=== PATIENT | male | born 1950 | race Caucasian/White ===

== ENCOUNTER 2024-10-26 14:21 | Emergency (ER) | payer MEDICARE, MEDICAID, SELFPAY ==
[2024-10-26] VITALS (8 sets, daily range): BP systolic 104–178; BP diastolic 47–79; PULSE 73–79; RESP 12–20; TEMP 36.3–36.9; O2SAT 94–99; BMI 25.0
--- NOTE | 2024-10-26 14:48 | PD.EDRECHK ---
ED Recheck Abnl Lab Rx-RME/HPI General Chief Complaint: Recheck/Abnormal Lab/Rx Stated Complaint: HGB 6.6 Time Seen by Provider: 10/26/24 14:27 Arrival date/time: 10/26/24 14:21 RME / HPI RME / HPI narrative: 74-year-old male patient with significant history of hypertension end-stage renal disease, on hemodialysis MWF, was sent to us from hemodialysis today for hemoglobin of 6.6. Patient told me that he is needing blood transfusion. He had a blood transfusion in the past. Currently denying vomiting blood or blood in the stool or changes to color of the stool. Denies any complaints also patient is ambulatory. Related Data Home Medications ?Medication ?Instructions ?Recorded ?Confirmed HYDROCODONE BIT/ACETAMINOPHEN 1 tab PO Q6HR ##0 07/04/14 04/18/23 (HYDROCODON-ACETAMINOPH 2.5-325) Levothyroxine * (SYNTHROID *) 75 mcg PO QDAY #0 tabs 07/04/14 04/18/23 pantoprazole 40 mg tablet,delayed 40 mg PO QDAY ##0 07/04/14 04/18/23 release (Protonix) zolpidem 10 mg tablet (Ambien) 10 mg PO HS #0 tabs 07/04/14 04/18/23 duloxetine 60 mg capsule,delayed 80 mg PO QDAY #0 caps 03/22/15 04/18/23 release (Cymbalta) gabapentin 300 mg capsule 400 mg PO TID #0 caps 12/14/16 04/18/23 hydrocodone 5 mg-acetaminophen 325 1 tab PO Q6H PRN Pain 04/18/23 04/18/23 mg tablet sevelamer carbonate 800 mg tablet 800 mg PO TID 04/18/23 04/18/23 (Renvela) Allergies Allergy/AdvReac Type Severity Reaction Status Date / Time No Known Allergies Allergy Verified 04/18/23 11:50 Review of Systems Review of Systems Narrative Review of Systems: Review of system reviewed and within normal limits except mentioned in HPI ED Exam Narrative Physical exam: VITAL SIGNS: Reviewed. GENERAL APPEARANCE: Alert and interactive, follows commands, no acute distress, HEAD AND FACE: Non-traumatic. ENT: PERRL, pale conjunctiva, eyelid no trauma, Mucous membrane moist. NECK: Supple, nontender, no nuchal rigidity. CHEST: No tenderness, no crepitus, no paradoxical movement, no retractions. LUNGS: Clear, well ventilated, symmetric, no rales, no wheezing, no ronchi, no stridor, good breath sounds bilaterally. HEART: Regular rate, regular rhythm, no murmur, no gallops. ABDOMEN: Soft, positive bowel sounds, nondistended, no guarding, nontender, no rebound, no masses, RECTAL: Deferred. GENITAL: Deferred. NEUROLOGICAL: Gross motor function intact sensory function intact, Appropriate for age. MUSCULOSKELETAL: low back nontender, full range of motion. EXTREMITIES: Left forearm AV fistula with thrill, nontender, full range of motion. SKIN: Color pale, dry, no rash, no lacerations, no abrasions, no contusions. LYMPHATICS: Deferred. Course Quality Measures none Orders Category Date Time Status Transfuse,blood/blood products ONCE Care 10/26/24 14:47 Active CBC [CBC] Stat Lab 10/26/24 15:00 Completed CMP [Comprehensive Metabolic Panel] Stat Lab 10/26/24 15:00 Completed PTT [Partial Thromboplastin Time] Stat Lab 10/26/24 15:00 Completed Path Review Blood Smear Stat Lab 10/26/24 15:00 Completed Type and Screen Stat Lab 10/26/24 15:00 Completed prbc [Red Blood Cells] Stat Lab 10/26/24 15:00 Completed Vital Signs Vital signs: Vital Signs Temperature 98.0 F 10/26/24 14:40 Pulse Rate 76 10/26/24 14:40 Respiratory Rate 18 10/26/24 14:40 Blood Pressure 104/47 L 10/26/24 14:40 Pulse Oximetry (%) 95 10/26/24 14:40 Oxygen Delivery Method Room Air 10/26/24 14:40 Recheck / Abnormal Lab / Rx MDM Narrative MDM Narrative:: 74-year-old male patient with significant history of hypertension end-stage renal disease, on hemodialysis MWF, was sent to us from hemodialysis today for hemoglobin of 6.6. Patient told me that he is needing blood transfusion. He had a blood transfusion in the past. Currently denying vomiting blood or blood in the stool or changes to color of the stool. Denies any complaints also patient is ambulatory. Patient's hemoglobin today was noted to be 6.7, hematocrit of 21. Normal creatinine 2.9 potassium is normal Received 2 units of packed RBC in the emergency room. Patient tolerated the procedure well . Patient appears nontoxic and hemodynamically stable. Patient discharged home and instructed to follow-up with primary care provider in 24 to 48 hours. Instructed to return to the emergency department immediately if worsening of symptoms Patient data External records reviewed:: None Clinical information provided by:: patient Social determinants that could affect healthcare access:: none Patient has the following chronic illnesses:: ESRD How is presenting disease/condition affected by chronic disease/condition?: exacerbated by Evaluation data The following diagnostics were reviewed and interpreted by me:: lab results Lab and/or radiology exams considered but not ordered:: None Interpretation Summary: See results in MDM Medications / Prescriptions Medications or Prescriptions considered but not ordered:: None Medication administrations:: None Consultations Consultation(s) initiated? (list below): No Diagnosis Recheck Differential Diagnosis: other (Iron deficiency anemia, anemia of chronic disease, ESRD) Most likely diagnosis given after review of the tests above:: Anemia of chronic disease Admission Indicated Admission indicated?: not indicated Admission Request Was there a request for admission?: No Disposition Plan Disposition Plan: Discharge Discharge Attestation Discharge Attestation: The patient was given an opportunity to ask questions and understood the discharge instructions. Discharge instructions specifically effects, indications for sooner follow up or return to the emergency department, and the expected course of current diagnosis. Patient condition: Stable Discharge Plan Plan Patient Disposition: HOME (Self Care) Disposition Comment: Stable Prescriptions/Referrals Prescriptions/Med Rec: No Action pantoprazole [Protonix] 40 MG tablet,delayed release (DR/EC) 40 mg PO QDAY Qty: 0 Patient Comments: TO SUPPRESS GASTRIC SECRETIONS zolpidem [Ambien] 10 MG tablet 10 mg PO HS Qty: 0 HYDROCODONE BIT/ACETAMINOPHEN (HYDROCODON-ACETAMINOPH 2.5-325) 1 EACH tablet 1 tab PO Q6HR Qty: 0 Levothyroxine * (SYNTHROID *) 75 MCG tablet 75 mcg PO QDAY Qty: 0 duloxetine [Cymbalta] 60 MG capsule,delayed release(DR/EC) 80 mg PO QDAY Qty: 0 gabapentin 300 MG capsule 400 mg PO TID Qty: 0 hydrocodone-acetaminophen 5-325 mg Tablet 1 tab PO Q6H PRN (Reason: Pain) sevelamer carbonate [Renvela] 800 mg Tablet 800 mg PO TID Rx Instructions: must administer with a meal/food Referrals: Wendy Yin PA-C [Primary Care Provider] - In 1 week Problem List Clinical Impression: Anemia, ESRD on dialysis Patient/Caregiver Discharge Instructions Discharge Activity: activity as tolerated Education Materials: Anemia Additional Instructions: Thank you for the opportunity for serving you today. You are stable for discharged . You are advised to: Follow-up with your PCP in 1 to 2 days Return to ED for worsening of symptoms Print Language: Eritrean Stand Alone Forms: Dennise Award Info., Patient Portal Info Letter PA/TRANSCRIBING OPERATOR HEAD Supervising Physician PA/TRANSCRIBING OPERATOR HEAD Supervising Physician: MD Allen
[2024-10-26 15:09] LABS: Basophils % (Auto) 1 % (0-2.5); Eosinophils # (Auto) 0.2 Thou/mm3 (0.0-0.5); Eosinophils % (Auto) 7 % (0-10); Immature Granulocytes % (Auto) 0 % (0-0); Lymphocytes # (Auto) 0.7 Thou/mm3 (1.0-4.8); Lymphocytes % (Auto) 25 % (10-50); Mean Corpuscular HGB Conc 31.9 g/dl (31.0-37.0); Mean Corpuscular Volume 116 fL (80-100); Monocytes # (Auto) 0.4 Thou/mm3 (0.0-0.8); Monocytes % (Auto) 16 % (0-12); Neutrophils # (Auto) 1.4 Thou/mm3 (1.8-7.7); Neutrophils % (Auto) 52 % (37-80); Nucleated Red Blood Cell % 0 /100 WBC (0); Platelet Count 156 Thou/mm3 (140-440); RDW Standard Deviation 77.6 fL (35.1-43.9); Red Blood Count 1.81 Miln/mm3 (4.50-5.90)
[2024-10-26 15:14] LABS: Hemoglobin 6.7 g/dL (13.5-16.0); White Blood Count 2.7 Thou/mm3 (3.8-10.6)
[2024-10-26 15:20] LABS: Partial Thromboplastin Time 27.6 Seconds (22.0-36.0)
[2024-10-26 15:25] LABS: Alanine Aminotransferase 8 U/L (10-49); Albumin, Serum 4.2 gm/dL (3.4-4.8); Alkaline Phosphatase 104 U/L (46-116); Anion Gap 12 (7-16); Aspartate Amino Transferase 13 U/L (0-34); BUN/Creatinine Ratio 4 Ratio (12-20); Bilirubin,Total 0.4 mg/dL (0.3-1.2); Blood Urea Nitrogen 13 mg/dL (9-23); Calcium 8.8 mg/dL (8.3-10.6); Calcium (Corrected) 8.8 mg/dL (8.5-10.1); Carbon Dioxide 29.2 mMol/L (20.0-31.0); Chloride 95 mMol/L (98-107); Creatinine (Component) 2.9 mg/dL (0.6-1.3); Estimated Creatinine Clearance 24.2 mL/min (>60); Globulin 2.1 gm/dL (2.3-3.5); Glucose 149 mg/dL (74-106); Osmolality,Calculated 275 (275-295); Potassium 3.6 mMol/L (3.4-5.1); Sodium 136 mMol/L (136-145); Total Protein 6.3 gm/dL (5.7-8.2); eGFR 22 See Note
[2024-10-26 17:31] LABS: Path Review Blood Smear Sent to Pathologist
== END 2024-10-26 23:47 | disposition home or self-care (01) ==
PROVIDERS: Nurse Practitioner Family; Emergency Provider Emergency Medicine; PCP Physician Assistant
DX: I12.0 Hypertensive chronic kidney disease with stage 5 chronic kidney disease or end stage renal disease (principal); N18.6 End stage renal disease; Z99.2 Dependence on renal dialysis; D63.1 Anemia in chronic kidney disease
CPT/HCPCS: 36415; 36430; 80053; 85025; 85730; 86850; 86900; 86901; 86923; 99285; P9016

== ENCOUNTER → 2024-11-13 | Outpatient (CLI) | payer MEDICARE, MEDICAID, SELFPAY ==
[2024-11-13 16:50] LABS: OBS Card Expiration Date 2026-09; OBS Card Lot # 23001; OBS Performed By LAB; OBS QC OK? Yes
[2024-11-13 18:59] LABS: OBS Developer Lot # 2302; Occult Blood, Stool Negative (Negative); Occult Blood, Stool #2 Negative (Negative); Occult Blood, Stool #3 Negative (Negative)
== END | disposition home or self-care (01) ==
LOC: SLDO 16:25
PROVIDERS: PCP Physician Assistant; Referring Provider Physician Assistant; Visit Provider Physician Assistant
DX: D64.9 Anemia, unspecified (principal)
CPT/HCPCS: 82270

== ENCOUNTER 2024-11-20 14:50 | Inpatient (IN) | payer MEDICARE, MEDICAID, SELFPAY ==
[2024-11-20] VITALS (12 sets, daily range): BP systolic 113–178; BP diastolic 56–82; PULSE 74–87; RESP 18–21; TEMP 36.4–36.7; O2SAT 87–94; BMI 25.0; BMI 28.1
--- NOTE | 2024-11-20 15:06 | EKG_ITS ---
[facility] Test Date: 2024-11-20 Pat Name: JEROMY LYNCH Department: Room: - Gender: Male Vice President Pharmacy: : [id number] Requested By: Jeromy Escalante (AYESHA) Order Number: [id number] Reading MD: Jeromy Escalante (AYESHA) Measurements Intervals [place] Rate: 81 P: 38 ID: [id number] QRS: -3 QRSD: 101 T: 95 QT: 435 QTc: 506 Interpretive Statements SINUS RHYTHM LEFT VENTRICULAR HYPERTROPHY AND ST-T CHANGE [VOLTAGE CRITERIA PLUS ST/T ABNORMALITY] Compared to ECG 04/19/2023 09:15:46 ST (T wave) deviation now present Ventricular premature complex(es) no longer present Intraventricular conduction delay no longer present Prolonged QT interval no longer present /store/S0/[id number]/ecg/[id number].pdf
--- NOTE | 2024-11-20 15:06 | PD.EDRME ---
Rapid Medical Screening Exam RME Arrival date/time: 11/20/24 14:50 74-year-old male ESRD on dialysis presents to the emergency department today complaints of shortness of breath, chest pain and requesting blood transfusion Chief Complaint: Recheck/Abnormal Lab/Rx Time Seen by Provider: 11/20/24 15:00
--- NOTE | 2024-11-20 15:07 | XR_ITS ---
Exam: Chest PA, lateral 2 views Technique: Chest upright PA lateral 2 views Date and time of exam: 11/20/2024, 4:15 PM Indication: shortness of breath COMPARISON: 04/14/2023 Findings: Stable postoperative changes of median sternotomy. Chronic interstitial fibrotic changes. Heart size is normal. No focal mass or infiltrate. Atherosclerotic calcifications in the aorta. No acute bony abnormality. Impression: Chronic changes as above. No acute abnormality.
--- NOTE | 2024-11-20 15:35 | PD.EDADULT ---
ED General RME/HPI General Chief complaint: Recheck/Abnormal Lab/Rx Stated complaint: Referred by PC for Blood transfusion Hbg 6.5 Time Seen by Provider: 11/20/24 15:00 Arrival date/time: 11/20/24 14:50 CC: Anemia HPI patient was contacted by his dialysis center and stated that there his hemoglobin was 6.5. The patient states he has mild weakness but no other acute findings. Patient was curious as he was transfused for 2 units on October 26, approximately 1 month ago, for hemoglobin of the same amount. Patient denies any black tarry stools. Patient states he has been going to regular dialysis Tuesday and Tuesday Dr Little is his printed circuit board designer. Patient denies any chest pain shortness of breath fever chills nausea or vomiting. Patient notes that prior to last month he had not had a transfusion in 6 or 7 years . Patient has no other complaints RME / HPI RME / HPI narrative: 11/20/24 14:50 74-year-old male ESRD on dialysis presents to the emergency department today complaints of shortness of breath, chest pain and requesting blood transfusion Related Data Home Medications ?Medication ?Instructions ?Recorded ?Confirmed HYDROCODONE BIT/ACETAMINOPHEN 1 tab PO Q6HR ##0 07/04/14 04/18/23 (HYDROCODON-ACETAMINOPH 2.5-325) Levothyroxine * (SYNTHROID *) 75 mcg PO QDAY #0 tabs 07/04/14 04/18/23 pantoprazole 40 mg tablet,delayed 40 mg PO QDAY ##0 07/04/14 04/18/23 release (Protonix) zolpidem 10 mg tablet (Ambien) 10 mg PO HS #0 tabs 07/04/14 04/18/23 duloxetine 60 mg capsule,delayed 80 mg PO QDAY #0 caps 03/22/15 04/18/23 release (Cymbalta) gabapentin 300 mg capsule 400 mg PO TID #0 caps 12/14/16 04/18/23 hydrocodone 5 mg-acetaminophen 325 1 tab PO Q6H PRN Pain 04/18/23 04/18/23 mg tablet sevelamer carbonate 800 mg tablet 800 mg PO TID 04/18/23 04/18/23 (Renvela) Allergies Allergy/AdvReac Type Severity Reaction Status Date / Time No Known Allergies Allergy Verified 04/18/23 11:50 Review of Systems Review of Systems Narrative Review of Systems: GEN: No fever, no chills, no weight loss EYES: No discharge, no visual changes, no pain HEENT: No ear pain, no congestion, no sore throat PULM: No shortness of breath, no cough, no congestion CV: No chest pain, no dyspnea on exertion, no palpitations GI: No nausea, no vomiting, no diarrhea, no pain, no constipation : No frequency, no urgency, no dysuria MUSC/SKEL: No joint pain, no back pain SKIN: No rash PSYCH: No hallucinations, no depression HEME/LYMPH: No easy bleeding or bruising tendencies NEURO: +weakness, no headache Past Medical History Past Medical History NEUROLOGIC: Negative Neurological Disorders or Seizures CARDIAC: Positive Cardiac Disorders (CAD, HTN), Angina, Coronary Artery Disease, Hypercholesterolemia and Hypertension; Negative Congestive Heart Failure RESPIRATORY: Negative Chronic Obstructive Pulmonary Disease (COPD) or Asthma GASTROINTESTINAL: Positive Gastrointestinal Disorders and Gastroesophageal Reflux Disease GENITOURINARY: Positive Genitourinary Disorders, Renal Disease and Dialysis (tue, tue, tuesday) MUSCULOSKELETAL: Positive Musculoskeletal Disorders, Arthritis and Degenerative Disk Disease ENT: Positive Cataracts and Deafness; Negative Blind ENDOCRINE: Positive Hypothyroidism; Negative Endocrine Disorders, Diabetes Mellitus Type 1 or Diabetes Mellitus Type 2 HEMATOLOGIC: Positive Blood Disorders and Anemia; Negative Sickle Cell Disease OTHER HISTORY: Positive Blood Transfusions and Measles; Negative Autoimmune Disease or Anesthesia Reactions Family History FAMILY HISTORY: Negative Family Psychiatric Problems, Family Respiratory Disorders, Family Cardiac Disorders, Family Gastrointestinal Problems, Family Cancer, Family Surgery or Family Anesthesia Reaction Surgical History SURGICAL: Positive Cardiac Surgery, Open Heart Surgery, Coronary Artery Bypass Graft, Cardiac Catheterization and Angiogram Social History SMOKING STATUS: Never smoker ED Exam Narrative Physical exam: [General: Not in any acute distress Head normocephalic HEENT: Eyes: Pupils are PERRLA EOMs are intact conjunctiva is blanched. All other subsystems of HEENT are within acceptable limits Neck is supple nontender Chest equal chest rise nontender to palpation Respiratory: Clear to auscultation no wheezes crackles or rubs CV: Rate rhythm is regular no murmurs rubs or clicks Abdomen is soft nontender no masses positive bowel sounds all 4 quadrants Back: No CVA tenderness no spinous process tenderness from cervical spine thoracic and lumbar spine Skin: Intact no petechiae rash induration ulceration or crepitus Extremities: Dialysis fistula in the left arm. Moving all extremity against resistance cap refill less than 2 seconds neurosensory intact Neuro: Awake alert oriented x3 Glascow coma 15 no focal deficits] Course Quality Measures none Orders Category Date Time Status EKG (ED ONLY) *Do not use* NOW Care 11/20/24 15:06 Completed Insert IV NOW Care 11/20/24 15:01 Active Transfuse,blood/blood products NOW Care 11/20/24 16:[address] abdomen pelvis wo con Stat Exams 11/20/24 15:39 Completed EKG (ED Only) Stat Exams 11/20/24 15:06 Draft XR chest 2V Stat Exams 11/20/24 15:07 Completed CBC Stat Lab 11/20/24 15:25 Completed Comprehensive Metabolic Panel Stat Lab 11/20/24 15:25 Completed Partial Thromboplastin Time Stat Lab 11/20/24 15:25 Completed Prothrombin Time with INR Stat Lab 11/20/24 15:25 Completed Troponin I Stat Lab 11/20/24 15:25 Completed Type and Screen Stat Lab 11/20/24 15:25 Results prbc [Red Blood Cells] Stat Lab 11/20/24 15:25 Results Vital Signs Vital signs: Vital Signs Temperature 97.6 F 11/20/24 15:06 Pulse Rate 86 11/20/24 15:06 Respiratory Rate 18 11/20/24 15:06 Blood Pressure 113/56 L 11/20/24 15:06 Pulse Oximetry (%) 92 L 11/20/24 15:06 Oxygen Delivery Method Room Air 11/20/24 15:06 [facility] Patient data External records reviewed:: [facility] previous records Clinical information provided by:: patient Social determinants that could affect healthcare access:: none Patient has the following chronic illnesses:: ESRD dialysis hypothyroidism How is presenting disease/condition affected by chronic disease/condition?: uneffected by Evaluation data The following diagnostics were reviewed and interpreted by me:: lab results and radiology exam(s) Lab and/or radiology exams considered but not ordered:: EKG performed at 1545 shows a ventricular rate of 79 MI interval 196 QRS of 102 QTc of 485 sinus rhythm CBC shows leukopenia with anemia hemoglobin at 6.6 hematocrit of 20.6 platelets at 148 Coags within acceptable limits Sodium is 141 potassium of 4.4 chloride of 102 carbon oxide of 27.4 gap of 12 BUN of 30 creatinine 5.2 glucose of 111. No transaminitis or T. bili elevation. Troponin is negative CT shows a mildly thickened gallbladder wall, but no other acute finding requires emergent or immediate intervention. Interpretation Summary: Patient's case has raised him issues as he has had a second transfusion in 30 days secondary to dropping hemoglobin. Review of his medical records show that he had a colonoscopy performed in March 2023 that showed a necrotic mass in the rectum that insufficient sample and on the pathology report it was recommended for repeat biopsy this was never performed. Patient's case clinical presentation laboratory results and imaging discussed with Dr. Deluca who agrees to consult on this patient for admission for emergent colonoscopy secondary to the accelerated anemia. Patient is in agreement with this plan. Discussed the case with Dr. Little, the printed circuit board designer, who agrees to arrange in-house dialysis tomorrow. Medications Medications considered but not ordered:: None Medication administrations:: None Consultations Consultation(s) initiated? (list below): No Diagnosis Differential Diagnosis ED Complaint MDM: Upper GI bleed, lower GI bleed, idiopathic anemia Most likely diagnosis given after review of the tests above:: Anemia ESRD Admission Indicated Admission indicated?: indicated Explain why admission is indicated or not indicated:: Further medical management Admission Request Was there a request for admission?: No Disposition Plan Disposition Plan: Admit Medical Decision Making Differential Diagnosis Differential Diagnosis: Upper GI bleed, lower GI bleed, idiopathic anemia Lab Data 11/20/24 15:25 11/20/24 15:25 Labs: Lab Results 11/20/24 Range/Units 15:25 WBC 2.2 L (3.8-10.6) Thou/mm3 RBC 1.85 L* (4.50-5.90) Miln/mm3 Hgb 6.6 L* (13.5-16.0) g/dL Hct 20.6 L* (41.0-53.0) % MCV 111 H (80-100) fL MCH 35.7 H (25.0-35.0) pg MCHC 32.0 (31.0-37.0) g/dl RDW Std Deviation 90.9 H (35.1-43.9) fL Plt Count 148 (140-440) Thou/mm3 Neut % (Auto) 44 (37-80) % Lymph % (Auto) 30 (10-50) % Real % (Auto) 18 H (0-12) % Eos % (Auto) 8 (0-10) % Baso % (Auto) 1 (0-2.5) % Neut # (Auto) 1.0 L (1.8-7.7) Thou/mm3 Lymph # (Auto) 0.7 L (1.0-4.8) Thou/mm3 Real # (Auto) 0.4 (0.0-0.8) Thou/mm3 Eos # (Auto) 0.2 (0.0-0.5) Thou/mm3 Baso # (Auto) 0.0 (0.0-0.2) Thou/mm3 Immature Gran # (Auto) 0.00 (0.00-0.00) Thou/mm3 Absolute Nucleated RBC 0.00 (0.00-0.00) Thou/mm3 Immature Gran % 0 (0-0) % Nucleated RBC % 0 (0) /100 WBC PT 11.4 (9.0-12.2) Seconds INR 1.0 (0.9-1.3) APTT 27.6 (22.0-36.0) Seconds Sodium 141 (136-145) mMol/L Potassium 4.4 (3.4-5.1) mMol/L Chloride 102 (98-107) mMol/L Carbon Dioxide 27.4 (20.0-31.0) mMol/L Anion Gap 12 (7-16) BUN 30 H (9-23) mg/dL Creatinine 5.2 H* (0.6-1.3) mg/dL Estim Creat Clear Calc 11.9 L (>60) mL/min eGFR 11 L* (60 - ) See Note BUN/Creatinine Ratio 6 L (12-20) Ratio Glucose 111 H (74-106) mg/dL Calculated Osmolality 288 (275-295) Calcium 9.5 (8.3-10.6) mg/dL Corrected Calcium 9.6 (8.5-10.1) mg/dL Total Bilirubin 0.3 (0.3-1.2) mg/dL AST 12 (0-34) U/L ALT 8 L (10-49) U/L Alkaline Phosphatase 103 (46-116) U/L Troponin I < 0.020 (0.0-0.045) ng/mL Total Protein 6.0 (5.7-8.2) gm/dL Albumin 3.9 (3.4-4.8) gm/dL Globulin 2.1 L (2.3-3.5) gm/dL Albumin/Globulin Ratio 1.9 (1.2-2.2) Crossmatch See Detail Blood Bank Wristband ID Yes Discharge Plan Plan Patient Disposition: Other Care w/in Hosp ([facility]) Patient condition on transfer: Stable Prescriptions/Referrals Prescriptions/Med Rec: No Action pantoprazole [Protonix] 40 MG tablet,delayed release (DR/EC) 40 mg PO QDAY Qty: 0 Patient Comments: TO SUPPRESS GASTRIC SECRETIONS zolpidem [Ambien] 10 MG tablet 10 mg PO HS Qty: 0 HYDROCODONE BIT/ACETAMINOPHEN (HYDROCODON-ACETAMINOPH 2.5-325) 1 EACH tablet 1 tab PO Q6HR Qty: 0 Levothyroxine * (SYNTHROID *) 75 MCG tablet 75 mcg PO QDAY Qty: 0 duloxetine [Cymbalta] 60 MG capsule,delayed release(DR/EC) 80 mg PO QDAY Qty: 0 gabapentin 300 MG capsule 400 mg PO TID Qty: 0 hydrocodone-acetaminophen 5-325 mg Tablet 1 tab PO Q6H PRN (Reason: Pain) sevelamer carbonate [Renvela] 800 mg Tablet 800 mg PO TID Rx Instructions: must administer with a meal/food Problem List Clinical Impression: End-stage renal disease (ESRD), Anemia Patient/Caregiver Discharge Instructions Print Language: Slovenian Stand Alone Forms: Work/School Release, Dennise Award Info., Patient Portal Info Letter PA/TUCKER Supervising Physician GIGI/GLASS LAMINATING OPERATOR Supervising Physician: Wellington Reno ENP
--- NOTE | 2024-11-20 15:39 | XR_ITS ---
Examination: CT abdomen and pelvis without contrast. Coronal 3-D reconstructions. Sagittal 2-D reconstructions. Date and time of exam:11/20/2024, 4:00 PM INDICATION: Anemia CTDI: vol (mGy): 8.59 DLP: (mGycm): 537 Technique: Axial images of the abdomen have been obtained, 3 mm slice thickness Intravenous contrast material has not been administered. Low dose protocols were performed. One or more of the following dose reduction techniques were used; automated exposure control, adjustment of the mA and/or KV according to patient size, use of iterative reconstruction technique. Findings: Small left pleural effusion versus effusion with associated basilar atelectasis. Stable subcentimeter gallstone. No evidence of gallbladder wall thickening or pericholecystic fluid. Liver and spleen are unremarkable. Atrophy of the pancreas. Bilateral renal atrophy with stable subcentimeter benign renal cysts. Stable nonobstructing 5 mm right renal calculus. No evidence of free fluid or abdominal masses. Visualized GI tract is unremarkable. Diffuse irregular thickening of the bladder wall to 10 mm in thickness. Bilateral inguinal hernias. Diffuse atherosclerotic calcifications in the aorta. Degenerative changes in the spine. No acute bony abnormality. Enlarged prostate with calcifications Impression Thickening gallbladder wall to 10 mm. Differential diagnosis includes neoplasm versus infection. Direct visualization is recommended.
[2024-11-20 15:48] LABS: Basophils % (Auto) 1 % (0-2.5); Eosinophils # (Auto) 0.2 Thou/mm3 (0.0-0.5); Eosinophils % (Auto) 8 % (0-10); Hematocrit 20.6 % (41.0-53.0); Immature Granulocytes % (Auto) 0 % (0-0); Lymphocytes # (Auto) 0.7 Thou/mm3 (1.0-4.8); Lymphocytes % (Auto) 30 % (10-50); Mean Corpuscular Hemoglobin 35.7 pg (25.0-35.0); Mean Corpuscular Volume 111 fL (80-100); Monocytes # (Auto) 0.4 Thou/mm3 (0.0-0.8); Monocytes % (Auto) 18 % (0-12); Neutrophils % (Auto) 44 % (37-80); Nucleated Red Blood Cell % 0 /100 WBC (0); Platelet Count 148 Thou/mm3 (140-440); RDW Standard Deviation 90.9 fL (35.1-43.9); Red Blood Count 1.85 Miln/mm3 (4.50-5.90)
[2024-11-20 16:04] LABS: White Blood Count 2.2 Thou/mm3 (3.8-10.6)
[2024-11-20 16:06] LABS: Hemoglobin 6.6 g/dL (13.5-16.0)
[2024-11-20 16:09] LABS: Partial Thromboplastin Time 27.6 Seconds (22.0-36.0); Prothrombin Time 11.4 Seconds (9.0-12.2)
[2024-11-20 16:13] LABS: Alanine Aminotransferase 8 U/L (10-49); Albumin, Serum 3.9 gm/dL (3.4-4.8); Albumin/Globulin Ratio 1.9 (1.2-2.2); Alkaline Phosphatase 103 U/L (46-116); Anion Gap 12 (7-16); Aspartate Amino Transferase 12 U/L (0-34); BUN/Creatinine Ratio 6 Ratio (12-20); Bilirubin,Total 0.3 mg/dL (0.3-1.2); Blood Urea Nitrogen 30 mg/dL (9-23); Calcium 9.5 mg/dL (8.3-10.6); Calcium (Corrected) 9.6 mg/dL (8.5-10.1); Carbon Dioxide 27.4 mMol/L (20.0-31.0); Chloride 102 mMol/L (98-107); Creatinine (Component) 5.2 mg/dL (0.6-1.3); Estimated Creatinine Clearance 11.9 mL/min (>60); Globulin 2.1 gm/dL (2.3-3.5); Glucose 111 mg/dL (74-106); Osmolality,Calculated 288 (275-295); Potassium 4.4 mMol/L (3.4-5.1); Sodium 141 mMol/L (136-145); Troponin I < 0.020 ng/mL (0.0-0.045); eGFR 11 See Note
--- NOTE | 2024-11-20 18:00 | ESHP_ITS ---
<Statement entered by Kristen Simmons MD - 11/21/24 14:07> I discussed with and supervised my co-resident involved in the care of this patient. I agree with the assessment and plan as documented above. Patient is a 74 year old male with PMH of abnormal colonoscopy in 2022, HTN, CAD s/p CABg, ESRD on HD who presents to the ER for low hemoglobin from dialysis. Patient asymptomatic, Hb low at 6.6. He was seen earlier this month in the ER for similar problem and was transfused. He denies any olena hematochezia or melena. Colonoscopy in 2022 was done for a rectal mass with inconclusive results, but patient left and never followed up. On physical exam, patient has some bruising on RUE from working on his car. Rectal exam without any protrudting mass. Labs show pancytopenia. GI was called by the ER and recommended EGD/colonoscopy. Patient to be admitted for acute blood loss anemia in the setting of abnormal previous colonoscopy. Will follow up post H/H transfusion and follow up with GI for EGD/colonoscopy. Will also get peripheral blood smear and iron/hemoglobin studies prior to blood transfusion for pancytopenia workup. Kristen Simmons MD PGY-3 Documentation for date of: 11/20/24 HPI History of Present Illness Chief complaint: Fatigue and low hemoglobin History of present illness: 74-year-old male with past medical history of abnormal colonoscopy 2 years ago, CAD status post CABG, hypertension, ESRD HD on M/W/, TIA, GERD, and hypothyroidism was admitted to the hospital on 11/20/2024 after coming to the ED with chief complaints of low hemoglobin upon lab work at his hemodialysis center. Upon assessment patient stated that he was told that he had a low hemoglobin today by his hemodialysis center and he was recommended to come to the ED. Patient stated that he he has been having some low energy as of recently and most likely was due to a low hemoglobin. He was recently also seen in the hospital last month due to similar symptoms. He denies having any bleeding from the rectum, bloody stools, blood in the urine, or bloody emesis. Patient also denies having any abdominal pain and states that his only symptom was feeling a little bit low energy as of recently. Patient stated that he did have a colonoscopy around 2 years ago where he was found to have an abnormal colonoscopy in which they found a mass, but he never followed up on this. He mentioned that this year he had some stool studies done and that they were negative, upon chart review have not found these results. 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 He denies any family history of colon cancer. It was also noted that patient had low leukocyte count since last visit. ED course Initially came in mildly hypotensive and afebrile. Initial labs were relevant for leukopenia (2.2), anemia (Hgb 6.6), and azotemia (BUN 30 and creatinine 5.2). Initial imaging included chest x-ray which showed some chronic fibrotic changes and abdomen/pelvis CT which showed thickening of the gallbladder wall to 10 mm, but no signs of colitis or diverticulitis. PMH: As above Social Hx: Past smoker (1 pack a day for 12.5 years), denies any alcohol or illicit drugs Surgical Hx: CABG, AV fistula, peritoneal dialysis, appendectomy FMH: No history of cancer in the family Medications: Levothyroxine and pantoprazole, does not remember other medications. Review of Systems Review of Systems Narrative Review of Systems: Constitutional: Denies sweats, Denies weight loss/gain, Denies fever, Denies chills, Admits fatigue HEENT: Denies hearing loss, Denies ear pain, Denies postnasal drip, Denies double vision, Denies blurry vision. Respiratory: Denies shortness of breath, Denies cough, Denies wheezing. Cardiovascular: Denies chest pain, Denies palpitations, Denies sudden loss of consciousness. GI: Denies blood in stool, Denies constipation, Denies abdominal pain, Denies difficulty swallowing, Denies nausea or vomit. : Denies urinary incontinence, Denies pain while urinating, Denies increased urinary frequency. MSK: Denies joint pain, Denies joint swelling, Denies numbness. Skin: Denies rash, Denies itching, Denies easy bruising. Neuro: Denies headaches, Denies dizziness, Denies seizures. Past Medical History Past Medical History NEUROLOGIC: Negative Neurological Disorders or Seizures CARDIAC: Positive Cardiac Disorders (CAD, HTN), Angina, Coronary Artery Disease, Hypercholesterolemia and Hypertension; Negative Congestive Heart Failure RESPIRATORY: Negative Chronic Obstructive Pulmonary Disease (COPD) or Asthma GASTROINTESTINAL: Positive Gastrointestinal Disorders and Gastroesophageal Reflux Disease GENITOURINARY: Positive Genitourinary Disorders, Renal Disease and Dialysis (tue, tue, tuesday) MUSCULOSKELETAL: Positive Musculoskeletal Disorders, Arthritis and Degenerative Disk Disease ENT: Positive Cataracts and Deafness; Negative Blind ENDOCRINE: Positive Hypothyroidism; Negative Endocrine Disorders, Diabetes Mellitus Type 1 or Diabetes Mellitus Type 2 HEMATOLOGIC: Positive Blood Disorders and Anemia; Negative Sickle Cell Disease OTHER HISTORY: Positive Blood Transfusions and Measles; Negative Autoimmune Disease or Anesthesia Reactions Family History FAMILY HISTORY: Negative Family Psychiatric Problems, Family Respiratory Disorders, Family Cardiac Disorders, Family Gastrointestinal Problems, Family Cancer, Family Surgery or Family Anesthesia Reaction Surgical History SURGICAL: Positive Cardiac Surgery, Open Heart Surgery, Coronary Artery Bypass Graft, Cardiac Catheterization and Angiogram Social History SMOKING STATUS: Never smoker Exam Vital Signs Temp Pulse Resp BP Pulse Ox O2 Del Method 97.6 F 86 18 113/56 L 92 L Room Air 11/20/24 15:06 11/20/24 15:06 11/20/24 15:06 11/20/24 15:06 11/20/24 15:11/20/24 15:06 Narrative Exam General: A/O x3, no acute distress, well-nourished, well-developed Eyes: PERRL, EOMI. Anicteric, vision grossly intact, conjunctival pallor. Ears: No ear pain, no ear discharge, Hearing grossly intact. Nose: No nasal discharge. Mouth/Throat: Moist mucous membranes, no redness, no lesions. Neck: Neck supple, non-tender, no cervical lymphadenopathy. Lungs: Clear YARIEL to auscultation and percussion, No accessory muscle use. Cardio: Normal S1/S2, regular rhythm, systolic murmur, no JVD or carotid bruits. Abdomen: Soft, non-tender, no palpable masses, peristalsis present, no guarding or rebound. Extremities: Symmetrical, no significant deformities, no peripheral edema , non-tender, peripheral pulses presents. Skin: No rashes, no lesions, warm to touch. Rectal: no mass appreciated Neuro: No focal neurological deficits. Psych: Cooperative, appropriate mood and effect. Results: Labs 11/20/24 15:25 11/20/24 15:25 Labs: Short CBC 11/20/24 Range/Units 15: WBC 2.2 L (3.8-10.6) Thou/mm3 Hgb 6.6 L* (13.5-16.0) g/dL Hct 20.6 L* (41.0-53.0) % Plt Count 148 (140-440) Thou/mm3 BMP 11/20/24 15:25 Sodium 141 Potassium 4.4 Chloride 102 Carbon Dioxide 27.4 BUN 30 H Creatinine 5.2 H* Glucose 111 H Calcium 9.5 Cardiac Enzymes 11/20/24 Range/Units 15:25 Troponin I < 0.020 (0.0-0.045) ng/mL Liver Function 11/20/24 Range/Units 15:25 Total Bilirubin 0.3 (0.3-1.2) mg/dL AST 12 (0-34) U/L ALT 8 L (10-49) U/L Alkaline Phosphatase 103 (46-116) U/L Albumin 3.9 (3.4-4.8) gm/dL Quality Measures Quality Measures none Advance care planning discussed with:: patient Medications Home Medications and Allergies Home Medications ?Medication ?Instructions ?Recorded ?Confirmed ?Type HYDROCODONE BIT/ACETAMINOPHEN 1 tab PO Q6HR ##0 04/18/23 History (HYDROCODON-ACETAMINOPH 2.5-325) Levothyroxine * (SYNTHROID *) 75 mcg PO QDAY #0 tabs 1 04/18/23 History pantoprazole 40 mg tablet,delayed 40 mg PO QDAY ##0 04/18/23 History release (Protonix) zolpidem 10 mg tablet (Ambien) 10 mg PO HS #0 tabs 06/0904/18/23 History duloxetine 60 mg capsule,delayed 80 mg PO QDAY #0 caps 03/22/15 04/18/23 History release (Cymbalta) gabapentin 300 mg capsule 400 mg PO TID #0 caps 04/18/23 History hydrocodone 5 mg-acetaminophen 325 1 tab PO Q6H PRN Pa in 04/18/23 04/18/23 History mg tablet sevelamer carbonate 800 mg tablet 800 mg PO TID 04/18/23 History (Renvela) Allergies Allergy/AdvReac Type Severity Reaction Status Date / Time No Known Allergies Allergy Verified 04/18/23 11:50 Visit Medications Acetaminophen (Acetaminophen 325 Mg Tablet) 650 mg PO Q6H PRN PRN Reason: pain and Fever >100.4 Stop: 12/20/24 17:39 Hydrocodone Bitart/Acetaminophen (Hydrocodone/Apap 5/325 Tablet) 1 tab PO Q4HR PRN PRN Reason: PAIN SCALE 4-6 (Moderate Stop: 11/25/24 17:39 Levothyroxine Sodium (Levothyroxine Sodium 25 Mcg Tablet) 75 mcg PO ACBR RICH Stop: 12/21/24 05:59 Ondansetron HCl (Ondansetron Inj 2 Mg/Ml Inj 2 Ml) 4 mg IV Q6H PRN; Protocol PRN Reason: NAUSEA OR VOMITING Stop: 12/20/24 17:39 Pantoprazole Sodium (Pantoprazole Inj 40 Mg Vial) 40 mg IVP BID RICH Stop: 12/20/24 20:59 Discontinued Medications Polyethylene Glycol/Electrolytes ([place]/Nahco3/Mehdi/Peg (Golytely) 4,000 Ml Btl) 4,000 ml PO X1 ONE Stop: 11/20/24 17:45 Assessment & Plan Plan 74-year-old male with past medical history of abnormal colonoscopy 2 years ago, CAD status post CABG, hypertension, ESRD HD on //, TIA, GERD, and hypothyroidism was admitted to the hospital on 11/20/2024 for symptomatic anemia in the setting of possible GI bleeding given the history of abnormal colonoscopy in the past 2 years. #Symptomatic anemia #GI bleed in the setting of #Abnormal colonoscopy 2 years ago #Leukopenia #Fatigue ?Patient came in from his hemodialysis center after he was found to have low hemoglobin ? Patient has been feeling with low energy as of recently ?Patient had an abnormal colonoscopy 2 years ago but did not follow-up ? Patient came in with WBCs of 2.2 ? Probably patient leukocytes were within normal limits and most recent 1 was on 10/26/2024 which was also low at 2.7 ? DDx lower GI bleed in the setting of abnormal colonoscopy in the past 2 years which could indicate malignancy versus upper GI bleed versus myelodysplastic syndrome Plan: ?Will transfuse PRBC ? Ordered blood smear, reticulocyte count, iron panel, vitamin B-12 and folate ?repeat H&H after transfusion ?started GoLytely prep and clear liquid diet ?Protonix 40 mg twice daily ?GI specialist consulted, appreciate commendations ? Will continue to monitor #ESRD (HD on //) ? Patient is on hemodialysis Wednesdays and Fridays ? Past left AV fistula Plan: ? Avoid nephrotoxic agents ? Renally dose medications ? Nephrology consulted, appreciate commendations ? Will continue monitor #Systolic murmur #Hx of moderate aortic stenosis on echo on 2022 ? Patient on physical exam had a systolic ejection murmur ? DDx includes aortic stenosis which could also be contributing to patient's bleeding in which case would indicate patient could have Heyde syndrome Plan: ? Will order echo #Hypothyroidism ? Restarted patient's levothyroxine #CAD status post CABG ? Patient takes aspirin, will hold for now given possible bleed #Hypertension ? Patient's blood pressure is under control at this time, we will hold off on antihypertensive medication for now #GERD ? Continue Protonix Disposition: Patient admitted to [facility] for Symptomatic anemia, PRBC ordered pending colonoscopy. Diet: Clear liquid GI prophylaxis: protonix DVT prophylaxis: SCDs Code: Full code Case disclosed with Attending Dr. Cotton and My senior Dr. Simmons PGY3. Marcelino Potter PGY1
[2024-11-20 18:41] LABS: Path Review Blood Smear Sent to Pathologist
--- NOTE | 2024-11-20 19:49 | PC.NURSE ---
re med rec- Advised pt to have family bring med bottles from home in a.m.
--- NOTE | 2024-11-20 21:06 | PD.IMCONS ---
HPI Data of Consult Requesting Physician: Brayan Cotton MD Primary Care Provider: Wendy Yin PA-C Consult Narrative Reason for consult: Hemoglobin hematocrit 6.7 and 21.0 History of present illness: 74 years old male came to the emergency room at the request of the dialysis center for a low hemoglobin hematocrit And it was 6.7/21.0 Patient had a similar presentation in the last 30 days requiring blood transfusion He complains of having an abnormal colonoscopy 2 years ago but no report in the chart. He was subsequently admitted after having a discussion with the ER physician interior design assistant Patient denies any history of hematemesis melena or hematochezia Patient does have a history of end-stage renal disease on hemodialysis MWF Coronary artery bypass graft hypothyroidism cc:: cc: Brayan Cotton MD Review of Systems Review of Systems Systems Reviewed: All systems reviewed, normal except as documented Past Medical History Surgical History OTHER SURGICAL HX: As in history of present illness Meds Home Medications and Allergies Home Medications ?Medication ?Instructions ?Recorded ?Confirmed ?Type HYDROCODONE BIT/ACETAMINOPHEN 1 tab PO Q6HR ##0 07/04/14 04/18/23 History (HYDROCODON-ACETAMINOPH 2.5-325) Levothyroxine * (SYNTHROID *) 75 mcg PO QDAY #0 tabs 07/04/14 04/18/23 History pantoprazole 40 mg tablet,delayed 40 mg PO BID ##0 07/04/14 11/20/24 History release (Protonix) duloxetine 60 mg capsule,delayed 80 mg PO QDAY #0 caps 03/22/15 04/18/23 History release (Cymbalta) gabapentin 300 mg capsule 400 mg PO TID #0 caps 12/14/16 11/20/24 History hydrocodone 5 mg-acetaminophen 325 1 tab PO Q6H PRN Pain 04/18/23 04/18/23 History mg tablet sevelamer carbonate 800 mg tablet 800 mg PO TID 04/18/23 04/18/23 History (Renvela) amlodipine 10 mg tablet (Norvasc) 10 mg PO QDAY 11/20/24 11/20/24 History gabapentin 400 mg capsule 400 mg PO TID 11/20/24 11/20/24 History lidocaine 4 % topical cream 1 applic topical BID 11/20/24 11/20/24 History (Anecream) Allergies Allergy/AdvReac Type Severity Reaction Status Date / Time No Known Allergies Allergy Verified 11/20/24 19:40 Exam Vital Signs Temp Pulse Resp BP Pulse Ox O2 Del Method O2 Flow Rate 97.8 F 74 20 162/67 H 92 L Room Air 0 11/20/24 20:45 11/20/24 20:45 11/20/24 20:45 11/20/24 20:45 11/20/24 20:45 11/20/24 20:13 11/20/24 20:45 Constitutional Comments: Chronically ill-appearing Routine Respiratory Exam Comments: Normal to auscultation Routine Abdominal Exam Comments: Soft nontender Results Labs 11/20/24 15:25 11/20/24 15:25 Labs: Short CBC 11/20/24 Range/Units 15:25 WBC 2.2 L (3.8-10.6) Thou/mm3 Hgb 6.6 L* (13.5-16.0) g/dL Hct 20.6 L* (41.0-53.0) % Plt Count 148 (140-440) Thou/mm3 BMP 11/20/24 15:25 Sodium 141 Potassium 4.4 Chloride 102 Carbon Dioxide 27.4 BUN 30 H Creatinine 5.2 H* Glucose 111 H Calcium 9.5 Cardiac Enzymes 11/20/24 Range/Units 15:25 Troponin I < 0.020 (0.0-0.045) ng/mL Liver Function 11/20/24 Range/Units 15:25 Total Bilirubin 0.3 (0.3-1.2) mg/dL AST 12 (0-34) U/L ALT 8 L (10-49) U/L Alkaline Phosphatase 103 (46-116) U/L Albumin 3.9 (3.4-4.8) gm/dL Assessment and Plan Additional Assessment & Plan Additional Plan: # Anemia multifactorial requiring multiple blood transfusions regular basis GI causes of blood loss needs to be ruled out Schedule colonoscopy as well as upper endoscopy GoLytely prep in progress Informed consent obtained Agree with the blood transfusion Other medical problems include # End-stage renal disease on hemodialysis # Coronary artery disease status post CABG # Hypothyroidism Thank you very much for the opportunity to participate in the care of this patient
[2024-11-20] MEDS: NA SU/NAHCO3/KC/PEG (Golytely) 4,000 ML BTL 4000 ML PO (21:08)
[2024-11-20] MEDS: PANTOPRAZOLE INJ 40 MG VIAL IVP (21:08)
--- NOTE | 2024-11-20 21:59 | PC.NURSE ---
88% O2 sat on room air- Applied O2 inh on at 2L/min/nc.
--- NOTE | 2024-11-20 22:13 | PC.NURSE ---
seen and examined by Dr. Deluca with orders made and carried out.
--- NOTE | 2024-11-20 22:22 | PC.NURSE ---
91% O2 sat on 2L/min/nc- Increased to 3L/min.
[2024-11-21] VITALS (34 sets, daily range): BP systolic 96–199; BP diastolic 63–101; PULSE 52–93; RESP 12–21; TEMP 36.3–37.2; O2SAT 92–99
[2024-11-21 04:13] LABS: Basophils % (Auto) 1 % (0-2.5); Eosinophils # (Auto) 0.3 Thou/mm3 (0.0-0.5); Eosinophils % (Auto) 10 % (0-10); Hematocrit 26.2 % (41.0-53.0); Immature Granulocytes % (Auto) 0 % (0-0); Immature Granulocytes Auto 0.01 Thou/mm3 (0.00-0.00); Immature Reticulocyte Fraction 18.3 % (2.3-13.4); Lymphocytes % (Auto) 38 % (10-50); Mean Corpuscular HGB Conc 33.6 g/dl (31.0-37.0); Mean Corpuscular Hemoglobin 35.2 pg (25.0-35.0); Mean Corpuscular Volume 105 fL (80-100); Monocytes # (Auto) 0.4 Thou/mm3 (0.0-0.8); Monocytes % (Auto) 16 % (0-12); Neutrophils # (Auto) 0.9 Thou/mm3 (1.8-7.7); Neutrophils % (Auto) 34 % (37-80); Nucleated Red Blood Cell % 0 /100 WBC (0); Platelet Count 128 Thou/mm3 (140-440); RDW Standard Deviation 87.8 fL (35.1-43.9); Reticulocyte % (Auto) 2.1 % (0.5-1.5); Reticulocyte Absolute Auto 51.5 Biln/L (25.0-75.0); Reticulocyte Hgb Content 35.9 pg (28.0-35.0)
[2024-11-21 04:17] LABS: Hemoglobin 8.8 g/dL (13.5-16.0); White Blood Count 2.6 Thou/mm3 (3.8-10.6)
[2024-11-21 04:29] LABS: Iron 73 mcg/dL (65-175)
[2024-11-21 04:33] LABS: Alanine Aminotransferase 8 U/L (10-49); Albumin, Serum 4.2 gm/dL (3.4-4.8); Albumin/Globulin Ratio 1.9 (1.2-2.2); Alkaline Phosphatase 104 U/L (46-116); Anion Gap 11 (7-16); Aspartate Amino Transferase 14 U/L (0-34); BUN/Creatinine Ratio 6 Ratio (12-20); Bilirubin,Total 0.3 mg/dL (0.3-1.2); Blood Urea Nitrogen 35 mg/dL (9-23); Calcium 9.5 mg/dL (8.3-10.6); Calcium (Corrected) 9.5 mg/dL (8.5-10.1); Carbon Dioxide 28.7 mMol/L (20.0-31.0); Chloride 100 mMol/L (98-107); Creatinine (Component) 5.4 mg/dL (0.6-1.3); Estimated Creatinine Clearance 12.5 mL/min (>60); Globulin 2.2 gm/dL (2.3-3.5); Glucose 94 mg/dL (74-106); Magnesium 2.4 mg/dL (1.6-2.6); Osmolality,Calculated 287 (275-295); Potassium 4.7 mMol/L (3.4-5.1); Sodium 140 mMol/L (136-145); Thyroid Stimulating Hormone 4.12 uIU/mL (0.55-4.78); Total Protein 6.4 gm/dL (5.7-8.2); eGFR 10 See Note
[2024-11-21 04:38] LABS: Folate 5.46 ng/mL (>5.38); Vitamin B12 > 2000 pg/mL (211-911)
[2024-11-21 04:45] LABS: Ferritin 1044 ng/mL (10.5-307.3); Percent Iron Saturation 54 % (20-55); Total Iron Binding Capacity 135 mcg/dL (250-425); Unsaturated Iron Binding 62 (225-295)
[2024-11-21] MEDS: LEVOTHYROXINE SODIUM 25 MCG TABLET 75 MCG PO (05:24)
--- NOTE | 2024-11-21 09:14 | PC.NURSE ---
pt was taken to dialysis
--- NOTE | 2024-11-21 11:28 | ESPR_ITS ---
<Statement entered by Kristen Simmons MD - 11/21/24 14:01> I discussed with and supervised my co-resident involved in the care of this patient. I agree with the assessment and plan as documented above. Patient seen at bedside after dialysis in the dialysis room. No acute complaints. Hb stable after transfusion yesterday. Remains pancytopenic; reticulocyte count elevated making bone marrow suppression less likely. Will follow up peripheral smear. EGD and colonoscopy pending. Patient has history of rectal mass that was biopsied in 2022 on previous admission with inconclusive results. Kristen Simmons MD PGY-3 Documentation for date of: 11/21/24 Subjective Subjective Interval history: Patient was seen at bedside this morning during dialysis. Patient was doing okay and had no new complaints today. Patient's hemoglobin this morning was 8.8 after 2 units of PRBC were transfused. Patient's iron panel came back with ferritin elevated at iron saturation and iron within normal limits. Patient also had a B12 above 2000 and elevated reticulocyte count. Patient was seen by GI specialist who stated that he would do EGD and colonoscopy. Patient had another GoLytely given that he was still not clear for colonoscopy. Will follow-up on EGD and colonoscopy results. Exam Vital Signs Temp Pulse Resp BP Pulse Ox O2 Del Method O2 Flow Rate 97.8 F 76 17 157/87 H 93 L Nasal Cannula 2 11/21/24 07:58 11/21/24 11:20 11/21/24 10:50 11/21/24 11:20 11/21/24 07:58 11/21/24 07:43 11/21/24 10:50 Narrative Exam General: A/O x3, no acute distress, well-nourished, well-developed Eyes: PERRL, EOMI. Anicteric, vision grossly intact. Ears: No ear pain, no ear discharge, Hearing grossly intact. Nose: No nasal discharge. Mouth/Throat: Moist mucous membranes, no redness, no lesions. Neck: Neck supple, non-tender, no cervical lymphadenopathy. Lungs: Clear YARIEL to auscultation and percussion, No accessory muscle use. Cardio: Normal S1/S2, regular rhythm, systolic murmur, no JVD or carotid bruits. Abdomen: Soft, non-tender, no palpable masses, peristalsis present, no guarding or rebound. Extremities: Symmetrical, no significant deformities, no peripheral edema , non-tender, peripheral pulses presents. Skin: No rashes, no lesions, warm to touch. Rectal: no mass appreciated Neuro: No focal neurological deficits. Psych: Cooperative, appropriate mood and effect. Objective Labs 11/21/24 03:28 11/21/24 03:28 Labs: Laboratory Results - last 24 hr 11/20/24 11/21/24 15:25 03:28 WBC 2.2 L 2.6 L RBC 1.85 L* 2.50 L Hgb 6.6 L* 8.8 L D Hct 20.6 L* 26.2 L MCV 111 H 105 H MCH 35.7 H 35.2 H MCHC 32.0 33.6 RDW Std Deviation 90.9 H 87.8 H Plt Count 148 128 L Neut % (Auto) 44 34 L Lymph % (Auto) 30 38 [place] % (Auto) 18 H 16 H Eos % (Auto) 8 10 Baso % (Auto) 1 1 Neut # (Auto) 1.0 L 0.9 L Lymph # (Auto) 0.7 L 1.0 [place] # (Auto) 0.4 0.4 Eos # (Auto) 0.2 0.3 Baso # (Auto) 0.0 0.0 Immature Gran # (Auto) 0.00 0.01 H Absolute Nucleated RBC 0.00 0.00 Immature Gran % 0 0 Nucleated RBC % 0 0 Smear Path Review Sent to Pathologist Retic Count (auto) 2.1 H Absolute Retic 51.5 Immature Retic Fraction 18.3 H Retic Hgb Content CHr 35.9 H PT 11.4 INR 1.0 APTT 27.6 Sodium 141 140 Potassium 4.4 4.7 Chloride 102 100 Carbon Dioxide 27.4 28.7 Anion Gap 12 11 BUN 30 H 35 H Creatinine 5.2 H* 5.4 H* Estim Creat Clear Calc 11.9 L 12.5 L eGFR 11 L* 10 L* BUN/Creatinine Ratio 6 L 6 L Glucose 111 H 94 Calculated Osmolality 288 287 Calcium 9.5 9.5 Corrected Calcium 9.6 9.5 Magnesium 2.4 Iron 73 TIBC 135 L Iron Saturation 54 Unsat Iron Binding 62 L Ferritin 1044 H Total Bilirubin 0.3 0.3 AST 12 14 ALT 8 L 8 L Alkaline Phosphatase 103 104 Troponin I < 0.020 Total Protein 6.0 6.4 Albumin 3.9 4.2 Globulin 2.1 L 2.2 L Albumin/Globulin Ratio 1.9 1.9 Vitamin B12 > 2000 H Folate 5.46 TSH 4.12 Blood Type O Positive Antibody Screen NEGATIVE Crossmatch See Detail Blood Bank Wristband ID Yes Quality Measures Quality Measures none Advance care planning discussed with:: patient Assessment & Plan Assessment Current Active Medications: Generic Name Dose Route Start Last Admin Trade Name Freq PRN Reason Stop Dose Admin Acetaminophen 650 mg 11/20/24 17:40 Acetaminophen 325 Mg Tablet PO 12/20/24 17:39 Q6H PRN pain and Fever >100.4 Protocol Hydrocodone Bitart/Acetaminophen 1 tab 11/20/24 17:40 Hydrocodone/Apap 5/325 Tablet PO 11/25/24 17:39 Q4HR PRN PAIN SCALE 4-6 (Moderate Levothyroxine Sodium 75 mcg 11/21/24 06:00 11/21/24 05:24 Levothyroxine Sodium 25 Mcg Tablet PO 12/21/24 05:59 75 mcg ACBR RICH Administration Menthol/Methyl Salicylate 1 appl 11/20/24 20:25 Methyl Salic/Menthol Oint 28 Gm Tube TOP 12/20/24 20:59 BID PRN ARTHRITIS Ondansetron HCl 4 mg 11/20/24 17:40 Ondansetron Inj 2 Mg/Ml Inj 2 Ml IV 12/20/24 17:39 Q6H PRN NAUSEA OR VOMITING Protocol Pantoprazole Sodium 40 mg 11/20/24 21:00 11/21/24 10:28 Pantoprazole Inj 40 Mg Vial IVP 12/20/24 20:59 Not Given BID RICH Plan 74-year-old male with past medical history of abnormal colonoscopy 2 years ago, CAD status post CABG, hypertension, ESRD HD on /W/, TIA, GERD, and hypothyroidism was admitted to the hospital on 11/20/2024 for symptomatic anemia in the setting of possible GI bleeding given the history of abnormal colonoscopy in the past 2 years. #Symptomatic anemia #GI bleed in the setting of #Abnormal colonoscopy 2 years ago #Leukopenia #Fatigue ?Patient came in from his hemodialysis center after he was found to have low hemoglobin ? Patient has been feeling with low energy as of recently ?Patient had an abnormal colonoscopy 2 years ago but did not follow-up ? Patient came in with WBCs of 2.2 ? Probably patient leukocytes were within normal limits and most recent 1 was on 10/26/2024 which was also low at 2.7 ? DDx lower GI bleed in the setting of abnormal colonoscopy in the past 2 years which could indicate malignancy versus upper GI bleed versus myelodysplastic syndrome - 2 PRBC transfused - Hemoglobin 8.8 today Plan: ?Pending EGD and colonoscopy ?Additional GoLytely ?Continue Protonix 40 mg twice daily ?GI specialist consulted, appreciate commendations ? Will continue to monitor #ESRD (HD on //) ? Patient is on hemodialysis Wednesdays and Fridays ? Past left AV fistula Plan: -Continue HD as scheduled ? Avoid nephrotoxic agents ? Renally dose medications ? Nephrology consulted, appreciate commendations ? Will continue monitor #Systolic murmur #Hx of moderate aortic stenosis on echo on 2022 ? Patient on physical exam had a systolic ejection murmur ? DDx includes aortic stenosis which could also be contributing to patient's bleeding in which case would indicate patient could have Heyde syndrome Plan: ? Pending echo #Hypothyroidism ? Continue patient's levothyroxine #CAD status post CABG ? Patient takes aspirin, will hold for now given possible bleed #Hypertension ? Patient's blood pressure is under control at this time, we will hold off on antihypertensive medication for now #GERD ? Continue Protonix Disposition: Pending EGD and colonoscopy Diet: Clear liquid GI prophylaxis: protonix DVT prophylaxis: SCDs Code: Full code Case disclosed with Attending Dr. Cotton and My senior Dr. Simmons PGY3. Marcelino Potter PGY1
--- NOTE | 2024-11-21 11:42 | PC.NURSE ---
Dialysis completed for 3 hrs, tolerated well.? Pt awake, A/O x4, no complaint of pain.? Respiration even and unlabored? O2 sat 95% on O2 at 2L/min via nc.? Able to removed 3000 ml of fluid net.? Post tx BP 152/69, HR 78, Temp 97.5.?? Pt back in his rm.? Call light within reached. Pressure dressing on left forearm AV fistula clean/dry/intact. No bleeding.? Pressure dressing to be remove around 1400.? Report given to Estelita CLINTON
[2024-11-21] MEDS: NA SU/NAHCO3/KC/PEG (Golytely) 4,000 ML BTL 4000 ML PO (12:15)
--- NOTE | 2024-11-21 13:07 | PC.SS ---
Initial assessment: this is 74 year old male here from home. Patient confirmed demographic information. Patient reports living with his , Amy. Patient reports being independent with ADL's. Patient denies DME use at home. Patient's PCP is Dr. Wendy Yin. Patient follows with Dr. Little for Dialysis on schedule //. Patient's would like to return home upon discharge. Patient reports family able to transport the patient home. D/c plan: Home Next of kin: Amy
--- NOTE | 2024-11-21 14:13 | PC.SS ---
Rounding note: pending colonoscopy and EGD.
--- NOTE | 2024-11-21 17:58 | ECHO_ITS ---
Transthoracic Echo Report Ht (in): 68 Wt (lb): 185 Exam Location: Echo Lab Status: Inpatient Revival Clerk: TERRA Fatima^^^^ Indications: Procedure Performed: BP: 148 / 78 HR: 65 Technical Quality: Fair MEASUREMENTS (Male / Female) Normal Values 2D ECHO LV Diastolic Diameter PLAX 5.0 cm 4.2 - 5.9 / 3.9 - 5.3 cm LV Systolic Diameter PLAX 3.4 cm IVS Diastolic Thickness 1.4 cm 0.6 - 1.0 / 0.6 - 0.9 cm LVPW Diastolic Thickness 1.2 cm 0.6 - 1.0 / 0.6 - 0.9 cm LVOT Diameter 1.7 cm Aortic Root Diameter 3.8 cm LA Systolic Diameter LX 4.3 cm 3.0 - 4.0 / 2.7 - 3.8 cm LV Ejection Fraction MOD 4C 60.1 % LV Ejection Fraction MOD 2C 56.9 % Ascending Aorta Diameter 3.4 cm DOPPLER AV Peak Velocity 319.3 cm/s AV Peak Gradient 41.0 mmHg AV Mean Gradient 24.0 mmHg AV Velocity Time Integral 72.2 cm AI Peak Velocity 345.5 cm/s AI Peak Gradient 48.0 mmHg AI Pressure Half Time 464.5 ms LVOT Peak Velocity 120.0 cm/s LVOT Peak Gradient 6.0 mmHg LVOT Velocity Time Integral 37.1 cm AV Area Cont Eq vti 1.2 cm? AV Area Cont Eq pk 0.8 cm? MV Area PHT 4.8 cm? MR Peak Velocity 546.6 cm/s MR Peak Gradient 120.0 mmHg Mitral E Point Velocity 94.8 cm/s Mitral A Point Velocity 53.4 cm/s Mitral E to A Ratio 1.8 LV E' Lateral Velocity 10.8 cm/s Mitral E to LV E' Lateral Ratio 8.8 LV E' Septal Velocity 6.0 cm/s Mitral E to LV E' Septal Ratio 15.7 TR Peak Velocity 310.8 cm/s TR Peak Gradient 39.0 mmHg PV Peak Velocity 92.5 cm/s PV Peak Gradient 3.0 mmHg RVOT Peak Velocity 59.9 cm/s FINDINGS Left Ventricle The left ventricular ejection fraction is normal, estimated at 55-60%. There is grade II diastolic dysfunction of the left ventricle (pseudonormal filling pattern). Right Ventricle The right ventricle is normal in size and systolic function. Estimated right ventricular systolic pressure is moderately elevated, 63 mmHg. Left Atrium Mildly increased left atrial volume 48.8 mL/m?. Right Atrium The right atrial cavity size is mildly increased. Atrial Septum The interatrial septum appears normal with no evidence of a shunt. Aorta The aorta is normal by two-dimensional, color flow and Doppler interrogation. Mitral Valve [id number]-yx-rzyotn mitral regurgitation. Moderate mitral annular calcification. Mild thickening of the mitral valve leaflets. Aortic Valve Moderate aortic valve stenosis. Aortic valve mean gradient is 24 mmHg. Mild aortic valve regurgitation. Diffuse calcification of the aortic valve. Tricuspid Valve There is moderate to severe tricuspid valve regurgitation. Pulmonic Valve Mild pulmonic valve regurgitation. Vessels The pulmonary artery appears normal. The inferior vena cava pulmonary and hepatic veins appear normal. Pericardium The pericardium is normal by two-dimensional imaging. There is no significant pericardial effusion. CONCLUSIONS Indication: Systolic murmur Normal LV size and function. LVEF is 55 to 60%. Diastolic dysfunction stage II. Normal RV size and function. RVSP moderately elevated at 63 mmHg. Moderate to severe Aortic Stenosis with vmax of 3.5 m/s with a max gradient of 48 mmHg and mean gradient of 28 mmHg. Aortic valve area is 0.9 cm? and 1.1 cm? by V-max and VTI.. Moderately thickened in the severely calcified aortic valve. Trace to mild AI Mild MAC with mild to moderate MR. Moderate TR. Mild biatrial dilatation. Freedom Mcadams (Electronically Signed) Final Date: 22 November 2024 14:45
--- NOTE | 2024-11-21 19:35 | SUR.PHASEI ---
pt received to [facility]. awake and alert. asking questions. denies pain and nausea. vss. breathing even and unlabored. report from nurse bland.
--- NOTE | 2024-11-21 20:00 | SUR.PHASEI ---
report called to [facility] on ms. pt transported vis [facility]. alert and oriented. denies pain and nausea. vss. breathing even and unlabored.
[2024-11-21] MEDS: PANTOPRAZOLE INJ 40 MG VIAL IVP (20:39)
[2024-11-22] VITALS (7 sets, daily range): BP systolic 157–175; BP diastolic 68–81; PULSE 78–104; RESP 18; TEMP 36.2–36.8; O2SAT 93–96
[2024-11-22] MEDS: LEVOTHYROXINE SODIUM 25 MCG TABLET 75 MCG PO (05:42)
[2024-11-22 05:54] LABS: Basophils % (Auto) 1 % (0-2.5); Eosinophils # (Auto) 0.2 Thou/mm3 (0.0-0.5); Eosinophils % (Auto) 6 % (0-10); Hematocrit 26.5 % (41.0-53.0); Hemoglobin 8.9 g/dL (13.5-16.0); Immature Granulocytes % (Auto) 0 % (0-0); Lymphocytes # (Auto) 0.6 Thou/mm3 (1.0-4.8); Lymphocytes % (Auto) 20 % (10-50); Mean Corpuscular HGB Conc 33.6 g/dl (31.0-37.0); Mean Corpuscular Volume 104 fL (80-100); Monocytes # (Auto) 0.5 Thou/mm3 (0.0-0.8); Monocytes % (Auto) 17 % (0-12); Neutrophils # (Auto) 1.7 Thou/mm3 (1.8-7.7); Neutrophils % (Auto) 56 % (37-80); Nucleated Red Blood Cell % 0 /100 WBC (0); Platelet Count 136 Thou/mm3 (140-440); RDW Standard Deviation 84.7 fL (35.1-43.9); Red Blood Count 2.54 Miln/mm3 (4.50-5.90); White Blood Count 3.1 Thou/mm3 (3.8-10.6)
[2024-11-22 06:49] LABS: Alanine Aminotransferase 7 U/L (10-49); Albumin, Serum 3.8 gm/dL (3.4-4.8); Albumin/Globulin Ratio 1.9 (1.2-2.2); Alkaline Phosphatase 102 U/L (46-116); Anion Gap 13 (7-16); Aspartate Amino Transferase 10 U/L (0-34); BUN/Creatinine Ratio 6 Ratio (12-20); Bilirubin,Total 0.4 mg/dL (0.3-1.2); Blood Urea Nitrogen 24 mg/dL (9-23); Calcium 9.3 mg/dL (8.3-10.6); Calcium (Corrected) 9.5 mg/dL (8.5-10.1); Carbon Dioxide 27.8 mMol/L (20.0-31.0); Chloride 98 mMol/L (98-107); Creatinine (Component) 4.3 mg/dL (0.6-1.3); Estimated Creatinine Clearance 14.4 mL/min (>60); Glucose 83 mg/dL (74-106); Magnesium 2.1 mg/dL (1.6-2.6); Osmolality,Calculated 280 (275-295); Potassium 4.3 mMol/L (3.4-5.1); Sodium 139 mMol/L (136-145); Total Protein 5.8 gm/dL (5.7-8.2); eGFR 14 See Note
--- NOTE | 2024-11-22 09:07 | PC.SS ---
SS update: blood pressure out of control, possible d/c tomorrow.
[2024-11-22] MEDS: amLODIPine BESYLATE 5 MG TABLET 10 MG PO (09:18)
[2024-11-22] MEDS: PANTOPRAZOLE INJ 40 MG VIAL IVP (09:18)
--- NOTE | 2024-11-22 11:37 | PD.RESDS ---
Planned Discharge Date 11/22/24 DS: Providers Provider Date of admission: 11/20/24 17:40 Primary care physician: Wendy Yin PA-C Admitting Provider: Brayan Cotton MD Attending Provider on Admission: Brayan Cotton MD Consults: 11/20/24 16:54 Consult to Gastroenterology Stat Comment: Consulting Provider: Sarah Deluca Consult to Nephrology Stat Comment: Consulting Provider: Rayne Little 11/20/24 20:10 Referral Infection Control Routine Comment: Reason for Infection Control Referral: Current Dialysis Patient Attending Provider on DC: Brayan Cotton MD Discharging Provider: Brayan Cotton MD DS: Diagnosis Problem List Completed Was Problem List Reviewed/Reconciled?: Yes Hospital Course Hospital Course Hospital course: 74-year-old male with past medical history of abnormal colonoscopy 2 years ago, CAD status post CABG, hypertension, ESRD HD on M/W/F, TIA, GERD, and hypothyroidism was admitted to the hospital on 11/20/2024 for symptomatic anemia in the setting of possible GI bleeding given the history of abnormal colonoscopy in the past 2 years. Came in to the ED with chief complaints of low hemoglobin upon lab work at his hemodialysis center. In the hospital patient had 2 PRBCs transfused and his hemoglobin increased to 8.8. He was placed on Protonix and he was started on GoLytely prep as he would most likely undergo a colonoscopy and EGD. During hospital stay patient got his course of scheduled hemodialysis. Exhaust Equipment Operator was consulted and performed EGD which only showed gastritis and he also performed a colonoscopy which showed hemorrhoids and diverticulosis, but no signs of active bleeding. Given the patient was found to be anemic and leukopenic this could have been due to he is ESRD, but will recommend patient to follow-up outpatient with his primary care physician to be referred to a supervisor heat treating. Exhaust Equipment Operator also stated that patient will need to follow-up outpatient for further GI workup. At the time of discharge patient was stable enough to be discharged home. Discharge plan: Please follow-up with primary care physician within 1 week after discharge Please follow-up with your fibre technologist within 1 to 2 weeks after discharge Please follow-up with GI specialist within 1 to 2 weeks after discharge for possible further GI workup Recommend having a primary care physician refer you to a supervisor heat treating for further workup for leukopenia and anemia. Continue taking all home medications as prescribed Please come back to the ER symptoms persist or worsen Follow list: #Symptomatic anemia #GI bleed, ruled out #Abnormal colonoscopy 2 years ago #Leukopenia #Fatigue #Gastritis #Hemorrhoids #Diverticulosis #ESRD (HD on //) #Systolic murmur #Hx of moderate aortic stenosis on echo on 2022 #Hypothyroidism #CAD status post CABG #Hypertension #GERD Case disclosed with Attending Dr. Cotton and My senior Dr. Simmons PGY3. Marcelino Potter PGY1 Status at Discharge Overall status at discharge: patient is progressing back to baseline Time Spent with Patient Time attestation: Total time spent providing and/or coordinating discharge services:>35 min Exam Vital Signs Temp Pulse Resp BP Pulse Ox O2 Del Method O2 Flow Rate 97.3 F 92 18 164/78 H 93 L Room Air 2 11/22/24 11:20 11/22/24 11:20 11/22/24 11:20 11/22/24 11:20 11/22/24 11:20 11/22/24 11:20 11/22/24 00:00 Narrative Exam General: A/O x3, no acute distress, well-nourished, well-developed Eyes: PERRL, EOMI. Anicteric, vision grossly intact. Ears: No ear pain, no ear discharge, Hearing grossly intact. Nose: No nasal discharge. Mouth/Throat: Moist mucous membranes, no redness, no lesions. Neck: Neck supple, non-tender, no cervical lymphadenopathy. Lungs: Clear YARIEL to auscultation and percussion, No accessory muscle use. Cardio: Normal S1/S2, regular rhythm, systolic murmur, no JVD or carotid bruits. Abdomen: Soft, non-tender, no palpable masses, peristalsis present, no guarding or rebound. Extremities: Symmetrical, no significant deformities, no peripheral edema , non-tender, peripheral pulses presents. Skin: No rashes, no lesions, warm to touch. Rectal: no mass appreciated Neuro: No focal neurological deficits. Psych: Cooperative, appropriate mood and effect. Discharge Plan Plan Patient Disposition: HOME (Self Care) Patient condition on transfer: Stable Care Plan Goals: Please follow-up with primary care physician within 1 week after discharge Please follow-up with your fibre technologist within 1 to 2 weeks after discharge Please follow-up with GI specialist within 1 to 2 weeks after discharge for possible further GI workup Recommend having a primary care physician refer you to a supervisor heat treating for further workup for leukopenia and anemia. Continue taking all home medications as prescribed Please come back to the ER symptoms persist or worsen Prescriptions/Referrals Prescriptions/Med Rec: Continued pantoprazole [Protonix] 40 MG tablet,delayed release (DR/EC) 40 mg PO BID Qty: 0 Patient Comments: TO SUPPRESS GASTRIC SECRETIONS HYDROCODONE BIT/ACETAMINOPHEN (HYDROCODON-ACETAMINOPH 2.5-325) 1 EACH tablet 1 tab PO Q6HR Qty: 0 Levothyroxine * (SYNTHROID *) 75 MCG tablet 75 mcg PO QDAY Qty: 0 duloxetine [Cymbalta] 60 MG capsule,delayed release(DR/EC) 80 mg PO QDAY Qty: 0 sevelamer carbonate [Renvela] 800 mg Tablet 800 mg PO TID Rx Instructions: must administer with a meal/food gabapentin 400 mg capsule 400 mg PO TID Patient Comments: TAKE ONE CAPSULE BY MOUTH THREE TIMES DAILY FOR NERVE PAIN amlodipine [Norvasc] 10 mg tablet 10 mg PO QDAY Discontinued gabapentin 300 MG capsule 400 mg PO TID Qty: 0 hydrocodone-acetaminophen 5-325 mg Tablet 1 tab PO Q6H PRN (Reason: Pain) No Action lidocaine [Anecream] 4 % cream 1 applic topical BID Rx Instructions: to right 2nd toe arthritis pain. (Over the counter med) Referrals: Sarah Deluca MD [Physician] - Wendy Yin PA-C [Primary Care Provider] - Patient/Caregiver Discharge Instructions Other Discharge Activity Instructions:: Please follow-up with primary care physician within 1 week after discharge Please follow-up with your fibre technologist within 1 to 2 weeks after discharge Please follow-up with GI specialist within 1 to 2 weeks after discharge for possible further GI workup Recommend having a primary care physician refer you to a supervisor heat treating for further workup for leukopenia and anemia. Continue taking all home medications as prescribed Please come back to the ER symptoms persist or worsen Education Materials: Bleeding Gastrointestinal, Anemia and Kidney Disease Print Language: Bulgarian Stand Alone Forms: Dennise Award Info., Patient Portal Info Letter Discharge Order Discharge Orders: Discharge (Routine); Ordered 11/22/24 Ordered By: Marcelino Potter Quality Discharge Quality Measures VTE prophylaxis
--- NOTE | 2024-11-22 16:17 | ESCONSULT_ITS ---
RE: JUAN RAMON LYNCH : 1950 DATE OF CONSULTATION: 11/21/2024 REFERRING PHYSICIAN: Dr. Cotton. HISTORY OF PRESENT ILLNESS: Briefly this is a 74-year-old gentleman with past medical history significant for CAD status post CABG, obstructive uropathy, ESRD on hemodialysis since 2017 dialyzing every Tuesday, Tuesday, and Tuesday, who presented to emergency room on 11/20/2024 with chest pain and severe anemia. The patient was found to have a hemoglobin of 6.8. The patient was also admitted to the hospital way back in 2022 with similar presentation. During that time, he was found with a rectal mass, which was negative for malignancy for biopsy. The patient is currently on dialysis and had received 2 units of packed RBC while in emergency room. He was admitted for GI workup. He was already seen by Dr. Deluca earlier and there was a plan to do an EGD and a colonoscopy as well. The patient is doing quite well and tolerating dialysis very well as well. PAST MEDICAL HISTORY: CAD status post CABG, ESRD, obstructive uropathy, bilateral lower PE in 2022, urological procedures. PAST SURGICAL HISTORY: CABG, left a fistula placement. ALLERGIES: NO KNOWN DRUG ALLERGIES. CURRENT MEDICATIONS: 1. Hydrocodone acetaminophen 1 tablet p.o. q.6. 2. Pantoprazole 40 mg daily. 3. Levothyroxine 75 mcg p.o. daily. 4. Zolpidem 10 mg p.o. at bedtime. 5. Duloxetine 60 mg daily. 6. Gabapentin 300 mg t.i.d. 7. Sevelamer 800 mg 3 tabs p.o. t.i.d. with meals. PHYSICAL EXAMINATION: Vital Signs: Blood pressure of 157/87, heart rate of 76, respiratory rate of 17, temperature 97.8. HEENT: Anicteric sclerae. Normocephalic. Neck: Supple. No JVD. Chest and Lungs: Symmetrical expansion. Clear breath sounds. Cardiac: Without murmur. Abdomen: Soft, nontender. Extremities: No edema. LABORATORY DATA: Hemoglobin 8.9 post blood transfusion, WBC 3100, platelet count 136. Sodium 139, potassium 4.2, chloride 98, CO2 27.8, BUN 24, creatinine 4.3, glucose 83, calcium 9.3, magnesium 2.1. ASSESSMENT: 1. End-stage renal disease. 2. Anemia, possibly GI bleeding versus myelodysplasia. 3. Hypertension. 4. Coronary artery disease status post ABG. 5. History of bilateral pulmonary embolism. 6. Past history of GI bleeding with rectal mass negative for malignancy. PLAN: The patient will undergo colonoscopy and endoscopy sometime today. The patient is currently on dialysis and tolerating it well. Next dialysis will be on Tuesday. The patient was also referred to marketing program coordinator for further evaluation of his anemia. DT: 15:06:51 TT: 16:15:00 Ref: [id number] - TID: [id number]
--- NOTE | 2024-11-22 23:15 | ESPR_ITS ---
Documentation for date of: 11/22/24 Subjective Subjective Interval history: Late entry for the note Case discussed with the internal medicine team for discharge planning Patient be seen by me on outpatient basis for a capsule endoscopy as a source of bleeding at best remains obscure Upper endoscopy shows nonerosive gastritis Colonoscopy showed internal hemorrhoids and no other lesions along with mild diverticulosis Exam Vital Signs Temp Pulse Resp BP Pulse Ox O2 Del Method O2 Flow Rate 97.3 F 92 18 164/78 H 93 L Room Air 2 11/22/24 11:20 11/22/24 11:20 11/22/24 11:20 11/22/24 11:20 11/22/24 11:20 11/22/24 11:20 11/22/24 00:00 Objective Labs 11/22/24 04:36 11/22/24 04:36 Labs: Laboratory Results - last 24 hr 11/22/24 04:36 WBC 3.1 L RBC 2.54 L Hgb 8.9 L Hct 26.5 L MCV 104 H MCH 35.0 MCHC 33.6 RDW Std Deviation 84.7 H Plt Count 136 L Neut % (Auto) 56 Lymph % (Auto) 20 Willacy % (Auto) 17 H Eos % (Auto) 6 Baso % (Auto) 1 Neut # (Auto) 1.7 L Lymph # (Auto) 0.6 L Willacy # (Auto) 0.5 Eos # (Auto) 0.2 Baso # (Auto) 0.0 Immature Gran # (Auto) 0.00 Absolute Nucleated RBC 0.00 Immature Gran % 0 Nucleated RBC % 0 Sodium 139 Potassium 4.3 Chloride 98 Carbon Dioxide 27.8 Anion Gap 13 BUN 24 H Creatinine 4.3 H* D Estim Creat Clear Calc 14.4 L eGFR 14 L* BUN/Creatinine Ratio 6 L Glucose 83 Calculated Osmolality 280 Calcium 9.3 Corrected Calcium 9.5 Magnesium 2.1 Total Bilirubin 0.4 AST 10 ALT 7 L Alkaline Phosphatase 102 Total Protein 5.8 Albumin 3.8 Globulin 2.0 L Albumin/Globulin Ratio 1.9 Impressions Impression: Occult GI bleeding Outpatient capsule endoscopy Okay to discharge patient home for outpatient follow-up Assessment & Plan A&P Narrative # Anemia multifactorial requiring multiple blood transfusions regular basis GI causes of blood loss needs to be ruled out Schedule colonoscopy as well as upper endoscopy GoLytely prep in progress Informed consent obtained Agree with the blood transfusion Other medical problems include # End-stage renal disease on hemodialysis # Coronary artery disease status post CABG # Hypothyroidism Thank you very much for the opportunity to participate in the care of this patient Time Spent With Patient Time: Total time spent is greater than 50% in coordination of care (as documented) at patient's floor/unit and/or counseling patient:
== END 2024-11-22 11:23 | disposition home or self-care (01) | DRG 682 ==
LOC: SERX 16:56 → S3SX 11-21 06:02 → SERHOLD 11-21 06:02
PROVIDERS: Nurse Practitioner Primary Care; Specialist; Admitting Provider Internal Medicine; Emergency Provider Emergency Medicine; PCP Physician Assistant; Visit Provider Internal Medicine
PROC: 0DJD8ZZ Inspection of Lower Intestinal Tract, Via Natural or Artificial Opening Endoscopic (ICD-10-PCS; CPT 43239; principal; 2024-11-21 20:30)
PROC: 0DJD8ZZ Inspection of Lower Intestinal Tract, Via Natural or Artificial Opening Endoscopic (ICD-10-PCS; CPT 45378; 2024-11-21 20:30)
DX: I12.0 Hypertensive chronic kidney disease with stage 5 chronic kidney disease or end stage renal disease (principal); N18.6 End stage renal disease; D61.818 Other pancytopenia; I25.10 Atherosclerotic heart disease of native coronary artery without angina pectoris; D63.1 Anemia in chronic kidney disease; K21.9 Gastro-esophageal reflux disease without esophagitis; E03.9 Hypothyroidism, unspecified; K64.8 Other hemorrhoids; I95.9 Hypotension, unspecified; R79.89 Other specified abnormal findings of blood chemistry; I35.0 Nonrheumatic aortic (valve) stenosis; D72.819 Decreased white blood cell count, unspecified; Z99.2 Dependence on renal dialysis; Z87.891 Personal history of nicotine dependence; Z79.899 Other long term (current) drug therapy; Z95.1 Presence of aortocoronary bypass graft; Z86.73 Personal history of transient ischemic attack (TIA), and cerebral infarction without residual deficits; Z79.82 Long term (current) use of aspirin; Z86.711 Personal history of pulmonary embolism; K57.30 Diverticulosis of large intestine without perforation or abscess without bleeding; K29.70 Gastritis, unspecified, without bleeding
CPT/HCPCS: 36415; 71046; 74176; 80053; 82607; 82728; 82746; 83540; 83550; 83735; 84443; 84484; 85014; 85018; 85025; 85046; 85610; 85730; 86850; 86900; 86901; 86923; 87081; 93225; 93306; J1200; J2250; J2470; J3010; P9016; A9270

== ENCOUNTER → 2024-12-11 | Outpatient (CLI) | payer MEDICARE, MEDICAID, SELFPAY ==
[2024-12-11 12:24] LABS: Basophils % (Auto) 0 % (0-2.5); Eosinophils # (Auto) 0.4 Thou/mm3 (0.0-0.5); Eosinophils % (Auto) 9 % (0-10); Hematocrit 26.9 % (41.0-53.0); Immature Granulocytes % (Auto) 1 % (0-0); Immature Granulocytes Auto 0.03 Thou/mm3 (0.00-0.00); Lymphocytes # (Auto) 0.7 Thou/mm3 (1.0-4.8); Lymphocytes % (Auto) 15 % (10-50); Mean Corpuscular HGB Conc 31.2 g/dl (31.0-37.0); Mean Corpuscular Hemoglobin 33.9 pg (25.0-35.0); Mean Corpuscular Volume 109 fL (80-100); Monocytes # (Auto) 0.4 Thou/mm3 (0.0-0.8); Monocytes % (Auto) 8 % (0-12); Neutrophils # (Auto) 3.4 Thou/mm3 (1.8-7.7); Neutrophils % (Auto) 68 % (37-80); Nucleated Red Blood Cell % 0 /100 WBC (0); Platelet Count 205 Thou/mm3 (140-440); RDW Standard Deviation 82.6 fL (35.1-43.9); Red Blood Count 2.48 Miln/mm3 (4.50-5.90)
[2024-12-11 12:29] LABS: Partial Thromboplastin Time 27.8 Seconds (22.0-36.0); Prothrombin Time 11.3 Seconds (9.0-12.2)
[2024-12-11 12:33] LABS: Hemoglobin 8.4 g/dL (13.5-16.0)
[2024-12-11 12:52] LABS: Anion Gap 8 (7-16); BUN/Creatinine Ratio 6 Ratio (12-20); Blood Urea Nitrogen 26 mg/dL (9-23); Calcium 9.2 mg/dL (8.3-10.6); Carbon Dioxide 31.5 mMol/L (20.0-31.0); Chloride 101 mMol/L (98-107); Creatinine (Component) 4.5 mg/dL (0.6-1.3); Glucose 99 mg/dL (74-106); Osmolality,Calculated 284 (275-295); Sodium 140 mMol/L (136-145); eGFR 13 See Note
== END | disposition home or self-care (01) ==
PROVIDERS: PCP Physician Assistant; Referring Provider Internal Medicine; Visit Provider Internal Medicine
DX: I25.10 Atherosclerotic heart disease of native coronary artery without angina pectoris (principal); I48.91 Unspecified atrial fibrillation
CPT/HCPCS: 36415; 80048; 85025; 85610; 85730

== ENCOUNTER 2024-12-18 10:30 | Outpatient (AMB) | payer MEDICARE, MEDICAID, SELFPAY ==
[2024-12-18 10:50] VITALS: BP 144/62; PULSE 79; RESP 19; TEMP 36.7; O2SAT 98; BMI 24.2
--- NOTE | 2024-12-18 10:50 | PD.ORTHCLVIS ---
Vital signs 12/18/24 10:50 Height 1.83 m Height Method Stated Weight 80.966 kg Weight Measurement Method Standing Scale BMI 24.2 BP 144/62 H Blood Pressure Source Automatic Cuff Blood Pressure Location Right Upper Arm Position Sitting Respiration 19 Pulse 79 Pulse Source Monitor Temp 98.0 F Temp Source Oral Pulse Oximetry (%) 98 Oxygen Delivery Method Room Air Med/Allergies Allergies & Medications Allergies No Known Allergies Allergy (Verified 12/18/24 10:52) Medication Reconciliation HYDROCODONE BIT/ACETAMINOPHEN (HYDROCODON-ACETAMINOPH 2.5-325) 1 tab PO Q6HR ##0 07/04/14 [History Confirmed 12/18/24] Levothyroxine * (SYNTHROID *) 75 mcg PO QDAY #0 tabs 07/04/14 [History Confirmed 12/18/24] pantoprazole 40 mg tablet,delayed release (Protonix) 40 mg PO BID ##0 07/04/14 [History Confirmed 12/18/24] duloxetine 60 mg capsule,delayed release (Cymbalta) 80 mg PO QDAY #0 caps 03/22/15 [History Confirmed 12/18/24] sevelamer carbonate 800 mg tablet (Renvela) 800 mg PO TID 04/18/23 [History Confirmed 12/18/24] amlodipine 10 mg tablet (Norvasc) 10 mg PO QDAY 11/20/24 [History Confirmed 12/18/24] gabapentin 400 mg capsule 400 mg PO TID 11/20/24 [History Confirmed 12/18/24] lidocaine 4 % topical cream (Anecream) 1 applic topical BID 11/20/24 [History Confirmed 12/18/24] Exam Exam Breathing is nonlabored. Patient has a normal mood and affect. Bilateral extremities were evaluated and demonstrates sensation intact to light touch. Palpable pedal pulses are present. No significant edema is present. Bilateral hips were examined. The patient has no pain with log roll of the hips. Internal rotation to 30 degrees and external rotation to 30 degrees is painless. Negative FADIR. Left knee was examined today. The left knee is in reasonable alignment. Range of motion from 0-120 degrees. Knee is stable to varus and valgus as well as AP translation with <5mm. Patient has a negative McMurrays. There is no pain with patellofemoral compression and no crepitus noted. The knee is nontender to palpation. The right knee was also examined. The right knee is in varus alignment. Range of motion from 0-115 degrees. Knee is stable to varus and valgus as well as AP translation with <5mm. Patient has a negative McMurrays. There is no pain with patellofemoral compression and no crepitus noted. The knee is tender to palpation medially. Assessment and Plan Problem List (1) Arthritis of knee: Status: Acute Plan: Patient is a 74-year-old male with right knee arthritis and right knee pain. We discussed nonoperative and operative options. He would like a cortisone injection today and would like to try nonoperative treatment. He does have significant medical comorbidities Recommend knee cortisone injection as patient would like to proceed with conservative treatment at this time. The risks and benefits of the procedure were reviewed with the patient and patient gave verbal consent to continue with the procedure. Procedure: performed by Dr. Wynn Using sterile technique the Right knee was thoroughly prepped with alcohol, and approximately 1 cc of Kenalog 40 mg/mL and 4 cc of 1% lidocaine was injected without resistance into the medial tibial femoral joint space. The patient tolerated the procedure. Advanced Care Planning Discussion Advance care planning discussed with:: patient Office Procedures GNS Level of Care Nursing/Assessment Patient Status: Initial/New Patient Nursing Assessment/Reassesment: Medication Reconciliation, Update PMH in EMR and Vital Signs Coordination of Care: Complex Care/Chronic Disease 5 or more, Education Complex Pt/Fam, Consent,records obtained, informed consent, Results/Orders obtained and Staff clarify orders New Patient Charge New Patient Point Assignment: 1104 New Patient Point Charge: GROUP DIRECTOR Level 3 ([id number]) Surgical Proc/IM SQ injection Major Surgical Procedure: Yes (knee injection) Medication Given Medication Given Medication Given: Yes Documented Dose Given: 4 Route: Infiitration Medication Given Medication Given Medication Given: Yes Documented Dose Given: 1 Route: Infiitration Office Meds Xylocaine 10 mg/mL (1 %) injection solution Performing Provider: Fernando Wynn MD Performing Location: [facility] Administered by: Fernando Wynn MD on 12/18/24 12:56 Dose Route Admin Location Dispensed Lot Number Expiration Date [facility] First Assist 20 mL Infiltration 20 mL [id number] 01/24/28 28973-072-12 [facility] triamcinolone acetonide 40 mg/mL suspension for injection Performing Provider: Fernando Wynn MD Performing Location: [facility] Administered by: Fernando Wynn MD on 12/18/24 12:56 Dose Route Admin Location Dispensed Lot Number Expiration Date [facility] First Assist 40 mg intra-articular KNEE 1 mL [id number] 07/25/26 8690-9512-71 [facility] [place] Intake Visit Data Collection New Patient or Established: Established Patient (seen at [facility] within 3 years) Reason for Visit:: RIGHT KNEE OSTEOARTHRITIS Do You Feel Safe at Home: Yes Questionairres Past Medical History Past Medical History Have you ever been diagnosed with any of the following: Neurological Problems Seizures: No Cardiology Problems Angina: Yes Coronary Artery Disease: Yes Hypercholesterolemia: Yes Congestive Heart Failure: No Hypertension: Yes Respiratory Problems Chronic Obstructive Pulmonary Disease (COPD): No Asthma: No Smoking: No Smoking Exposure: No Stomache/Intestinal Problems Gastroesophageal Reflux Disease: Yes Genital/Urinary Problems Renal Disease: Yes (ESRD) Dialysis: Yes (2004 or 2005 HD; PD; 6 yrs ago HD- MWF) Benign Prostatic Hyperplasia: Yes (self cath 2x/day- for a few yrs.) Musculoskeletal Problems Arthritis: Yes (OA generalized) Degenerative Disk Disease: Yes Carpal Tunnel Syndrome: Yes Head,Eye,Nose,Throat Problems Cataracts: Yes (bilateral and lens inplant) Blind: No Deafness: No Endocrine Problems Diabetes Mellitus Type 1: No Diabetes Mellitus Type 2: No Hypothyroidism: Yes Blood Problems Anemia: Yes Sickle Cell Disease: No Other Problems Falls: No Blood Transfusions: Yes Blood Transfusion Reaction: No Anesthesia Reactions: No Measles: No Surgical History Appendectomy: Yes Coronary Artery Bypass Graft: Yes (doule bypass about 15 yrs ago) Subjective Visit Visit for: new patient and knee Immunization / Flu Flu Vaccine in the Last 12 Months: Yes Flu Vaccine Exclusion Criteria: Already Received History of Present Illness Chief complaint: RIGHT KNEE PAIN Isaiah is a pleasant 74-year-old maleWith right knee pain and right knee arthritis. This is been ongoing for 5 months. He is still functioning well. He has a nonweightbearing x-ray at [facility] which demonstrates mild arthritis Personal History Red flag PMH: none BMI Counceling provided: Yes Pain Pain level (0-10): 0 Pain duration: CONSTANT WHEN HE DOES HAVE PAIN Pain location: outside (lateral) Pain quality: dull and aching Pain timing: increases with activity and stairs Associated signs & symptoms: none Ambulatory data Ambulatory device: none Treatments Improvement with previous injections: No Improvement with PT: No Improvement with NSAIDS: yes Review of Systems Review of Systems: All systems negative unless otherwise noted in HPI.
--- NOTE | 2024-12-18 11:16 | XR_ITS ---
Examination: Right knee 4 views TECHNIQUE: Standing AP oblique lateral axial right knee 4 views Exam date and time: December 18, 2024 1133 hours INDICATIONS: Right knee diagnosis primary osteoarthritis knee pain years FINDINGS: Moderate osteopenia Mild narrowing medial joint space Minimal spur formation posterior surface patella. Small knee effusion Soft tissue surgical clips medial to the distal femoral shaft IMPRESSION: Mild osteoarthritis
== END 2024-12-18 11:25 | disposition home or self-care (01) ==
PROVIDERS: PCP Physician Assistant; Referring Provider Physician Assistant; Supervising Provider Orthopaedic Surgery Adult Reconstructive Orthopaedic Surgery; Visit Provider Orthopaedic Surgery Adult Reconstructive Orthopaedic Surgery
DX: M17.11 Unilateral primary osteoarthritis, right knee (principal); M25.561 Pain in right knee; I10 Essential (primary) hypertension; E78.00 Pure hypercholesterolemia, unspecified; I25.10 Atherosclerotic heart disease of native coronary artery without angina pectoris; K21.9 Gastro-esophageal reflux disease without esophagitis; E03.9 Hypothyroidism, unspecified; Z95.1 Presence of aortocoronary bypass graft
CPT/HCPCS: 20610; 73564; 99203; J3301; J3490; G0463

== ENCOUNTER 2024-12-31 17:07 | Inpatient (IN) | payer MEDICARE, MEDICAID, SELFPAY ==
[2024-12-31 17:08] VITALS: BMI 24.4
[2024-12-31 17:45] VITALS: BP 161/64; PULSE 78; RESP 18; TEMP 36.9; O2SAT 95
--- NOTE | 2024-12-31 17:52 | PD.EDRME ---
Rapid Medical Screening Exam E Arrival date/time: 12/31/24 17:07 74-year-old male with a history of hypertension, hypothyroidism, end-stage renal disease, atrial fibrillation presents to the emergency room with a chief complaint of a low hemoglobin level. Patient states his hemoglobin was 6.2 during his doctor's visit and was told to come to the emergency room for a blood transfusion. Patient also states he is having black tarry stools. I have greeted and performed a focused initial assessment of this patient. A comprehensive ED assessment and evaluation of the patient, analysis of all test results, and completion of the medical decision making process will be conducted by additional ED providers. Chief Complaint: GI Bleed Vital signs: Vital Signs Temperature 98.5 F 12/31/24 17:45 Pulse Rate 78 12/31/24 17:45 Respiratory Rate 18 12/31/24 17:45 Blood Pressure 161/64 H 12/31/24 17:45 Pulse Oximetry (%) 95 12/31/24 17:45 Oxygen Delivery Method Room Air 12/31/24 17:45 Vital signs reviewed by provider: Yes
[2024-12-31 18:39] LABS: Basophils % (Auto) 1 % (0-2.5); Eosinophils # (Auto) 0.3 Thou/mm3 (0.0-0.5); Eosinophils % (Auto) 12 % (0-10); Hematocrit 20.9 % (41.0-53.0); Immature Granulocytes % (Auto) 0 % (0-0); Immature Granulocytes Auto 0.01 Thou/mm3 (0.00-0.00); Lymphocytes # (Auto) 0.7 Thou/mm3 (1.0-4.8); Lymphocytes % (Auto) 28 % (10-50); Mean Corpuscular HGB Conc 32.1 g/dl (31.0-37.0); Mean Corpuscular Hemoglobin 33.5 pg (25.0-35.0); Mean Corpuscular Volume 105 fL (80-100); Monocytes # (Auto) 0.4 Thou/mm3 (0.0-0.8); Monocytes % (Auto) 17 % (0-12); Neutrophils # (Auto) 1.1 Thou/mm3 (1.8-7.7); Neutrophils % (Auto) 42 % (37-80); Nucleated Red Blood Cell % 0 /100 WBC (0); Platelet Count 125 Thou/mm3 (140-440); RDW Standard Deviation 70.6 fL (35.1-43.9)
[2024-12-31 18:55] LABS: Partial Thromboplastin Time 27.8 Seconds (22.0-36.0)
[2024-12-31 18:56] LABS: Alanine Aminotransferase 9 U/L (10-49); Albumin, Serum 3.9 gm/dL (3.4-4.8); Albumin/Globulin Ratio 1.9 (1.2-2.2); Alkaline Phosphatase 115 U/L (46-116); Anion Gap 9 (7-16); Aspartate Amino Transferase 13 U/L (0-34); BUN/Creatinine Ratio 7 Ratio (12-20); Bilirubin,Total 0.2 mg/dL (0.3-1.2); Blood Urea Nitrogen 26 mg/dL (9-23); Calcium 9.1 mg/dL (8.3-10.6); Calcium (Corrected) 9.2 mg/dL (8.5-10.1); Carbon Dioxide 31.3 mMol/L (20.0-31.0); Chloride 99 mMol/L (98-107); Creatinine (Component) 3.6 mg/dL (0.6-1.3); Estimated Creatinine Clearance 19.5 mL/min (>60); Globulin 2.1 gm/dL (2.3-3.5); Glucose 88 mg/dL (74-106); Osmolality,Calculated 281 (275-295); Potassium 4.3 mMol/L (3.4-5.1); Sodium 139 mMol/L (136-145); eGFR 17 See Note
[2024-12-31 19:10] LABS: Hemoglobin 6.7 g/dL (13.5-16.0); White Blood Count 2.6 Thou/mm3 (3.8-10.6)
[2024-12-31 20:21] VITALS: BP 149/64; PULSE 80; RESP 15; TEMP 36.9; O2SAT 96
--- NOTE | 2024-12-31 20:36 | PD.EDADULT ---
ED General RME/HPI General Chief complaint: GI Bleed Stated complaint: SENT BY PC ANNIE [facility]AUR, HGB 6.2 Time Seen by Provider: 12/31/24 18:27 Arrival date/time: 12/31/24 17:07 CC: The black tarry stools for 4 days. Now generalized weakness HPI onset 4 days ago. Patient is well-known to us he is a dialysis patient of Dr. Little, has had similar episodes, in October and September. He has been scoped by Dr. Deluca in October. Transfused as well. Patient states this is all painless. Dialysis Tuesday and Tuesday. RME / HPI RME / HPI narrative: 12/31/24 17:07 74-year-old male with a history of hypertension, hypothyroidism, end-stage renal disease, atrial fibrillation presents to the emergency room with a chief complaint of a low hemoglobin level. Patient states his hemoglobin was 6.2 during his doctor's visit and was told to come to the emergency room for a blood transfusion. Patient also states he is having black tarry stools. I have greeted and performed a focused initial assessment of this patient. A comprehensive ED assessment and evaluation of the patient, analysis of all test results, and completion of the medical decision making process will be conducted by additional ED providers. Related Data Home Medications ?Medication ?Instructions ?Recorded ?Confirmed HYDROCODONE BIT/ACETAMINOPHEN 1 tab PO Q6HR ##0 07/04/14 12/18/24 (HYDROCODON-ACETAMINOPH 2.5-325) Levothyroxine * (SYNTHROID *) 75 mcg PO QDAY #0 tabs 07/04/14 12/18/24 pantoprazole 40 mg tablet,delayed 40 mg PO BID ##0 07/04/14 12/18/24 release (Protonix) duloxetine 60 mg capsule,delayed 80 mg PO QDAY #0 caps 03/22/15 12/18/24 release (Cymbalta) sevelamer carbonate 800 mg tablet 800 mg PO TID 04/18/23 12/18/24 (Renvela) amlodipine 10 mg tablet (Norvasc) 10 mg PO QDAY 11/20/24 12/18/24 gabapentin 400 mg capsule 400 mg PO TID 11/20/24 12/18/24 lidocaine 4 % topical cream 1 applic topical BID 11/20/24 12/18/24 (Anecream) Allergies Allergy/AdvReac Type Severity Reaction Status Date / Time No Known Allergies Allergy Verified 12/31/24 17:08 Review of Systems Review of Systems Narrative Review of Systems: GEN: No fever, no chills, no weight loss EYES: No discharge, no visual changes, no pain HEENT: No ear pain, no congestion, no sore throat PULM: No shortness of breath, no cough, no congestion CV: No chest pain, no dyspnea on exertion, no palpitations GI: No nausea, no vomiting, no diarrhea, no pain, no constipation : No frequency, no urgency, no dysuria MUSC/SKEL: No joint pain, no back pain SKIN: No rash PSYCH: No hallucinations, no depression HEME/LYMPH: No easy bleeding or bruising tendencies NEURO: +weakness, no headache ED Exam Narrative Physical exam: [General: Pale, not in any acute distress Head normocephalic HEENT: Within acceptable limits Neck is supple nontender Chest equal chest rise nontender to palpation Respiratory: Clear to auscultation no wheezes crackles or rubs CV: Rate rhythm is regular no murmurs rubs or clicks Abdomen is distended secondary to body habitus soft nontender no masses positive bowel sounds all 4 quadrants Back: No CVA tenderness no spinous process tenderness from cervical spine thoracic and lumbar spine Skin: Pale, large dialysis fistula in the left forearm with good thrill good pulses. Otherwise skin is intact no petechiae rash induration ulceration or crepitus Extremities: Moving all extremity against resistance cap refill less than 2 seconds neurosensory intact Neuro: Awake alert oriented x3 Glascow coma 15 no focal deficits] Course Course Course Narrative: Patient's case clinical presentation laboratory results and diagnosis discussed with Dr. Austin for Dr. Moore agrees to accept the patient for admission. Patient be admitted for anemia and GI bleed Quality Measures VTE prophylaxis Orders Category Date Time Status Occult Blood,Stool (Nursing) ONCE Care 12/31/24 17:52 Active Transfuse,blood/blood products NOW Care 12/31/24 20:29 Active Consult to Gastroenterology Stat Cons 12/31/24 20:40 Ordered CBC Stat Lab 12/31/24 18:19 Completed CMP [Comprehensive Metabolic Panel] Stat Lab 12/31/24 18:19 Completed PT [Prothrombin Time with INR] Stat Lab 12/31/24 18:19 Completed PTT [Partial Thromboplastin Time] Stat Lab 12/31/24 18:19 Completed Type and Screen Stat Lab 12/31/24 18:19 Results prbc [Red Blood Cells] Stat Lab 12/31/24 18:19 Results Pantoprazole Inj [Protonix Inj] Med 12/31/24 20:46 Discontinued 40 mg IVP X1 ONE Pantoprazole/Ns 80Mg IV Premix [Protonix/NS 80mg IV Med 12/31/24 20:46 Active Premix] 80 mg in 100 ml IV Q10H Vital Signs Vital signs: Vital Signs Temperature 98.5 F 12/31/24 17:45 Pulse Rate 78 12/31/24 17:45 Respiratory Rate 18 12/31/24 17:45 Blood Pressure 161/64 H 12/31/24 17:45 Pulse Oximetry (%) 95 12/31/24 17:45 Oxygen Delivery Method Room Air 12/31/24 17:45 [facility] Patient data External records reviewed:: [facility] previous records Clinical information provided by:: patient Social determinants that could affect healthcare access:: none Patient has the following chronic illnesses:: ESRD dialysis recurrent GI bleed How is presenting disease/condition affected by chronic disease/condition?: no chronic disease Evaluation data The following diagnostics were reviewed and interpreted by me:: lab results and radiology exam(s) Lab and/or radiology exams considered but not ordered:: CBC shows leukopenia 2.6 H&H of 6.7 and a crit of 20.9. Platelets at 125 Coags within acceptable limits CMP shows a BUN of 26 creatinine of 3.6 carbon dioxide of 31.3. No other significant electrolyte imbalances T. bili no transaminitis Blood type O+. Interpretation Summary: After lengthy discussion and review of the charts with Dr. Deluca it appears the patient is having a recurrent high up upper GI bleed he wants the patient admitted, he will scope the patient again to see higher up to determine if there is a recurrent bleed. Medications Medications considered but not ordered:: None Medication administrations:: Medication Administration History Acetaminophen (Acetaminophen 325 Mg Tablet) 650 mg PO Q6H PRN PRN Reason: PAIN SCALE 1-3 (mild Stop: 01/30/25 21:17 Atorvastatin Calcium (Atorvastatin Calcium 20 Mg Tablet) 40 mg PO HS RICH Stop: 01/30/25 22:09 Duloxetine HCl (Duloxetine Hcl 30 Mg Capsule) 60 mg PO QDAY RICH Stop: 01/31/25 08:59 Gabapentin (Gabapentin 100 Mg Capsule) 200 mg PO TID RICH Stop: 01/30/25 21:59 Pantoprazole Sodium (Protonix/Ns 80mg Iv Premix) 80 mg in 100 mls @ 10 mls/hr IV Q10H RICH Stop: 01/03/25 18:45 Last Admin: 12/31/24 21:04 Dose: 10 mls/hr Documented By: SORAYA Levothyroxine Sodium (Levothyroxine Sodium 25 Mcg Tablet) 75 mcg PO ACBR RICH Stop: 01/31/25 05:59 Discontinued Medications Pantoprazole Sodium (Protonix/Ns 80mg Iv Premix) 80 mg in 100 mls @ 10 mls/hr IV Q10H RICH Stop: 01/03/25 19:25 Pantoprazole Sodium (Pantoprazole Inj 40 Mg Vial) 40 mg IVP X1 ONE Stop: 12/31/24 20:47 Last Admin: 12/31/24 21:04 Dose: 40 mg Documented By: SORAYA None Consultations Consultation(s) initiated? (list below): No Diagnosis Differential Diagnosis ED Complaint MDM: Upper GI bleed lower GI bleed hemorrhoids Most likely diagnosis given after review of the tests above:: Upper GI bleed Admission Indicated Admission indicated?: indicated Explain why admission is indicated or not indicated:: Requires further medical management Admission Request Was there a request for admission?: No Disposition Plan Disposition Plan: Admit Medical Decision Making Differential Diagnosis Differential Diagnosis: Upper GI bleed lower GI bleed hemorrhoids Lab Data 12/31/24 18:19 12/31/24 18:19 Labs: Lab Results 12/31/24 Range/Units 18:19 WBC 2.6 L (3.8-10.6) Thou/mm3 RBC 2.00 L (4.50-5.90) Miln/mm3 Hgb 6.7 L* (13.5-16.0) g/dL Hct 20.9 L* (41.0-53.0) % MCV 105 H (80-100) fL MCH 33.5 (25.0-35.0) pg MCHC 32.1 (31.0-37.0) g/dl RDW Std Deviation 70.6 H (35.1-43.9) fL Plt Count 125 L D (140-440) Thou/mm3 Neut % (Auto) 42 (37-80) % Lymph % (Auto) 28 (10-50) % Ross % (Auto) 17 H (0-12) % Eos % (Auto) 12 H (0-10) % Baso % (Auto) 1 (0-2.5) % Neut # (Auto) 1.1 L (1.8-7.7) Thou/mm3 Lymph # (Auto) 0.7 L (1.0-4.8) Thou/mm3 Ross # (Auto) 0.4 (0.0-0.8) Thou/mm3 Eos # (Auto) 0.3 (0.0-0.5) Thou/mm3 Baso # (Auto) 0.0 (0.0-0.2) Thou/mm3 Immature Gran # (Auto) 0.01 H (0.00-0.00) Thou/mm3 Absolute Nucleated RBC 0.00 (0.00-0.00) Thou/mm3 Immature Gran % 0 (0-0) % Neutrophils % (Manual) Cancelled Monocytes % (Manual) Cancelled Eosinophils % (Manual) Cancelled Basophils % (Manual) Cancelled Metamyelocytes % Cancelled Myelocytes % Cancelled Promyelocytes % Cancelled Nucleated RBC % 0 (0) /100 WBC Band Neutrophils Cancelled Lymphocytes (Manual) Cancelled Differential Comment Cancelled Hypersegmented Polys Cancelled Atypical Lymphocytes Cancelled Blast Cells Cancelled Plasma Cells Cancelled Smudge Cells Cancelled Other Cell Type Cancelled Toxic Granulation Cancelled Toxic Vacuolation Cancelled Dohle Bodies Cancelled Emy Rods Cancelled Giant Platelets Cancelled Polychromasia Cancelled Hypochromasia Cancelled Poikilocytosis Cancelled Basophilic Stippling Cancelled Anisocytosis Cancelled Microcytosis Cancelled Macrocytosis Cancelled Spherocytes Cancelled Sickle Cells Cancelled Target Cells Cancelled Tear Drop Cells Cancelled Ovalocytes Cancelled Stomatocytes Cancelled Helmet Cells Cancelled [place] Bodies Cancelled [place] Cells Cancelled Crenated Cell Cancelled Acanthocytes (Spur) Cancelled Rouleaux Cancelled Schistocytes Cancelled Morphology Comment Cancelled PT 11.0 (9.0-12.2) Seconds INR 1.0 (0.9-1.3) APTT 27.8 (22.0-36.0) Seconds Sodium 139 (136-145) mMol/L Potassium 4.3 (3.4-5.1) mMol/L Chloride 99 (98-107) mMol/L Carbon Dioxide 31.3 H (20.0-31.0) mMol/L Anion Gap 9 (7-16) BUN 26 H (9-23) mg/dL Creatinine 3.6 H (0.6-1.3) mg/dL Estim Creat Clear Calc 19.5 L (>60) mL/min eGFR 17 L (60 - ) See Note BUN/Creatinine Ratio 7 L (12-20) Ratio Glucose 88 (74-106) mg/dL Calculated Osmolality 281 (275-295) Calcium 9.1 (8.3-10.6) mg/dL Corrected Calcium 9.2 (8.5-10.1) mg/dL Total Bilirubin 0.2 L (0.3-1.2) mg/dL AST 13 (0-34) U/L ALT 9 L (10-49) U/L Alkaline Phosphatase 115 (46-116) U/L Total Protein 6.0 (5.7-8.2) gm/dL Albumin 3.9 (3.4-4.8) gm/dL Globulin 2.1 L (2.3-3.5) gm/dL Albumin/Globulin Ratio 1.9 (1.2-2.2) Blood Type O Positive Antibody Screen NEGATIVE Crossmatch See Detail Blood Bank Wristband ID Yes Discharge Plan Plan Patient Disposition: Other Care w/in Hosp ([facility]) Patient condition on transfer: Stable Problem List Clinical Impression: GI bleed, Anemia, ESRD on dialysis PA/AGRONOMY TEACHER Supervising Physician PA/AGRONOMY TEACHER Supervising Physician: Wellington Reno ENP
--- NOTE | 2024-12-31 20:40 | PC.NURSE ---
Pt placed in gown and monitors. Pt states 3 weeks ago was here for similar events and had a colonoscopy done by MD Deluca. pt noticed Black tarry stools and was sent in today by PCP for low Hgb and black tarry stools
[2024-12-31] MEDS: PANTOPRAZOLE INJ 40 MG VIAL IVP (21:04)
[2024-12-31] MEDS: PANTOPRAZOLE/NS 80MG IV PREMIX 80 MG/100 ML BAG 10 MG IV (21:04)
--- NOTE | 2024-12-31 21:29 | PD.RESHP ---
Documentation for date of: 12/31/24 HPI History of Present Illness History of present illness: The patient is a 74-year-old male with significant past medical history of CAD s/p CABG, hypertension, ESRD on HD MWF, TIA, GERD, hypothyroidism, recent history of GI bleed on 11/20/2024 was sent to ED by her PCP for chief complaint of melena for past 4 days. The patient reported that he has 1 bowel movement every day in the morning, and has been associated with melena for the past 4 days. He visited PCP, and fingerstick hemoglobin and was 6.3, and was sent to ED. The patient's last EGD and colonoscopy was done on 11/21/2024, with hemorrhoids on colonoscopy but no obvious finding for GI bleed. He was discharged to be followed up with Dr. Deluca for possible capsule endoscopy. He reported mild lightheadedness, but denied any headache, nausea or vomiting, sore throat, chest pain, SOB, abdominal pain, any changes in urinary habit, or leg swelling. He also denied any fever or chills. In the ED his vitals were significant for blood pressure 161/64, saturating 95% on room air. Labs were significant for hemoglobin 6.7, WBC 2.6, MCV 105, platelet 125, coag panel WNL, bicarb 31.3, BUN 26, creatinine 3.6, GFR 17. GI Dr. Deluca was consulted, who recommended admitting the patient for EGD and further GI workup. PMH: As mentioned above SHX: CABG, AV fistula, peritoneal dialysis, appendectomy Social history: Positive smoker 1 pack a day for 12.5 years, denies any alcohol or illicit drug use Family history: Unremarkable Medications: Levothyroxine 75 mcg daily, pantoprazole 40 Mg twice daily, duloxetine 60 Mg daily, gabapentin 400 mg 3 times daily, atorvastatin 10 Mg daily. Allergies: No known allergies Patient received pantoprazole 40 Mg IV x 1, and was started on pantoprazole drip. 2 units of PRBC was ordered, and was admitted to telemetry unit for further management of acute GI bleed. Review of Systems Review of Systems Systems Reviewed: All systems reviewed, normal except as documented Exam Vital Signs Temp Pulse Resp BP Pulse Ox O2 Del Method 98.4 F 80 15 149/64 H 96 Room Air 12/31/24 20:21 12/31/24 20:21 12/31/24 20:21 12/31/24 20:21 12/31/24 20:21 12/31/24 20:21 Narrative Exam General: No acute distress, Alert and Oriented x 3 HEENT: Moist mucous membranes, oropharynx clear Neck: Supple, No masses, No JVD CVS: S1S2 Regular rate and rhythm, No murmurs, rubs or gallops Lungs: Clear to auscultation with no accessory use, no wheeze no rhonchi Abd: Soft, NT/ND, +BS, no organomegaly, rectal exam not done Ext: No edema, warm and well perfused, left forearm with AV fistula Skin: No rash Psych: Appropriate mood and affect Results: Labs 12/31/24 18:19 12/31/24 18:19 Labs: Short CBC 12/31/24 Range/Units 18:19 WBC 2.6 L (3.8-10.6) Thou/mm3 Hgb 6.7 L* (13.5-16.0) g/dL Hct 20.9 L* (41.0-53.0) % Plt Count 125 L D (140-440) Thou/mm3 BMP 12/31/24 18:19 Sodium 139 Potassium 4.3 Chloride 99 Carbon Dioxide 31.3 H BUN 26 H Creatinine 3.6 H Glucose 88 Calcium 9.1 Liver Function 12/31/24 Range/Units 18:19 Total Bilirubin 0.2 L (0.3-1.2) mg/dL AST 13 (0-34) U/L ALT 9 L (10-49) U/L Alkaline Phosphatase 115 (46-116) U/L Albumin 3.9 (3.4-4.8) gm/dL Quality Measures Quality Measures VTE prophylaxis Advance care planning discussed with:: patient Medications Home Medications and Allergies Home Medications ?Medication ?Instructions ?Recorded ?Confirmed ?Type HYDROCODONE BIT/ACETAMINOPHEN 1 tab PO Q6HR ##0 07/04/14 12/18/24 History (HYDROCODON-ACETAMINOPH 2.5-325) Levothyroxine * (SYNTHROID *) 75 mcg PO QDAY #0 tabs 07/04/14 01/01/25 History pantoprazole 40 mg tablet,delayed 40 mg PO BID ##0 07/04/14 01/01/25 History release (Protonix) duloxetine 60 mg capsule,delayed 80 mg PO QDAY #0 caps 03/22/15 01/01/25 History release (Cymbalta) sevelamer carbonate 800 mg tablet 800 mg PO TID 04/18/23 12/18/24 History (Renvela) amlodipine 10 mg tablet (Norvasc) 10 mg PO QDAY 11/20/24 01/01/25 History gabapentin 400 mg capsule 400 mg PO TID 11/20/24 01/01/25 History lidocaine 4 % topical cream 1 applic topical BID 11/20/24 12/18/24 History (Anecream) pravastatin 10 mg tablet 10 mg PO DAILY 01/01/25 01/01/25 History Allergies Allergy/AdvReac Type Severity Reaction Status Date / Time No Known Allergies Allergy Verified 12/31/24 17:08 Visit Medications Acetaminophen (Acetaminophen 325 Mg Tablet) 650 mg PO Q6H PRN PRN Reason: PAIN SCALE 1-3 (mild Stop: 01/30/25 21:17 Duloxetine HCl (Duloxetine Hcl 30 Mg Capsule) 60 mg PO QDAY RICH Stop: 01/31/25 08:59 Gabapentin (Gabapentin 100 Mg Capsule) 200 mg PO TID RICH Stop: 01/30/25 21:59 Pantoprazole Sodium (Protonix/Ns 80mg Iv Premix) 80 mg in 100 mls @ 10 mls/hr IV Q10H RICH Stop: 01/03/25 18:45 Last Admin: 12/31/24 21:04 Dose: 10 mls/hr Levothyroxine Sodium (Levothyroxine Sodium 88 Mcg Tablet) 75 mcg PO ACBR RICH Stop: 01/31/25 05:59 Discontinued Medications Pantoprazole Sodium (Protonix/Ns 80mg Iv Premix) 80 mg in 100 mls @ 10 mls/hr IV Q10H RICH Stop: 01/03/25 19:25 Pantoprazole Sodium (Pantoprazole Inj 40 Mg Vial) 40 mg IVP X1 ONE Stop: 12/31/24 20:47 Last Admin: 12/31/24 21:04 Dose: 40 mg Assessment & Plan Plan The patient is a 74-year-old male with significant past medical history of CAD s/p CABG, hypertension, ESRD on HD MWF, TIA, GERD, hypothyroidism, recent history of GI bleed on 11/20/2024 was sent to ED by her PCP for chief complaint of melena for past 4 days and was admitted to telemetry unit for further management of acute GI bleed. #Acute symptomatic blood loss anemia 10/28 #Acute GI bleed DDx: UTI versus LGI bleed, endoscopy and colonoscopy done on 11/21/2024 was unremarkable for any GI bleed Possible small intestinal bleed Patient presented with mild lightheadedness, has been having melena for past 4 days, and hemoglobin in the ED was 6.7, MCV 105, and RDW was 70 Percent received pantoprazole 40 Mg IV x 1, and was started on pantoprazole drip -Continue on pantoprazole drip -2 units PRBC ordered -Post transfusion H&H to coincide with a.m. CBC -N.p.o. for now, okay for p.o. medicines with sips of water -Monitor H&H and transfuse if hemoglobin less than 8, in the setting of CAD -GI Dr. Deluca consulted, appreciate recommendations, likely to proceed with EGD tomorrow morning -Daily a.m. labs for CBC, CMP and electrolytes #CAD s/p CABG #Hypertension Patient is on atorvastatin 10 Mg daily -Started on atorvastatin 40 Mg daily at night -May resume home amlodipine 10 Mg daily #Hypothyroidism -Started on home dose of levothyroxine 75 mcg's CBR #ESRD on HD MWF Patient follows Dr Little for hemodialysis -Dr Little consulted #Neuropathic pain -Resumed duloxetine 60 Mg daily -Started on gabapentin 200 Mg 3 times daily, he is on home medication 400 mg 3 times daily Health maintenance: Dispo: Patient admitted to telemetry unit for further management of acute symptomatic blood loss anemia secondary to GI bleed DVT prophylaxis: SCDs Diet: N.p.o. for now, okay for meds with sips of water CODE STATUS: Full code The patient's management plan was discussed with my attending physician MD Josse Leyva MD, PGY2 Attending Provider Attestation/Addendum 74-year-old male patient with coronary artery disease status post CABG, end-stage renal disease on hemodialysis was admitted for black tarry stools. The patient will be evaluated by GI tomorrow morning. Patient takes aspirin at home. He is not on any anticoagulant.
[2024-12-31 22:39] VITALS: BP 147/57; PULSE 73; RESP 19; TEMP 36.7; O2SAT 94
[2024-12-31 22:58] VITALS: BP 143/72; PULSE 74; RESP 20; TEMP 36.8; O2SAT 94
[2024-12-31 23:13] VITALS: BP 145/63; PULSE 74; RESP 18; TEMP 36.6; O2SAT 93
--- NOTE | 2024-12-31 23:49 | PD.IMCONS ---
HPI Data of Consult Requesting Physician: Elia Moore MD Primary Care Provider: Wendy Yin PA-C Consult Narrative Reason for consult: Melena hemoglobin 6.2 g History of present illness: 74 years male presented to the hospital with 4-day history of melena and the presenting hemoglobin 6.2 g He has history of end-stage renal disease on hemodialysis MWF hypertension hypothyroidism and atrial fibrillation currently not on any anticoagulation I did see him in the month of October where he underwent upper endoscopy which showed gastritis and colonoscopy showed 2+ internal hemorrhoids and moderate diverticulosis of the sigmoid and the descending colon cc:: cc: Elia Moore MD Review of Systems Review of Systems Systems Reviewed: All systems reviewed, normal except as documented Past Medical History Surgical History OTHER SURGICAL HX: As under history of present illness Meds Home Medications and Allergies Home Medications ?Medication ?Instructions ?Recorded ?Confirmed ?Type HYDROCODONE BIT/ACETAMINOPHEN 1 tab PO Q6HR ##0 07/04/14 01/01/25 History (HYDROCODON-ACETAMINOPH 2.5-325) Levothyroxine * (SYNTHROID *) 75 mcg PO QDAY #0 tabs 07/04/14 01/01/25 History pantoprazole 40 mg tablet,delayed 40 mg PO BID ##0 07/04/14 01/01/25 History release (Protonix) duloxetine 60 mg capsule,delayed 60 mg PO QDAY #0 caps 03/22/15 01/01/25 History release (Cymbalta) sevelamer carbonate 800 mg tablet 800 mg PO TID 04/18/23 01/01/25 History (Renvela) amlodipine 10 mg tablet (Norvasc) 10 mg PO QDAY 11/20/24 01/01/25 History gabapentin 400 mg capsule 400 mg PO TID 11/20/24 01/01/25 History lidocaine 4 % topical cream 1 applic topical BID 11/20/24 01/01/25 History (Anecream) pravastatin 10 mg tablet 10 mg PO DAILY 01/01/25 01/01/25 History Allergies Allergy/AdvReac Type Severity Reaction Status Date / Time No Known Allergies Allergy Verified 12/31/24 17:08 Exam Vital Signs Temp Pulse Resp BP Pulse Ox O2 Del Method 97.9 F 74 18 145/63 H 93 L Room Air 12/31/24 23:13 12/31/24 23:13 12/31/24 23:13 12/31/24 23:13 12/31/24 23:13 12/31/24 20:21 Constitutional Comments: Alert oriented Routine Respiratory Exam Comments: Normal to auscultation Routine Abdominal Exam Comments: Soft nontender Results Labs 01/01/25 04:54 01/01/25 04:54 Labs: Short CBC 12/31/24 Range/Units 18:19 WBC 2.6 L (3.8-10.6) Thou/mm3 Hgb 6.7 L* (13.5-16.0) g/dL Hct 20.9 L* (41.0-53.0) % Plt Count 125 L D (140-440) Thou/mm3 BMP 12/31/24 18:19 Sodium 139 Potassium 4.3 Chloride 99 Carbon Dioxide 31.3 H BUN 26 H Creatinine 3.6 H Glucose 88 Calcium 9.1 Liver Function 12/31/24 Range/Units 18:19 Total Bilirubin 0.2 L (0.3-1.2) mg/dL AST 13 (0-34) U/L ALT 9 L (10-49) U/L Alkaline Phosphatase 115 (46-116) U/L Albumin 3.9 (3.4-4.8) gm/dL Assessment and Plan Additional Assessment & Plan Additional Plan: Melena Acute posthemorrhagic anemia requiring transfusion Plan Fiberoptic esophagogastroduodenoscopy with possible therapeutic intervention I will use the pediatric colonoscope to go deeper into the small intestine for further evaluation Consent obtained Will proceed with the procedure Other medical problems include End-stage renal disease on hemodialysis MWF Essential hypertension Hypothyroidism
[2025-01-01] VITALS (20 sets, daily range): BP systolic 131–167; BP diastolic 53–75; PULSE 69–85; RESP 14–24; TEMP 36.1–37.1; O2SAT 90–97; BMI 24.4
--- NOTE | 2025-01-01 00:23 | PC.NURSE ---
okay to give ice chips x1 per Dr. Austin.
[2025-01-01] MEDS: amLODIPine BESYLATE 5 MG TABLET PO (01:03)
[2025-01-01 04:14] LABS: Path Review Blood Smear Sent to Pathologist
[2025-01-01] MEDS: GABAPENTIN 100 MG CAPSULE 200 MG PO (05:44)
[2025-01-01] MEDS: LEVOTHYROXINE SODIUM 25 MCG TABLET 75 MCG PO (05:44)
[2025-01-01] MEDS: PANTOPRAZOLE/NS 80MG IV PREMIX 80 MG/100 ML BAG 10 MG IV ×2 (05:45→16:42)
[2025-01-01 05:47] LABS: Basophils % (Auto) 1 % (0-2.5); Eosinophils # (Auto) 0.4 Thou/mm3 (0.0-0.5); Eosinophils % (Auto) 11 % (0-10); Immature Granulocytes % (Auto) 0 % (0-0); Immature Granulocytes Auto 0.01 Thou/mm3 (0.00-0.00); Lymphocytes # (Auto) 0.8 Thou/mm3 (1.0-4.8); Lymphocytes % (Auto) 24 % (10-50); Mean Corpuscular HGB Conc 32.3 g/dl (31.0-37.0); Mean Corpuscular Hemoglobin 32.8 pg (25.0-35.0); Mean Corpuscular Volume 102 fL (80-100); Monocytes # (Auto) 0.5 Thou/mm3 (0.0-0.8); Monocytes % (Auto) 13 % (0-12); Neutrophils # (Auto) 1.8 Thou/mm3 (1.8-7.7); Neutrophils % (Auto) 51 % (37-80); Nucleated Red Blood Cell % 0 /100 WBC (0); Platelet Count 94 Thou/mm3 (140-440); RDW Standard Deviation 72.4 fL (35.1-43.9); Red Blood Count 2.56 Miln/mm3 (4.50-5.90); White Blood Count 3.5 Thou/mm3 (3.8-10.6)
[2025-01-01 06:01] LABS: Hemoglobin 8.4 g/dL (13.5-16.0)
[2025-01-01 06:20] LABS: Alanine Aminotransferase 8 U/L (10-49); Albumin, Serum 3.8 gm/dL (3.4-4.8); Albumin/Globulin Ratio 2.1 (1.2-2.2); Alkaline Phosphatase 111 U/L (46-116); Anion Gap 11 (7-16); Aspartate Amino Transferase 13 U/L (0-34); BUN/Creatinine Ratio 7 Ratio (12-20); Bilirubin,Total 0.2 mg/dL (0.3-1.2); Blood Urea Nitrogen 30 mg/dL (9-23); Calcium 8.5 mg/dL (8.3-10.6); Calcium (Corrected) 8.7 mg/dL (8.5-10.1); Carbon Dioxide 29.2 mMol/L (20.0-31.0); Cardiac Risk Estimate 2.2 RATIO (4.0-6.7); Chloride 98 mMol/L (98-107); Cholesterol 109 mg/dL (132-200); Creatinine (Component) 4.1 mg/dL (0.6-1.3); Estimated Creatinine Clearance 17.1 mL/min (>60); Globulin 1.8 gm/dL (2.3-3.5); Glucose 92 mg/dL (74-106); HDL Cholesterol 50 mg/dL (40-60); LDL Cholesterol,Calculated 45 mg/dL (0-130); Magnesium 2.1 mg/dL (1.6-2.6); Osmolality,Calculated 281 (275-295); Phosphorous 3.8 mg/dL (2.4-5.1); Sodium 138 mMol/L (136-145); Thyroid Stimulating Hormone 9.43 uIU/mL (0.55-4.78); Total Protein 5.6 gm/dL (5.7-8.2); Triglycerides 70 mg/dL (30-150); eGFR 14 See Note
[2025-01-01] MEDS: DULoxetine HCL 30 MG CAPSULE 60 MG PO (08:26)
[2025-01-01 09:00] LABS: Free T4 (Free Thyroxine) 1.01 ng/dL (0.89-1.76)
[2025-01-01] MEDS: amLODIPine BESYLATE 5 MG TABLET 10 MG PO (10:28)
[2025-01-01] MEDS: GABAPENTIN 100 MG CAPSULE 400 MG PO ×2 (14:42→21:28)
--- NOTE | 2025-01-01 16:38 | PC.SS ---
SS met with patient at bedside to complete initial assessment. Patient confirmed demographic information and stated he lives in a home with his spouse. Patient stated his primary medical surrogate decisionmaker is his spouse Amy Espitia [phone]. Patient stated he is independent with ADL completion but sometimes uses the safety bars he installed in his home for ambulation support. Patient has HD sessions Mondays, Wednesdays, and Fridays at 0815. He is transported to his sessions via [facility]. Patient is followed by Dr. Little, Dr. [facility], and Dr. Byrnes-[facility]. PCP: Wendy Yin. Pharmacy: [facility]. Discharge plan: Home, spouse to provide transportation. Next of kin: Spouse Amy Espitia [phone].
--- NOTE | 2025-01-01 16:46 | PD.RESPRO ---
Documentation for date of: 01/01/25 Subjective Subjective Interval history: Patient is seen and examined at bedside Denies any other complaints Patient is currently on n.p.o. Scheduled for upper GI endoscopy by Dr. Donovan Last dialysis session was on, pending HD tomorrow Labs showed hemoglobin of 8.4, WBC 3.5, platelets 94 Iron profile, B12 and folic acid done in october is within normal limits Exam Vital Signs Temp Pulse Resp BP Pulse Ox O2 Del Method O2 Flow Rate 98.3 F 79 24 H 159/67 H 94 L Nasal Cannula 1 01/01/25 16:00 01/01/25 16:00 01/01/25 16:00 01/01/25 16:00 01/01/25 16:00 01/01/25 16:01/01/25 16:00 Narrative Exam General: Awake. HEENT: Normocephalic, atraumatic, mucous membranes moist. Heart: Regular rate and rhythm, systolic murmur in all areas. CABG scar Lungs: Clear to auscultation with no wheezing or crackles. Abdomen: Soft, nondistended, nontender, positive bowel sounds. ?No guarding or rebound tenderness. Neurologic: Alert and oriented x3, no gross neurological deficit, and patient able to move all 4 extremities. Extremities: fistula in the left arm Skin: No rash or ecchymoses. Objective Labs 01/02/25 04:57 01/02/25 04:57 Labs: Laboratory Results - last 24 hr 12/31/24 01/01/25 18:19 04:54 WBC 2.6 L 3.5 L RBC 2.00 L 2.56 L Hgb 6.7 L* 8.4 L D Hct 20.9 L* 26.0 L MCV 105 H 102 H MCH 33.5 32.8 MCHC 32.1 32.3 RDW Std Deviation 70.6 H 72.4 H Plt Count 125 L D 94 L D Neut % (Auto) 42 51 Lymph % (Auto) 28 24 [place] % (Auto) 17 H 13 H Eos % (Auto) 12 H 11 H Baso % (Auto) 1 1 Neut # (Auto) 1.1 L 1.8 Lymph # (Auto) 0.7 L 0.8 L [place] # (Auto) 0.4 0.5 Eos # (Auto) 0.3 0.4 Baso # (Auto) 0.0 0.0 Immature Gran # (Auto) 0.01 H 0.01 H Absolute Nucleated RBC 0.00 0.00 Immature Gran % 0 0 Neutrophils % (Manual) Cancelled Monocytes % (Manual) Cancelled Eosinophils % (Manual) Cancelled Basophils % (Manual) Cancelled Metamyelocytes % Cancelled Myelocytes % Cancelled Promyelocytes % Cancelled Nucleated RBC % 0 0 Band Neutrophils Cancelled Lymphocytes (Manual) Cancelled Differential Comment Cancelled Hypersegmented Polys Cancelled Atypical Lymphocytes Cancelled Blast Cells Cancelled Plasma Cells Cancelled Smudge Cells Cancelled Other Cell Type Cancelled Toxic Granulation Cancelled Toxic Vacuolation Cancelled Dohle Bodies Cancelled Emy Rods Cancelled Giant Platelets Cancelled Polychromasia Cancelled Hypochromasia Cancelled Poikilocytosis Cancelled Basophilic Stippling Cancelled Anisocytosis Cancelled Microcytosis Cancelled Macrocytosis Cancelled Spherocytes Cancelled Sickle Cells Cancelled Target Cells Cancelled Tear Drop Cells Cancelled Ovalocytes Cancelled Stomatocytes Cancelled Helmet Cells Cancelled Barnett-Rives Bodies Cancelled Skye Cells Cancelled Crenated Cell Cancelled Acanthocytes (Spur) Cancelled Rouleaux Cancelled Schistocytes Cancelled Morphology Comment Cancelled Smear Path Review Sent to Pathologist PT 11.0 INR 1.0 APTT 27.8 Sodium 139 138 Potassium 4.3 4.0 Chloride 99 98 Carbon Dioxide 31.3 H 29.2 Anion Gap 9 11 BUN 26 H 30 H Creatinine 3.6 H 4.1 H* D Estim Creat Clear Calc 19.5 L 17.1 L eGFR 17 L 14 L* BUN/Creatinine Ratio 7 L 7 L Glucose 88 92 Calculated Osmolality 281 281 Calcium 9.1 8.5 Corrected Calcium 9.2 8.7 Phosphorus 3.8 Magnesium 2.1 Total Bilirubin 0.2 L 0.2 L AST 13 13 ALT 9 L 8 L Alkaline Phosphatase 115 111 Total Protein 6.0 5.6 L Albumin 3.9 3.8 Globulin 2.1 L 1.8 L Albumin/Globulin Ratio 1.9 2.1 Triglycerides 70 Cholesterol 109 L LDL Cholesterol, Calc 45 HDL Cholesterol 50 Cholesterol/HDL Ratio 2.2 L TSH 9.43 H D Free T4 1.01 Blood Type O Positive Antibody Screen NEGATIVE Crossmatch See Detail Blood Bank Wristband ID Yes Quality Measures Quality Measures VTE prophylaxis Advance care planning discussed with:: patient Assessment & Plan Assessment Current Active Medications: Generic Name Dose Route Start Last Admin Trade Name Freq PRN Reason Stop Dose Admin Acetaminophen 650 mg 12/31/24 21:18 Acetaminophen 325 Mg Tablet PO 01/30/25 21:17 Q6H PRN PAIN SCALE 1-3 (mild Amlodipine Besylate 10 mg 01/01/25 09:00 01/01/25 10:28 Amlodipine Besylate 5 Mg Tablet PO 01/31/25 08:59 10 mg QDAY RICH Administration Duloxetine HCl 60 mg 01/01/25 09:00 01/01/25 09:05 Duloxetine Hcl 30 Mg Capsule PO 01/31/25 08:59 Not Given QDAY RICH Gabapentin 400 mg 01/01/25 14:00 01/01/25 14:42 Gabapentin 100 Mg Capsule PO 01/31/25 13:59 400 mg TID RICH Administration Pantoprazole Sodium 80 mg in 100 mls @ 10 mls/hr 12/31/24 20:46 01/01/25 16:42 Protonix/Ns 80mg Iv Premix IV 01/03/25 18:45 10 mls/hr Q10H RICH Administration Levothyroxine Sodium 75 mcg 01/01/25 06:00 01/01/25 05:44 Levothyroxine Sodium 25 Mcg Tablet PO 01/31/25 05:59 75 mcg ACBR RICH Administration Pravastatin Sodium 10 mg 01/01/25 09:01 Pravastatin Sodium 10 Mg Tablet PO 01/31/25 08:59 DAILY RICH Sevelamer Carbonate 800 mg 01/01/25 14:00 01/01/25 14:38 Sevelamer Carbonate 800 Mg Tablet PO 01/31/25 13:59 Not Given TID RICH Plan The patient is a 74-year-old male with significant past medical history of CAD s/p CABG, hypertension, ESRD on HD MWF, TIA, GERD, hypothyroidism, recent history of GI bleed on 11/20/2024 was sent to ED by her PCP for chief complaint of melena for past 4 days and was admitted to telemetry unit for further management of acute GI bleed. #Acute blood loss anemia 10/28 #Acute GI bleed -Hemoglobin in November 2024 is 8.4, at the time of admission hemoglobin is 6.7 -Patient reported that he had history of dark stools 5 days ago, which resolved later -Patient saw his PCP on the day before admission and found to have low hemoglobin for which patient was referred to the ED -Patient denies lightheadedness, palpitations, syncopal episodes, chest pain -Patient was given a dose of pantoprazole in the ED and started on drip -Patient was admitted in October for similar complaints and underwent EGD, colonoscopy which did not show any significant pathology, patient is recommended to undergo capsule endoscopy on outpatient basis but patient could not get appointment in Dr. Donovan's office Plan -Continue on pantoprazole drip -2 units PRBC transfusion done -Dr. donovan is consulted and Kept on NPO for now in view of anticipated UGI endoscopy -will monitor CBC #CAD s/p CABG #Hypertension -Patient is using pravastatin 10 Mg p.o. at night -Resumed his home medication #Hypothyroidism -TSH at the time of admission is mildly elevated 9.43, but free T4 is within normal limits -Resumed his home levothyroxine -As patient is asymptomatic for now, will not increase the dose of levothyroxine and recommended to follow-up in outpatient basis #ESRD on HD MWF Patient follows Dr Little for hemodialysis -Last hemodialysis session is on -Dr Little consulted -Will continue hemodialysis according to his routine schedule #Neuropathic pain -Resumed duloxetine 60 Mg daily -Resume his gabapentin Health maintenance: Dispo: Telemetry DVT prophylaxis: SCDs Diet: N.p.o. CODE STATUS: Full code Patient plan of care was discussed with the attending physician, Dr. Korey Chiu, PGY1 Attending Provider Attestation/Addendum I attest that I was physically present for the evaluation, physical examination, lab and imaging review of the patient with the residents. I discussed the case with the residents and agree with the findings and plans of care as documented above. Patient is a 74 years old male with past medical history of CAD status post CABG, hypertension, ESRD on hemodialysis, TIA, GERD, hypothyroidism, history of GI bleed who presented to the ED with complaint of melena. Patient was admitted overnight for management of acute GI bleeding. GI has been following and patient is planned for EGD today. Currently on IV Protonix. His hemoglobin on presentation was 6.7, received 2 units of PRBC, hemoglobin today is 8.4. Patient received hemodialysis Tuesday, nephrology on board. His home medications for CAD, hypertension, hypothyroidism, neuropathic pain has been continued. Leela Nair MD
[2025-01-01] MEDS: SEVELAMER CARBONATE 800 MG TABLET PO (21:28)
[2025-01-01] MEDS: EPOETIN ALFA INJ 1,000 UNIT/0.05 ML UNIT 10000 UNIT SC (21:29)
[2025-01-02] VITALS (22 sets, daily range): BP systolic 138–171; BP diastolic 57–89; PULSE 50–89; RESP 15–95; TEMP 36.2–37.1; O2SAT 91–93
[2025-01-02] MEDS: LEVOTHYROXINE SODIUM 25 MCG TABLET 75 MCG PO (05:13)
[2025-01-02] MEDS: SEVELAMER CARBONATE 800 MG TABLET PO ×2 (05:13→14:32)
[2025-01-02] MEDS: GABAPENTIN 100 MG CAPSULE 400 MG PO ×2 (05:13→14:33)
[2025-01-02 05:14] LABS: Basophils % (Auto) 1 % (0-2.5); Eosinophils # (Auto) 0.4 Thou/mm3 (0.0-0.5); Eosinophils % (Auto) 12 % (0-10); Hematocrit 25.7 % (41.0-53.0); Immature Granulocytes % (Auto) 0 % (0-0); Lymphocytes # (Auto) 0.7 Thou/mm3 (1.0-4.8); Lymphocytes % (Auto) 23 % (10-50); Mean Corpuscular HGB Conc 32.3 g/dl (31.0-37.0); Mean Corpuscular Volume 99 fL (80-100); Monocytes # (Auto) 0.5 Thou/mm3 (0.0-0.8); Monocytes % (Auto) 16 % (0-12); Neutrophils # (Auto) 1.5 Thou/mm3 (1.8-7.7); Neutrophils % (Auto) 49 % (37-80); Nucleated Red Blood Cell % 0 /100 WBC (0); Platelet Count 108 Thou/mm3 (140-440); RDW Standard Deviation 69.4 fL (35.1-43.9); Red Blood Count 2.59 Miln/mm3 (4.50-5.90); White Blood Count 3.1 Thou/mm3 (3.8-10.6)
[2025-01-02] MEDS: PANTOPRAZOLE/NS 80MG IV PREMIX 80 MG/100 ML BAG 10 MG IV (05:15)
[2025-01-02 05:49] LABS: Alanine Aminotransferase 8 U/L (10-49); Albumin, Serum 3.8 gm/dL (3.4-4.8); Alkaline Phosphatase 108 U/L (46-116); Anion Gap 10 (7-16); Aspartate Amino Transferase 18 U/L (0-34); BUN/Creatinine Ratio 7 Ratio (12-20); Bilirubin,Total 0.3 mg/dL (0.3-1.2); Blood Urea Nitrogen 37 mg/dL (9-23); Calcium 8.8 mg/dL (8.3-10.6); Carbon Dioxide 26.7 mMol/L (20.0-31.0); Chloride 100 mMol/L (98-107); Creatinine (Component) 5.4 mg/dL (0.6-1.3); Globulin 1.9 gm/dL (2.3-3.5); Glucose 95 mg/dL (74-106); Magnesium 2.2 mg/dL (1.6-2.6); Osmolality,Calculated 282 (275-295); Phosphorous 4.1 mg/dL (2.4-5.1); Potassium 4.4 mMol/L (3.4-5.1); Sodium 137 mMol/L (136-145); Total Protein 5.7 gm/dL (5.7-8.2); eGFR 10 See Note
[2025-01-02 08:09] LABS: Hemoglobin 8.3 g/dL (13.5-16.0)
--- NOTE | 2025-01-02 10:00 | EKG_ITS ---
[facility] Test Date: 2025-01-02 Pat Name: JUAN RAMON LYNCH Department: Room: S278A Gender: Male Roll Weigher: TANG : 1950 Requested By: Huber Chiu Order Number: [id number] Reading MD: Huber Chiu Measurements Intervals [place] Rate: 78 P: 54 AR: 191 QRS: -13 QRSD: 110 T: 93 QT: 424 QTc: 484 Interpretive Statements SINUS RHYTHM WITH OCCASIONAL VENTRICULAR PREMATURE COMPLEXES WITH OCCASIONAL SUPRAVENTRICULAR PREMATURE COMPLEXES LEFT VENTRICULAR HYPERTROPHY AND ST-T CHANGE Compared to ECG 11/20/2024 17:13:57 Ventricular premature complex(es) now present ST (T wave) deviation still present /store/S0/[id number]/[id number].pdf
--- NOTE | 2025-01-02 10:29 | PC.NURSE ---
Pt at dialysis, MT called 8 runs of PVC, Dr. Chiu notified
[2025-01-02] MEDS: PRAVASTATIN SODIUM 10 MG TABLET PO (11:14)
[2025-01-02] MEDS: amLODIPine BESYLATE 5 MG TABLET 10 MG PO (11:14)
[2025-01-02] MEDS: DULoxetine HCL 30 MG CAPSULE 60 MG PO (11:16)
--- NOTE | 2025-01-02 12:03 | ESCONSULT_ITS ---
RE: JUAN RAMON LYNCH : 1950 DATE OF CONSULTATION: 01/02/2025 REASON FOR REFERRAL: ESRD management. REFERRING PHYSICIAN: Dr. Austin HISTORY OF PRESENT ILLNESS: This patient is a 74-year-old gentleman with past medical history significant for CAD status post CABG, obstructive uropathy, hypertension, ESRD on hemodialysis since 2017 dialyzing every Tuesday, Tuesday, and Tuesday, who was sent by primary care physician to the emergency room on 12/31/2024 after his dialysis treatment when he was found to have a hemoglobin of only 6.3. He ended up in the emergency room and got 2 units of packed RBCs while in the emergency room. The patient also had similar incident last 11/20/2024. During that time, he had an EGD done, which did not reveal any bleeding internally aside from hemorrhoids, which were not bleeding at that time. Yesterday, Dr. 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 It was cauterized successfully. The patient also was found with additional small bowel angiodysplasia. He is being scheduled for a capsule endoscopy at a tertiary center. He is currently on dialysis and currently tolerating dialysis treatment. His current hemoglobin is now 8.3 and yesterday it was 8.4. PAST MEDICAL HISTORY: As previously mentioned, CAD status post CABG, obstructive uropathy, bilateral lower PE in 2022, urological procedures, left AV fistula placement. ALLERGIES: NO KNOWN DRUG ALLERGIES. CURRENT MEDICATIONS: 1. Acetaminophen 2. Amlodipine 10 mg daily. 3. Cymbalta 60 mg daily 4. Gabapentin 400 mg p.o. daily. 5. Pantoprazole drip at 40 mg per hour. 6. Pravastatin 10 mg daily. 7. Renvela 800 mg p.o. t.i.d. with meals. PHYSICAL EXAMINATION: General: He is awake, alert, and oriented. Vital Signs: Blood pressure of 148/71, heart rate of 57. HEENT: Anicteric sclerae. Normocephalic. Neck: Supple. No JVD. Chest and Lungs: Symmetrical expansion. Clear breath sounds. Heart: Without murmur. Abdomen: Soft and nontender. Extremities: No edema. LABORATORY DATA: Hemoglobin 8.2, WBC 6100, platelet count 108,000. Sodium 137, potassium 4.4, chloride 100, CO2 of 26.7, BUN 37, creatinine 5.4, glucose 95, calcium 8.8, albumin 3.8. ASSESSMENT: 1. End-stage renal disease. 2. Anemia secondary to gastrointestinal bleeding. 3. 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 4. Hypertension. 5. History of coronary artery disease status post coronary artery bypass graft. 6. Anemia of chronic kidney disease and gastrointestinal bleed. PLAN: The patient will continue on his dialysis treatments on his scheduled days i.e. Tuesday, Tuesday, and Tuesday. The plan is to refer him to a tertiary care center for capsule endoscopy. We will continue his Protonix drip and continue to monitor his H andH with blood transfusion as needed. DT: 10:23:06 TT: 11:30:00 Ref: [id number] - TID: [id number] MTDD
--- NOTE | 2025-01-02 13:02 | PD.IMPROG ---
Documentation for date of: 01/02/25 Exam Vital Signs Temp Pulse Resp BP Pulse Ox O2 Del Method O2 Flow Rate 98.6 F 84 18 165/77 H 93 L Nasal Cannula 2 01/02/25 10:37 01/02/25 11:14 01/02/25 10:37 01/02/25 11:14 01/02/25 10:37 01/02/25 00:00 01/02/25 10:37 Objective Labs 01/02/25 04:57 01/02/25 04:57 Labs: Laboratory Results - last 24 hr 01/02/25 04:57 WBC 3.1 L RBC 2.59 L Hgb 8.3 L Hct 25.7 L MCV 99 MCH 32.0 MCHC 32.3 RDW Std Deviation 69.4 H Plt Count 108 L Neut % (Auto) 49 Lymph % (Auto) 23 [place] % (Auto) 16 H Eos % (Auto) 12 H Baso % (Auto) 1 Neut # (Auto) 1.5 L Lymph # (Auto) 0.7 L [place] # (Auto) 0.5 Eos # (Auto) 0.4 Baso # (Auto) 0.0 Immature Gran # (Auto) 0.00 Absolute Nucleated RBC 0.00 Immature Gran % 0 Nucleated RBC % 0 Sodium 137 Potassium 4.4 Chloride 100 Carbon Dioxide 26.7 Anion Gap 10 BUN 37 H Creatinine 5.4 H* D Estim Creat Clear Calc 13.0 L eGFR 10 L* BUN/Creatinine Ratio 7 L Glucose 95 Calculated Osmolality 282 Calcium 8.8 Corrected Calcium 9.0 Phosphorus 4.1 Magnesium 2.2 Total Bilirubin 0.3 AST 18 ALT 8 L Alkaline Phosphatase 108 Total Protein 5.7 Albumin 3.8 Globulin 1.9 L Albumin/Globulin Ratio 2.0 Assessment & Plan A&P Narrative Melena Acute posthemorrhagic anemia requiring transfusion Plan Fiberoptic esophagogastroduodenoscopy with possible therapeutic intervention I will use the pediatric colonoscope to go deeper into the small intestine for further evaluation Consent obtained Will proceed with the procedure Other medical problems include End-stage renal disease on hemodialysis MWF Essential hypertension Hypothyroidism Time Spent With Patient Time: Total time spent is greater than 50% in coordination of care (as documented) at patient's floor/unit and/or counseling patient:
--- NOTE | 2025-01-02 14:45 | ESDS_ITS ---
Planned Discharge Date 01/02/25 DS: Providers Provider Date of admission: 12/31/24 21:13 Primary care physician: Wendy Yin PA-C Admitting Provider: Elia Moore MD Attending Provider on Admission: Leela Nair MD Consults: 12/31/24 20:40 Consult to Gastroenterology Stat Comment: Consulting Provider: Sarah Deluca 12/31/24 22:12 Consult to Nephrology Routine Comment: HD MWF Consulting Provider: Rayne Little Attending Provider on DC: Huber Chiu MD Discharging Provider: Huber Chiu MD DS: Diagnosis Problem List Completed Was Problem List Reviewed/Reconciled?: Yes Hospital Course Hospital Course Hospital course: A 74-year-old old male with significant past medical history of CAD s/p CABG, hypertension, ESRD on HD [M/W/F] following Dr. Little, TIA, GERD, hypothyroidism, recent admission in [facility] for GI bleed on 10/2024 again presented to the hospital with complaints of melena and acute blood loss anemia. Labs at the time of admission is significant for Hb 6.7, WBC 2.6, MCV 105, platelets 125. Patient received 2 units of PRBC transfusion. Dr. Deluca was consulted and recommended EGD. EGD done on 01/01/2025 showed normal esophagus, erythematous mucosa in the antrum. Patient has more additional small bowel angiodysplasias. , Recommended to see the patient as an outpatient to schedule capsule endoscopy at a tertiary center. 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 If you do not have appointment, please follow-up with the [facility] with Dr. Chiu. Call [phone] to make an appointment. -Follow up with DR. Deluca within 1 week of discharge to schedule capsule endoscopy -Continue following with Dr. Little and continue Hemodialysis as per routine schedule -Follow-up with manager room on outpatient basis for pancytopenia -Continue your home medications. -Return to ED if symptoms persist or return #Acute blood loss anemia 2/2 #Acute GI bleed #CAD s/p CABG #Hypertension #Hypothyroidism #ESRD on HD MWF #Neuropathic pain #leukopenia, thrombocytopenia # History of aortic stenosis Patient plan of care was discussed with the attending physician, Dr. Nair and senior resident Dr. Candido Chiu, PGY1 Time Spent with Patient Time attestation: Total time spent providing and/or coordinating discharge services: Time spent: Less than 30 minutes Exam Vital Signs Temp Pulse Resp BP Pulse Ox O2 Del Method O2 Flow Rate 98.6 F 84 18 165/77 H 93 L Nasal Cannula 2 01/02/25 10:37 01/02/25 11:14 01/02/25 10:37 01/02/25 11:14 01/02/25 10:37 01/02/25 00:00 01/02/25 10:37 Narrative Exam General: Awake. HEENT: Normocephalic, atraumatic, mucous membranes moist. Heart: Regular rate and rhythm, systolic murmur in all areas. CABG scar Lungs: Clear to auscultation with no wheezing or crackles. Abdomen: Soft, nondistended, nontender, positive bowel sounds. ?No guarding or rebound tenderness. Neurologic: Alert and oriented x3, no gross neurological deficit, and patient able to move all 4 extremities. Extremities: fistula in the left arm Skin: No rash or ecchymoses. Discharge Plan Plan Patient Disposition: HOME (Self Care) Patient condition on transfer: Stable Care Plan Goals: -Follow-up with PCP within 1 week of discharge. If you do not have appointment, please follow-up with the [facility] with Dr. Chiu. Call [phone] to make an appointment. -Follow up with DR. Deluca within 1 week of discharge to schedule capsule endoscopy -Continue following with Dr. Little and continue Hemodialysis as per routine schedule -Continue your home medications. -Return to ED if symptoms persist or return Prescriptions/Referrals Prescriptions/Med Rec: Continued pantoprazole [Protonix] 40 MG tablet,delayed release (DR/EC) 40 mg PO BID Qty: 0 Patient Comments: TO SUPPRESS [employer] HYDROCODONE BIT/ACETAMINOPHEN (HYDROCODON-ACETAMINOPH 2.5-325) 1 EACH tablet 1 tab PO Q6HR Qty: 0 Levothyroxine * (SYNTHROID *) 75 MCG tablet 75 mcg PO QDAY Qty: 0 duloxetine [Cymbalta] 60 MG capsule,delayed release(DR/EC) 60 mg PO QDAY Qty: 0 sevelamer carbonate [Renvela] 800 mg Tablet 800 mg PO TID Rx Instructions: must administer with a meal/food gabapentin 400 mg capsule 400 mg PO TID Patient Comments: TAKE ONE CAPSULE BY MOUTH THREE TIMES DAILY FOR NERVE PAIN amlodipine [Norvasc] 10 mg tablet 10 mg PO QDAY lidocaine [Anecream] 4 % cream 1 applic topical BID Rx Instructions: to right 2nd toe arthritis pain. (Over the counter med) pravastatin 10 mg tablet 10 mg PO DAILY Referrals: Wendy Yin PA-C [Primary Care Provider] - Patient/Caregiver Discharge Instructions Education Materials: Anemia, Hemodialysis Print Language: Thai Stand Alone Forms: Dennise Award Info., Patient Portal Info Letter Discharge Order Discharge Orders: Discharge (Routine); Ordered 01/02/25 Ordered By: Huber Chiu Quality Discharge Quality Measures VTE prophylaxis Attestestation Attestation I attest that I was physically present for the evaluation, physical examination, lab and imaging review of the patient with the residents. I discussed the case with the residents and agree with the findings and plans of care as documented above. Leela Nair MD
--- NOTE | 2025-01-02 15:22 | PC.SS ---
Rounding note: patient to d/c home after dialysis.
--- NOTE | 2025-01-02 15:49 | PC.NURSE ---
Dr. Little notified of discharge, ok to discharge and follow at dialysis. Dr. Deluca notified of discharge, will follow up in 1 week for capsule endoscopy. Pt verbalized understanding of follow up appts. Education provided for pt about fistula not to take bp on fistula side. Pt verbalized feels ready and safe to go home.
== END 2025-01-02 14:44 | disposition home or self-care (01) | DRG 377 ==
LOC: SERX 20:46 → SERHOLD 21:31 → S2NX 01-01 01:15
PROVIDERS: Nurse Practitioner Family; Specialist; Student in an Organized Health Care Education/Training Program; Admitting Provider Internal Medicine; Emergency Provider Emergency Medicine; PCP Physician Assistant; Visit Provider Student in an Organized Health Care Education/Training Program
PROC: 0DJ08ZZ Inspection of Upper Intestinal Tract, Via Natural or Artificial Opening Endoscopic (ICD-10-PCS; CPT 43239; principal; 2025-01-01 19:30)
DX: K55.21 Angiodysplasia of colon with hemorrhage (principal); N18.6 End stage renal disease; I12.0 Hypertensive chronic kidney disease with stage 5 chronic kidney disease or end stage renal disease; D62 Acute posthemorrhagic anemia; E03.9 Hypothyroidism, unspecified; D63.1 Anemia in chronic kidney disease; I48.91 Unspecified atrial fibrillation; I25.10 Atherosclerotic heart disease of native coronary artery without angina pectoris; F17.210 Nicotine dependence, cigarettes, uncomplicated; K21.9 Gastro-esophageal reflux disease without esophagitis; D69.6 Thrombocytopenia, unspecified; I35.0 Nonrheumatic aortic (valve) stenosis; Z79.890 Hormone replacement therapy; Z99.2 Dependence on renal dialysis; Z95.1 Presence of aortocoronary bypass graft; Z79.82 Long term (current) use of aspirin; Z86.73 Personal history of transient ischemic attack (TIA), and cerebral infarction without residual deficits; Z79.899 Other long term (current) drug therapy
CPT/HCPCS: 36415; 36430; 80053; 80061; 83735; 84100; 84439; 84443; 85014; 85018; 85025; 85610; 85730; 86850; 86900; 86901; 86923; 87081; 87811; 93005; 96374; 99285; J2250; J2470; J3010; J3490; P9016; Q4081; A9270

== ENCOUNTER 2025-01-17 07:49 | Outpatient (AMB) | payer MEDICARE, MEDICAID, SELFPAY ==
[2025-01-17 08:10] VITALS: BP 129/62; PULSE 76; RESP 18; TEMP 36.1; O2SAT 92; BMI 24.5
--- NOTE | 2025-01-17 08:10 | ORTHONT_ITS ---
Vital signs 01/17/25 08:10 Height 1.83 m Height Method Stated Weight 82.185 kg Weight Measurement Method Standing Scale BMI 24.5 BP 129/62 Blood Pressure Source Automatic Cuff Blood Pressure Location Right Upper Arm Position Sitting Respiration 18 Pulse 76 Pulse Source Monitor Temp 96.9 F Temp Source Temporal Artery Scan Pulse Oximetry (%) 92 L Oxygen Delivery Method Room Air Med/Allergies Allergies & Medications Allergies No Known Allergies Allergy (Verified 01/17/25 08:11) Medication Reconciliation HYDROCODONE BIT/ACETAMINOPHEN (HYDROCODON-ACETAMINOPH 2.5-325) 1 tab PO Q6HR ##0 07/04/14 [History Confirmed 01/17/25] Levothyroxine * (SYNTHROID *) 75 mcg PO QDAY #0 tabs 07/04/14 [History Confirmed 01/17/25] pantoprazole 40 mg tablet,delayed release (Protonix) 40 mg PO BID ##0 07/04/14 [History Confirmed 01/17/25] duloxetine 60 mg capsule,delayed release (Cymbalta) 60 mg PO QDAY #0 caps 03/22/15 [History Confirmed 01/17/25] sevelamer carbonate 800 mg tablet (Renvela) 800 mg PO TID 04/18/23 [History Confirmed 01/17/25] amlodipine 10 mg tablet (Norvasc) 10 mg PO QDAY 11/20/24 [History Confirmed 01/17/25] gabapentin 400 mg capsule 400 mg PO TID 11/20/24 [History Confirmed 01/17/25] lidocaine 4 % topical cream (Anecream) 1 applic topical BID 11/20/24 [History Confirmed 01/17/25] pravastatin 10 mg tablet 10 mg PO DAILY 01/01/25 [History Confirmed 01/17/25] Exam Exam Breathing is nonlabored. Patient has a normal mood and affect. Bilateral extremities were evaluated and demonstrates sensation intact to light touch. Palpable pedal pulses are present. No significant edema is present. Bilateral hips were examined. The patient has no pain with log roll of the hips. Internal rotation to 30 degrees and external rotation to 30 degrees is painless. Negative FADIR. Left knee was examined today. The left knee is in reasonable alignment. Range of motion from 0-120 degrees. Knee is stable to varus and valgus as well as AP translation with <5mm. Patient has a negative McMurrays. There is no pain with patellofemoral compression and no crepitus noted. The knee is nontender to palpation. The right knee was also examined. The right knee is in varus alignment. Range of motion from 0-115 degrees. Knee is stable to varus and valgus as well as AP translation with <5mm. Patient has a negative McMurrays. There is no pain with patellofemoral compression and no crepitus noted. The knee is tender to palpation medially. X-rays demonstrate minimal arthritis of the right knee Assessment and Plan Problem List (1) Arthritis of knee: Status: Acute Plan: Patient is a 74-year-old male with right knee arthritis and right knee pain. We discussed nonoperative and operative options. He did well with the last cortisone injection and has minimal pain at this time. We will continue with conservative management. Advanced Care Planning Discussion Advance care planning discussed with:: patient Office Procedures GNS Level of Care Nursing/Assessment Patient Status: Established Patient Nursing Assessment/Reassesment: Medication Reconciliation, Update PMH in EMR and Vital Signs Coordination of Care: Complex Care and Chronic Disease 1-5, Education Complex Pt/Fam, Consent,records obtained, informed consent, Results/Orders obtained and Staff clarify orders Established Patient Charge Established Patient Point Assignment: 95 Established Patient Point Charge: EP Level 3 (80-115) MA Intake Visit Data Collection New Patient or Established: Established Patient (seen at [facility] within 3 years) Reason for Visit:: F/U XRAY Seen by Clinical Staff ONLY (RN/MA): No Verbal consent obtained for Telemed visit?: No Weather Clerk Required: No PCP or OBGYN visit in last 3 months: Yes Hx Now: No Do You Feel Safe at Home: Yes Authorities Contacted: N/A Questionairres Past Medical History Past Medical History Have you ever been diagnosed with any of the following: Neurological Problems Seizures: No Cardiology Problems Angina: Yes Coronary Artery Disease: Yes Hypercholesterolemia: Yes Congestive Heart Failure: No Hypertension: Yes Respiratory Problems Chronic Obstructive Pulmonary Disease (COPD): No Asthma: No Smoking: No Smoking Exposure: No Stomache/Intestinal Problems Gastroesophageal Reflux Disease: Yes Genital/Urinary Problems Renal Disease: Yes (ESRD) Dialysis: Yes (2004 or 2005 HD; PD; 6 yrs ago HD- MWF) Benign Prostatic Hyperplasia: Yes (self cath 2x/day- for a few yrs.) Musculoskeletal Problems Arthritis: Yes (OA generalized) Degenerative Disk Disease: Yes Carpal Tunnel Syndrome: Yes Head,Eye,Nose,Throat Problems Cataracts: Yes (bilateral and lens inplant) Blind: No Deafness: No Endocrine Problems Diabetes Mellitus Type 1: No Diabetes Mellitus Type 2: No Hypothyroidism: Yes Blood Problems Anemia: Yes Sickle Cell Disease: No Other Problems Falls: No Blood Transfusions: Yes Blood Transfusion Reaction: No Anesthesia Reactions: No Measles: No Surgical History Appendectomy: Yes Coronary Artery Bypass Graft: Yes (double bypass about 15 yrs ago) Subjective Visit Visit for: follow up visit, knee and x-rays Immunization / Flu Flu Vaccine in the Last 12 Months: No Flu Vaccine Exclusion Criteria: No Exclusion Criteria History of Present Illness Chief complaint: F/U XRAYS Isaiah is a pleasant 74-year-old maleWith right knee pain and right knee arthritis. He is here for x-ray results. We also gave him a cortisone injection at the last visit and he reports dramatic relief and that it is doing very well Personal History Occupation: RETIRED Red flag PMH: BMI BMI Counceling provided: Yes Pain Pain level (0-10): 0 Pain duration: CONSTANT WHEN HE DOES HAVE PAIN Pain location: outside (lateral) Pain quality: dull and aching Pain timing: increases with activity and stairs Associated signs & symptoms: none Ambulatory data Ambulatory device: none Treatments Improvement with previous injections: No Improvement with PT: No Improvement with NSAIDS: no Review of Systems Review of Systems: All systems negative unless otherwise noted in HPI.
== END 2025-01-17 08:23 | disposition home or self-care (01) ==
LOC: HODSRG 07:49
PROVIDERS: PCP Physician Assistant; Referring Provider Physician Assistant; Supervising Provider Orthopaedic Surgery Adult Reconstructive Orthopaedic Surgery; Visit Provider Orthopaedic Surgery Adult Reconstructive Orthopaedic Surgery
DX: M17.11 Unilateral primary osteoarthritis, right knee (principal); M25.561 Pain in right knee; I10 Essential (primary) hypertension; E78.00 Pure hypercholesterolemia, unspecified; I25.10 Atherosclerotic heart disease of native coronary artery without angina pectoris; K21.9 Gastro-esophageal reflux disease without esophagitis; E03.9 Hypothyroidism, unspecified; Z95.1 Presence of aortocoronary bypass graft
CPT/HCPCS: 99213; G0463

== ENCOUNTER 2025-02-12 18:41 | Emergency (ER) | payer MEDICARE, MEDICAID, SELFPAY | END 2025-02-12 21:00 | disposition left against medical advice (07) | PROVIDERS: Emergency Provider Emergency Medicine | DX: Z53.21 Procedure and treatment not carried out due to patient leaving prior to being seen by health care provider (principal) ==

== ENCOUNTER 2025-03-08 08:22 | Emergency (ER) | payer MEDICARE, MEDICAID, SELFPAY ==
[2025-03-08] VITALS (9 sets, daily range): BP systolic 149–182; BP diastolic 62–83; PULSE 67–76; RESP 15–21; TEMP 36.3–36.6; O2SAT 93–98; BMI 22.2
--- NOTE | 2025-03-08 08:40 | PD.EDADULT ---
ED General RME/HPI General Chief complaint: Recheck/Abnormal Lab/Rx Stated complaint: Hemoglobin 6.7 sent by dialysis Time Seen by Provider: 03/08/25 08:27 Arrival date/time: 03/08/25 08:22 Limitations: no limitations RME / HPI RME / HPI narrative: DR. PARMAR MAIN ED EVALUATION: 75 year old male with past medical history significant for anemia with previous blood transfusions in the past presents to the Emergency Department after his hemoglobin was too low for dialysis, 6.7. He was sent from the dialysis center. Patient is asymptomatic. Related Data Home Medications ?Medication ?Instructions ?Recorded ?Confirmed HYDROCODONE BIT/ACETAMINOPHEN 1 tab PO Q6HR ##0 07/04/14 01/17/25 (HYDROCODON-ACETAMINOPH 2.5-325) Levothyroxine * (SYNTHROID *) 75 mcg PO QDAY #0 tabs 07/04/14 01/17/25 pantoprazole 40 mg tablet,delayed 40 mg PO BID ##0 07/04/14 01/17/25 release (Protonix) duloxetine 60 mg capsule,delayed 60 mg PO QDAY #0 caps 03/22/15 01/17/25 release (Cymbalta) sevelamer carbonate 800 mg tablet 800 mg PO TID 04/18/23 01/17/25 (Renvela) amlodipine 10 mg tablet (Norvasc) 10 mg PO QDAY 11/20/24 01/17/25 gabapentin 400 mg capsule 400 mg PO TID 11/20/24 01/17/25 lidocaine 4 % topical cream 1 applic topical BID 11/20/24 01/17/25 (Anecream) pravastatin 10 mg tablet 10 mg PO DAILY 01/01/25 01/17/25 Allergies Allergy/AdvReac Type Severity Reaction Status Date / Time No Known Allergies Allergy Verified 03/08/25 08:26 Review of Systems Review of Systems Systems Reviewed: All systems reviewed, normal except as documented Past Medical History Past Medical History CARDIAC: Positive Cardiac Disorders, Angina, Coronary Artery Disease, Hypercholesterolemia and Hypertension GASTROINTESTINAL: Positive Gastrointestinal Disorders and Gastroesophageal Reflux Disease GENITOURINARY: Positive Genitourinary Disorders (Dr. Little), Renal Disease (ESRD), Dialysis (2004 or 2005 HD; PD; 6 yrs ago HD- MWF) and Benign Prostatic Hyperplasia (self cath 2x/day- for a few yrs.) MUSCULOSKELETAL: Positive Musculoskeletal Disorders (right knee started to hurt,xray arthritis- has Dr. Wynn appointment), Arthritis (OA generalized), Degenerative Disk Disease and Carpal Tunnel Syndrome ENT: Positive Cataracts (bilateral and lens inplant) ENDOCRINE: Positive Hypothyroidism HEMATOLOGIC: Positive Blood Disorders and Anemia OTHER HISTORY: Positive Blood Transfusions Surgical History SURGICAL: Positive Cardiac Surgery, Open Heart Surgery, Coronary Artery Bypass Graft (double bypass about 15 yrs ago), Cardiac Catheterization and Angiogram Social History SMOKING STATUS: Former smoker SECOND HAND EXPOSURE: No SUBSTANCE USE: does not use ALCOHOL: Never ED Exam General Limitations: Present no limitations General appearance: Present alert and in no apparent distress Head Head exam: Present atraumatic, normocephalic and normal inspection Eye Eye exam: Present normal appearance, PERRL and EOMI ENT ENT exam: Present normal exam, normal oropharynx and mucous membranes moist Neck Neck exam: Present normal inspection, full ROM and trachea midline Chest Chest inspection: Present normal inspection and symmetric chest wall rise Respiratory Respiratory exam: Present normal lung sounds bilaterally Cardiovascular Cardiovascular exam: Present regular rate, normal rhythm, normal heart sounds and systolic murmur (4/6 ejection systolic murmur) Abdominal Exam Abdominal exam: Present soft and normal bowel sounds Extremities Exam Extremities exam: Present normal inspection and full ROM Back Exam Back exam: Present normal inspection and full ROM Neurological Exam Neurological exam: Present alert, oriented X3 and CN II-XII intact Psychiatric Psychiatric exam: Present normal affect and normal mood Skin Skin exam: Present warm, dry, intact and normal color Course Quality Measures none Orders Category Date Time Status Transfuse,blood/blood products ONCE Care 03/08/25 08:35 Active CBC Auto Diff Post-Transfusion Stat Lab 03/08/25 14:59 Completed CBC Stat Lab 03/08/25 09:35 Completed CMP [Comprehensive Metabolic Panel] Stat Lab 03/08/25 09:35 Completed INR [Prothrombin Time with INR] Stat Lab 03/08/25 09:35 Completed Path Review Blood Smear Stat Lab 03/08/25 09:35 Completed Red Blood Cells Stat Lab 03/08/25 09:35 Completed Type and Screen Stat Lab 03/08/25 09:35 Completed Acetaminophen Tab [Tylenol Tab] Med 03/08/25 08:35 Discontinued 650 mg PO X1 ONE DiphenhydrAMINE [Benadryl] Med 03/08/25 08:35 Discontinued 25 mg PO X1 ONE Vital Signs Vital signs: Vital Signs Temperature 97.8 F 03/08/25 08:31 Pulse Rate 75 03/08/25 08:31 Respiratory Rate 20 03/08/25 08:31 Blood Pressure 153/66 H 03/08/25 08:31 Pulse Oximetry (%) 93 L 03/08/25 08:31 Oxygen Delivery Method Room Air 03/08/25 08:31 Discharge Plan Plan Patient Disposition: HOME (Self Care) Prescriptions/Referrals Prescriptions/Med Rec: No Action pantoprazole [Protonix] 40 MG tablet,delayed release (DR/EC) 40 mg PO BID Qty: 0 Patient Comments: TO SUPPRESS GASTRIC SECRETIONS HYDROCODONE BIT/ACETAMINOPHEN (HYDROCODON-ACETAMINOPH 2.5-325) 1 EACH tablet 1 tab PO Q6HR Qty: 0 Levothyroxine * (SYNTHROID *) 75 MCG tablet 75 mcg PO QDAY Qty: 0 duloxetine [Cymbalta] 60 MG capsule,delayed release(DR/EC) 60 mg PO QDAY Qty: 0 sevelamer carbonate [Renvela] 800 mg Tablet 800 mg PO TID Rx Instructions: must administer with a meal/food gabapentin 400 mg capsule 400 mg PO TID Patient Comments: TAKE ONE CAPSULE BY MOUTH THREE TIMES DAILY FOR NERVE PAIN amlodipine [Norvasc] 10 mg tablet 10 mg PO QDAY lidocaine [Anecream] 4 % cream 1 applic topical BID Rx Instructions: to right 2nd toe arthritis pain. (Over the counter med) pravastatin 10 mg tablet 10 mg PO DAILY Referrals: No Primary/Family,Physician [Primary Care Provider] - In 1 week Problem List Clinical Impression: Anemia Patient/Caregiver Discharge Instructions Discharge Activity: activity as tolerated Education Materials: Anemia and Kidney Disease Print Language: Moldovan Stand Alone Forms: Dennise Award Info., Patient Portal Info Letter MDM Clinical Information Provided by patient Medical Records Reviewed [facility] Meds/Rx Considered, not Ordered None Labs/Rad/Tests considered, not Ordered None Chronic Illness/Social Conditions Add or document further as needed: Anemia with previous blood transfusions in the past. Medication Administration(s) Medication Administration History Discontinued Medications Acetaminophen (Acetaminophen 325 Mg Tablet) 650 mg PO X1 ONE Stop: 03/08/25 08:36 Last Admin: 03/08/25 09:04 Dose: 650 mg Documented By: STACY Diphenhydramine HCl (Diphenhydramine 25 Mg Capsule) 25 mg PO X1 ONE Stop: 03/08/25 08:36 Last Admin: 03/08/25 09:05 Dose: 25 mg Documented By: STACY Diagnosis Differential diagnosis: Iron deficiency anemia, chronic anemia, anemia, dehydration Most likely dx, and/or detailed dx discussion: Anemia Dispositon Disposition: Discharge Home
[2025-03-08] MEDS: ACETAMINOPHEN 325 MG TABLET 650 MG PO (09:04)
[2025-03-08] MEDS: DiphenhydrAMINE 25 MG CAPSULE PO (09:05)
[2025-03-08 09:58] LABS: Basophils % (Auto) 1 % (0-2.5); Eosinophils # (Auto) 0.4 Thou/mm3 (0.0-0.5); Eosinophils % (Auto) 11 % (0-10); Immature Granulocytes % (Auto) 0 % (0-0); Immature Granulocytes Auto 0.01 Thou/mm3 (0.00-0.00); Lymphocytes # (Auto) 1.2 Thou/mm3 (1.0-4.8); Lymphocytes % (Auto) 36 % (10-50); Mean Corpuscular HGB Conc 32.3 g/dl (31.0-37.0); Mean Corpuscular Hemoglobin 34.2 pg (25.0-35.0); Mean Corpuscular Volume 106 fL (80-100); Monocytes # (Auto) 0.5 Thou/mm3 (0.0-0.8); Monocytes % (Auto) 15 % (0-12); Neutrophils # (Auto) 1.3 Thou/mm3 (1.8-7.7); Neutrophils % (Auto) 38 % (37-80); Nucleated Red Blood Cell % 0 /100 WBC (0); Platelet Count 146 Thou/mm3 (140-440); RDW Standard Deviation 85.7 fL (35.1-43.9); Red Blood Count 1.84 Miln/mm3 (4.50-5.90); White Blood Count 3.4 Thou/mm3 (3.8-10.6)
[2025-03-08 10:03] LABS: Hematocrit 19.5 % (41.0-53.0); Hemoglobin 6.3 g/dL (13.5-16.0)
[2025-03-08 10:28] LABS: Alanine Aminotransferase < 7 U/L (10-49); Alkaline Phosphatase 118 U/L (46-116); Anion Gap 16 (7-16); Aspartate Amino Transferase < 10 U/L (0-34); BUN/Creatinine Ratio 7 Ratio (12-20); Bilirubin,Total < 0.2 mg/dL (0.3-1.2); Blood Urea Nitrogen 42 mg/dL (9-23); Calcium 8.8 mg/dL (8.3-10.6); Calcium (Corrected) 8.8 mg/dL (8.5-10.1); Carbon Dioxide 26.8 mMol/L (20.0-31.0); Chloride 94 mMol/L (98-107); Creatinine (Component) 6.1 mg/dL (0.6-1.3); Estimated Creatinine Clearance 11.1 mL/min (>60); Glucose 100 mg/dL (74-106); Osmolality,Calculated 284 (275-295); Potassium 4.9 mMol/L (3.4-5.1); Sodium 137 mMol/L (136-145); eGFR 9 See Note
[2025-03-08 13:20] LABS: Path Review Blood Smear Sent to Pathologist
[2025-03-08 15:23] LABS: Basophils % (Auto) 1 % (0-2.5); Eosinophils # (Auto) 0.3 Thou/mm3 (0.0-0.5); Eosinophils % (Auto) 11 % (0-10); Hematocrit 22.3 % (41.0-53.0); Immature Granulocytes % (Auto) 0 % (0-0); Immature Granulocytes Auto 0.01 Thou/mm3 (0.00-0.00); Lymphocytes # (Auto) 1.2 Thou/mm3 (1.0-4.8); Lymphocytes % (Auto) 40 % (10-50); Mean Corpuscular HGB Conc 33.6 g/dl (31.0-37.0); Mean Corpuscular Hemoglobin 33.5 pg (25.0-35.0); Mean Corpuscular Volume 100 fL (80-100); Monocytes # (Auto) 0.4 Thou/mm3 (0.0-0.8); Monocytes % (Auto) 14 % (0-12); Neutrophils % (Auto) 34 % (37-80); Nucleated Red Blood Cell % 0 /100 WBC (0); Platelet Count 137 Thou/mm3 (140-440); RDW Standard Deviation 76.7 fL (35.1-43.9); Red Blood Count 2.24 Miln/mm3 (4.50-5.90)
[2025-03-08 15:27] LABS: Hemoglobin 7.5 g/dL (13.5-16.0); White Blood Count 2.9 Thou/mm3 (3.8-10.6)
== END 2025-03-08 17:00 | disposition home or self-care (01) ==
PROVIDERS: Emergency Provider Emergency Medicine
DX: I12.0 Hypertensive chronic kidney disease with stage 5 chronic kidney disease or end stage renal disease (principal); N18.6 End stage renal disease; D63.1 Anemia in chronic kidney disease; Z99.2 Dependence on renal dialysis; Z87.891 Personal history of nicotine dependence
CPT/HCPCS: 36415; 36430; 80053; 85025; 85610; 86850; 86900; 86901; 86923; 99285; P9016; A9270

== ENCOUNTER 2025-03-22 13:58 | Emergency (ER) | payer MEDICARE, MEDICAID, SELFPAY ==
[2025-03-22] VITALS (30 sets, daily range): BP systolic 105–163; BP diastolic 43–93; PULSE 65–91; RESP 11–23; TEMP 36.2–37; O2SAT 90–98; BMI 24.4
--- NOTE | 2025-03-22 14:20 | PD.EDRME ---
Rapid Medical Screening Exam E Arrival date/time: 03/22/25 13:58 75-year-old male with a history of hypertension, hypothyroidism, hyperlipidemia, end-stage renal disease on dialysis, atrial fibrillation, presents to the emergency room with a chief complaint of weakness and fatigue. Patient states he was sent to the emergency room by his primary care provider for a hemoglobin level of 6.5. I have greeted and performed a focused initial assessment of this patient. A comprehensive ED assessment and evaluation of the patient, analysis of all test results, and completion of the medical decision making process will be conducted by additional ED providers. Chief Complaint: Recheck/Abnormal Lab/Rx Vital signs: Vital Signs Temperature 98.0 F 03/22/25 14:09 Pulse Rate 91 03/22/25 14:09 Respiratory Rate 18 03/22/25 14:09 Blood Pressure 105/65 03/22/25 14:09 Pulse Oximetry (%) 95 03/22/25 14:09 Oxygen Delivery Method Room Air 03/22/25 14:09 Vital signs reviewed by provider: Yes
[2025-03-22 14:34] LABS: Basophils % (Auto) 1 % (0-2.5); Eosinophils # (Auto) 0.3 Thou/mm3 (0.0-0.5); Eosinophils % (Auto) 12 % (0-10); Hematocrit 21.4 % (41.0-53.0); Immature Granulocytes % (Auto) 0 % (0-0); Lymphocytes # (Auto) 0.8 Thou/mm3 (1.0-4.8); Lymphocytes % (Auto) 30 % (10-50); Mean Corpuscular HGB Conc 32.2 g/dl (31.0-37.0); Mean Corpuscular Hemoglobin 33.8 pg (25.0-35.0); Mean Corpuscular Volume 105 fL (80-100); Monocytes # (Auto) 0.4 Thou/mm3 (0.0-0.8); Monocytes % (Auto) 17 % (0-12); Neutrophils # (Auto) 1.1 Thou/mm3 (1.8-7.7); Neutrophils % (Auto) 41 % (37-80); Nucleated Red Blood Cell % 0 /100 WBC (0); Platelet Count 134 Thou/mm3 (140-440); RDW Standard Deviation 80.8 fL (35.1-43.9); Red Blood Count 2.04 Miln/mm3 (4.50-5.90)
[2025-03-22 14:51] LABS: Prothrombin Time 11.4 Seconds (9.0-12.2)
[2025-03-22 14:53] LABS: White Blood Count 2.6 Thou/mm3 (3.8-10.6)
[2025-03-22 14:54] LABS: Hemoglobin 6.9 g/dL (13.5-16.0)
[2025-03-22 15:04] LABS: Alanine Aminotransferase < 7 U/L (10-49); Albumin, Serum 4.2 gm/dL (3.4-4.8); Albumin/Globulin Ratio 1.8 (1.2-2.2); Alkaline Phosphatase 107 U/L (46-116); Anion Gap 13 (7-16); Aspartate Amino Transferase 12 U/L (0-34); BUN/Creatinine Ratio 4 Ratio (12-20); Bilirubin,Total 0.3 mg/dL (0.3-1.2); Blood Urea Nitrogen 11 mg/dL (9-23); Calcium 8.9 mg/dL (8.3-10.6); Calcium (Corrected) 8.9 mg/dL (8.5-10.1); Carbon Dioxide 31.4 mMol/L (20.0-31.0); Chloride 96 mMol/L (98-107); Creatinine (Component) 2.7 mg/dL (0.6-1.3); Estimated Creatinine Clearance 25.5 mL/min (>60); Globulin 2.3 gm/dL (2.3-3.5); Glucose 123 mg/dL (74-106); Osmolality,Calculated 279 (275-295); Potassium 3.8 mMol/L (3.4-5.1); Sodium 140 mMol/L (136-145); Total Protein 6.5 gm/dL (5.7-8.2); eGFR 24 See Note
--- NOTE | 2025-03-22 16:37 | EDNOTE_ITS ---
<Statement entered by Lenora Jewell MD - 03/22/25 23:27> As co-signing physician, I was present and available for consult prn. I concur with the plan and care as documented by the midlevel provider. ED Recheck Abnl Lab Rx-RME/HPI General Chief Complaint: Recheck/Abnormal Lab/Rx Stated Complaint: needs transfusion, Hemoglobin 6.5 Time Seen by Provider: 03/22/25 15:17 Arrival date/time: 03/22/25 13:58 RME / HPI RME / HPI narrative: 75-year-old male with a history of hypertension, hypothyroidism, hyperlipidemia, end-stage renal disease on dialysis, atrial fibrillation, presents to the emergency room with a chief complaint of weakness and fatigue. Patient states he was sent to the emergency room by his relief operator, Dr Little for a hemoglobin level of 6.5. Patient had hemodialysis today. Patient's been having anemia probably for 6 months now, was sent to [facility] pending further workup. Patient denies any vomiting blood or blood in his stool. Related Data Home Medications ?Medication ?Instructions ?Recorded ?Confirmed HYDROCODONE BIT/ACETAMINOPHEN 1 tab PO Q6HR ##0 01/17/25 (HYDROCODON-ACETAMINOPH 2.5-325) Levothyroxine * (SYNTHROID *) 75 mcg PO QDAY #0 tabs 1 01/17/25 pantoprazole 40 mg tablet,delayed 40 mg PO BID ##0 06/0901/17/25 release (Protonix) duloxetine 60 mg capsule,delayed 60 mg PO QDAY #0 caps 03/22/15 01/17/25 release (Cymbalta) sevelamer carbonate 800 mg tablet 800 mg PO TID 01/17/25 (Renvela) amlodipine 10 mg tablet (Norvasc) 10 mg PO QDAY 01/17/25 gabapentin 400 mg capsule 400 mg PO TID 11/20/2401/17 lidocaine 4 % topical cream 1 applic topical BID 11/2001/17/25 (Anecream) pravastatin 10 mg tablet 10 mg PO DAILY 01/01/2512/26 Allergies Allergy/AdvReac Type Severity Reaction Status Date / Time No Known Allergies Allergy Verified 03/22/25 14:02 Review of Systems Review of Systems Narrative Review of Systems: Review of system reviewed and within normal limits except mentioned in HPI ED Exam Narrative Physical exam: VITAL SIGNS: Reviewed. GENERAL APPEARANCE: Alert and interactive, follows commands, no acute distress, HEAD AND FACE: Non-traumatic. ENT: PERRL, pale conjunctiva eyelid no trauma, Mucous membrane moist. NECK: Supple, nontender, no nuchal rigidity. CHEST: No tenderness, no crepitus, no paradoxical movement, no retractions. LUNGS: Clear, well ventilated, symmetric, no rales, no wheezing, no ronchi, no stridor, good breath sounds bilaterally. HEART: Regular rate, regular rhythm, no murmur, no gallops. ABDOMEN: Soft, positive bowel sounds, nondistended, no guarding, nontender, no rebound, no masses, RECTAL: Deferred. GENITAL: Deferred. NEUROLOGICAL: Gross motor function intact sensory function intact, Appropriate for age. MUSCULOSKELETAL: low back nontender, full range of motion. EXTREMITIES: Left AV fistula, with thrill, nontender, full range of motion. SKIN: Color pale, dry, no rash, no lacerations, no abrasions, no contusions. LYMPHATICS: Deferred. Course Quality Measures none Orders Category Date Time Status IV [Insert IV] NOW Care 03/22/25 17:15 Active Transfuse,blood/blood products ONCE Care 03/22/25 15:18 Active CBC Stat Lab 03/22/25 14:25 Completed CMP [Comprehensive Metabolic Panel] Stat Lab 03/22/25 14:25 Completed PT [Prothrombin Time with INR] Stat Lab 03/22/25 14:25 Completed PTT [Partial Thromboplastin Time] Stat Lab 03/22/25 14:25 Completed Type and Screen Stat Lab 03/22/25 14:25 Completed prbc [Red Blood Cells] Stat Lab 03/22/25 14:25 Completed Vital Signs Vital signs: Vital Signs Temperature 98.0 F 03/22/25 14:09 Pulse Rate 91 03/22/25 14:09 Respiratory Rate 18 03/22/25 14:09 Blood Pressure 105/65 03/22/25 14:09 Pulse Oximetry (%) 95 03/22/25 14:09 Oxygen Delivery Method Room Air 03/22/25 14:09 Recheck / Abnormal Lab / Rx MDM Narrative MDM Narrative:: 75-year-old male with a history of hypertension, hypothyroidism, hyperlipidemia, end-stage renal disease on dialysis, atrial fibrillation, presents to the emergency room with a chief complaint of weakness and fatigue. Patient states he was sent to the emergency room by his relief operator, Dr Little for a hemoglobin level of 6.5. Patient had hemodialysis today. Patient's been having anemia probably for 6 months now, was sent to [facility] pending further workup. Patient denies any vomiting blood or blood in his stool. Patient's hemoglobin today was noted to be 6.9. Hematocrit of 21.4. Patient received 2 units of packed RBC with no complication noted. Patient data External records reviewed:: None Clinical information provided by:: patient Social determinants that could affect healthcare access:: none Patient has the following chronic illnesses:: Chronic anemia, ESRD How is presenting disease/condition affected by chronic disease/condition?: exacerbated by Evaluation data The following diagnostics were reviewed and interpreted by me:: lab results Lab and/or radiology exams considered but not ordered:: None Interpretation Summary: See results in MDM Medications / Prescriptions Medications or Prescriptions considered but not ordered:: None Medication administrations:: 2 units packed RBC Consultations Consultation(s) initiated? (list below): No Diagnosis Recheck Differential Diagnosis: other (Anemia, ESRD) Most likely diagnosis given after review of the tests above:: Anemia, ESRD Admission Indicated Admission indicated?: not indicated Admission Request Was there a request for admission?: No Disposition Plan Disposition Plan: Discharge Discharge Attestation Discharge Attestation: The patient was given an opportunity to ask questions and understood the discharge instructions. Discharge instructions specifically effects, indications for sooner follow up or return to the emergency department, and the expected course of current diagnosis. Patient condition: Stable Discharge Plan Plan Patient Disposition: HOME (Self Care) Discharge Disposition comment: stable Prescriptions/Referrals Prescriptions/Med Rec: No Action pantoprazole [Protonix] 40 MG tablet,delayed release (DR/EC) 40 mg PO BID Qty: 0 Patient Comments: TO SUPPRESS GASTRIC SECRETIONS HYDROCODONE BIT/ACETAMINOPHEN (HYDROCODON-ACETAMINOPH 2.5-325) 1 EACH tablet 1 tab PO Q6HR Qty: 0 Levothyroxine * (SYNTHROID *) 75 MCG tablet 75 mcg PO QDAY Qty: 0 duloxetine [Cymbalta] 60 MG capsule,delayed release(DR/EC) 60 mg PO QDAY Qty: 0 sevelamer carbonate [Renvela] 800 mg Tablet 800 mg PO TID Rx Instructions: must administer with a meal/food gabapentin 400 mg capsule 400 mg PO TID Patient Comments: TAKE ONE CAPSULE BY MOUTH THREE TIMES DAILY FOR NERVE PAIN amlodipine [Norvasc] 10 mg tablet 10 mg PO QDAY lidocaine [Anecream] 4 % cream 1 applic topical BID Rx Instructions: to right 2nd toe arthritis pain. (Over the counter med) pravastatin 10 mg tablet 10 mg PO DAILY Referrals: Wendy Yin PA-C [Primary Care Provider] - In 1 week Problem List Clinical Impression: Anemia Patient/Caregiver Discharge Instructions Discharge Activity: activity as tolerated Education Materials: Anemia Additional Instructions: Thank you for the opportunity for serving you today. You are stable for discharged . You are advised to: Follow-up with your PCP in 1 to 2 days Return to ED for worsening of symptoms Print Language: Indonesian Stand Alone Forms: Dennise Award Info., Patient Portal Info Letter GIGI/TUCKER Supervising Physician RONEY Supervising Physician: MD Fanta
== END 2025-03-22 22:30 | disposition home or self-care (01) ==
PROVIDERS: Nurse Practitioner Family; Emergency Provider Emergency Medicine; PCP Physician Assistant
DX: I12.0 Hypertensive chronic kidney disease with stage 5 chronic kidney disease or end stage renal disease (principal); N18.6 End stage renal disease; D63.1 Anemia in chronic kidney disease; Z99.2 Dependence on renal dialysis
CPT/HCPCS: 36415; 36430; 80053; 85025; 85610; 85730; 86850; 86900; 86901; 86923; 99285; P9016

== ENCOUNTER → 2025-04-01 | Outpatient (CLI) | payer MEDICARE, MEDICAID, SELFPAY ==
--- NOTE | 2025-04-01 15:54 | XR_ITS ---
Examination: Duplex scan of the lower extremity, unilateral right Date and time of exam: April 01, 2025 1403 hours INDICATIONS: Right lower leg swelling and pain beginning 3 weeks ago Technique: Duplex scan of the extremity veins using B-mode/grayscale imaging and Doppler spectral analysis and color flow Attention is directed to internal echogenicity, compression and augmentation involving these veins, color flow assessment, spectral analysis Findings: Major deep venous structures in the extremity demonstrate normal course and caliber. There is no evidence of deep vein thrombosis. Normal color flow and spectral analysis Impression: Negative for DVT..
== END | disposition home or self-care (01) ==
LOC: SDIM 15:02
PROVIDERS: PCP Physician Assistant; Referring Provider Internal Medicine Nephrology; Visit Provider Internal Medicine Nephrology
DX: M79.89 Other specified soft tissue disorders (principal); M79.661 Pain in right lower leg
CPT/HCPCS: 93971

== ENCOUNTER 2025-04-12 14:50 | Emergency (ER) | payer MEDICARE, MEDICAID, SELFPAY ==
[2025-04-12] VITALS (10 sets, daily range): BP systolic 136–165; BP diastolic 60–72; PULSE 64–73; RESP 14–21; TEMP 36.4–37; O2SAT 94–99; BMI 23.6
--- NOTE | 2025-04-12 15:12 | PD.EDRME ---
Rapid Medical Screening Exam RME Arrival date/time: 04/12/25 14:50 75-year-old male with a history of hyperlipidemia hypertension end-stage renal disease on dialysis every Tuesday, atrial fibrillation presents to the emergency room with a chief complaint of a low hemoglobin level. I have greeted and performed a focused initial assessment of this patient. A comprehensive ED assessment and evaluation of the patient, analysis of all test results, and completion of the medical decision making process will be conducted by additional ED providers. Chief Complaint: Recheck/Abnormal Lab/Rx Time Seen by Provider: 04/12/25 15:03 Vital signs reviewed by provider: Yes
--- NOTE | 2025-04-12 15:19 | PD.EDRECHK ---
ED Recheck Abnl Lab Rx-RME/HPI General Chief Complaint: Recheck/Abnormal Lab/Rx Stated Complaint: Hemoglobin 6.8 Time Seen by Provider: 04/12/25 15:03 Arrival date/time: 04/12/25 14:50 RME / HPI RME / HPI narrative: 75-year-old male with a history of hyperlipidemia hypertension end-stage renal disease on dialysis every Tuesday, atrial fibrillation presents to the emergency room with a chief complaint of a low hemoglobin level. Patient was seen here few weeks ago for blood transfusion. Patient was extensively worked up in [facility] regarding chronic anemia, including capsule endoscopy. According to him they cannot find a source. Had a dialysis today and was noted to have a hemoglobin of 6.8 denies any vomiting denies any blood in the stool. Related Data Home Medications ?Medication ?Instructions ?Recorded ?Confirmed HYDROCODONE BIT/ACETAMINOPHEN 1 tab PO Q6HR ##0 07/04/14 01/17/25 (HYDROCODON-ACETAMINOPH 2.5-325) Levothyroxine * (SYNTHROID *) 75 mcg PO QDAY #0 tabs 07/04/14 01/17/25 pantoprazole 40 mg tablet,delayed 40 mg PO BID ##0 07/04/14 01/17/25 release (Protonix) duloxetine 60 mg capsule,delayed 60 mg PO QDAY #0 caps 03/22/15 01/17/25 release (Cymbalta) sevelamer carbonate 800 mg tablet 800 mg PO TID 04/18/23 01/17/25 (Renvela) amlodipine 10 mg tablet (Norvasc) 10 mg PO QDAY 11/20/24 01/17/25 gabapentin 400 mg capsule 400 mg PO TID 11/20/24 01/17/25 lidocaine 4 % topical cream 1 applic topical BID 11/20/24 01/17/25 (Anecream) pravastatin 10 mg tablet 10 mg PO DAILY 01/01/25 01/17/25 Allergies Allergy/AdvReac Type Severity Reaction Status Date / Time No Known Allergies Allergy Verified 04/12/25 14:53 Review of Systems Review of Systems Narrative Review of Systems: Review of system reviewed and within normal limits except mentioned in HPI ED Exam Narrative Physical exam: VITAL SIGNS: Reviewed. GENERAL APPEARANCE: Alert and interactive, follows commands, no acute distress, HEAD AND FACE: Non-traumatic. ENT: PERRL, pale conjunctiva, eyelid no trauma, Mucous membrane moist. NECK: Supple, nontender, no nuchal rigidity. CHEST: No tenderness, no crepitus, no paradoxical movement, no retractions. LUNGS: Clear, well ventilated, symmetric, no rales, no wheezing, no ronchi, no stridor, good breath sounds bilaterally. HEART: Regular rate, regular rhythm, no murmur, no gallops. ABDOMEN: Soft, positive bowel sounds, nondistended, no guarding, nontender, no rebound, no masses, RECTAL: Deferred. GENITAL: Deferred. NEUROLOGICAL: Gross motor function intact sensory function intact, Appropriate for age. MUSCULOSKELETAL: low back nontender, full range of motion. EXTREMITIES: Nontender, full range of motion. SKIN: Color pale, dry, no rash, no lacerations, no abrasions, no contusions. LYMPHATICS: Deferred. Course Quality Measures none Orders Category Date Time Status Transfuse,blood/blood products ONCE Care 04/12/25 15:21 Active CBC Stat Lab 04/12/25 15:17 Completed CMP [Comprehensive Metabolic Panel] Stat Lab 04/12/25 15:17 Completed PT [Prothrombin Time with INR] Stat Lab 04/12/25 15:17 Completed PTT [Partial Thromboplastin Time] Stat Lab 04/12/25 15:17 Completed Type and Screen Stat Lab 04/12/25 15:17 Results prbc [Red Blood Cells] Stat Lab 04/12/25 15:17 Results Vital Signs Vital signs: Vital Signs Temperature 97.7 F 04/12/25 15:14 Pulse Rate 73 04/12/25 15:14 Respiratory Rate 18 04/12/25 15:14 Blood Pressure 136/60 H 04/12/25 15:14 Pulse Oximetry (%) 94 L 04/12/25 15:14 Oxygen Delivery Method Room Air 04/12/25 15:14 Recheck / Abnormal Lab / Rx MDM Narrative MDM Narrative:: 75-year-old male with a history of hyperlipidemia hypertension end-stage renal disease on dialysis every Tuesday, atrial fibrillation presents to the emergency room with a chief complaint of a low hemoglobin level. Patient was seen here few weeks ago for blood transfusion. Patient was extensively worked up in [facility] regarding chronic anemia, including capsule endoscopy. According to him they cannot find a source. Had a dialysis today and was noted to have a hemoglobin of 6.8 denies any vomiting denies any blood in the stool. Patient's hemoglobin was noted to be 7.8. Hematocrit of 23.5. Plan of care discussed with the patient, including no need for blood transfusion since the hemoglobin was noted to be 7.8 however patient told me that he has been waiting for more than 5 hours, might as well give the blood 2 units. Patient received 2 units of packed RBC with no complication noted. Stable for discharge home Patient data External records reviewed:: None Clinical information provided by:: patient Social determinants that could affect healthcare access:: none Patient has the following chronic illnesses:: ESRD history of anemia chronic disease on hemodialysis How is presenting disease/condition affected by chronic disease/condition?: exacerbated by Evaluation data The following diagnostics were reviewed and interpreted by me:: lab results and radiology exam(s) Lab and/or radiology exams considered but not ordered:: None Interpretation Summary: See results MDM Medications / Prescriptions Medications or Prescriptions considered but not ordered:: None Medication administrations:: None Consultations Consultation(s) initiated? (list below): No Diagnosis Recheck Differential Diagnosis: other (Anemia of chronic disease, ESRD iron deficiency anemia) Most likely diagnosis given after review of the tests above:: Anemia chronic disease Admission Indicated Admission indicated?: not indicated Admission Request Was there a request for admission?: No Disposition Plan Disposition Plan: Discharge Discharge Attestation Discharge Attestation: The patient was given an opportunity to ask questions and understood the discharge instructions. Discharge instructions specifically effects, indications for sooner follow up or return to the emergency department, and the expected course of current diagnosis. Patient condition: Stable Discharge Plan Plan Patient Disposition: HOME (Self Care) Discharge Disposition comment: Stable Prescriptions/Referrals Prescriptions/Med Rec: No Action pantoprazole [Protonix] 40 MG tablet,delayed release (DR/EC) 40 mg PO BID Qty: 0 Patient Comments: TO SUPPRESS [employer] SECRETIONS HYDROCODONE BIT/ACETAMINOPHEN (HYDROCODON-ACETAMINOPH 2.5-325) 1 EACH tablet 1 tab PO Q6HR Qty: 0 Levothyroxine * (SYNTHROID *) 75 MCG tablet 75 mcg PO QDAY Qty: 0 duloxetine [Cymbalta] 60 MG capsule,delayed release(DR/EC) 60 mg PO QDAY Qty: 0 sevelamer carbonate [Renvela] 800 mg Tablet 800 mg PO TID Rx Instructions: must administer with a meal/food gabapentin 400 mg capsule 400 mg PO TID Patient Comments: TAKE ONE CAPSULE BY MOUTH THREE TIMES DAILY FOR NERVE PAIN amlodipine [Norvasc] 10 mg tablet 10 mg PO QDAY lidocaine [Anecream] 4 % cream 1 applic topical BID Rx Instructions: to right 2nd toe arthritis pain. (Over the counter med) pravastatin 10 mg tablet 10 mg PO DAILY Referrals: Wendy Yin PA-C [Primary Care Provider] - In 1 week Problem List Clinical Impression: Anemia due to chronic kidney disease, End-stage renal disease (ESRD) Patient/Caregiver Discharge Instructions Discharge Activity: activity as tolerated Education Materials: Anemia and Kidney Disease Additional Instructions: Thank you for the opportunity for serving you today. You are stable for discharged . You are advised to: Follow-up with your PCP in 1 to 2 days Return to ED for worsening of symptoms Print Language: Urdu Stand Alone Forms: Dennise Award Info., Patient Portal Info Letter GIGI/TUCKER Supervising Physician RONEY Supervising Physician: MD Alicia
[2025-04-12 15:23] LABS: Basophils # (Auto) 0.0 Thou/mm3 (0.0-0.2); Basophils % (Auto) 1 % (0-2.5); Eosinophils # (Auto) 0.2 Thou/mm3 (0.0-0.5); Eosinophils % (Auto) 8 % (0-10); Hematocrit 23.5 % (41.0-53.0); Immature Granulocytes Auto 0.01 Thou/mm3 (0.00-0.00); Lymphocytes # (Auto) 0.9 Thou/mm3 (1.0-4.8); Lymphocytes % (Auto) 41 % (10-50); Mean Corpuscular HGB Conc 33.2 g/dl (31.0-37.0); Mean Corpuscular Hemoglobin 33.8 pg (25.0-35.0); Mean Corpuscular Volume 102 fL (80-100); Monocytes # (Auto) 0.4 Thou/mm3 (0.0-0.8); Monocytes % (Auto) 17 % (0-12); Neutrophils # (Auto) 0.8 Thou/mm3 (1.8-7.7); Neutrophils % (Auto) 34 % (37-80); Nucleated Red Blood Cell # 0.00 Thou/mm3 (0.00-0.00); Nucleated Red Blood Cell % 0 /100 WBC (0); Platelet Count 136 Thou/mm3 (140-440); RDW Standard Deviation 81.0 fL (35.1-43.9); Red Blood Count 2.31 Miln/mm3 (4.50-5.90)
[2025-04-12 15:38] LABS: INR 1.0 (0.9-1.3); Partial Thromboplastin Time 26.3 Seconds (22.0-36.0); Prothrombin Time 11.0 Seconds (9.0-12.2)
[2025-04-12 15:47] LABS: Hemoglobin 7.8 g/dL (13.5-16.0); White Blood Count 2.3 Thou/mm3 (3.8-10.6)
[2025-04-12 15:52] LABS: Alanine Aminotransferase < 7 U/L (10-49); Albumin, Serum 4.1 gm/dL (3.4-4.8); Albumin/Globulin Ratio 1.7 (1.2-2.2); Alkaline Phosphatase 133 U/L (46-116); Anion Gap 12 (7-16); Aspartate Amino Transferase 13 U/L (0-34); BUN/Creatinine Ratio 4 Ratio (12-20); Bilirubin,Total 0.2 mg/dL (0.3-1.2); Blood Urea Nitrogen 11 mg/dL (9-23); Calcium 9.2 mg/dL (8.3-10.6); Calcium (Corrected) 9.2 mg/dL (8.5-10.1); Carbon Dioxide 30.1 mMol/L (20.0-31.0); Chloride 100 mMol/L (98-107); Creatinine (Component) 2.9 mg/dL (0.6-1.3); Globulin 2.4 gm/dL (2.3-3.5); Glucose 106 mg/dL (74-106); Osmolality,Calculated 282 (275-295); Potassium 3.9 mMol/L (3.4-5.1); Sodium 142 mMol/L (136-145); Total Protein 6.5 gm/dL (5.7-8.2); eGFR 22 See Note
[2025-04-13 00:49] VITALS: BP 160/77; PULSE 75; RESP 16; TEMP 36.9; O2SAT 98
[2025-04-13 00:50] VITALS: BP 160/77; PULSE 75; RESP 16; TEMP 36.9; O2SAT 98
== END 2025-04-13 00:59 | disposition home or self-care (01) ==
PROVIDERS: Nurse Practitioner Family; Emergency Provider Family Medicine; PCP Physician Assistant
DX: I12.0 Hypertensive chronic kidney disease with stage 5 chronic kidney disease or end stage renal disease (principal); N18.6 End stage renal disease; Z99.2 Dependence on renal dialysis; D63.1 Anemia in chronic kidney disease
CPT/HCPCS: 36415; 36430; 80053; 85025; 85610; 85730; 86850; 86900; 86901; 86923; 99284; P9016

== ENCOUNTER → 2025-05-02 | Outpatient (CLI) | payer MEDICARE, MEDICAID, SELFPAY ==
[2025-05-02 16:06] LABS: Basophils # (Auto) 0.0 Thou/mm3 (0.0-0.2); Basophils % (Auto) 1 % (0-2.5); Eosinophils # (Auto) 0.4 Thou/mm3 (0.0-0.5); Eosinophils % (Auto) 10 % (0-10); Hematocrit 29.6 % (41.0-53.0); Hemoglobin 9.5 g/dL (13.5-16.0); Immature Granulocytes Auto 0.01 Thou/mm3 (0.00-0.00); Immature Reticulocyte Fraction 21.4 % (2.3-13.4); Lymphocytes # (Auto) 0.9 Thou/mm3 (1.0-4.8); Lymphocytes % (Auto) 24 % (10-50); Mean Corpuscular HGB Conc 32.1 g/dl (31.0-37.0); Mean Corpuscular Hemoglobin 34.1 pg (25.0-35.0); Mean Corpuscular Volume 106 fL (80-100); Monocytes # (Auto) 0.4 Thou/mm3 (0.0-0.8); Monocytes % (Auto) 11 % (0-12); Neutrophils # (Auto) 2.0 Thou/mm3 (1.8-7.7); Neutrophils % (Auto) 54 % (37-80); Nucleated Red Blood Cell # 0.00 Thou/mm3 (0.00-0.00); Nucleated Red Blood Cell % 0 /100 WBC (0); Platelet Count 147 Thou/mm3 (140-440); RDW Standard Deviation 75.9 fL (35.1-43.9); Red Blood Count 2.79 Miln/mm3 (4.50-5.90); Reticulocyte % (Auto) 1.8 % (0.5-1.5); Reticulocyte Absolute Auto 49.9 Biln/L (25.0-75.0); Reticulocyte Hgb Content 35.4 pg (28.0-35.0); White Blood Count 3.6 Thou/mm3 (3.8-10.6)
[2025-05-02 16:15] LABS: INR 1.0 (0.9-1.3); Prothrombin Time 11.1 Seconds (9.0-12.2)
[2025-05-02 16:22] LABS: Ferritin 1575 ng/mL (10.5-307.3); Iron 55 mcg/dL (65-175); Percent Iron Saturation 41 % (20-55); Total Iron Binding Capacity 132 mcg/dL (250-425); Unsaturated Iron Binding 77 (225-295)
[2025-05-02 16:28] LABS: Alanine Aminotransferase 7 U/L (10-49); Albumin, Serum 4.2 gm/dL (3.4-4.8); Albumin/Globulin Ratio 2.0 (1.2-2.2); Alkaline Phosphatase 120 U/L (46-116); Anion Gap 10 (7-16); Aspartate Amino Transferase 14 U/L (0-34); BUN/Creatinine Ratio 5 Ratio (12-20); Bilirubin,Direct 0.2 mg/dL (0.0-0.3); Bilirubin,Total 0.5 mg/dL (0.3-1.2); Blood Urea Nitrogen 25 mg/dL (9-23); Calcium 9.2 mg/dL (8.3-10.6); Calcium (Corrected) 9.2 mg/dL (8.5-10.1); Carbon Dioxide 31.3 mMol/L (20.0-31.0); Chloride 98 mMol/L (98-107); Creatinine (Component) 4.6 mg/dL (0.6-1.3); Globulin 2.1 gm/dL (2.3-3.5); Glucose 102 mg/dL (74-106); LDH (Lactate Dehydrogenase) 143 U/L (120-246); Osmolality,Calculated 281 (275-295); Potassium 5.0 mMol/L (3.4-5.1); Sodium 139 mMol/L (136-145); Total Protein 6.3 gm/dL (5.7-8.2); eGFR 12 See Note
[2025-05-02 16:56] LABS: Hepatitis A Antibody IgM Non Reactive (Non React); Hepatitis B Core Antibody IgM Non Reactive (Non React); Hepatitis B Surface Antigen Non Reactive (Non React); Hepatitis C Antibody Non Reactive (Non React); Vitamin B12 930 pg/mL (211-911)
[2025-05-02 17:00] LABS: Urea Breath Test Negative (Negative)
[2025-05-06 14:44] LABS: HIV Ag/Ab, 4th Gen NON-REACTIVE
== END | disposition home or self-care (01) ==
LOC: COPL 14:30
PROVIDERS: PCP Physician Assistant; Referring Provider Internal Medicine Gastroenterology; Visit Provider Specialist
DX: D50.0 Iron deficiency anemia secondary to blood loss (chronic) (principal); B96.81 Helicobacter pylori [H. pylori] as the cause of diseases classified elsewhere
CPT/HCPCS: 36415; 80053; 80074; 82248; 82607; 82728; 83013; 83014; 83540; 83550; 83615; 85025; 85046; 85610; 87389

== ENCOUNTER 2025-06-27 14:52 | Outpatient (AMB) | payer MEDICARE, MEDICAID, SELFPAY ==
--- NOTE | 2025-06-27 15:06 | PD.ORTHCLVIS ---
Vital signs 06/27/25 15:14 Height 1.78 m Height Method Stated Weight 75.041 kg Weight Measurement Method Standing Scale BMI 23.6 BP 115/60 Blood Pressure Source Automatic Cuff Blood Pressure Location Left Upper Arm Position Sitting Respiration 18 Pulse 77 Pulse Source Monitor Temp 97.7 F Temp Source Temporal Artery Scan Pulse Oximetry (%) 94 L Oxygen Delivery Method Room Air Med/Allergies Allergies & Medications Allergies No Known Allergies Allergy (Verified 06/27/25 15:14) Medication Reconciliation HYDROCODONE BIT/ACETAMINOPHEN (HYDROCODON-ACETAMINOPH 2.5-325) 1 tab PO Q6HR ##0 07/04/14 [History Confirmed 06/27/25] Levothyroxine * (SYNTHROID *) 75 mcg PO QDAY #0 tabs 07/04/14 [History Confirmed 06/27/25] pantoprazole 40 mg tablet,delayed release (Protonix) 40 mg PO BID ##0 07/04/14 [History Confirmed 06/27/25] duloxetine 60 mg capsule,delayed release (Cymbalta) 60 mg PO QDAY #0 caps 03/22/15 [History Confirmed 06/27/25] sevelamer carbonate 800 mg tablet (Renvela) 800 mg PO TID 04/18/23 [History Confirmed 06/27/25] amlodipine 10 mg tablet (Norvasc) 10 mg PO QDAY 11/20/24 [History Confirmed 06/27/25] gabapentin 400 mg capsule 400 mg PO TID 11/20/24 [History Confirmed 06/27/25] lidocaine 4 % topical cream (Anecream) 1 applic topical BID 11/20/24 [History Confirmed 06/27/25] pravastatin 10 mg tablet 10 mg PO DAILY 01/01/25 [History Confirmed 06/27/25] Exam Exam Breathing is nonlabored. Patient has a normal mood and affect. Bilateral extremities were evaluated and demonstrates sensation intact to light touch. Palpable pedal pulses are present. No significant edema is present. Bilateral hips were examined. The patient has no pain with log roll of the hips. Internal rotation to 30 degrees and external rotation to 30 degrees is painless. Negative FADIR. Left knee was examined today. The left knee is in reasonable alignment. Range of motion from 0-120 degrees. Knee is stable to varus and valgus as well as AP translation with <5mm. Patient has a negative McMurrays. There is no pain with patellofemoral compression and no crepitus noted. The knee is nontender to palpation. The right knee was also examined. The right knee is in varus alignment. Range of motion from 0-115 degrees. Knee is stable to varus and valgus as well as AP translation with <5mm. Patient has a negative McMurrays. There is no pain with patellofemoral compression and no crepitus noted. The knee is tender to palpation medially. X-rays demonstrate minimal arthritis of the right knee Assessment and Plan Problem List (1) Arthritis of knee: Status: Acute Plan: Patient is a 74-year-old male with right knee arthritis and right knee pain. We discussed nonoperative and operative options. He did well with the last cortisone injection and has minimal pain at this time. Plan The patient has minimal pain and we will see him on an as needed basis Advanced Care Planning Discussion Advance care planning discussed with:: patient Office Procedures GNS Level of Care Nursing/Assessment Patient Status: Established Patient Nursing Assessment/Reassesment: Medication Reconciliation, Update PMH in EMR and Vital Signs Coordination of Care: Complex Care and Chronic Disease 1-5, Education Complex Pt/Fam, Consent,records obtained, informed consent, Results/Orders obtained and Staff clarify orders Established Patient Charge Established Patient Point Assignment: 95 Established Patient Point Charge: EP Level 3 (80-115) MA Intake Visit Data Collection New Patient or Established: Established Patient (seen at [facility] within 3 years) Reason for Visit:: F/U KNEE PAIN Seen by Clinical Staff ONLY (RN/MA): No Verbal consent obtained for Telemed visit?: No Project Analyst Required: No PCP or OBGYN visit in last 3 months: Yes Hx Now: No Do You Feel Safe at Home: Yes Authorities Contacted: N/A Questionairres Past Medical History Past Medical History Have you ever been diagnosed with any of the following: Neurological Problems Seizures: No Cardiology Problems Angina: Yes Coronary Artery Disease: Yes Hypercholesterolemia: Yes Congestive Heart Failure: No Hypertension: Yes Respiratory Problems Chronic Obstructive Pulmonary Disease (COPD): No Asthma: No Smoking: No Smoking Exposure: No Stomache/Intestinal Problems Gastroesophageal Reflux Disease: Yes Genital/Urinary Problems Renal Disease: Yes Dialysis: Yes Benign Prostatic Hyperplasia: Yes Musculoskeletal Problems Arthritis: Yes Degenerative Disk Disease: Yes Carpal Tunnel Syndrome: Yes Head,Eye,Nose,Throat Problems Cataracts: Yes Blind: No Deafness: No Endocrine Problems Diabetes Mellitus Type 1: No Diabetes Mellitus Type 2: No Hypothyroidism: Yes Blood Problems Anemia: Yes Sickle Cell Disease: No Other Problems Falls: No Blood Transfusions: Yes Blood Transfusion Reaction: No Anesthesia Reactions: No Measles: No Surgical History Appendectomy: Yes Coronary Artery Bypass Graft: Yes (X2) Subjective Visit Visit for: follow up visit, knee and x-rays Immunization / Flu Flu Vaccine in the Last 12 Months: No Flu Vaccine Exclusion Criteria: No Exclusion Criteria History of Present Illness Chief complaint: F/U XRAYS Isaiah is a pleasant 74-year-old maleWith right knee pain and right knee arthritis. We also gave him a cortisone injection at the last visit and he reports dramatic relief and that it is doing very well. He reports he has minimal pain Personal History Occupation: RETIRED Red flag PMH: BMI BMI Counceling provided: Yes Pain Pain level (0-10): 0 Pain duration: CONSTANT WHEN HE DOES HAVE PAIN Pain location: outside (lateral) Pain quality: dull and aching Pain timing: increases with activity and stairs Associated signs & symptoms: none Ambulatory data Ambulatory device: none Treatments Improvement with previous injections: No Improvement with PT: No Improvement with NSAIDS: no Review of Systems Review of Systems: All systems negative unless otherwise noted in HPI.
[2025-06-27 15:14] VITALS: BP 115/60; PULSE 77; RESP 18; TEMP 36.5; O2SAT 94; BMI 23.6
== END 2025-06-27 15:17 | disposition home or self-care (01) ==
LOC: HODSRG 14:52
PROVIDERS: PCP Physician Assistant; Referring Provider Physician Assistant; Supervising Provider Orthopaedic Surgery Adult Reconstructive Orthopaedic Surgery; Visit Provider Orthopaedic Surgery Adult Reconstructive Orthopaedic Surgery
DX: M25.561 Pain in right knee (principal); M17.11 Unilateral primary osteoarthritis, right knee; I10 Essential (primary) hypertension
CPT/HCPCS: 99213; G0463

== ENCOUNTER 2025-07-06 18:37 | Inpatient (IN) | payer MEDICARE, MEDICAID, SELFPAY ==
[2025-07-06 18:52] VITALS: BP 220/96; PULSE 79; RESP 20; TEMP 36.9; O2SAT 98
--- NOTE | 2025-07-06 19:05 | XR_ITS ---
Examination: CT abdomen and pelvis without contrast. Coronal 3-D reconstructions. Sagittal 2-D reconstructions. Date and time of exam: July 06, 2025, 2041 hours INDICATIONS: Onset abdominal pain today, history hernia defect COMPARISON: November 20, 2024 CTDI: vol (mGy): 6.75 DLP: (mGycm): 418 Technique: Axial images of the abdomen have been obtained, 3 mm slice thickness Intravenous contrast material has not been administered. Low dose protocols were performed. One or more of the following dose reduction techniques were used; automated exposure control, adjustment of the mA and/or KV according to patient size, use of iterative reconstruction technique. Findings: No visualized liver or splenic lesion Cholelithiasis No pancreatic mass Atrophic kidneys with severe scarring, 5 mm right renal calculus, no hydronephrosis or ureteral calculi No bowel obstruction Large amount of stool in the rectosigmoid Thickened urinary bladder wall Large left inguinal hernia containing small bowel which appears to be mildly incarcerated, small bowel loops proximal mildly distended Prominent osteopenia with moderate disc narrowing L5-S1 IMPRESSION: Cholelithiasis, negative for cholecystitis Atrophic kidneys, severe scarring, 5 mm right renal calculus Large left inguinal hernia containing small bowel which appears to be mildly incarcerated, mildly dilated small bowel loops more proximally, clinical correlation advised
--- NOTE | 2025-07-06 19:06 | PD.EDRME ---
Rapid Medical Screening Exam RME Arrival date/time: 07/06/25 18:37 This is a case of 75-year-old male who came into the emergency room due to pain mild swelling on the left inguinal area with abdominal pain worsening of the symptoms this patient decided to sought consult here in the emergency room Chief Complaint: Urogenital-Male Time Seen by Provider: 07/06/25 18:43 Vital signs: Vital Signs Temperature 98.4 F 07/06/25 18:52 Pulse Rate 79 07/06/25 18:52 Respiratory Rate 20 07/06/25 18:52 Blood Pressure 220/96 H 07/06/25 18:52 Pulse Oximetry (%) 98 07/06/25 18:52 Oxygen Delivery Method Room Air 07/06/25 18:52
[2025-07-06 19:35] VITALS: BP 227/110; PULSE 104; RESP 19; TEMP 36.4; O2SAT 100
[2025-07-06 19:50] LABS: Collection Type, Urine Clean Catch
[2025-07-06 20:01] LABS: Bilirubin,Urine Negative (Negative); Blood,Urine 2+ (Negative); Clarity,Urine Clear (Clear/Hazy); Color,Urine Lt-Yellow (Lt Yel-Yel); Glucose, Urine 1+ (Negative); Hyaline Casts,Urine < 1 /hpf (0-1); Ketones,Urine Negative (Negative); Leukocyte Esterase,Urine Positive (Negative); Nitrite,Urine Negative (Negative); PH,Urine 8.5 (5.0-7.0); Protein,Urine 3+ (Neg - Trace); RBC,Urine 45 /hpf (0-3); Specific Gravity,Urine 1.012 (1.001-1.035); Squamous Epithelial Cell,Urine 2 /hpf (0-5); Urobilinogen,Urine Negative mg/dL (0.0-1.0); WBC,Urine 67 /hpf (0-5)
[2025-07-06] MEDS: MIDAZOLAM INJ 1 MG/ML VIAL 2 ML IVP (20:02)
[2025-07-06] MEDS: MORPHINE SULF INJ 4 MG/ML VIAL 2 MG IV (20:04)
[2025-07-06 20:20] VITALS: BMI 22.4
[2025-07-06 20:28] LABS: Basophils # (Auto) 0.0 Thou/mm3 (0.0-0.2); Basophils % (Auto) 1 % (0-2.5); Eosinophils # (Auto) 0.1 Thou/mm3 (0.0-0.5); Eosinophils % (Auto) 1 % (0-10); Hematocrit 39.4 % (41.0-53.0); Hemoglobin 12.6 g/dL (13.5-16.0); Immature Granulocytes Auto 0.05 Thou/mm3 (0.00-0.00); Lymphocytes # (Auto) 1.2 Thou/mm3 (1.0-4.8); Lymphocytes % (Auto) 15 % (10-50); Mean Corpuscular HGB Conc 32.0 g/dl (31.0-37.0); Mean Corpuscular Hemoglobin 31.3 pg (25.0-35.0); Mean Corpuscular Volume 98 fL (80-100); Monocytes # (Auto) 0.6 Thou/mm3 (0.0-0.8); Monocytes % (Auto) 8 % (0-12); Neutrophils # (Auto) 6.3 Thou/mm3 (1.8-7.7); Neutrophils % (Auto) 75 % (37-80); Nucleated Red Blood Cell # 0.03 Thou/mm3 (0.00-0.00); Nucleated Red Blood Cell % 0 /100 WBC (0); Platelet Count 227 Thou/mm3 (140-440); RDW Standard Deviation 54.8 fL (35.1-43.9); Red Blood Count 4.02 Miln/mm3 (4.50-5.90); White Blood Count 8.3 Thou/mm3 (3.8-10.6)
--- NOTE | 2025-07-06 20:35 | PC.NURSE ---
attempts to polace a baker cath not succesfull . was able to use I&O cath size 9 to drain bladder 300 cc out. sample sent to lab.pt was in severe pain. pain meds given and pt feels better. pt taken to CT now.
[2025-07-06 20:48] LABS: Alanine Aminotransferase 11 U/L (10-49); Albumin, Serum 4.8 gm/dL (3.4-4.8); Albumin/Globulin Ratio 2.1 (1.2-2.2); Alkaline Phosphatase 166 U/L (46-116); Anion Gap 19 (7-16); Aspartate Amino Transferase 17 U/L (0-34); BUN/Creatinine Ratio 5 Ratio (12-20); Bilirubin,Total 0.4 mg/dL (0.3-1.2); Blood Urea Nitrogen 25 mg/dL (9-23); Calcium 10.1 mg/dL (8.3-10.6); Calcium (Corrected) 10.1 mg/dL (8.5-10.1); Carbon Dioxide 24.1 mMol/L (20.0-31.0); Chloride 96 mMol/L (98-107); Creatinine (Component) 5.1 mg/dL (0.6-1.3); Estimated Creatinine Clearance 13.0 mL/min (>60); Globulin 2.3 gm/dL (2.3-3.5); Glucose 110 mg/dL (74-106); Lipase 26 U/L (12-53); Osmolality,Calculated 282 (275-295); Potassium 4.4 mMol/L (3.4-5.1); Sodium 139 mMol/L (136-145); Total Protein 7.1 gm/dL (5.7-8.2); eGFR 11 See Note
--- NOTE | 2025-07-06 21:13 | PD.EDMALE ---
ED Male Genitalurinary RME/HPI General Chief complaint: Urogenital-Male Stated complaint: retaining urine X 1 hour since cath Time Seen by Provider: 07/06/25 18:43 Arrival date/time: 07/06/25 18:37 RME / HPI RME / HPI Narrative: 07/06/25 18:37 This is a case of 75-year-old male who came into the emergency room due to pain mild swelling on the left inguinal area with abdominal pain worsening of the symptoms this patient decided to sought consult here in the emergency room DR. LAU MAIN ED EVALUATION: 75 y/o male presents with sudden onset of left groin pain with prominence/bulge which has been become intensely painful with onset of 2 PM. Reported nausea and vomiting upon arrival to ED. Denies dysuria and notes straight cathing throughout the day. No fever or chills. PMH: CAD, HTN, Hypercholesterolemia PSH: CABG and Appendectomy Allergies: None Social: Negative Related Data Home Medications ?Medication ?Instructions ?Recorded ?Confirmed HYDROCODONE BIT/ACETAMINOPHEN 1 tab PO Q6HR ##0 07/04/14 06/27/25 (HYDROCODON-ACETAMINOPH 2.5-325) Levothyroxine * (SYNTHROID *) 75 mcg PO QDAY #0 tabs 07/04/14 06/27/25 pantoprazole 40 mg tablet,delayed 40 mg PO BID ##0 07/04/14 06/27/25 release (Protonix) duloxetine 60 mg capsule,delayed 60 mg PO QDAY #0 caps 03/22/15 06/27/25 release (Cymbalta) sevelamer carbonate 800 mg tablet 800 mg PO TID 04/18/23 06/27/25 (Renvela) amlodipine 10 mg tablet (Norvasc) 10 mg PO QDAY 11/20/24 06/27/25 gabapentin 400 mg capsule 400 mg PO TID 11/20/24 06/27/25 lidocaine 4 % topical cream 1 applic topical BID 11/20/24 06/27/25 (Anecream) pravastatin 10 mg tablet 10 mg PO DAILY 01/01/25 06/27/25 Allergies Allergy/AdvReac Type Severity Reaction Status Date / Time No Known Allergies Allergy Verified 07/06/25 18:42 Review of Systems Review of Systems Systems Reviewed: All systems reviewed, normal except as documented Past Medical History Past Medical History CARDIAC: Positive Cardiac Disorders, Angina, Coronary Artery Disease, Hypercholesterolemia and Hypertension GASTROINTESTINAL: Positive Gastroesophageal Reflux Disease GENITOURINARY: Positive Renal Disease, Dialysis and Benign Prostatic Hyperplasia MUSCULOSKELETAL: Positive Arthritis and Degenerative Disk Disease ENT: Positive Cataracts ENDOCRINE: Positive Hypothyroidism HEMATOLOGIC: Positive Blood Disorders and Anemia OTHER HISTORY: Positive Blood Transfusions Surgical History SURGICAL: Positive Cardiac Surgery, Open Heart Surgery, Coronary Artery Bypass Graft (X2), Cardiac Catheterization and Angiogram ED Exam Narrative Physical exam: GEN. APPEARANCE: The patient is alert awake oriented X-3 in moderate distress c/o left groin pain, lying down comfortably, does not look ill/toxic. Patient has good eye contact. Patient is cooperative. VITALS: All vitals were reviewed and the pulse ox is 98% on 2L/min via NC which is normal according to my interpretation. HEENT: Normocephalic, atraumatic. Pupils are equal and reactive. Oral mucosa is moist. Patent Nares NECK: Supple, nontender, no thyromegaly, no meningismus, no JVD, no step offs CHEST: Symmetrical, atraumatic, and with equal expansion , Nontender on palpation no deformity and no crepitus. CARDIOVASCULAR: Heart regular rhythm no murmur or gallop rub or extra beats. LUNGS: Clear to auscultation bilaterally with symmetrical chest rise. No laboring tachypnea or wheezing. No intercostal subcostal retraction. No rales and no rhonchi. ABDOMEN: Soft, flat, large left inguinal protuberance which appears to be direct inguinal hernia, markedly tender without overlying skin changes, no guarding or rebound tenderness. There are no abnormal masses palpated. Active and normal bowel sounds. EXTREMITIES: Nontender. No edema. No cyanosis. Patient is able to move all 4 extremities well, with full ROM and good CSM. SKIN: Warm and dry, no jaundice or rashes noted. MUSCULOSKELETAL: No lubar or midline bony tenderness. There is no CVA tenderness. No paraspinal muscle spasm or tenderness. NEURO: Patient is FRENCH x 4, Cranial nerves II through XII grossly intact. There is no focal neurologic deficits noted. GCS is 15, PNS and BAND TEACHER appear grossly intact. PSYCHIATRIC: Patient is in normal mood and affect, cooperative, no SI or HI or hallucinations. Course Quality Measures none Orders Category Date Time Status Admit to Inpatient Status Routine Admission 07/07/25 01:24 Active Patient Condition Routine Admission 07/07/25 01:24 Ordered Conscious Sedation [RT Stand By for Procedure] NOW Care 07/06/25 22:28 Active EKG (ED ONLY) *Do not use* NOW Care 07/07/25 01:31 Active Flu & Pneumonia Vaccine Screen ONCE Care 07/07/25 01:29 Active [place] to [place] Routine Care 07/06/25 22:28 Ordered NPO NOW Care 07/07/25 01:26 Active Notify provider NEEDED Care 07/07/25 01:24 Active Procedural Sedation NOW Care 07/06/25 22:28 Active SCD [Sequential Compression Device] QSHIFT Care 07/07/25 01:34 Active Consult to Cardiology Stat Cons 07/07/25 01:32 Ordered Consult to General Surgery Stat Cons 07/07/25 01:15 Ordered Diet NPO (NOW) Diet 07/07/25 01:26 Active CA echo doppler complete Stat Exams 07/07/25 01:[address] abdomen pelvis wo con Stat Exams 07/06/25 19:05 Completed EKG (ED Only) Stat Exams 07/07/25 01:29 Ordered CBC AM DRAW Lab 07/07/25 05:00 Ordered CBC AM DRAW Lab 07/08/25 05:00 Ordered CBC AM DRAW Lab 07/09/25 05:00 Ordered CBC Stat Lab 07/06/25 20:17 Completed Comprehensive Metabolic Panel AM DRAW Lab 07/07/25 05:00 Ordered Comprehensive Metabolic Panel AM DRAW Lab 07/08/25 05:00 Ordered Comprehensive Metabolic Panel AM DRAW Lab 07/09/25 05:00 Ordered Comprehensive Metabolic Panel Stat Lab 07/06/25 20:17 Completed Lipase Stat Lab 07/06/25 20:17 Completed Lipid Panel Routine Lab 07/07/25 02:09 Received Magnesium AM DRAW Lab 07/07/25 05:00 Ordered Magnesium AM DRAW Lab 07/08/25 05:00 Ordered Magnesium AM DRAW Lab 07/09/25 05:00 Ordered PT [Prothrombin Time with INR] Routine Lab 07/07/25 05:00 Ordered Phosphorous AM DRAW Lab 07/08/25 05:00 Ordered Phosphorous AM DRAW Lab 07/09/25 05:00 Ordered Phosphorous AM DRAW Lab 07/10/25 05:00 Ordered Thyroid Stimulating Hormone AM DRAW Lab 07/07/25 05:00 Ordered Urinalysis Stat Lab 07/06/25 19:45 Completed Acetaminophen Tab [Tylenol Tab] Med 07/07/25 01:24 Active 650 mg PO Q6H PRN Etomidate Inj [Amidate Inj] Med 07/06/25 22:28 Discontinued 10 mg IVP X1 ONE HYDROmorphone INJ [Dilaudid Inj] Med 07/07/25 01:24 Active 1 mg IVP Q6H PRN Labetalol IV [Trandate IV] Med 07/06/25 21:03 Discontinued 10 mg IVP X1 ONE Labetalol IV [Trandate IV] Med 07/06/25 23:13 Discontinued 10 mg IVP X1 ONE Midazolam Inj [Versed Inj] Med 07/06/25 19:41 Discontinued 1 mg IVP X1 ONE Midazolam Inj [Versed Inj] Med 07/07/25 00:27 Discontinued 5 mg IVP X1 ONE Morphine* Inj Med 07/06/25 19:41 Discontinued 2 mg IV X1 ONE Ondansetron Inj [Zofran Inj] Med 07/07/25 01:24 Active 4 mg IVP Q6H PRN Ondansetron Inj [Zofran Inj] Med 07/06/25 23:24 Discontinued 4 mg IVP X1 ONE fentaNYL INJ [Sublimaze Inj] Med 07/06/25 22:28 Discontinued 50 mcg IVP X1 ONE fentaNYL INJ [Sublimaze Inj] Med 07/07/25 00:37 Discontinued 50 mcg IVP X1 ONE Code Status Routine Oth 07/07/25 01:24 Ordered Vital Signs Vital signs: Vital Signs Temperature 98.4 F 07/06/25 18:52 Pulse Rate 79 07/06/25 18:52 Respiratory Rate 20 07/06/25 18:52 Blood Pressure 220/96 H 07/06/25 18:52 Pulse Oximetry (%) 98 07/06/25 18:52 Oxygen Delivery Method Room Air 07/06/25 18:52 PROCEDURES: Procedure Comment Left incarcerated inguinal reduction: Administered incremental doses of Etomidate, Fentanyl, and Versed, placed in trendelenburg position, and with direct pressure reduced left inguinal hernia. Reduction successful. Urogenital - Male MDM Narrative MDM Narrative:: Scribe Attestation: I, Dena Brown, am scribing for and in the presence of Dr. Lau. Provider Notation: Although this document has been carefully reviewed, there may still be some phonetic and other typographical errors. These errors are purely grammatical due to imperfections in the software program and should not be construed in any way to compromise the substance of the patient's medical care during this visit. 75 y/o male presents with sudden onset of left groin pain with prominence/bulge which has been become intensely painful with onset of 2 PM. Reported nausea and vomiting upon arrival to ED. Please see PE findings. Laboratory markers including CBC and serum chemistries demonstrate normal WBC of 8.3, hemoglobin of 12.6. No thrombocytopenia, no left shift, or bandemia. Serum chemistries demonstrate elevated creatinine of 5.1 (baseline). UA demonstrates glucoseria and hematuria without infection. Patient placed on monitor, notably severely hypertensive. Incremental doses of anti-hypertensive medication with marginal improvement. CT scan demonstrates large left inguinal hernia containing small bowel which appears incarcerated. Patient underwent conscious sedation with successful reduction of hernia. Hospitalist consulted and will asses for admission with consultation of general surgery in the morning. Final diagnosis includes direct left inguinal hernia s/p reduction. Patient data External records reviewed:: [facility] previous records (Reviewed prior ED records from 04/12/25. Patient was seen for Anemia due to chronic kidney disease.) Clinical information provided by:: patient Social determinants that could affect healthcare access:: none Patient has the following chronic illnesses:: Angina, Coronary Artery Disease, Hypercholesterolemia, Hypertension, Gastroesophageal Reflux Disease, Renal Disease, Dialysis, Benign Prostatic Hyperplasia, Arthritis and Degenerative Disk Disease, Cataracts, Hypothyroidism, Anemia How is presenting disease/condition affected by chronic disease/condition?: exacerbated by Evaluation data The following diagnostics were reviewed and interpreted by me:: lab results and radiology exam(s) Lab and/or radiology exams considered but not ordered:: None Interpretation Summary: RADIOLOGY Abdomen/Pelvis CT: Findings: No visualized liver or splenic lesion Cholelithiasis No pancreatic mass Atrophic kidneys with severe scarring, 5 mm right renal calculus, no hydronephrosis or ureteral calculi No bowel obstruction Large amount of stool in the rectosigmoid Thickened urinary bladder wall Large left inguinal hernia containing small bowel which appears to be mildly incarcerated, small bowel loops proximal mildly distended Prominent osteopenia with moderate disc narrowing L5-S1 IMPRESSION: Cholelithiasis, negative for cholecystitis Atrophic kidneys, severe scarring, 5 mm right renal calculus Large left inguinal hernia containing small bowel which appears to be mildly incarcerated, mildly dilated small bowel loops more proximally, clinical correlation advised Medications / Prescriptions Medications or Prescriptions considered but not ordered:: None Medication administrations:: Medication Administration History Acetaminophen (Acetaminophen 325 Mg Tablet) 650 mg PO Q6H PRN PRN Reason: Fever >100.4 Stop: 08/06/25 01:23 Acetaminophen (Acetaminophen 325 Mg Tablet) 650 mg PO Q6HR PRN PRN Reason: PAIN SCALE 1-3 (mild Stop: 08/06/25 01:59 Amlodipine Besylate (Amlodipine Besylate 5 Mg Tablet) 10 mg PO QDAY [facility] Stop: 08/06/25 08:59 Duloxetine HCl (Duloxetine Hcl 30 Mg Capsule) 60 mg PO QDAY [facility] Stop: 08/06/25 08:59 Hydromorphone HCl (Hydromorphone Inj 2 Mg/Ml Vial) 1 mg IVP Q6H PRN PRN Reason: PAIN SCALE 4-10(Mod-Sev Stop: 07/12/25 01:23 Levothyroxine Sodium (Levothyroxine Sodium 25 Mcg Tablet) 75 mcg PO ACBR [facility] Stop: 08/06/25 05:59 Ondansetron HCl (Ondansetron Inj 2 Mg/Ml Inj 2 Ml) 4 mg IVP Q6H PRN; Protocol PRN Reason: NAUSEA OR VOMITING Stop: 08/06/25 01:23 Pantoprazole Sodium (Pantoprazole 40 Mg Tablet) 40 mg PO QDAY [facility] Stop: 08/06/25 08:59 Discontinued Medications Etomidate (Etomidate Inj 2 Mg/Ml Vial 10 Ml) 10 mg IVP X1 ONE Stop: 07/06/25 22:29 Last Admin: 07/07/25 00:25 Dose: 10 mg Documented By: MARIAM Fentanyl Citrate (Fentanyl Cit Inj 50 Mcg/Ml Amp 2ml) 50 mcg IVP X1 ONE Stop: 07/06/25 22:29 Last Admin: 07/07/25 00:25 Dose: 50 mcg Documented By: MARIAM Fentanyl Citrate (Fentanyl Cit Inj 50 Mcg/Ml Amp 2ml) 50 mcg IVP X1 ONE Stop: 07/07/25 00:38 Last Admin: 07/07/25 00:27 Dose: 50 mcg Documented By: MARIAM Labetalol HCl (Labetalol Inj 5 Mg/Ml Vial 20 Ml) 10 mg IVP X1 ONE Stop: 07/06/25 21:04 Last Admin: 07/06/25 21:16 Dose: 10 mg Documented By: MARIAM Labetalol HCl (Labetalol Inj 5 Mg/Ml Vial 20 Ml) 10 mg IVP X1 ONE Stop: 07/06/25 23:14 Last Admin: 07/06/25 23:15 Dose: 10 mg Documented By: MARIAM Midazolam HCl (Midazolam Inj 1 Mg/Ml Vial 2 Ml) 1 mg IVP X1 ONE Stop: 07/06/25 19:42 Last Admin: 07/06/25 20:02 Dose: 1 mg Documented By: Midazolam HCl (Midazolam Inj 1 Mg/Ml Vial 2 Ml) 5 mg IVP X1 ONE Stop: 07/07/25 00:28 Last Admin: 07/07/25 00:46 Dose: 5 mg Documented By: Morphine Sulfate (Morphine Sulf Inj 4 Mg/Ml Vial) 2 mg IV X1 ONE Stop: 07/06/25 19:42 Last Admin: 07/06/25 20:04 Dose: 2 mg Documented By: Ondansetron HCl (Ondansetron Inj 2 Mg/Ml Inj 2 Ml) 4 mg IVP X1 ONE; Protocol Stop: 07/06/25 23:25 Last Admin: 07/06/25 23:43 Dose: 4 mg Documented By: MARIAM See above if any Consultations Consultation(s) initiated? (list below): Yes Consultation #1 (Physician, Specialty, Details): Discussed with Dr. Cervantes for admission. Reviewed the patient?s HPI, PMHx, lab and/or radiology results. Discussed treatment plan. Will consult an admission to the hospitalist. Time: 00:49 Diagnosis Urogenital Male Differential Diagnosis: urinary tract infection, urethritis, epididymitis and inguinal hernia Most likely diagnosis given after review of the tests above:: Incarcerated left inguinal hernia Admission Indicated Admission indicated?: indicated Explain why admission is indicated or not indicated:: Incarcerated left inguinal hernia Admission Request Was there a request for admission?: Yes Admission Attestation Admission request attestation: Discussed case with [] from Hospitalist service regarding admission. Discussed patients ED course, exam findings, labs, and radiology results. The Hospitalist [agrees,declines] to accept the patient for admission. Disposition Plan Disposition Plan: Admit Critical Care Time Critical Care Time Critical Care Time: Yes Total Critical Care Time (min.): 35 Attestation: The high probability of sudden, clinically significant deterioration in the patient?s condition required the highest level of my preparedness to intervene urgently. The services I provided to this patient were to treat and/or prevent clinically significant deterioration. Services included the following: chart data review, reviewing nursing notes and/or old charts, documentation time, neuropsychology medical consultant collaboration regarding findings and treatment options, medication orders and management, direct patient care, vital sign assessments and ordering, interpreting and reviewing diagnostic studies and lab tests. Aggregate critical care time includes only time during which I was engaged in work directly related to the patient?s care, as described above, whether at bedside or elsewhere in the Emergency Department. It did not include time spent performing other reported procedures or the services of residents, students, nurses or physician assistants. Discharge Plan Plan Patient Disposition: Admit Acute Care w/in Hospital Problem List Clinical Impression: Incarcerated left inguinal hernia
[2025-07-06 21:16] VITALS: BP 123/105; PULSE 94
[2025-07-06] MEDS: LABETALOL INJ 5 MG/ML VIAL 20 ML 10 MG IVP ×2 (21:16→23:15)
[2025-07-06 21:42] VITALS: BP 184/84; PULSE 82; RESP 18; TEMP 36.8; O2SAT 96
[2025-07-06 23:15] VITALS: BP 222/122; PULSE 90
[2025-07-06] MEDS: ONDANSETRON INJ 2 MG/ML INJ 2 ML 4 MG IVP (23:43)
--- NOTE | 2025-07-06 23:45 | PC.NURSE ---
pt preped for procedural sedation. ot nauseated and vomited x1. md aware adn meds given.
[2025-07-07] VITALS (38 sets, daily range): BP systolic 118–212; BP diastolic 54–125; PULSE 64–662; RESP 16–94; TEMP 36.4–37.1; O2SAT 85–100; BMI 22.2
[2025-07-07] MEDS: ETOMIDATE INJ 2 MG/ML VIAL 10 ML 10 MG IVP (00:25)
[2025-07-07] MEDS: fentaNYL CIT INJ 50 mCg/ML AMP 2ML IVP ×2 (00:25→00:27)
[2025-07-07] MEDS: MIDAZOLAM INJ 1 MG/ML VIAL 2 ML 5 MG IVP (00:46)
--- NOTE | 2025-07-07 01:29 | ECHO_ITS ---
Transthoracic Echo Report Ht (in): 72 Wt (lb): 165 Exam Location: Echo Lab Status: Inpatient Dietary Tech: Saadia Davenport Indications: Procedure Performed: BP: 162 / 87 HR: 78 Technical Quality: Technically difficult study MEASUREMENTS (Male / Female) Normal Values 2D ECHO LVOT Diameter 2.1 cm LV Ejection Fraction MOD 4C 61.0 % LV Cardiac Index MOD 4C 4912.8 cm?/min?m? LV Ejection Fraction 4C AL 63.0 % LV Cardiac Index 4C AL 5426.1 cm?/min?m? LV Ejection Fraction MOD 2C 51.0 % LV Cardiac Index MOD 2C 2102.0 cm?/min?m? LV Ejection Fraction 2C AL 52.8 % LV Cardiac Index 2C AL 2197.2 cm?/min?m? LA Volume Index 42.4 cm?/m? 16 - 28 cm?/m? DOPPLER AV Peak Velocity 297.0 cm/s AV Peak Gradient 35.3 mmHg AV Mean Gradient 18.7 mmHg AV Velocity Time Integral 67.6 cm LVOT Peak Velocity 107.0 cm/s LVOT Peak Gradient 4.6 mmHg LVOT Velocity Time Integral 28.6 cm LVOT Cardiac Index 3966.2 cm?/min?m? AV Area Cont Eq vti 1.5 cm? AV Area Cont Eq pk 1.2 cm? MV Area PHT 3.9 cm? MR Peak Velocity 328.5 cm/s MR Peak Gradient 43.2 mmHg Mitral E Point Velocity 77.6 cm/s Mitral A Point Velocity 73.7 cm/s Mitral E to A Ratio 1.1 LV E' Lateral Velocity 9.7 cm/s Mitral E to LV E' Lateral Ratio 8.0 LV E' Septal Velocity 6.2 cm/s Mitral E to LV E' Septal Ratio 12.5 TR Peak Velocity 335.0 cm/s TR Peak Gradient 44.9 mmHg PV Peak Velocity 175.0 cm/s PV Peak Gradient 12.3 mmHg FINDINGS Left Ventricle Normal left ventricular size, wall thickness, systolic function with no obvious regional wall motion abnormalities. Normal left ventricular diastolic filling pattern for age. The ejection fraction is visually estimated at 55-60 %. Right Ventricle The right ventiricle is normal in size with mildly decreased. systolic function. Left Atrium The left atrium is normal by two-dimensional, color flow and Doppler imaging with no structural abnormalities, no thrombus formation present. Right Atrium The right atrium is normal by two-dimensional imaging, color flow and Doppler imaging with no structural abnormalities, no thrombus formation present. Atrial Septum The interatrial septum appears normal with no evidence of a shunt. Aorta The aorta is normal by two-dimensional, color flow and Doppler interrogation. Mitral Valve Trace mitral regurgitation. Mild thickening of the mitral valve leaflets. Aortic Valve Moderate aortic valve stenosis. Tricuspid Valve The tricuspid valve is normal by two-dimensional, color flow and Doppler interrogation. There is moderate tricuspid regurgitation. Pulmonic Valve The pulmonic valve is not well visualized. There is no significant pulmonic valve regurgitation. Vessels Inferior vena cava not well visualized. Pericardium The pericardium is normal by two-dimensional imaging. There is no significant pericardial effusion. CONCLUSIONS Indication: Cardiac Clearance Normal LV size and wall thickness. Normal left ventricular diastolic filling pattern for age. Estimated EF at 55-60 %. The RV is normal in size with mildly decreased systolic function. Trace MR. Mild thickening of the MV. Moderate . Moderate TR. Kirk Forte (Electronically Signed) Final Date: 08 July 2025 07:35
--- NOTE | 2025-07-07 01:37 | PD.RESHP ---
Documentation for date of: 07/07/25 HPI History of Present Illness Chief complaint: groin pain and inguinal swelling History of present illness: This is a 74-year-old old male with significant past medical history of CAD s/p CABG, hypertension, ESRD on HD [M/W/F] following Dr. Little, TIA, GERD, arthritis, hypothyroidism,Blood transfusions on 04/12 presented to the ED with complaints of increasing groin pain and swelling in the inguinal area.I cannot obtain the history form the patient as he was sedatedwhen I visited him. As per the chart he has been experiencing increasing left groin pain associated with increasing bulge since 07/06 2 PM. He endorses nausea and vomiting. He denies any urinary frequency urgency. Today's ED visit BP 220/110, [place] 97, respiratory 20 saturating 97% on room atmosphere. Pertinent labs are hemoglobin 12.6, hematocrit 39.4, BUN 25, creatinine 5.1, estimated creatinine clearance 13, eGFR 11, ALP 166 urine protein 3+, urine blood 2+ Imaging?CT abdomen shows Large left inguinal hernia containing small bowel which appears to be mildly incarcerated, mildly dilated small bowel loops more proximally Medications given in ED labetalol 20 mg, morphine 2 mg, midazolam 6mg, fentanyl 100 mcg, etomidate 10 mg, ondansetron 4 mg. Past medical history: History of CAD status post CABG, hypertension, ESRD on hemodialysis 3 times a week, TIA, GERD, hypothyroidism, multiple prior blood transfusions. Past surgical history: CABG, dialysis, AV fistula appendectomy Social history: Smoking 1 pack/day for 12.5 years Family history: Non contributory Allergy history: No known allergies Review of Systems Review of Systems Systems Reviewed: All systems reviewed, normal except as documented Exam Vital Signs Temp Pulse Resp BP Pulse Ox O2 Del Method O2 Flow Rate 98.3 F 98 28 H 205/104 H 96 Room Air 7 07/07/25 00:13 07/07/25 01:02 07/07/25 01:02 07/07/25 00:13 07/07/25 01:02 07/07/25 00:13 07/07/25 01:02 Narrative Exam GENERAL: NAD, AAOx3 HEENT: Moist mucosa. Eyes open, symmetrical, & clear CARDIO: Rapid regular rhythm Noted. Harsh Systolic Murmur noted over pulmonary,aortic area. PULM: No noted coughing/dyspnea CTA B/L, no R/W/R GI: Abdomen soft, nondistended.Left Inguinal swelling is present. SKIN/MSK/EXT: No wounds/rashes/amputations, no pain on palpation. Pedal pulses present B/L NEURO: AAOx3, no focal neuro deficits, able to move all 4 extremities Results: Labs 07/06/25 20:17 07/06/25 20:17 Labs: Short CBC 07/06/25 Range/Units 20:17 WBC 8.3 (3.8-10.6) Thou/mm3 Hgb 12.6 L (13.5-16.0) g/dL Hct 39.4 L (41.0-53.0) % Plt Count 227 (140-440) Thou/mm3 BMP 07/06/25 20:17 Sodium 139 Potassium 4.4 Chloride 96 L Carbon Dioxide 24.1 BUN 25 H Creatinine 5.1 H* Glucose 110 H Calcium 10.1 Liver Function 07/06/25 Range/Units 20:17 Total Bilirubin 0.4 (0.3-1.2) mg/dL AST 17 (0-34) U/L ALT 11 (10-49) U/L Alkaline Phosphatase 166 H (46-116) U/L Albumin 4.8 (3.4-4.8) gm/dL Urine 07/06/25 Range/Units 19:45 Urine Color Lt-Yellow (Lt Yel-Yel) Urine Clarity Clear (Clear/Hazy) Urine pH 8.5 H (5.0-7.0) Ur Specific [place] 1.012 (1.001-1.035) Urine Protein 3+ A (Neg - Trace) Urine Glucose (UA) 1+ A (Negative) Quality Measures Quality Measures none Advance care planning discussed with:: significant other Medications Home Medications and Allergies Home Medications ?Medication ?Instructions ?Recorded ?Confirmed ?Type HYDROCODONE BIT/ACETAMINOPHEN 1 tab PO Q6HR ##0 07/04/14 06/27/25 History (HYDROCODON-ACETAMINOPH 2.5-325) Levothyroxine * (SYNTHROID *) 75 mcg PO QDAY #0 tabs 07/04/14 06/27/25 History pantoprazole 40 mg tablet,delayed 40 mg PO BID ##0 07/04/14 06/27/25 History release (Protonix) duloxetine 60 mg capsule,delayed 60 mg PO QDAY #0 caps 03/22/15 06/27/25 History release (Cymbalta) sevelamer carbonate 800 mg tablet 800 mg PO TID 04/18/23 06/27/25 History (Renvela) amlodipine 10 mg tablet (Norvasc) 10 mg PO QDAY 11/20/24 06/27/25 History gabapentin 400 mg capsule 400 mg PO TID 11/20/24 06/27/25 History lidocaine 4 % topical cream 1 applic topical BID 11/20/24 06/27/25 History (Anecream) pravastatin 10 mg tablet 10 mg PO DAILY 01/01/25 06/27/25 History Allergies Allergy/AdvReac Type Severity Reaction Status Date / Time No Known Allergies Allergy Verified 07/06/25 18:42 Visit Medications Acetaminophen (Acetaminophen 325 Mg Tablet) 650 mg PO Q6H PRN PRN Reason: Fever >100.4 Stop: 08/06/25 01:23 Hydromorphone HCl (Hydromorphone Inj 2 Mg/Ml Vial) 1 mg IVP Q6H PRN PRN Reason: PAIN SCALE 4-10(Mod-Sev Stop: 07/12/25 01:23 Ondansetron HCl (Ondansetron Inj 2 Mg/Ml Inj 2 Ml) 4 mg IVP Q6H PRN; Protocol PRN Reason: NAUSEA OR VOMITING Stop: 08/06/25 01:23 Discontinued Medications Etomidate (Etomidate Inj 2 Mg/Ml Vial 10 Ml) 10 mg IVP X1 ONE Stop: 07/06/25 22:29 Last Admin: 07/07/25 00:25 Dose: 10 mg Fentanyl Citrate (Fentanyl Cit Inj 50 Mcg/Ml Amp 2ml) 50 mcg IVP X1 ONE Stop: 07/06/25 22:29 Last Admin: 07/07/25 00:25 Dose: 50 mcg Fentanyl Citrate (Fentanyl Cit Inj 50 Mcg/Ml Amp 2ml) 50 mcg IVP X1 ONE Stop: 07/07/25 00:38 Last Admin: 07/07/25 00:27 Dose: 50 mcg Labetalol HCl (Labetalol Inj 5 Mg/Ml Vial 20 Ml) 10 mg IVP X1 ONE Stop: 07/06/25 21:04 Last Admin: 07/06/25 21:16 Dose: 10 mg Labetalol HCl (Labetalol Inj 5 Mg/Ml Vial 20 Ml) 10 mg IVP X1 ONE Stop: 07/06/25 23:14 Last Admin: 07/06/25 23:15 Dose: 10 mg Midazolam HCl (Midazolam Inj 1 Mg/Ml Vial 2 Ml) 1 mg IVP X1 ONE Stop: 07/06/25 19:42 Last Admin: 07/06/25 20:02 Dose: 1 mg Midazolam HCl (Midazolam Inj 1 Mg/Ml Vial 2 Ml) 5 mg IVP X1 ONE Stop: 07/07/25 00:28 Last Admin: 07/07/25 00:46 Dose: 5 mg Morphine Sulfate (Morphine Sulf Inj 4 Mg/Ml Vial) 2 mg IV X1 ONE Stop: 07/06/25 19:42 Last Admin: 07/06/25 20:04 Dose: 2 mg Ondansetron HCl (Ondansetron Inj 2 Mg/Ml Inj 2 Ml) 4 mg IVP X1 ONE; Protocol Stop: 07/06/25 23:25 Last Admin: 07/06/25 23:43 Dose: 4 mg Assessment & Plan Plan This is a 74-year-old old male with significant past medical history of CAD s/p CABG, hypertension, ESRD on HD [M/W/F] following Dr. Little, TIA, GERD, arthritis, hypothyroidism,Blood transfusions on 04/12 presented to the ED with complaints of increasing groin pain and swelling in the inguinal area. He was admitted for Incarcerated Inguinal hernia. # Incarcerated inguinal hernia. Increased inguinal pain, inguinal swelling, vomiting CT abdomen showing small bowel loops in the hernia appears to be incarcerated and proximally dilated Sedated with etomidate fentanyl and midazolam to decrease the pain and the abdominal tension ?General Surgery consulted ? Starting n.p.o. now. # Hypertension # Aortic stenosis #CAD s/p CABG Blood pressure in the range of 220/100 Stenotic murmur heard over aortic pulmonary mitral and tricuspid area ?Cardiology was consulted in view of cardiac clearance for possible hernia surgery. ?EKG and echo are ordered. ?Amlodipine home medication resumed. # ESRD. Creatinine 4.5 History of hemodialysis 3 times a week ?Consulted Dr Little manager care management. # Chronic Anemia. Hemoglobin 12.6 History of multiple blood transfusions Patient have been going on extensive workup at [facility] for chronic anemia. 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 # GERD Pantoprazole 40 mg Home medication resumed # Degenerative disc disease, arthritis Home medication duloxetine resumed. Code status: Full DVT prophylaxis:SCD Diet: NPO Aguilar:Yes Lines: PIV Supplemental O2: none Disposition: Med- Tele I discussed this case my senior Dr. Cervantes and my attending Dr. Lerma. Melba Garcia MD PGY1 Attending Provider Attestation/Addendum I, Deanne Lerma DO, attest that I was physically present for the tillman portions of the service and evaluated the patient with the resident and I reviewed and discussed the case with the resident and agree with the resident's findings and plans of care as documented above 75-year-old male with past medical history of CAD status post CABG, A-fib, end-stage renal disease on hemodialysis Tuesday, hypertension, hyperlipidemia, aortic stenosis, chronic anemia who was brought in from home due to pain and swelling in the left inguinal region associated with abdominal pain. Per chart review, patient had a prominence and intense pain that began around 2 PM with associated nausea and vomiting. CT abdomen and pelvis was done in the ED showing evidence of large hernia containing small bowel that appeared to be mildly incarcerated with mildly dilated small loops of bowel. Per bedside nurse, patient had a baseball sized prominence in his inguinal region. ED physician was able to manually reduce the hernia. Patient for this reason is heavily sedated and history obtained through chart review. Patient will need further surgical evaluation. Will admit patient to med/telemetry for further workup and medical management of the left inguinal hernia. Patient does have an extensive cardiac history. Will consult cardiology for further cardiac clearance in the event that surgery is planned. Surgery is consulted and will follow-up with recommendations. Nephrology also consulted to continue with outpatient dialysis schedule. Patient has a very loud holosystolic murmur noted in the left lower sternal border. AV fistula noted in his left forearm. Left inguinal region with sandbag over top and mildly erythematous due to reduction, but region is soft without any prominence.
[2025-07-07 02:35] LABS: Cardiac Risk Estimate 2.3 RATIO (4.0-6.7); Cholesterol 118 mg/dL (132-200); HDL Cholesterol 51 mg/dL (40-60); LDL Cholesterol,Calculated 48 mg/dL (0-130); Triglycerides 94 mg/dL (30-150)
--- NOTE | 2025-07-07 03:20 | PC.NURSE ---
pt tolerated procedure well. pt awake but slightly confused. sand bag placed on L inguinal area.
[2025-07-07 05:54] LABS: Basophils # (Auto) 0.0 Thou/mm3 (0.0-0.2); Basophils % (Auto) 0 % (0-2.5); Eosinophils # (Auto) 0.0 Thou/mm3 (0.0-0.5); Eosinophils % (Auto) 0 % (0-10); Hematocrit 37.6 % (41.0-53.0); Hemoglobin 11.9 g/dL (13.5-16.0); Immature Granulocytes Auto 0.04 Thou/mm3 (0.00-0.00); Lymphocytes # (Auto) 1.4 Thou/mm3 (1.0-4.8); Lymphocytes % (Auto) 13 % (10-50); Mean Corpuscular HGB Conc 31.6 g/dl (31.0-37.0); Mean Corpuscular Hemoglobin 31.4 pg (25.0-35.0); Mean Corpuscular Volume 99 fL (80-100); Monocytes # (Auto) 1.1 Thou/mm3 (0.0-0.8); Monocytes % (Auto) 10 % (0-12); Neutrophils # (Auto) 8.2 Thou/mm3 (1.8-7.7); Neutrophils % (Auto) 76 % (37-80); Nucleated Red Blood Cell # 0.00 Thou/mm3 (0.00-0.00); Nucleated Red Blood Cell % 0 /100 WBC (0); Platelet Count 198 Thou/mm3 (140-440); RDW Standard Deviation 56.6 fL (35.1-43.9); Red Blood Count 3.79 Miln/mm3 (4.50-5.90); White Blood Count 10.7 Thou/mm3 (3.8-10.6)
[2025-07-07 06:05] LABS: INR 1.0 (0.9-1.3); Prothrombin Time 10.9 Seconds (9.0-12.2)
--- NOTE | 2025-07-07 06:39 | PC.NURSE ---
called Dr. Mcfarland to clarify patient's order of EKG, shows ED only, but no EKG was done, per doctor will let day team know to fix order, no new order received.
[2025-07-07 06:48] LABS: Alanine Aminotransferase 8 U/L (10-49); Albumin, Serum 4.2 gm/dL (3.4-4.8); Albumin/Globulin Ratio 2.0 (1.2-2.2); Alkaline Phosphatase 143 U/L (46-116); Anion Gap 12 (7-16); Aspartate Amino Transferase 16 U/L (0-34); BUN/Creatinine Ratio 6 Ratio (12-20); Bilirubin,Total 0.4 mg/dL (0.3-1.2); Blood Urea Nitrogen 32 mg/dL (9-23); Calcium 9.1 mg/dL (8.3-10.6); Calcium (Corrected) 9.1 mg/dL (8.5-10.1); Carbon Dioxide 29.2 mMol/L (20.0-31.0); Chloride 98 mMol/L (98-107); Creatinine (Component) 5.5 mg/dL (0.6-1.3); Estimated Creatinine Clearance 12.0 mL/min (>60); Globulin 2.1 gm/dL (2.3-3.5); Glucose 113 mg/dL (74-106); Magnesium 2.2 mg/dL (1.6-2.6); Osmolality,Calculated 285 (275-295); Potassium 5.6 mMol/L (3.4-5.1); Sodium 139 mMol/L (136-145); Thyroid Stimulating Hormone 3.78 uIU/mL (0.55-4.78); Total Protein 6.3 gm/dL (5.7-8.2); eGFR 10 See Note
--- NOTE | 2025-07-07 10:49 | PC.SS ---
Addendum entered by Rosita Tuttle 07/07/25 14:42: Rounding note: BM needed before patient can discharge home today. Original Note: 75YO White Male, Reason for visit: LEFT INGUINAL SWELLING AND ABDOMINAL PAIN SS met patient at bedside to complete initial assessment. Role and purpose of today?s contact was explained to patient. Patient confirmed his demographic information. He identified his spouse Amy Espitia [phone] as his primary medical surrogate decisionmaker. Patient explained he is independent with ADL completion and independent with ambulation as well. Patient receives HD Sessions Mondays, Wednesdays, and Fridays 0800. Transportation to/from [facility] provided by [employer]. PHARMACY: [facility]- [address]. PCP: Wendy Yin, last appt. was 07/01/25. LEARNING ADMINISTRATOR: Dr. Little, MECHANICS SUPERVISOR: Dr. Forte. Patient requested to return home when medically clear. NEXT OF KIN: Spouse Shannan Espitia [phone]\ DISCHARGE PLAN: Home, spouse to provide transportation.
--- NOTE | 2025-07-07 11:55 | PD.SURCONS ---
HPI Consult details History of present illness: 75M with ESRD on HD MWF, CAD, TIA, hypothyroidism, anemia who presented 07/06 with left groin pain and swelling. Pt states yesterday was the first time he became aware of having an inguinal hernia and he had nausea at the time, but it was reduced in ER and he states his symptoms have resolved. At baseline he makes minimal urine, he self-catheterizes and his last BM was yesterday. PMH: HTN, CAD, ESRD, TIA, hypothyroidism, anemia requiring blood transfusion PSHx: CABG, AV fistula, appendectomy Meds: No antiplt or anticoagulation Allergies: NKDA Social hx: cigarette smoking Review of Systems Review of Systems ROS Unobtainable: All systems reviewed & no additional complaints except as documented Meds Home Medications and Allergies Home Medications ?Medication ?Instructions ?Recorded ?Confirmed ?Type HYDROCODONE BIT/ACETAMINOPHEN 1 tab PO Q6HR ##0 07/04/14 06/27/25 History (HYDROCODON-ACETAMINOPH 2.5-325) Levothyroxine * (SYNTHROID *) 75 mcg PO QDAY #0 tabs 07/04/14 06/27/25 History pantoprazole 40 mg tablet,delayed 40 mg PO BID ##0 07/04/14 06/27/25 History release (Protonix) duloxetine 60 mg capsule,delayed 60 mg PO QDAY #0 caps 03/22/15 06/27/25 History release (Cymbalta) sevelamer carbonate 800 mg tablet 800 mg PO TID 04/18/23 06/27/25 History (Renvela) amlodipine 10 mg tablet (Norvasc) 10 mg PO QDAY 11/20/24 06/27/25 History gabapentin 400 mg capsule 400 mg PO TID 11/20/24 06/27/25 History lidocaine 4 % topical cream 1 applic topical BID 11/20/24 06/27/25 History (Anecream) pravastatin 10 mg tablet 10 mg PO DAILY 01/01/25 06/27/25 History Allergies Allergy/AdvReac Type Severity Reaction Status Date / Time No Known Allergies Allergy Verified 07/06/25 18:42 Exam Vital Signs Temp Pulse Resp BP Pulse Ox O2 Del Method O2 Flow Rate 98.5 F 76 16 158/70 H 98 Nasal Cannula 1 07/07/25 08:00 07/07/25 09:24 07/07/25 08:00 07/07/25 09:24 07/07/25 08:00 07/07/25 08:00 07/07/25 08:00 Constitutional Constitutional: no acute distress Routine Respiratory Exam Respiratory: Present no resp distress Routine Exam Comments: left inguinal hernia soft, no overlying skin changes, no sign of right inguinal hernia Results Results: Laboratory Laboratory results: results reviewed Results: Imaging CT scan - abdomen: report reviewed and image reviewed Assessment & Plan Plan 75M with ESRD on HD MWF, CAD, TIA, hypothyroidism, anemia who presented 07/06 with left groin pain and swelling, findings of left inguinal hernia which was reduced in ER. Pt has no signs or symptoms of ongoing incarceration and given his comorbid conditions would benefit from medical and cardiology evaluation before surgery Reg diet OK for dc from my standpoint when tolerating
[2025-07-07] MEDS: SENNA/DOCUSATE SOD 1 TAB TABLET 2 TAB PO (12:16)
--- NOTE | 2025-07-07 15:33 | PD.RESDS ---
Planned Discharge Date 07/07/25 DS: Providers Provider Date of admission: 07/07/25 01:51 Primary care physician: Physician No Primary/Family Admitting Provider: Deanne Lerma DO Attending Provider on Admission: Deanne Lerma DO Consults: 07/07/25 01:15 Consult to General Surgery Stat Comment: Consulting Provider: Delaney Blue 07/07/25 01:32 Consult to Cardiology Stat Comment: CARDIAC CLEARANCE Consulting Provider: Octavia Forte 07/07/25 01:52 Consult to Nephrology Stat Comment: Consulting Provider: Rayne Little 07/07/25 03:26 Referral Physical Therapy Routine Comment: Physician Instructions: Attending Provider on DC: Dave Almanza MD Discharging Provider: Dave Almanza MD Hospital Course Hospital Course Hospital course: This is a 74-year-old old male with significant past medical history of CAD s/p CABG, hypertension, ESRD on HD [M/W/F] following Dr. Little, TIA, GERD, arthritis, hypothyroidism,Blood transfusions on 04/12 presented to the ED with complaints of increasing groin pain and swelling in the inguinal area.I cannot obtain the history form the patient as he was sedatedwhen I visited him. As per the chart he has been experiencing increasing left groin pain associated with increasing bulge since 07/06 2 PM. He endorses nausea and vomiting. He denies any urinary frequency urgency. Today's ED visit BP 220/110, [place] 97, respiratory 20 saturating 97% on room atmosphere. Pertinent labs are hemoglobin 12.6, hematocrit 39.4, BUN 25, creatinine 5.1, estimated creatinine clearance 13, eGFR 11, ALP 166 urine protein 3+, urine blood 2+ Imaging?CT abdomen shows Large left inguinal hernia containing small bowel which appears to be mildly incarcerated, mildly dilated small bowel loops more proximally Medications given in ED labetalol 20 mg, morphine 2 mg, midazolam 6mg, fentanyl 100 mcg, etomidate 10 mg, ondansetron 4 mg. Past medical history: History of CAD status post CABG, hypertension, ESRD on hemodialysis 3 times a week, TIA, GERD, hypothyroidism, multiple prior blood transfusions. Past surgical history: CABG, dialysis, AV fistula appendectomy Social history: Smoking 1 pack/day for 12.5 years Family history: Non contributory Allergy history: No known allergies Time Spent with Patient Time attestation: Total time spent providing and/or coordinating discharge services: Exam Vital Signs Temp Pulse Resp BP Pulse Ox O2 Del Method O2 Flow Rate 98.7 F 79 17 167/77 H 93 L Nasal Cannula 1 07/07/25 14:46 07/07/25 15:30 07/07/25 14:46 07/07/25 15:30 07/07/25 14:46 07/07/25 12:00 07/07/25 12:00 Discharge Plan Prescriptions/Referrals Prescriptions/Med Rec: No Action pantoprazole [Protonix] 40 MG tablet,delayed release (DR/EC) 40 mg PO BID Qty: 0 Patient Comments: TO SUPPRESS [employer]IONS HYDROCODONE BIT/ACETAMINOPHEN (HYDROCODON-ACETAMINOPH 2.5-325) 1 EACH tablet 1 tab PO Q6HR Qty: 0 Levothyroxine * (SYNTHROID *) 75 MCG tablet 75 mcg PO QDAY Qty: 0 duloxetine [Cymbalta] 60 MG capsule,delayed release(DR/EC) 60 mg PO QDAY Qty: 0 sevelamer carbonate [Renvela] 800 mg Tablet 800 mg PO TID Rx Instructions: must administer with a meal/food gabapentin 400 mg capsule 400 mg PO TID Patient Comments: TAKE ONE CAPSULE BY MOUTH THREE TIMES DAILY FOR NERVE PAIN amlodipine [Norvasc] 10 mg tablet 10 mg PO QDAY lidocaine [Anecream] 4 % cream 1 applic topical BID Rx Instructions: to right 2nd toe arthritis pain. (Over the counter med) pravastatin 10 mg tablet 10 mg PO DAILY Referrals: No Primary/Family,Physician [Primary Care Provider] Patient/Caregiver Discharge Instructions Print Language: Luxembourgish
--- NOTE | 2025-07-07 15:35 | ESPR_ITS ---
Documentation for date of: 07/07/25 Subjective Subjective Interval history: Patient is evaluated bedside, overnight events and labs reviewed, patient had manual reduction of inguinal hernia done, general surgeon Dr. Blue saw the patient, unimpressed by physical exam findings, less likely incarceration, patient was started on clear liquid diet, he had a bowel movement later during the day. Quick Mixer Operator Dr Little was consulted, who placed hemodialysis orders, patient is getting hemodialysis tolerating HD well. Plan to monitor overnight and discharge tomorrow a.m. Exam Vital Signs Temp Pulse Resp BP Pulse Ox O2 Del Method O2 Flow Rate 98.7 F 79 17 167/77 H 93 L Nasal Cannula 1 07/07/25 14:46 07/07/25 15:30 07/07/25 14:46 07/07/25 15:30 07/07/25 14:46 07/07/25 12:00 07/07/25 12:00 Narrative Exam GENERAL: NAD, AAOx3, seen during hemodialysis, tolerating procedure well. HEENT: Moist mucosa. Eyes open, symmetrical, & clear CARDIO: Rapid regular rhythm Noted. Harsh Systolic Murmur noted over pulmonary,aortic area. PULM: No noted coughing/dyspnea CTA B/L, no R/W/R GI: Abdomen soft, nondistended.Left Inguinal swelling is present. Slight tenderness left inguinal region. SKIN/MSK/EXT: No wounds/rashes/amputations, no pain on palpation. Pedal pulses present B/L NEURO: AAOx3, no focal neuro deficits, able to move all 4 extremities Objective Labs 07/07/25 05:28 07/07/25 05:28 Labs: Laboratory Results - last 24 hr 07/06/25 07/06/25 07/07/25 19:45 20:17 02:09 WBC 8.3 RBC 4.02 L Hgb 12.6 L Hct 39.4 L MCV 98 MCH 31.3 MCHC 32.0 RDW Std Deviation 54.8 H Plt Count 227 Neut % (Auto) 75 Lymph % (Auto) 15 [place] % (Auto) 8 Eos % (Auto) 1 Baso % (Auto) 1 Neut # (Auto) 6.3 Lymph # (Auto) 1.2 [place] # (Auto) 0.6 Eos # (Auto) 0.1 Baso # (Auto) 0.0 Immature Gran # (Auto) 0.05 H Absolute Nucleated RBC 0.03 H Immature Gran % 1 H Nucleated RBC % 0 PT INR Sodium 139 Potassium 4.4 Chloride 96 L Carbon Dioxide 24.1 Anion Gap 19 H BUN 25 H Creatinine 5.1 H* Estim Creat Clear Calc 13.0 L eGFR 11 L* BUN/Creatinine Ratio 5 L Glucose 110 H Calculated Osmolality 282 Calcium 10.1 Corrected Calcium 10.1 Magnesium Total Bilirubin 0.4 AST 17 ALT 11 Alkaline Phosphatase 166 H Total Protein 7.1 Albumin 4.8 Globulin 2.3 Albumin/Globulin Ratio 2.1 Triglycerides 94 Cholesterol 118 L LDL Cholesterol, Calc 48 HDL Cholesterol 51 Cholesterol/HDL Ratio 2.3 L Lipase 26 TSH Ur Collection Type Clean Catch Urine Color Lt-Yellow Urine Clarity Clear Urine pH 8.5 H Ur Specific [place] 1.012 Urine Protein 3+ A Urine Glucose (UA) 1+ A Urine Ketones Negative Urine Blood 2+ A Urine Nitrite Negative Urine Bilirubin Negative Urine Urobilinogen (Auto) Negative Ur Leukocyte Esterase Positive Urine RBC 45 H Urine WBC 67 H Ur Squamous Epith Cells 2 Urine Bacteria None Hyaline Casts < 1 07/07/25 05:28 WBC 10.7 H RBC 3.79 L Hgb 11.9 L Hct 37.6 L MCV 99 MCH 31.4 MCHC 31.6 RDW Std Deviation 56.6 H Plt Count 198 Neut % (Auto) 76 Lymph % (Auto) 13 [place] % (Auto) 10 Eos % (Auto) 0 Baso % (Auto) 0 Neut # (Auto) 8.2 H Lymph # (Auto) 1.4 [place] # (Auto) 1.1 H Eos # (Auto) 0.0 Baso # (Auto) 0.0 Immature Gran # (Auto) 0.04 H Absolute Nucleated RBC 0.00 Immature Gran % 0 Nucleated RBC % 0 PT 10.9 INR 1.0 Sodium 139 Potassium 5.6 H D Chloride 98 Carbon Dioxide 29.2 Anion Gap 12 BUN 32 H Creatinine 5.5 H* Estim Creat Clear Calc 12.0 L eGFR 10 L* BUN/Creatinine Ratio 6 L Glucose 113 H Calculated Osmolality 285 Calcium 9.1 Corrected Calcium 9.1 Magnesium 2.2 Total Bilirubin 0.4 AST 16 ALT 8 L Alkaline Phosphatase 143 H D Total Protein 6.3 Albumin 4.2 D Globulin 2.1 L Albumin/Globulin Ratio 2.0 Triglycerides Cholesterol LDL Cholesterol, Calc HDL Cholesterol Cholesterol/HDL Ratio Lipase TSH 3.78 Ur Collection Type Urine Color Urine Clarity Urine pH Ur Specific [place] Urine Protein Urine Glucose (UA) Urine Ketones Urine Blood Urine Nitrite Urine Bilirubin Urine Urobilinogen (Auto) Ur Leukocyte Esterase Urine RBC Urine WBC Ur Squamous Epith Cells Urine Bacteria Hyaline Casts Quality Measures Quality Measures none Advance care planning discussed with:: patient Assessment & Plan Assessment Current Active Medications: Generic Name Dose Route Start Last Admin Trade Name Freq PRN Reason Stop Dose Admin Acetaminophen 650 mg 07/07/25 01:24 Acetaminophen 325 Mg Tablet PO 08/06/25 01:23 Q6H PRN Fever >100.4 Acetaminophen 650 mg 07/07/25 02:00 Acetaminophen 325 Mg Tablet PO 08/06/25 01:59 Q6HR PRN PAIN SCALE 1-3 (mild Hydrocodone Bitart/Acetaminophen 1 tab 07/07/25 12:18 Hydrocodone/Apap 7.5/325 Tablet PO 07/12/25 12:17 Q6HR PRN PAIN SCALE 6-10(Mod-Sev Amlodipine Besylate 10 mg 07/07/25 09:00 07/07/25 09:24 Amlodipine Besylate 5 Mg Tablet PO 08/06/25 08:59 Not Given QDAY RICH Duloxetine HCl 60 mg 07/07/25 09:00 07/07/25 09:25 Duloxetine Hcl 30 Mg Capsule PO 08/06/25 08:59 Not Given QDAY RICH Hydromorphone HCl 0.5 mg 07/07/25 12:19 Hydromorphone Inj 2 Mg/Ml Vial IVP 07/12/25 01:23 Q6H PRN BREAKTHROUGH PAIN (SEVERE) Levothyroxine Sodium 75 mcg 07/07/25 06:00 07/07/25 05:40 Levothyroxine Sodium 25 Mcg Tablet PO 08/06/25 05:59 Not Given ACBR RICH Ondansetron HCl 4 mg 07/07/25 01:24 Ondansetron Inj 2 Mg/Ml Inj 2 Ml IVP 08/06/25 01:23 Q6H PRN NAUSEA OR VOMITING Protocol Pantoprazole Sodium 40 mg 07/07/25 09:00 07/07/25 09:25 Pantoprazole 40 Mg Tablet PO 08/06/25 08:59 Not Given QDAY RICH Plan Patient is a 75-year-old male with a past medical history of coronary artery disease status post ESRD on HD M/W/F, CABG, HTN, hypothyroidism, TIA, GERD, arthritis, aortic stenosis, who presented to the ER following sudden onset groin pain and swelling in the inguinal region. #Concern for incarcerated inguinal hernia Initial CT abdomen pelvis findings were concerning for mild incarceration of small bowel. Manual reduction of the hernia sac was attempted in the emergency room, which appears to be successful. Patient was started on a diet, clear liquid to be advanced as tolerated, general surgery was consulted, recommended no surgical intervention, as patient is high risk for surgery given multiple comorbid conditions and seem to be doing better now. ? Multimodal analgesia, with p.o. [place] and IV Dilaudid for breakthrough pain ? General Surgery consulted Dr. Blue is placed, appreciate recommendations ? Clear liquid diet initiated, tolerating diet well, had 1 bowel movement today. ? Anticipate discharge tomorrow if patient continues to be asymptomatic. #History of coronary artery disease status post CABG Holding patient's antiplatelet medications in anticipation of possible surgical procedure, will resume home medications on discharge if no procedure anticipated. The patient currently denies any chest pain or pressure, no concern for acute coronary event at this point. ? Cardiology was consulted by admitting team in view of possible cardiac clearance if surgery is required. ? Echocardiogram was ordered ? Will resume home medications pending med rec reconciliation #History of anemia Currently hemoglobin stable, history of blood transfusion in the past, previous endoscopies reportedly found angiodysplasia #Hypertension Initial blood pressure noted to be 220/100, home medication amlodipine was started. Noted elevated blood pressure at during hemodialysis. ? Will add IV hydralazine as needed for systolic blood pressure more than 185. #History of ESRD on hemodialysis ? Quick Mixer Operator Dr Little was consulted, ordered hemodialysis. Patient getting hemodialysis today. Tolerating procedure well. Disposition: Anticipate discharge tomorrow DVT prophylaxis: Heparin subcut GI prophylaxis: None Diet: Clear liquid advance as tolerated Lines: PIV CODE STATUS: Full Plan of care discussed with attending Dr. Skyler Almanza PGY3 Attending Provider Attestation/Addendum I have discussed and was present for the essential components of the history, physical examination, diagnosis, and treatment plan with the resident. I agree with the patient's care as documented by the resident and amended herein by me. Low Holland, DO. Although this document has been carefully reviewed, there may still be some phonetic and other typographical errors. These errors are purely grammatical due to imperfections in the software program and should not be construed in any way to compromise the substance of the patient's medical care during this visit. Patient seen and evaluated this AM. Patient doing well, no surgical intervention indicated for surgery at this time, inguinal hernia was reproducible, likely will need cardiac workup which can be done in the outpatient setting and patient will have elective surgery for hernia repair at a later time. Patient has already had a bowel movement and is tolerating p.o. intake, will get a hemodialysis session today, can likely be discharged tomorrow morning pending further clinical improvement.
--- NOTE | 2025-07-07 17:42 | PC.NURSE ---
Unable to reach life partner regarding patients medication list. Will follow up with patient when he returns from dialysis. Patient does not recall what he takes or the doses
[2025-07-07] MEDS: ACETAMINOPHEN 325 MG TABLET 650 MG PO (17:47)
--- NOTE | 2025-07-07 18:02 | PC.NURSE ---
Spoke with Amy, life partner, she will call overnight associate nurse to go over home meds patient is currently taking when she get home.
--- NOTE | 2025-07-07 20:00 | PC.NURSE ---
informed patient's , Amy to bring list of medication or if she's able to call the hospital when she does have his list of medication for patient's med rec. Reminded both patient and spouse that exact dosage, frequency, route, name of medication is needed. They verbalize understanding.
[2025-07-08] VITALS (8 sets, daily range): BP systolic 136–177; BP diastolic 70–80; PULSE 67–98; RESP 18–25; TEMP 36.2–37.3; O2SAT 93–100
[2025-07-08] MEDS: HYDROmorphone INJ 2 MG/ML VIAL 0.5 MG IVP ×2 (00:32→03:05)
--- NOTE | 2025-07-08 02:24 | PC.NURSE ---
called Dr. Okeefe regarding patient having increased confusion, patient trying to get out of bed saying he has to go urinate, repeated education given that he has a catheter but insists he needs to get up, multiple redirection done but patient continues to try to get out of bed. Patient moved closer to nurses station and avasure in place for safety. Per doctor will check patient's chart. No new orders received at this time.
[2025-07-08] MEDS: LEVOTHYROXINE SODIUM 25 MCG TABLET 75 MCG PO (05:04)
[2025-07-08 05:46] LABS: Basophils # (Auto) 0.0 Thou/mm3 (0.0-0.2); Basophils % (Auto) 0 % (0-2.5); Eosinophils # (Auto) 0.1 Thou/mm3 (0.0-0.5); Eosinophils % (Auto) 1 % (0-10); Hematocrit 37.1 % (41.0-53.0); Hemoglobin 11.6 g/dL (13.5-16.0); Immature Granulocytes Auto 0.07 Thou/mm3 (0.00-0.00); Lymphocytes # (Auto) 1.6 Thou/mm3 (1.0-4.8); Lymphocytes % (Auto) 12 % (10-50); Mean Corpuscular HGB Conc 31.3 g/dl (31.0-37.0); Mean Corpuscular Hemoglobin 31.0 pg (25.0-35.0); Mean Corpuscular Volume 99 fL (80-100); Monocytes # (Auto) 1.4 Thou/mm3 (0.0-0.8); Monocytes % (Auto) 11 % (0-12); Neutrophils # (Auto) 10.0 Thou/mm3 (1.8-7.7); Neutrophils % (Auto) 76 % (37-80); Nucleated Red Blood Cell # 0.00 Thou/mm3 (0.00-0.00); Nucleated Red Blood Cell % 0 /100 WBC (0); Platelet Count 161 Thou/mm3 (140-440); RDW Standard Deviation 57.1 fL (35.1-43.9); Red Blood Count 3.74 Miln/mm3 (4.50-5.90); White Blood Count 13.2 Thou/mm3 (3.8-10.6)
[2025-07-08 06:25] LABS: Alanine Aminotransferase 8 U/L (10-49); Albumin, Serum 4.4 gm/dL (3.4-4.8); Albumin/Globulin Ratio 1.9 (1.2-2.2); Alkaline Phosphatase 125 U/L (46-116); Anion Gap 10 (7-16); Aspartate Amino Transferase 17 U/L (0-34); BUN/Creatinine Ratio 5 Ratio (12-20); Bilirubin,Total 0.8 mg/dL (0.3-1.2); Blood Urea Nitrogen 22 mg/dL (9-23); Calcium 9.9 mg/dL (8.3-10.6); Calcium (Corrected) 9.9 mg/dL (8.5-10.1); Carbon Dioxide 30.3 mMol/L (20.0-31.0); Chloride 96 mMol/L (98-107); Creatinine (Component) 4.5 mg/dL (0.6-1.3); Estimated Creatinine Clearance 14.7 mL/min (>60); Globulin 2.3 gm/dL (2.3-3.5); Glucose 105 mg/dL (74-106); Magnesium 2.0 mg/dL (1.6-2.6); Osmolality,Calculated 275 (275-295); Phosphorous 3.2 mg/dL (2.4-5.1); Potassium 4.4 mMol/L (3.4-5.1); Sodium 136 mMol/L (136-145); Total Protein 6.7 gm/dL (5.7-8.2); eGFR 13 See Note
--- NOTE | 2025-07-08 07:56 | PD.IMCONS ---
HPI Data of Consult Requesting Physician: Deanne Lerma DO Primary Care Provider: Physician No Primary/Family Consult Narrative History of present illness: This is a 74-year-old old male with significant past medical history of CAD s/p CABG, hypertension, ESRD on HD [M/W/F] Hypothyroidism Patient was admitted with groin pain swelling in the inguinal area area Initially thought to be incarcerated inguinal hernia Currently patient is feeling better Surgical evaluation was done cc:: cc: Deanne Lerma, Meds Home Medications and Allergies Home Medications ?Medication ?Instructions ?Recorded ?Confirmed ?Type HYDROCODONE BIT/ACETAMINOPHEN 1 tab PO Q6HR ##0 07/04/14 06/27/25 History (HYDROCODON-ACETAMINOPH 2.5-325) Levothyroxine * (SYNTHROID *) 75 mcg PO QDAY #0 tabs 07/04/14 06/27/25 History pantoprazole 40 mg tablet,delayed 40 mg PO BID ##0 07/04/14 06/27/25 History release (Protonix) duloxetine 60 mg capsule,delayed 60 mg PO QDAY #0 caps 03/22/15 06/27/25 History release (Cymbalta) sevelamer carbonate 800 mg tablet 800 mg PO TID 04/18/23 06/27/25 History (Renvela) amlodipine 10 mg tablet (Norvasc) 10 mg PO QDAY 11/20/24 06/27/25 History gabapentin 400 mg capsule 400 mg PO TID 11/20/24 06/27/25 History lidocaine 4 % topical cream 1 applic topical BID 11/20/24 06/27/25 History (Anecream) pravastatin 10 mg tablet 10 mg PO DAILY 01/01/25 06/27/25 History Allergies Allergy/AdvReac Type Severity Reaction Status Date / Time No Known Allergies Allergy Verified 07/06/25 18:42 Exam Vital Signs Temp Pulse Resp BP Pulse Ox O2 Del Method O2 Flow Rate 98.5 F 93 22 H 138/77 H 100 Nasal Cannula 1 07/08/25 07:05 07/08/25 07:05 07/08/25 07:05 07/08/25 07:05 07/08/25 07:05 07/08/25 07:05 07/07/25 12:00 Routine HEENT Exam Head: Present normocephalic and atraumatic Eye: Present EOMI and PERRL ENT: Present mucous membranes moist Routine Neck Exam Neck: Present supple and trachea midline Routine Respiratory Exam Respiratory: Present chest non-tender, lungs clear, normal breath sounds and no resp distress Routine Cardiovascular Exam Cardiovascular: Present RRR Routine Abdominal Exam Abdominal: Present soft and normoactive bowel sounds Routine Extremities Exam Extremities: Present full ROM Routine Skin Exam Skin: Present intact, dry and warm Routine Neurological Exam Neurological: Present alert, oriented X3 and CN II-XII intact Routine Psychiatric Exam Psychiatric: Present normal affect and normal thought process Results Labs 07/08/25 05:10 07/08/25 05:10 Labs: Short CBC 07/08/25 Range/Units 05:10 WBC 13.2 H (3.8-10.6) Thou/mm3 Hgb 11.6 L (13.5-16.0) g/dL Hct 37.1 L (41.0-53.0) % Plt Count 161 D (140-440) Thou/mm3 BMP 07/08/25 05:10 Sodium 136 Potassium 4.4 D Chloride 96 L Carbon Dioxide 30.3 BUN 22 Creatinine 4.5 H* D Glucose 105 Calcium 9.9 Liver Function 07/08/25 Range/Units 05:10 Total Bilirubin 0.8 (0.3-1.2) mg/dL AST 17 (0-34) U/L ALT 8 L (10-49) U/L Alkaline Phosphatase 125 H (46-116) U/L Albumin 4.4 (3.4-4.8) gm/dL Assessment and Plan Assessment and plan (1) Incarcerated left inguinal hernia: Status: Acute (2) ESRD on dialysis: Status: Acute (3) Anemia: Status: Acute (4) Arthritis of knee: Status: Acute (5) Anemia: Status: Acute (6) End-stage renal disease (ESRD): Status: Acute (7) Status post aorto-coronary artery bypass graft: Status: Acute Additional Assessment & Plan Additional Plan: Stable cardiac status patient is hemodynamically stable Continue medical management
[2025-07-08] MEDS: DULoxetine HCL 30 MG CAPSULE 60 MG PO (09:03)
[2025-07-08] MEDS: PANTOPRAZOLE 40 MG TABLET PO (09:03)
--- NOTE | 2025-07-08 11:38 | PC.NURSE ---
Pt's brought a lit of medications, but stated that the ones that were circled were for sure what he takes, but otherwise the remaining had not been confirmed. So I updated the med-rec based on the information provided
--- NOTE | 2025-07-08 22:00 | ESDS_ITS ---
<Statement entered by Mracelino Potter MD - 07/09/25 07:32> I have reviewed the note and agree with the resident's assessment & plan with exceptions as below. I have personally reviewed labs, imaging, home meds/prior records, examined the patient, formulated and discussed management plan with my attending Marcelino Potter PGY2 Disclaimer: Even though this this note was dictated by speech recognition and even though it was carefully revised there may still be minor errors in ammunition supervisor due to voice recognition software. Planned Discharge Date 07/08/25 DS: Providers Provider Date of admission: 07/07/25 01:51 Primary care physician: Physician No Primary/Family Admitting Provider: Deanne Lerma DO Attending Provider on Admission: Naif Holland DO Consults: 07/07/25 01:15 Consult to General Surgery Stat Comment: Consulting Provider: Delaney Blue 07/07/25 01:32 Consult to Cardiology Stat Comment: CARDIAC CLEARANCE Consulting Provider: Octavia Forte 07/07/25 01:52 Consult to Nephrology Stat Comment: Consulting Provider: Rayne Little 07/07/25 03:26 Referral Physical Therapy Routine Comment: Physician Instructions: Attending Provider on DC: Naif Holland DO Discharging Provider: Naif Holland DO DS: Diagnosis Problem List Completed Was Problem List Reviewed/Reconciled?: Yes Hospital Course Hospital Course Hospital course: Hospital Course: Patient is a 74-year-old old male with PMH of CAD s/p CABG, hypertension, ESRD on HD, TIA, GERD, arthritis, hypothyroidism,who presented to the ED on 07/06/25 with increasing groin pain and swelling in the inguinal area. CT abdomen showed incarcerated inguinal hernia, and hernia was reduced; surgery was also cons ulted. On 07/07/25, surgery consultation stated that patient was good for discharge from her end. He also received dialysis that day. On 07/08/25, patient was considered stable, and he was discharged for management of hernia outpatient. Discharge Instructions: Please follow up primary care physician within 3 to 5 days upon discharge Recommend getting a referral from your primary care physician to follow-up with a general surgeon within the 7 days upon discharge Continue taking all home medications as prescribed At this time there are no signs of incarceration of the hernia, but if you develop any extreme pain, redness, discoloration, or increased bulge in that area please come back to the ER. Problem List: #Incarcerated inguinal hernia #History of coronary artery disease status post CABG #History of anemia #Hypertension #History of ESRD on hemodialysis Status at Discharge Functional status at discharge: independent ambulation Overall status at discharge: patient is progressing back to baseline Time Spent with Patient Time attestation: Total time spent providing and/or coordinating discharge services: Time spent: Greater than 30 minutes Exam Vital Signs Temp Pulse Resp BP Pulse Ox O2 Del Method O2 Flow Rate 97.8 F 67 18 161/72 H 94 L Room Air 2 07/08/25 16:00 07/08/25 16:00 07/08/25 16:00 07/08/25 16:00 07/08/25 16:00 07/08/25 16:00 07/08/25 10:52 Narrative Exam GENERAL: NAD, AAOx3, HEENT: Moist mucosa. Eyes open, symmetrical, & clear CARDIO: regular rhythm. Harsh Systolic Murmur noted over pulmonary,aortic area. PULM: No noted coughing/dyspnea CTA B/L, no R/W/R GI: Abdomen soft, nondistended. Swelling and slight tenderness left inguinal region. SKIN/MSK/EXT: No wounds/rashes/amputations, no pain on palpation. Pedal pulses present B/L. Dialysis catheter seen. NEURO: AAOx3, no focal neuro deficits, able to move all 4 extremities Discharge Plan Plan Patient Disposition: HOME (Self Care) Patient condition on transfer: Stable Care Plan Goals: Please follow up primary care physician within 3 to 5 days upon discharge Recommend getting a referral from your primary care physician to follow-up with a general surgeon within the 7 days upon discharge Continue taking all home medications as prescribed At this time there are no signs of incarceration of the hernia, but if you develop any extreme pain, redness, discoloration, or increased bulge in that area please come back to the ER. Prescriptions/Referrals Prescriptions/Med Rec: Continued pantoprazole [Protonix] 40 MG tablet,delayed release (DR/EC) 40 mg PO BID Qty: 0 Patient Comments: TO SUPPRESS GASTR[employer] SECRETIONS HYDROCODONE BIT/ACETAMINOPHEN (HYDROCODON-ACETAMINOPH 2.5-325) 1 EACH tablet 1 tab PO Q6HR PRN (Reason: pain) Qty: 0 Rx Instructions: 1 Every 6-8 hours for pain Levothyroxine * (SYNTHROID *) 75 MCG tablet 75 mcg PO QDAY Qty: 0 duloxetine [Cymbalta] 60 MG capsule,delayed release(DR/EC) 60 mg PO QDAY Qty: 0 sevelamer carbonate [Renvela] 800 mg Tablet 800 mg PO TID Rx Instructions: must administer with a meal/food gabapentin 400 mg capsule 400 mg PO TID Patient Comments: TAKE ONE CAPSULE BY MOUTH THREE TIMES DAILY FOR NERVE PAIN amlodipine [Norvasc] 10 mg tablet 10 mg PO QDAY lidocaine [Anecream] 4 % cream 1 applic topical BID Rx Instructions: to right 2nd toe arthritis pain. (Over the counter med) pravastatin 10 mg tablet 10 mg PO DAILY Referrals: No Primary/Family,Physician [Primary Care Provider] Patient/Caregiver Discharge Instructions Other Discharge Activity Instructions:: Please follow up primary care physician within 3 to 5 days upon discharge Recommend getting a referral from your primary care physician to follow-up with a general surgeon within the 7 days upon discharge Continue taking all home medications as prescribed At this time there are no signs of incarceration of the hernia, but if you develop any extreme pain, redness, discoloration, or increased bulge in that area please come back to the ER. Education Materials: What Is a Hernia?, How a Hernia Develops Print Language: Cambodian Stand Alone Forms: Dennise Award Info., Patient Portal Info Letter Discharge Order Discharge Orders: Discharge (Routine); Ordered 07/08/25 Ordered By: Marcelino Potter Quality Discharge Quality Measures none MD Attestestation MD Attestation I have discussed and was present for the essential components of the discharge history, physical examination, diagnosis, and discharge treatment plan with the resident. I agree with the patient's discharge care as documented by the resident and amended herein by me. Low Holland DO. The patient understood all discharge instructions, all questions were answered satisfactorily. The patient was instructed to return to the Emergency Department is symptoms worsened or persisted. Although this document has been carefully reviewed, there may still be some phonetic and other typographical errors. These errors are purely grammatical due to imperfections in the software program and should not be construed in any way to compromise the substance of the patient's medical care during this visit. Time Spent on discharge: 36 minutes
== END 2025-07-08 16:05 | disposition home or self-care (01) | DRG 393 ==
LOC: SERX 07-07 00:53 → SERHOLD 07-08 06:46 → S3NX 07-08 06:46
PROVIDERS: Nurse Practitioner Family; Admitting Provider Internal Medicine; Emergency Provider Emergency Medicine; Visit Provider Student in an Organized Health Care Education/Training Program
DX: K40.30 Unilateral inguinal hernia, with obstruction, without gangrene, not specified as recurrent (principal); N18.6 End stage renal disease; I12.0 Hypertensive chronic kidney disease with stage 5 chronic kidney disease or end stage renal disease; Z95.1 Presence of aortocoronary bypass graft; I25.10 Atherosclerotic heart disease of native coronary artery without angina pectoris; E03.9 Hypothyroidism, unspecified; Z99.2 Dependence on renal dialysis; Z86.73 Personal history of transient ischemic attack (TIA), and cerebral infarction without residual deficits; K21.9 Gastro-esophageal reflux disease without esophagitis; M17.10 Unilateral primary osteoarthritis, unspecified knee; F17.210 Nicotine dependence, cigarettes, uncomplicated; I35.0 Nonrheumatic aortic (valve) stenosis; D63.1 Anemia in chronic kidney disease; I48.91 Unspecified atrial fibrillation; E78.5 Hyperlipidemia, unspecified; Z79.890 Hormone replacement therapy; Z79.899 Other long term (current) drug therapy
CPT/HCPCS: 36415; 74176; 80053; 80061; 81001; 83690; 83735; 84100; 84443; 85025; 85610; 93225; 93306; 96374; 96375; 96376; 99285; A4314; J1171; J2250; J2270; J2405; J3010; J3490; A9270; J1920

== ENCOUNTER 2025-07-15 16:10 | Inpatient (IN) | payer MEDICARE, MEDICAID, SELFPAY ==
[2025-07-15] VITALS (14 sets, daily range): BP systolic 123–203; BP diastolic 57–103; PULSE 80–99; RESP 15–25; TEMP 36.6–38.8; O2SAT 93–100; BMI 22.4; BMI 22.0
--- NOTE | 2025-07-15 16:28 | XR_ITS ---
Examination: CT abdomen with intravenous contrast CT pelvis with intravenous contrast 2-D coronal reconstructions 2-D sagittal reconstructions Date and time of exam: July 15, 2025, 1759 hours INDICATIONS: Generalized abdominal pain today COMPARISON: July 06, 2025. CTDI: vol (mGy) 14 DLP: (mGycm) 903 Technique: Multiple axial sections of the abdomen and pelvis have been obtained. 64 slice high-resolution scanner used. 3 mm axial sections have been obtained, post intravenous injection 60 cc [id number] 2-D sagittal, coronal reconstructions obtained. Low dose protocols were performed. One or more of the following dose reduction techniques were used; automated exposure control, adjustment of the mA and/or KV according to patient size, use of iterative reconstruction technique. Findings: Hepatomegaly with irregular liver contour Prominent patient motion Small gallstones Possible thickening of the gallbladder wall Spleen is nonenlarged No pancreatic mass Atrophic kidneys Multiple fluid distended small bowel loops No pericecal inflammatory change Wall thickening diffusely involving the colon Mild thickening of the urinary bladder wall Fat-containing left inguinal hernia The osseous structures are intact IMPRESSION: Mechanical small bowel obstruction, consider Gastrografin small bowel series follow-up Nonspecific colitis pattern Large fat-containing left inguinal hernia Cystitis pattern
--- NOTE | 2025-07-15 16:28 | EKG_ITS ---
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1950 Requested By: Yasmeen Peterson Order Number: [id number] Reading MD: Yasmeen Peterson Measurements Intervals [place] Rate: 96 P: AR: QRS: -27 QRSD: 110 T: 90 QT: 424 QTc: 538 Interpretive Statements ATRIAL FIBRILLATION BORDERLINE LEFT AXIS DEVIATION [QRS AXIS < -20] MODERATE VOLTAGE CRITERIA FOR LVH, CONSIDER NORMAL VARIANT [MEETS CRITERIA IN ONE OF: R(aVL), S(V1), R(V5), R(V5/V6)+S(V1)] ST DEVIATION AND MODERATE T-WAVE ABNORMALITY, CONSIDER LATERAL ISCHEMIA [-0.1+ mV T-WAVE IN I/aVL/V5/V6] Compared to ECG 01/02/2025 02:34:53 T-wave abnormality now present Possible ischemia now present Sinus rhythm no longer present Ventricular premature complex(es) no longer present ST (T wave) deviation no longer present /store/S0/[id number].pdf
[2025-07-15] MEDS: MORPHINE SULF INJ 4 MG/ML VIAL IVP (16:52)
--- NOTE | 2025-07-15 17:06 | XR_ITS ---
EXAMINATION: Abdomen 2 views TECHNIQUE: AP portable upright AP portable supine abdomen 2 views Date and time: July 15, 2025, 1730 hours INDICATIONS: Abdominal pain today. FINDINGS: Numerous air distended small bowel loops No free air Prominent osteopenia IMPRESSION: Small bowel obstruction pattern
[2025-07-15 17:13] LABS: Basophils # (Auto) 0.0 Thou/mm3 (0.0-0.2); Basophils % (Auto) 0 % (0-2.5); Eosinophils # (Auto) 0.2 Thou/mm3 (0.0-0.5); Eosinophils % (Auto) 2 % (0-10); Hematocrit 39.9 % (41.0-53.0); Hemoglobin 12.9 g/dL (13.5-16.0); Immature Granulocytes Auto 0.06 Thou/mm3 (0.00-0.00); Lymphocytes # (Auto) 1.0 Thou/mm3 (1.0-4.8); Lymphocytes % (Auto) 11 % (10-50); Mean Corpuscular HGB Conc 32.3 g/dl (31.0-37.0); Mean Corpuscular Hemoglobin 30.9 pg (25.0-35.0); Mean Corpuscular Volume 96 fL (80-100); Monocytes # (Auto) 0.8 Thou/mm3 (0.0-0.8); Monocytes % (Auto) 8 % (0-12); Neutrophils # (Auto) 7.8 Thou/mm3 (1.8-7.7); Neutrophils % (Auto) 79 % (37-80); Nucleated Red Blood Cell # 0.00 Thou/mm3 (0.00-0.00); Nucleated Red Blood Cell % 0 /100 WBC (0); Platelet Count 289 Thou/mm3 (140-440); RDW Standard Deviation 53.3 fL (35.1-43.9); Red Blood Count 4.18 Miln/mm3 (4.50-5.90); White Blood Count 9.8 Thou/mm3 (3.8-10.6)
[2025-07-15 17:18] LABS: INR 1.0 (0.9-1.3); Prothrombin Time 11.0 Seconds (9.0-12.2)
[2025-07-15 17:37] LABS: Alanine Aminotransferase < 7 U/L (10-49); Albumin, Serum 4.3 gm/dL (3.4-4.8); Albumin/Globulin Ratio 1.8 (1.2-2.2); Alkaline Phosphatase 127 U/L (46-116); Anion Gap 15 (7-16); Aspartate Amino Transferase 19 U/L (0-34); BUN/Creatinine Ratio 4 Ratio (12-20); Bilirubin,Total 0.4 mg/dL (0.3-1.2); Blood Urea Nitrogen 15 mg/dL (9-23); Calcium 9.6 mg/dL (8.3-10.6); Calcium (Corrected) 9.6 mg/dL (8.5-10.1); Carbon Dioxide 27.9 mMol/L (20.0-31.0); Chloride 96 mMol/L (98-107); Creatinine (Component) 3.4 mg/dL (0.6-1.3); Estimated Creatinine Clearance 19.6 mL/min (>60); Globulin 2.4 gm/dL (2.3-3.5); Glucose 112 mg/dL (74-106); Lipase 21 U/L (12-53); Osmolality,Calculated 279 (275-295); Potassium 4.2 mMol/L (3.4-5.1); Sodium 139 mMol/L (136-145); Total Protein 6.7 gm/dL (5.7-8.2); Troponin I < 0.020 ng/mL (0.0-0.045); eGFR 18 See Note
--- NOTE | 2025-07-15 17:40 | ESHP_ITS ---
<Statement entered by Rudi Cruz MD - 07/15/25 20:28> I saw and examined patient personally and supervised PGY 1 resident, Dr. Matt with formulating a management plan. I agree with the documentation with the exceptions as listed below. This is a 74-year-old old male with significant past medical history of CAD s/p CABG, hypertension, ESRD on HD [M/W/F] following [facility] George, GERD, arthritis, hypothyroidism, recent hospital admission for incarcerated hernia. He presented today with 10/10 lower abdominal pain. Problem list: 1. Incarcerated versus strangulated left inguinal hernia 2. CAD s/p CABG 3. ESRD on HD 4. Primary hypertension 5. Hypothyroidism Patient had a recent hospitalization from 07/07 - 07/08 for an incarcerated left inguinal hernia. He was treated with IV pain control and discharged to follow- up with general surgeon as outpatient for definitive treatment. He again presented today with 10/10 left groin pain out of proportion. Upon exam patient had extreme pain to light touch. Bowel sounds were sluggish. General surgery, Dr Lloyd was consulted who opted to take patient to the OR for emergency exploratory laparotomy due to high suspicion for strangulation. Plan of care discussed with Attending Dr. Ary Cruz MD PGY 2 Disclaimer: This note was dictated by speech recognition. Minor errors in client integration manager may be present due to voice recognition software. Documentation for date of: 07/15/25 HPI History of Present Illness History of present illness: This is a 74-year-old old male with significant past medical history of CAD s/p CABG, hypertension, ESRD on HD [M/W/F] following [facility] George, GERD, arthritis, hypothyroidism, recent hospital admission for incarcerated hernia on 07/07. Patient admitted for surgery of incarcerated inguinal hernia. Patient was not able to answer most questions due to pain. Was AOx2. Partner is a poor historian, and either pointed to his discharge paperwork or said I do not know to all questioning. It appears patient has a strangulation of his incarcerated hernia. From what history that could be gathered the patient has had this hernia for over a week, but today during dialysis it became incredibly painful, he became nauseas and vomited. Still able to have BM x1 today, unsure of consistency or color. Doctor Bishnu (surgery) was consulted and was concerned for ischemia or gangrene, admitted patient to the OR stat. Code: Full Insulin: None Medical Hx: CAD status post CABG, hypertension, ESRD on hemodialysis 3 times a week, TIA, GERD, hypothyroidism, multiple prior blood transfusions. Medications: Pending med rec Allergies: NKA Surgical history: CABG, dialysis, Left arm AV fistula, appendectomy Fhx: Noncontributory Living: With Alcohol: Unable to obtain Cigarettes/tobacco: unable to obtain Recreational drugs: Unable to obtain All 12 systems reviewed and were negative except otherwise stated in HPI. Exam Vital Signs Temp Pulse Resp BP Pulse Ox 97.9 F 96 24 H 186/87 H 100 07/15/25 16:30 07/15/25 16:30 07/15/25 16:30 07/15/25 16:30 07/15/25 16:30 Narrative Exam GENERAL: NAD, AAOx3 HEENT: Moist mucosa. Eyes open, symmetrical, & clear CARDIO: Rapid regular rhythm Noted. Harsh Systolic Murmur noted over pulmonary,aortic area. PULM: No noted coughing/dyspnea CTA B/L, no R/W/R GI: Abdomen soft, nondistended.Left Inguinal swelling is present. TTP out of proportion, inguinal hernia is firm and unable to be reduced. No erythema noted. SKIN/MSK/EXT: No wounds/rashes/amputations, no pain on palpation. Pedal pulses present B/L NEURO: AAOx3, no focal neuro deficits, able to move all 4 extremities Results: Labs 07/18/25 04:35 07/18/25 04:35 Labs: Short CBC 07/15/25 Range/Units 16:43 WBC 9.8 (3.8-10.6) Thou/mm3 Hgb 12.9 L (13.5-16.0) g/dL Hct 39.9 L (41.0-53.0) % Plt Count 289 D (140-440) Thou/mm3 BMP 07/15/25 16:43 Sodium 139 Potassium 4.2 Chloride 96 L Carbon Dioxide 27.9 BUN 15 Creatinine 3.4 H Glucose 112 H Calcium 9.6 Cardiac Enzymes 07/15/25 Range/Units 16:43 Troponin I < 0.020 (0.0-0.045) ng/mL Liver Function 07/15/25 Range/Units 16:43 Total Bilirubin 0.4 (0.3-1.2) mg/dL AST 19 (0-34) U/L ALT < 7 L (10-49) U/L Alkaline Phosphatase 127 H (46-116) U/L Albumin 4.3 (3.4-4.8) gm/dL Quality Measures Quality Measures VTE prophylaxis Advance care planning discussed with:: spouse Medications Home Medications and Allergies Home Medications ?Medication ?Instructions ?Recorded ?Confirmed ?Type HYDROCODONE BIT/ACETAMINOPHEN 1 tab PO Q6HR PRN pain # #0 07/04/14 07/15/25 History (HYDROCODON-ACETAMINOPH 2.5-325) Levothyroxine * (SYNTHROID *) 75 mcg PO QDAY #0 tabs 1 07/15/25 History sevelamer carbonate 800 mg tablet 800 mg PO TID 07/15/25 History (Renvela) amlodipine 10 mg tablet (Norvasc) 10 mg PO QDAY 07/15/25 History gabapentin 400 mg capsule 400 mg PO TID 11/20/2407/15 History lidocaine 4 % topical cream 1 applic topical BID 11/2007/15/25 History (Anecream) pravastatin 10 mg tablet 10 mg PO DAILY 01/01/2506/27 History Allergies Allergy/AdvReac Type Severity Reaction Status Date / Time No Known Allergies Allergy Verified 07/15/25 16:46 Visit Medications Discontinued Medications Morphine Sulfate (Morphine Sulf Inj 4 Mg/Ml Vial) 4 mg IVP X1 ONE Stop: 07/15/25 16:46 Last Admin: 07/15/25 16:52 Dose: 4 mg Ondansetron HCl (Ondansetron Inj 2 Mg/Ml Inj 2 Ml) 4 mg IVP X1 ONE; Protocol Stop: 07/15/25 17:10 Assessment & Plan Plan This is a 74-year-old old male with significant past medical history of CAD s/p CABG, hypertension, ESRD on HD [M/W/F] following Dr. Little, TIA, GERD, arthritis, hypothyroidism, recent hospital admission for incarcerated hernia on 07/07. Presented to the ED with complaints of increasing groin pain and swelling in the inguinal area during dialysis. He was admitted for incarcerated inguinal hernia, and brought to OR for urgent surgery. # Incarcerated inguinal hernia. Increased inguinal pain, inguinal swelling, vomiting CT abdomen showing small bowel loops in the hernia appears to be incarcerated and proximally dilated Sedated with etomidate fentanyl and midazolam to decrease the pain and the abdominal tension ?General Surgery consulted - Cefazolin 2g 100 ml IV Q8HR ? Starting n.p.o. now. # Hypertension # Aortic stenosis #CAD s/p CABG Blood pressure in the range of 220/100 Stenotic murmur heard over aortic pulmonary mitral and tricuspid area Plan: ?Amlodipine home medication held - Labetalol 10mg IVP Q10min PRN # ESRD. Creatinine 3.4. Went to dialysis today 07/15. History of hemodialysis 3 times a week Plan: ?Consulted Dr Little employment and claims aide. # Chronic Anemia. Hemoglobin 12.9 History of multiple blood transfusions Patient have been going on extensive workup at [facility] for chronic anemia. 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 Plan: -CTM CBC # GERD Plan: -Pantoprazole 40 mg Home medication resumed # Degenerative disc disease, arthritis Plan: - Hold home medication duloxetine resumed. Health Maintenance: Code status: Full DVT prophylaxis: SCDs GI prophylaxis: zofran Diet: Diabetic clear liquid Aguilar: yes Lines: PIV Supplemental O2: None Disposition: Med surg Patient seen and reviewed with attending Dr. Mcallister and supervising resident Dr. Cruz. Note written by Augusto Matt MD PGY-1 Attending Provider Attestation/Addendum I have examined the patient, reviewed labs and imaging findings, discussed the case with the resident(s), and reviewed entered orders. I agree with the plan of care as outlined in this note, with these additional summaries/recommendations: After examination of the patient and review of the clinical data, I feel that this patient needs admission to the hospital for further treatment and evaluation. Patient is a 75-year-old male with a medical history of CAD status post CABG, primary hypertension, ESRD on hemodialysis, TIA, GERD, arthritis, hypothyroidism, and inguinal hernia presents to [facility] emergency department on 07/15/2025 with chief complaint of abdominal pain. Patient was found to have incarcerated inguinal hernia. General surgery consulted, recommendations appreciated. NPO. Consult cardiology for cardiac clearance. Consult nephrology to resume inpatient hemodialysis. Continue home antihypertensives. Hold all anticoagulation. Patient updated on the plan and in agreement. All questions answered to satisfaction. Please see residents note for additional details and management. Dr. Ary MD
[2025-07-15 18:07] LABS: Lactate (Lactic Acid) 3.2 mMol/L (0.4-2.0)
[2025-07-15] MEDS: ONDANSETRON INJ 2 MG/ML INJ 2 ML 4 MG IVP (18:08)
--- NOTE | 2025-07-15 18:32 | PD.SURCONS ---
HPI Consult details Consult date: 07/15/25 Reason for consultation narrative: Patient was seen in consultation because of left groin mass which is not reducible History of present illness: History of present illness revealed that the patient has had this mass for almost a week. But the pain got worse today. The history of present illness revealed that the patient came to the emergency room about 8 days ago on 1010 and was found to have an incarcerated hernia but no surgery was performed and he was discharged in the past week he has been having persistent swelling but today the swelling became worse and therefore he came to the emergency room after dialysis. Patient's past medical history revealed numerous medical problems including coronary artery disease status post bypass hypertension and end-stage renal disease on dialysis 3 times a week TAA GERD arthritis and hypothyroidism. Past Medical History Past Medical History NEUROLOGIC: Negative Neurological Disorders or Seizures CARDIAC: Positive Cardiac Disorders, Angina, Coronary Artery Disease, Hypercholesterolemia and Hypertension; Negative Congestive Heart Failure RESPIRATORY: Negative Chronic Obstructive Pulmonary Disease (COPD), Asthma, Smoking or Smoking Exposure GASTROINTESTINAL: Positive Gastrointestinal Disorders and Gastroesophageal Reflux Disease GENITOURINARY: Positive Genitourinary Disorders, Renal Disease, Dialysis and Benign Prostatic Hyperplasia MUSCULOSKELETAL: Positive Musculoskeletal Disorders, Arthritis, Degenerative Disk Disease and Carpal Tunnel Syndrome ENT: Positive Cataracts; Negative Blind or Deafness ENDOCRINE: Positive Hypothyroidism; Negative Endocrine Disorders, Diabetes Mellitus Type 1 or Diabetes Mellitus Type 2 HEMATOLOGIC: Positive Blood Disorders and Anemia; Negative Sickle Cell Disease OTHER HISTORY: Positive Blood Transfusions; Negative Autoimmune Disease, Falls, Blood Transfusion Reaction, Anesthesia Reactions or Measles Family History FAMILY HISTORY: Negative Family Psychiatric Problems, Family Respiratory Disorders, Family Cardiac Disorders, Family Gastrointestinal Problems, Family Cancer, Family Surgery or Family Anesthesia Reaction Surgical History SURGICAL: Positive Cardiac Surgery, Open Heart Surgery, Coronary Artery Bypass Graft, Cardiac Catheterization and Angiogram Social History SMOKING STATUS: Former smoker SECOND HAND EXPOSURE: No SUBSTANCE USE: does not use Meds Home Medications and Allergies Home Medications ?Medication ?Instructions ?Recorded ?Confirmed ?Type HYDROCODONE BIT/ACETAMINOPHEN 1 tab PO Q6HR PRN pain ##0 07/04/14 07/08/25 History (HYDROCODON-ACETAMINOPH 2.5-325) Levothyroxine * (SYNTHROID *) 75 mcg PO QDAY #0 tabs 07/04/14 06/27/25 History pantoprazole 40 mg tablet,delayed 40 mg PO BID ##0 07/04/14 06/27/25 History release (Protonix) duloxetine 60 mg capsule,delayed 60 mg PO QDAY #0 caps 03/22/15 06/27/25 History release (Cymbalta) sevelamer carbonate 800 mg tablet 800 mg PO TID 04/18/23 07/08/25 History (Renvela) amlodipine 10 mg tablet (Norvasc) 10 mg PO QDAY 11/20/24 06/27/25 History gabapentin 400 mg capsule 400 mg PO TID 11/20/24 07/08/25 History lidocaine 4 % topical cream 1 applic topical BID 11/20/24 06/27/25 History (Anecream) pravastatin 10 mg tablet 10 mg PO DAILY 01/01/25 06/27/25 History Allergies Allergy/AdvReac Type Severity Reaction Status Date / Time No Known Allergies Allergy Verified 07/15/25 16:46 Exam Vital Signs Temp Pulse Resp BP Pulse Ox O2 Del Method 97.9 F 94 22 H 188/82 H 96 Room Air 07/15/25 16:30 07/15/25 18:15 07/15/25 18:15 07/15/25 18:15 07/15/25 18:15 07/15/25 18:15 Narrative Exam Physical examination revealed a 75-year-old white male who is 6 feet tall weighing 165 pounds. His vital signs are normal other than tachycardia around 100 and BP around 188/82 Constitutional Constitutional: severe distress Routine Chest/Breast/Axilla Exam Comments: Chest revealed midline surgical scar in the sternum from the previous coronary artery bypass. Patient also has some incision over the abdomen details of which are not available Routine Abdominal Exam Comments: Patient has flat abdomen but there is very tender palpable mass which appears to be incarcerated left inguinal hernia bowel sounds are hypoactive he Routine Extremities Exam Comments: Within normal limits Results Results: Laboratory Laboratory Narrative: Patient's laboratory Showed mild WBC but his renal functions are abnormal due to end-stage renal disease. Patient's lactic acid is 3.2 Results: Imaging Imaging narrative: X-ray of the abdomen showed dilated loops of small bowel. CT scan which was performed today showed large left inguinal hernia containing fat and dilated small bowel loops probably due to obstruction Assessment & Plan Additional Assessment Additional comments: Impression: Small bowel obstruction secondary to incarcerated left inguinal hernia Coronary artery disease with status post CABG Hypertension End-stage renal disease on dialysis TIA Arthritis Hypertension Plan Plan: Patient will require exploration as an emergency. I do not know whether he was reduced during the last visit but the hernia is back and obviously patient has not come to the emergency room. I explained to him the risk of the procedure including potential complications like infection etc. the small bowel obstruction suggest that he may require resection of the small bowel especially if it is obstructed for more than a week. That would result in infection of the hernia incision. There is a high risk because of the associated medical problem with the patient is agreeable. Surgery is scheduled on an emergency basis gregory
--- NOTE | 2025-07-15 20:24 | ESOP_ITS ---
Date of Procedure 07/15/25 Pre Op Diagnosis Incarcerated left inguinal hernia Post Op Diagnosis Same with incarcerated fat through the direct inguinal hernia Procedure Repair of the incarcerated left inguinal hernia with placement of a 2 x 4 Marlex mesh Findings Patient is found to have direct inguinal hernia which showed as a defect in the hasselbach's triangle with herniation of the omentum that was ischemic but no small bowel was seen. Procedure Description After the patient was brought to the operating room endotracheal anesthesia is given. Aguilar catheter was inserted. Clear urine was obtained. Lower abdomen was prepped with ChloraPrep solution and draped in a sterile manner. Timeout was performed. Patient received 2 g of Ancef because of incarceration. Tender left groin incision was made for about 6 cm and the external oblique was incised. The patient was found to have no sac at the external ring as expected. Exploration revealed that the patient had incarcerated fat which is coming through the hasselbach's triangle as a direct hernia. I carefully explored found out that there is no bowel involved even though patient had signs of fairly bowel obstruction. All this fat was removed in piecemeal and the defect was ascertained to be about 4 cm medial to the pubic tubercle. I explored and found out there is no other hernia to the internal ring. I closed the defect in the transverse fascia with the running 2-0 Prolene. There was some herniation over the lateral aspect of the cord structures and the internal ring. I placed a 2 x 4 Marlex mesh attached it medially to the pubic tubercle and laterally tucked underneath the external oblique. 1 stitch was placed lateral to the cord structure. Then the external oblique was closed with a running 2-0 Vicryl keeping the cord structures underneath. Subcutaneous tissue was closed with 3-0 plain and the skin with 4-0 Monocryl subcuticular stitches. Patient tolerated procedure well. Anesthesia GETA Implants Implants comments: 2 x 4 Marlex mesh Pathology / specimen Other (Incarcerated fat) Pathology comment: The necrotic fat removed from the hernia IVF Infused 400 Estimated Blood Loss 30 Condition Stable Disposition PACU Surgeon Radha Lloyd MD Surgical Staff Operation Date: 07/15/25 20:00 Case Staff INFORMATION TECHNOLOGY SECURITY ANALYST: Akila Shelby RN First Assistant: Yasmin Thurston
--- NOTE | 2025-07-15 20:35 | SUR.PHASEI ---
pt received from OR in recovery bay 5. pt asleep but responds to voice, breathing unlabored on oxymask 8l. v/s stable. pt dressing to lower left abd cdi. report received from Romana CLINTON and Akila PATRICK.
[2025-07-15 21:03] LABS: Reflex Lactate? Y
[2025-07-15] MEDS: ALBUTEROL/IPRATROPIUM (Duoneb) RT SOL 3 ML NEBU INH (21:13)
[2025-07-15] MEDS: LABETALOL INJ 5 MG/ML VIAL 20 ML IVP (21:18)
--- NOTE | 2025-07-15 21:40 | SUR.PHASEI ---
pt awake and alert, breathing unlabored on 4l nc. v/s stable. pt dressing to left lower abd cdi. report called to Ginger Dominique. pt will be transferred to room at this time.
--- NOTE | 2025-07-15 22:20 | PC.NURSE ---
pt has a fever of 101.6 AX, Dr Cervantes was made aware. okay to order tylenol IV x1 per .
[2025-07-15] MEDS: ceFAZolin/D5W 2 GM IV 2 GM/100 ML BAG IV (22:29)
[2025-07-15] MEDS: SODIUM CHLORIDE 0.9% 1000 ML 1,000 ML 50 ML IV (22:29)
[2025-07-15 23:11] LABS: Lactic Acid, 3 HR 4.6 mMol/L (0.4-2.0)
[2025-07-15] MEDS: ACETAMINOPHEN IVPB 1,000 MG/100 ML VIAL 250 MG IV (23:15)
--- NOTE | 2025-07-15 23:20 | PD.RESEVENT ---
Documentation for date of: 07/15/25 Event Note Event Note: Rapid response was called at 23:15 for fever, elevated lactic acid. Sepsis alert was called. Patient had operation with Dr. Goetz today for repair of the incarcerated left inguinal hernia with placement of a 2 x 4 Marlex mesh. Patient received Cefazolin IV 2g prior to surgery. Patient is confused, lethargic. Abdomen soft, tender, nondistended. Spontaneous guarding of abdomen. Vitals: T 102.8, BP 179/102, HR 96, spO2 98% RA. Lactic 4.6. Ordered: CBC, CMP, CXR, CK, ABG Plan discussed with Dr. Cervantes and Dr. Oscar Mcfarland MD PGY1
--- NOTE | 2025-07-15 23:21 | XR_ITS ---
EXAMINATION: AP chest single view TECHNIQUE: AP portable semiupright chest single view Date and time: July 15, 2025 11:35 p.m. COMPARISON: November 20, 2024 INDICATIONS: New-onset fever today. FINDINGS: Fairly diffuse right lung and significant left base pneumonia Mild pulm Data: CABG Moderate vascular congestion IMPRESSION: Significant bilateral pneumonia
[2025-07-15 23:31] LABS: Basophils # (Auto) 0.0 Thou/mm3 (0.0-0.2); Basophils % (Auto) 0 % (0-2.5); Eosinophils # (Auto) 0.0 Thou/mm3 (0.0-0.5); Eosinophils % (Auto) 0 % (0-10); Hematocrit 39.0 % (41.0-53.0); Hemoglobin 12.4 g/dL (13.5-16.0); Immature Granulocytes Auto 0.05 Thou/mm3 (0.00-0.00); Lymphocytes # (Auto) 0.1 Thou/mm3 (1.0-4.8); Lymphocytes % (Auto) 3 % (10-50); Mean Corpuscular HGB Conc 31.8 g/dl (31.0-37.0); Mean Corpuscular Hemoglobin 30.8 pg (25.0-35.0); Mean Corpuscular Volume 97 fL (80-100); Monocytes # (Auto) 0.1 Thou/mm3 (0.0-0.8); Monocytes % (Auto) 3 % (0-12); Neutrophils # (Auto) 4.4 Thou/mm3 (1.8-7.7); Neutrophils % (Auto) 94 % (37-80); Nucleated Red Blood Cell # 0.02 Thou/mm3 (0.00-0.00); Nucleated Red Blood Cell % 0 /100 WBC (0); Platelet Count 224 Thou/mm3 (140-440); RDW Standard Deviation 54.8 fL (35.1-43.9); Red Blood Count 4.03 Miln/mm3 (4.50-5.90); White Blood Count 4.7 Thou/mm3 (3.8-10.6)
[2025-07-15] MEDS: SODIUM CHLORIDE 0.9% 250 ML 250 ML 999 ML IV (23:52)
[2025-07-15 23:57] LABS: Alanine Aminotransferase < 7 U/L (10-49); Albumin, Serum 3.8 gm/dL (3.4-4.8); Albumin/Globulin Ratio 1.9 (1.2-2.2); Alkaline Phosphatase 128 U/L (46-116); Anion Gap 16 (7-16); Aspartate Amino Transferase 14 U/L (0-34); BUN/Creatinine Ratio 4 Ratio (12-20); Bilirubin,Total 0.2 mg/dL (0.3-1.2); Blood Urea Nitrogen 17 mg/dL (9-23); Calcium 8.5 mg/dL (8.3-10.6); Calcium (Corrected) 8.7 mg/dL (8.5-10.1); Carbon Dioxide 24.3 mMol/L (20.0-31.0); Chloride 98 mMol/L (98-107); Creatine Kinase 29 U/L (34-171); Creatinine (Component) 3.8 mg/dL (0.6-1.3); Estimated Creatinine Clearance 17.2 mL/min (>60); Globulin 2.0 gm/dL (2.3-3.5); Glucose 150 mg/dL (74-106); Osmolality,Calculated 280 (275-295); Potassium 4.1 mMol/L (3.4-5.1); Sodium 138 mMol/L (136-145); Total Protein 5.8 gm/dL (5.7-8.2); eGFR 16 See Note
[2025-07-15 23:57] LABS: Collection Type, Urine Catheter; Squamous Epithelial Cell,Urine 0 /hpf (0-5)
[2025-07-15 23:57] LABS: Base Excess 1 (-3-3); HCO3 26 mEq/L (20-26); O2 Saturation 97 % (91-98); PCO2 43 mmHg (32.0-48.0); PO2 105 mmHg (83-108); pH, Arterial 7.39 (7.35-7.45)
[2025-07-15 23:58] LABS: Allen Test Performed/OK; Inspired O2, VO2 Liters 4 L/min; Puncture Site Right Radial
[2025-07-16] VITALS (35 sets, daily range): BP systolic 74–179; BP diastolic 43–102; PULSE 56–96; RESP 16–26; TEMP 36.5–39.4; O2SAT 95–99
[2025-07-16 00:21] LABS: RBC,Urine 122 /hpf (0-3); WBC,Urine 4085 /hpf (0-5)
[2025-07-16 00:27] LABS: Bilirubin,Urine Negative (Negative); Blood,Urine 1+ (Negative); Clarity,Urine Clear (Clear/Hazy); Color,Urine Lt Yellow (Lt Yel-Yel); Glucose, Urine Negative (Negative); Ketones,Urine Negative (Negative); Leukocyte Esterase,Urine 3+ (Negative); Nitrite,Urine Negative (Negative); PH,Urine 7.0 (5.0-7.0); Protein,Urine 2+ (Neg - Trace); Specific Gravity,Urine 1.015 (1.001-1.035); Urobilinogen,Urine 0.2 mg/dL (0.0-1.0)
[2025-07-16 00:29] LABS: Culture Indicated,Urine Yes
--- NOTE | 2025-07-16 01:05 | PC.RT ---
responded to ems educator pt on 4L nc 94 hr 98% RR20, abg done no other RT orders, no distress noted, refer to nurses notes for times RT dc post abg.
[2025-07-16 01:13] LABS: Procalcitonin 3.54 ng/ml (0.0-0.49)
--- NOTE | 2025-07-16 02:02 | PC.NURSE ---
Dr. Mcfarland notified regarding the need for lactic acid lab redraw. New order received.
[2025-07-16] MEDS: PIPER/TAZO INJ 3.375 GM in SODIUM CHLORIDE 0.9% (POP) 100 ML IV ×3 (02:17→20:18)
[2025-07-16 02:22] LABS: Lactate (Lactic Acid) 4.3 mMol/L (0.4-2.0)
[2025-07-16] MEDS: SODIUM CHLORIDE 0.9% 250 ML 250 ML 999 ML IV ×4 (02:37→16:36)
[2025-07-16] MEDS: Vancomycin Inj 1,000 MG in SODIUM CHLORIDE 0.9% 250 ML 250 ML 120 MG IV (02:44)
--- NOTE | 2025-07-16 02:56 | PC.NURSE ---
Dr. Mcfarland notified regarding elevated lactic redraw result of 4.3. Patient resting with eyes closed with no new complaints. New orders received.
--- NOTE | 2025-07-16 03:06 | PC.NURSE ---
IRRIGATION EQUIPMENT INSTALLER called at 2315, for temp 101.6, 101.9 oral, Lactic 4.6, sepsis alert called at [phone]. New orders for pt, see MAR, see orders.
[2025-07-16 05:20] LABS: Reflex Lactate? Y
[2025-07-16 05:42] LABS: Basophils # (Auto) 0.0 Thou/mm3 (0.0-0.2); Basophils % (Auto) 0 % (0-2.5); Eosinophils # (Auto) 0.0 Thou/mm3 (0.0-0.5); Eosinophils % (Auto) 0 % (0-10); Hematocrit 33.9 % (41.0-53.0); Hemoglobin 10.8 g/dL (13.5-16.0); Immature Granulocytes Auto 0.09 Thou/mm3 (0.00-0.00); Lymphocytes # (Auto) 0.4 Thou/mm3 (1.0-4.8); Lymphocytes % (Auto) 4 % (10-50); Mean Corpuscular HGB Conc 31.9 g/dl (31.0-37.0); Mean Corpuscular Hemoglobin 31.1 pg (25.0-35.0); Mean Corpuscular Volume 98 fL (80-100); Monocytes # (Auto) 0.7 Thou/mm3 (0.0-0.8); Monocytes % (Auto) 6 % (0-12); Neutrophils # (Auto) 10.2 Thou/mm3 (1.8-7.7); Neutrophils % (Auto) 89 % (37-80); Nucleated Red Blood Cell # 0.00 Thou/mm3 (0.00-0.00); Nucleated Red Blood Cell % 0 /100 WBC (0); Platelet Count 266 Thou/mm3 (140-440); RDW Standard Deviation 55.6 fL (35.1-43.9); Red Blood Count 3.47 Miln/mm3 (4.50-5.90); White Blood Count 11.4 Thou/mm3 (3.8-10.6)
[2025-07-16 05:48] LABS: Lactic Acid, 3 HR 5.6 mMol/L (0.4-2.0)
--- NOTE | 2025-07-16 05:59 | PC.NURSE ---
Dr. Mcfarland notified of patient critical lactic acid of 5.6, that patient's skin is cool and slightly clammy, patient is slightly restless, vital signs are within normal limits; patient voiced no other complaints. stated she may need to pass this on to day shift. I told her that it is my hope that we are vigilant about this elevated lactic acid. She stated she would come asses the patient.
[2025-07-16 06:42] LABS: Alanine Aminotransferase < 7 U/L (10-49); Albumin, Serum 3.4 gm/dL (3.4-4.8); Albumin/Globulin Ratio 2.0 (1.2-2.2); Alkaline Phosphatase 105 U/L (46-116); Anion Gap 18 (7-16); Aspartate Amino Transferase 14 U/L (0-34); BUN/Creatinine Ratio 7 Ratio (12-20); Bilirubin,Total 0.2 mg/dL (0.3-1.2); Blood Urea Nitrogen 27 mg/dL (9-23); Calcium 8.1 mg/dL (8.3-10.6); Calcium (Corrected) 8.6 mg/dL (8.5-10.1); Carbon Dioxide 23.1 mMol/L (20.0-31.0); Cardiac Risk Estimate 2.0 RATIO (4.0-6.7); Chloride 100 mMol/L (98-107); Cholesterol 71 mg/dL (132-200); Creatinine (Component) 4.1 mg/dL (0.6-1.3); Estimated Creatinine Clearance 16.0 mL/min (>60); Globulin 1.7 gm/dL (2.3-3.5); Glucose 120 mg/dL (74-106); HDL Cholesterol 36 mg/dL (40-60); LDL Cholesterol,Calculated 23 mg/dL (0-130); Magnesium 1.7 mg/dL (1.6-2.6); Osmolality,Calculated 287 (275-295); Phosphorous 4.9 mg/dL (2.4-5.1); Potassium 3.8 mMol/L (3.4-5.1); Sodium 141 mMol/L (136-145); Total Protein 5.1 gm/dL (5.7-8.2); Triglycerides 62 mg/dL (30-150); eGFR 14 See Note
[2025-07-16] MEDS: POTASSIUM CHL 10 mEq IVPB 10 MEQ/100 ML BAG 100 MEQ IV ×2 (08:28→09:23)
[2025-07-16] MEDS: Magnesium Sulfate 4 GM Ivpb 4 GM/50 ML BAG IV (08:29)
[2025-07-16 08:58] LABS: Misc Send Out* See Sep Rpt
--- NOTE | 2025-07-16 08:59 | PD.SURPROG ---
Documentation for date of: 07/16/25 Subjective Subjective Brief History: History of present illness revealed that the patient has had this mass for almost a week. But the pain got worse today. The history of present illness revealed that the patient came to the emergency room about 8 days ago on 1010 and was found to have an incarcerated hernia but no surgery was performed and he was discharged in the past week he has been having persistent swelling but today the swelling became worse and therefore he came to the emergency room after dialysis. Patient's past medical history revealed numerous medical problems including coronary artery disease status post bypass hypertension and end-stage renal disease on dialysis 3 times a week TAA GERD arthritis and hypothyroidism. Narrative: The patient is feeling much better and he does not have any pain over the groin. He is not requiring any pain medication during the night Exam Vital Signs Temp Pulse Resp BP Pulse Ox O2 Del Method O2 Flow Rate 98.7 F 77 18 133/66 H 98 Nasal Cannula 3 07/16/25 05:54 07/16/25 06:23 07/16/25 06:23 07/16/25 05:54 07/16/25 06:23 07/16/25 05:54 07/16/25 06:23 His vital signs are normal Routine Abdominal Exam Comments: Examination of the left groin is normal Results Results: Laboratory Laboratory Narrative: Patient's lactic acid keeps going up and I did not know the reason for that. Assessment & Plan Assessment Additional comments: Impression: Satisfactory postoperative course Plan Plan: Patient could be discharged from the surgical point of view unless we figure out the cause of lactic acidosis PROCEDURES: Procedures Repair of the incarcerated left inguinal hernia with placement of a 2 x 4 Marlex mesh
[2025-07-16] MEDS: HYDROmorphone INJ 2 MG/ML VIAL 0.25 MG IVP ×3 (10:34→15:31)
--- NOTE | 2025-07-16 11:25 | PC.SS ---
Jeromy Sandra is a 75 year-old male admitted to [facility] for Incarcerated Hernia. SS conducted bedside contact with the patient to complete initial assessment and to discuss discharge planning. Role and reason explained. Patient confirmed demographic information. Patient identifies his Amy Espitia [phone] as his surrogate decision maker. Pt with and is able to complete all ADLS independently. Pt has a FWW. Pts PCP is Wendy Yin (last visit 1 week ago). Pharmacy of choice is [facility] on [address]. Discharge options discussed and the pt wishes to return home.? Pt family will provide transport. No further intervention required at this time, social media sr strategy manager would be available to address any further concerns. DC Plan: Home Contact: Amy or dtr Daniela Escalante [phone] Address: Confirmed on face sheet PCP: Humphrey
--- NOTE | 2025-07-16 12:05 | PC.NURSE ---
RT Gomez aware of ABG order and aware pt. currently in dialysis
[2025-07-16 12:25] LABS: Lactate (Lactic Acid) 4.2 mMol/L (0.4-2.0)
--- NOTE | 2025-07-16 13:49 | PD.RESPRO ---
Documentation for date of: 07/16/25 Subjective Subjective Interval history: Dr. Goetz has cleared from a surgical perspective following direct inguinal hernia repair, no bowel involved only sub Q fat. His lactic acid dropped after HDS with Dr. Cole, but continues to moderately rise, will FUP with repeat lactic acid and another 250cc bolus of IVF. Patient examined bedside, labs reviewed. Patient is doing well, AOx3. Confirms he has had the hernia for only 2-3 weeks. Is tolerating his diet well. At times becomes delirius and is combative. Exam Vital Signs Temp Pulse Resp BP Pulse Ox O2 Del Method O2 Flow Rate 97.7 F 64 18 110/63 96 Nasal Cannula 3 07/16/25 10:43 07/16/25 13:45 07/16/25 10:43 07/16/25 13:45 07/16/25 10:43 07/16/25 08:00 07/16/25 10:43 Narrative Exam GENERAL: NAD, AAOx3 HEENT: Moist mucosa. Eyes open, symmetrical, & clear CARDIO: Rapid regular rhythm Noted. Harsh Systolic Murmur noted over pulmonary,aortic area. PULM: No noted coughing/dyspnea CTA B/L, no R/W/R GI: Abdomen soft, nondistended. Incision is CDI, appropriately TTP. No oozing or pus. SKIN/MSK/EXT: No wounds/rashes/amputations, no pain on palpation. Pedal pulses present B/L NEURO: AAOx3, no focal neuro deficits, able to move all 4 extremities Objective Labs 07/16/25 05:06 07/16/25 15:46 Labs: Laboratory Results - last 24 hr 07/15/25 07/15/25 07/15/25 16:43 17:55 22:54 WBC 9.8 4.7 D RBC 4.18 L 4.03 L Hgb 12.9 L 12.4 L Hct 39.9 L 39.0 L MCV 96 97 MCH 30.9 30.8 MCHC 32.3 31.8 RDW Std Deviation 53.3 H 54.8 H Plt Count 289 D 224 D Neut % (Auto) 79 94 H Lymph % (Auto) 11 3 L [place] % (Auto) 8 3 Eos % (Auto) 2 0 Baso % (Auto) 0 0 Neut # (Auto) 7.8 H 4.4 Lymph # (Auto) 1.0 0.1 L [place] # (Auto) 0.8 0.1 Eos # (Auto) 0.2 0.0 Baso # (Auto) 0.0 0.0 Immature Gran # (Auto) 0.06 H 0.05 H Absolute Nucleated RBC 0.00 0.02 H Immature Gran % 1 H 1 H Nucleated RBC % 0 0 PT 11.0 INR 1.0 Puncture Site ABG pH ABG pCO2 ABG pO2 ABG HCO3 ABG O2 Saturation ABG Base Excess Oxygen Liter Flow Sodium 139 138 Potassium 4.2 4.1 Chloride 96 L 98 Carbon Dioxide 27.9 24.3 Anion Gap 15 16 BUN 15 17 Creatinine 3.4 H 3.8 H Estim Creat Clear Calc 19.6 L 17.2 L eGFR 18 L 16 L BUN/Creatinine Ratio 4 L 4 L Glucose [address] Glu mg/dL Hemoglobin A1c Calculated Osmolality 279 280 Lactic Acid 3.2 H 4.6 H* Calcium 9.6 8.5 Corrected Calcium 9.6 8.7 Phosphorus Magnesium Total Bilirubin 0.4 0.2 L AST 19 14 ALT < 7 L < 7 L Alkaline Phosphatase 127 H 128 H Total Creatine Kinase 29 L Troponin I < 0.020 Total Protein 6.7 5.8 Albumin 4.3 3.8 D Globulin 2.4 2.0 L Albumin/Globulin Ratio 1.8 1.9 Triglycerides Cholesterol LDL Cholesterol, Calc HDL Cholesterol Cholesterol/HDL Ratio Lipase 21 Procalcitonin 3.54 H Ur Collection Type Urine Color Urine Clarity Urine pH Ur Specific [place] Urine Protein Urine Glucose (UA) Urine Ketones Urine Blood Urine Nitrite Urine Bilirubin Urine Urobilinogen (Auto) Ur Leukocyte Esterase Urine RBC Urine WBC Ur Squamous Epith Cells Urine Bacteria Ur Culture Indicated? 07/15/25 07/15/25 07/16/25 23:43 23:48 02:10 WBC RBC Hgb Hct MCV MCH MCHC RDW Std Deviation Plt Count Neut % (Auto) Lymph % (Auto) [place] % (Auto) Eos % (Auto) Baso % (Auto) Neut # (Auto) Lymph # (Auto) [place] # (Auto) Eos # (Auto) Baso # (Auto) Immature Gran # (Auto) Absolute Nucleated RBC Immature Gran % Nucleated RBC % PT INR Puncture Site Right Radial ABG pH 7.39 ABG pCO2 43 ABG pO2 105 ABG HCO3 26 ABG O2 Saturation 97 ABG Base Excess 1 Oxygen Liter Flow 4 Sodium Potassium Chloride Carbon Dioxide Anion Gap BUN Creatinine Estim Creat Clear Calc eGFR BUN/Creatinine Ratio Glucose Estimated Ave Glu mg/dL Hemoglobin A1c Calculated Osmolality Lactic Acid 4.3 H* Calcium Corrected Calcium Phosphorus Magnesium Total Bilirubin AST ALT Alkaline Phosphatase Total Creatine Kinase Troponin I Total Protein Albumin Globulin Albumin/Globulin Ratio Triglycerides Cholesterol LDL Cholesterol, Calc HDL Cholesterol Cholesterol/HDL Ratio Lipase Procalcitonin Ur Collection Type Catheter Urine Color Lt Yellow Urine Clarity Clear Urine pH 7.0 Ur Specific [place] 1.015 Urine Protein 2+ A Urine Glucose (UA) Negative Urine Ketones Negative Urine Blood 1+ A Urine Nitrite Negative Urine Bilirubin Negative Urine Urobilinogen (Auto) 0.2 Ur Leukocyte Esterase 3+ A Urine RBC 122 H Urine WBC 4085 H Ur Squamous Epith Cells 0 Urine Bacteria None Ur Culture Indicated? Yes 07/16/25 07/16/25 05:06 12:13 WBC 11.4 H D RBC 3.47 L Hgb 10.8 L Hct 33.9 L MCV 98 MCH 31.1 MCHC 31.9 RDW Std Deviation 55.6 H Plt Count 266 D Neut % (Auto) 89 H Lymph % (Auto) 4 L [place] % (Auto) 6 Eos % (Auto) 0 Baso % (Auto) 0 Neut # (Auto) 10.2 H Lymph # (Auto) 0.4 L [place] # (Auto) 0.7 Eos # (Auto) 0.0 Baso # (Auto) 0.0 Immature Gran # (Auto) 0.09 H Absolute Nucleated RBC 0.00 Immature Gran % 1 H Nucleated RBC % 0 PT INR Puncture Site ABG pH ABG pCO2 ABG pO2 ABG HCO3 ABG O2 Saturation ABG Base Excess Oxygen Liter Flow Sodium 141 Potassium 3.8 Chloride 100 Carbon Dioxide 23.1 Anion Gap 18 H BUN 27 H Creatinine 4.1 H* Estim Creat Clear Calc 16.0 L eGFR 14 L* BUN/Creatinine Ratio 7 L Glucose [address] Glu mg/dL Cancelled Hemoglobin A1c Cancelled Calculated Osmolality 287 Lactic Acid 5.6 H* 4.2 H* Calcium 8.1 L Corrected Calcium 8.6 Phosphorus 4.9 Magnesium 1.7 Total Bilirubin 0.2 L AST 14 ALT < 7 L Alkaline Phosphatase 105 D Total Creatine Kinase Troponin I Total Protein 5.1 L Albumin 3.4 Globulin 1.7 L Albumin/Globulin Ratio 2.0 Triglycerides 62 Cholesterol 71 L LDL Cholesterol, Calc 23 HDL Cholesterol 36 L Cholesterol/HDL Ratio 2.0 L Lipase Procalcitonin Ur Collection Type Urine Color Urine Clarity Urine pH Ur Specific [place] Urine Protein Urine Glucose (UA) Urine Ketones Urine Blood Urine Nitrite Urine Bilirubin Urine Urobilinogen (Auto) Ur Leukocyte Esterase Urine RBC Urine WBC Ur Squamous Epith Cells Urine Bacteria Ur Culture Indicated? ABG Interpretation ABG results: 07/15/25 23:43 ABG pH 7.39 ABG pCO2 43 ABG pO2 105 ABG HCO3 26 ABG O2 Saturation 97 ABG Base Excess 1 Quality Measures Quality Measures VTE prophylaxis Advance care planning discussed with:: spouse Assessment & Plan Assessment Current Active Medications: Generic Name Dose Route Start Last Admin Trade Name Freq PRN Reason Stop Dose Admin Acetaminophen 650 mg 07/15/25 23:31 Acetaminophen 325 Mg Tablet PO 08/14/25 17:35 Q6H PRN Fever >100.3 or pain 1-3 Albuterol/Ipratropium 3 ml 07/15/25 18:58 07/15/25 21:13 Albuterol/Ipratropium (Duoneb) Rt Brii 3 Ml Nebu INH 07/16/25 18:57 3 ml Q4HRRT PRN Administration SHORTNESS OF BREATH Hydromorphone HCl 0.25 mg 07/16/25 00:12 07/16/25 10:34 Hydromorphone Inj 2 Mg/Ml Vial IVP 07/21/25 00:11 0.25 mg Q4HR PRN Administration Pain 6-10 Sodium Chloride 1,000 mls @ 50 mls/hr 07/15/25 22:18 07/15/25 22:29 Ns IV 08/14/25 22:17 50 mls/hr .Q20H RICH Administration Piperacillin Sod/Tazobactam 100 mls @ 25 mls/hr 07/16/25 09:00 07/16/25 09:21 Sod 3.375 gm/ Sodium Chloride IV 07/23/25 08:59 25 mls/hr Q12HR RICH Administration Protocol Albumin Human 25 gm in 100 mls @ 100 mls/min 07/16/25 09:39 Albuminex 25% Ivpb IV PRN PRN DIALYSIS Vancomycin/Sodium Chloride 100 mls @ 120 mls/hr 07/16/25 15:00 Vancomycin/Ns 500 Mg Ivpb IV 07/16/25 15:49 X1 ONE Labetalol HCl 10 mg 07/15/25 19:20 Labetalol Inj 5 Mg/Ml Vial 20 Ml IVP Q10MIN PRN SBP>180 DBP>110 Ondansetron HCl 4 mg 07/15/25 17:36 Ondansetron Inj 2 Mg/Ml Inj 2 Ml IVP 08/14/25 17:35 Q6H PRN NAUSEA OR VOMITING Protocol Pantoprazole Sodium 40 mg 07/16/25 09:00 07/16/25 09:23 Pantoprazole Inj 40 Mg Vial IVP 08/15/25 08:59 40 mg QDAY RICH Administration Pharmacy Consult 1 each 07/16/25 09:00 Vancomycin Pharmacy To Dose 1 Each Each IV 08/15/25 08:59 QDAY PRN PROTOCOL Pharmacy Consult 1 each 07/16/25 00:15 Pharmacy Renal Dose Adjustment 1 Ea XX 08/15/25 00:14 PRN PRN CONSULT Plan This is a 74-year-old old male with significant past medical history of CAD s/p CABG, hypertension, ESRD on HD [M/W/F] following Dr. Little, TIA, GERD, arthritis, hypothyroidism, recent hospital admission for incarcerated hernia on 07/07. Presented to the ED with complaints of increasing groin pain and swelling in the inguinal area during dialysis. He was admitted for incarcerated inguinal hernia, and brought to OR for urgent surgery. Dr. Goetz states patient is cleared by surgery and that there was no bowel in the hernia, just subcutaneous fat. # Incarcerated inguinal hernia - S/P Sx Increased inguinal pain, inguinal swelling, vomiting CT abdomen showing small bowel loops in the hernia appears to be incarcerated and proximally dilated. Sedated with etomidate fentanyl and midazolam to decrease the pain and the abdominal tension. No bowel involved with hernia, only subq fat. patient is cleared by surgery. ?General Surgery consulted - Cefazolin perioperatively - Zosyn 3.375g IV Q12HR (07/16- - Vancomycin IV (07/16) #Lactic Acidosis 3.2 at admission uptrended to 4.6 following surgery 5.6 then after HDS 4.2 repeat LA 6.4 and 6.4. Plan: -Recheck LA overnight -IVF multiple boluses -CTM #Delirium Hospital acquired vs withdrawal Patient has waxing and waning aggression. Multiple code margarita called. Patient is writhing and then back to normal, denies pain symptoms. states patient takes vicodin each night but is unsure of the dose. Plan: -No haldol due to prolonged QTc - Zyprexa 5mg PRN Q8HR # Hypertension # Aortic stenosis #CAD s/p CABG Blood pressure in the range of 220/100 Stenotic murmur heard over aortic pulmonary mitral and tricuspid area Plan: ?Amlodipine home medication held - Labetalol 10mg IVP Q10min PRN # ESRD. Creatinine 3.4. Went to dialysis today 07/15. History of hemodialysis 3 times a week. HDS today Plan: ?Consulted Dr Little ecotherapist. - albumin 25g # Chronic Anemia. Hemoglobin 12.9 History of multiple blood transfusions Patient have been going on extensive workup at [facility] for chronic anemia. 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 Plan: -CTM CBC # GERD Plan: -Pantoprazole 40 mg Home medication resumed # Degenerative disc disease, arthritis Plan: - Hold home medication duloxetine resumed. Health Maintenance: Code status: Full DVT prophylaxis: SCDs GI prophylaxis: zofran Diet: Diabetic full liquid Aguilar: No Lines: PIV Supplemental O2: None Disposition: Med surg Patient seen and reviewed with attending Dr. Holland and supervising resident Dr. Cruz. Note written by Augusto Matt MD PGY-1 Attending Provider Attestation/Addendum I have discussed and was present for the essential components of the history, physical examination, diagnosis, and treatment plan with the resident. I agree with the patient's care as documented by the resident and amended herein by me. Low Holland DO. Although this document has been carefully reviewed, there may still be some phonetic and other typographical errors. These errors are purely grammatical due to imperfections in the software program and should not be construed in any way to compromise the substance of the patient's medical care during this visit. Patient seen and evaluated this AM. Saw the patient when he was in hemodialysis this morning, he was calm, stated he felt much better, reported that he had a bowel movement yesterday, although none recorded, which was relatively normal. Approximately 2 hours after dialysis the patient became very agitated, his blood pressure was on the soft side, lactate was elevated at 5.6 from morning labs however did downtrend to 4.2 after dialysis. He remained agitated this afternoon, he had to be restrained in the evening after a code aditi was called, he was given Zyprexa, unclear if this is delirium or his encephalopathy is toxic/metabolic. A small bowel series have been ordered, unclear if this is real SBO as the patient did endorse a BM. Approximately 1 L was taken off today per dialysis nurse and due to his softer BP I did give 500 mL boluses back today as the patient is clinically dry. Patient is presently on Zosyn 3.375 g every 12 hours which will remain for now. Will follow-up on imaging studies, general surgery consulted, appreciate recommendations. Of note, blood and urine cultures are still pending.
--- NOTE | 2025-07-16 15:11 | PC.SS ---
Rounding: POD #1, increase diet as tolerated, DC plan Home
--- NOTE | 2025-07-16 15:21 | PC.NURSE ---
Called Dr. Matt about pt. uncontrolled pain, came to bedside to assess. Pt. complaining of 10/10 pain to left lower abdomen after PRN dilaudid administered. Dr. Matt states I will order more pain management.
[2025-07-16 15:22] LABS: Reflex Lactate? Y
--- NOTE | 2025-07-16 15:55 | PD.RESEVENT ---
Documentation for date of: 07/16/25 Event Note Event Note: 07/16/2025, BRICK MOLDER HAND was called at time: 15:40 for bed#375 for agitation and acute changes in consciousness possibly due to uncontrolled pain. Patient seen and assessed in hospital bed in an acute state of delirium. After a few minutes he was able to be calmed down, states that his pain is unchanged and not his problem, and that his aggression is because he doesn't want to be told what to do. Vitals AF, 110/83, HR 86, RR 18, O2 96%. Physical exam was unremarkable no pain reproducible at surgical site, site is clean, dry, and intact. Repeat labs were unremarkable other than elevated lactate 6.4. He was given IVF and zyprexa. Attending made aware and will continue to monitor patient as well.
--- NOTE | 2025-07-16 16:00 | PC.NURSE ---
Code pennington called for increased agitation and physical threatening, pt. would not stay in bed.
[2025-07-16 16:07] LABS: Lactate (Lactic Acid) 6.4 mMol/L (0.4-2.0)
--- NOTE | 2025-07-16 16:09 | PC.NURSE ---
Dr. Matt aware of lactic 6.4
[2025-07-16 16:36] LABS: Alanine Aminotransferase < 7 U/L (10-49); Albumin, Serum 3.6 gm/dL (3.4-4.8); Albumin/Globulin Ratio 2.3 (1.2-2.2); Alkaline Phosphatase 95 U/L (46-116); Anion Gap 16 (7-16); Aspartate Amino Transferase 15 U/L (0-34); BUN/Creatinine Ratio 6 Ratio (12-20); Bilirubin,Total 0.4 mg/dL (0.3-1.2); Blood Urea Nitrogen 15 mg/dL (9-23); Calcium 8.5 mg/dL (8.3-10.6); Calcium (Corrected) 8.8 mg/dL (8.5-10.1); Carbon Dioxide 24.3 mMol/L (20.0-31.0); Chloride 99 mMol/L (98-107); Creatinine (Component) 2.5 mg/dL (0.6-1.3); Estimated Creatinine Clearance 26.2 mL/min (>60); Globulin 1.6 gm/dL (2.3-3.5); Glucose 100 mg/dL (74-106); Osmolality,Calculated 278 (275-295); Potassium 4.3 mMol/L (3.4-5.1); Sodium 139 mMol/L (136-145); Total Protein 5.2 gm/dL (5.7-8.2); eGFR 26 See Note
[2025-07-16] MEDS: ACETAMINOPHEN IVPB 1,000 MG/100 ML VIAL 250 MG IV (16:36)
[2025-07-16 17:02] LABS: Lactate (Lactic Acid) 6.4 mMol/L (0.4-2.0)
--- NOTE | 2025-07-16 17:30 | PC.NURSE ---
Stephanie pennington called again for agitation and aggression
--- NOTE | 2025-07-16 18:08 | PC.NURSE ---
Dr. Holland aware pt. is getting agitated and agressive again, waiting for orders or plan of care to manage patient. 1:[address]
--- NOTE | 2025-07-16 18:25 | PC.NURSE ---
Rosenda pennington called again, Zyprexa given per order.
[2025-07-16] MEDS: OLANZapine INJ 10 MG, Sterile Water 2.1 ML IM (18:30)
[2025-07-16 18:51] LABS: Reflex Lactate? Y
[2025-07-16 18:56] LABS: Reflex Lactate? Y
--- NOTE | 2025-07-16 19:22 | PC.NURSE ---
per boot lace cutter machine Marissa remove pressure dressings now, leave bandaids on.
--- NOTE | 2025-07-16 19:53 | PC.NURSE ---
dr dale notified of patients continued agitation after giving IM zyprexa. Pt is not allowing staff to do an assessment, place pulse oximetry probe, or even touch patient. He is continuously screaming, doctor notified of patients continued confusion. states she will look at chart and place orders accordingly.
[2025-07-16] MEDS: HALOPERIDOL LACT INJ 5 MG/ML VIAL 1 MG IV (20:07)
[2025-07-16 20:34] LABS: Lactate (Lactic Acid) 4.5 mMol/L (0.4-2.0)
--- NOTE | 2025-07-16 20:45 | PC.NURSE ---
spoke to dr dale regarding orders for small bowel series as patient is currently uncooperative, agitated, has received haldol and zyprexa, and is unable to remail still or compliant. Dr dale stated to hold off on xray untill tomorrow as patient is too agitated and noncompliant at this time. Kristina from xray notified.
--- NOTE | 2025-07-16 20:56 | PC.NURSE ---
dr dale notified of patient having increased agitation and trying to get out of bed. states she will come to bedside.
--- NOTE | 2025-07-16 21:02 | PC.NURSE ---
dr condon came to bedside to assess patient, patient agitated, orders 2mg haloperidol IM x 1
[2025-07-16] MEDS: HALOPERIDOL LACT INJ 5 MG/ML VIAL 2 MG IM (21:09)
--- NOTE | 2025-07-16 22:13 | EKG_ITS ---
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
[2025-07-16 23:31] LABS: Reflex Lactate? Y
[2025-07-17] VITALS (24 sets, daily range): BP systolic 107–205; BP diastolic 44–93; PULSE 58–107; RESP 18–20; TEMP 35.8–37.9; O2SAT 86–97
--- NOTE | 2025-07-17 00:28 | PC.NURSE ---
dr rivera notified that pts HR reached 201 and did not sustain, hr now [address] states hr of <110 is okay but to notify him if hr reaches above 110.
[2025-07-17] MEDS: SODIUM CHLORIDE 0.9% 1000 ML 1,000 ML 50 ML IV (01:09)
[2025-07-17 02:03] LABS: Lactate (Lactic Acid) 1.8 mMol/L (0.4-2.0)
[2025-07-17] MEDS: HYDROmorphone INJ 2 MG/ML VIAL 0.25 MG IVP ×2 (03:38→11:22)
[2025-07-17 06:01] LABS: Basophils # (Auto) 0.1 Thou/mm3 (0.0-0.2); Basophils % (Auto) 0 % (0-2.5); Eosinophils # (Auto) 0.4 Thou/mm3 (0.0-0.5); Eosinophils % (Auto) 2 % (0-10); Hematocrit 29.1 % (41.0-53.0); Hemoglobin 9.1 g/dL (13.5-16.0); Immature Granulocytes Auto 0.07 Thou/mm3 (0.00-0.00); Lymphocytes # (Auto) 1.4 Thou/mm3 (1.0-4.8); Lymphocytes % (Auto) 8 % (10-50); Mean Corpuscular HGB Conc 31.3 g/dl (31.0-37.0); Mean Corpuscular Hemoglobin 31.0 pg (25.0-35.0); Mean Corpuscular Volume 99 fL (80-100); Monocytes # (Auto) 1.0 Thou/mm3 (0.0-0.8); Monocytes % (Auto) 6 % (0-12); Neutrophils # (Auto) 14.0 Thou/mm3 (1.8-7.7); Neutrophils % (Auto) 83 % (37-80); Nucleated Red Blood Cell # 0.00 Thou/mm3 (0.00-0.00); Nucleated Red Blood Cell % 0 /100 WBC (0); Platelet Count 244 Thou/mm3 (140-440); RDW Standard Deviation 57.1 fL (35.1-43.9); Red Blood Count 2.94 Miln/mm3 (4.50-5.90); White Blood Count 16.9 Thou/mm3 (3.8-10.6)
[2025-07-17 06:44] LABS: Alanine Aminotransferase < 7 U/L (10-49); Albumin, Serum 3.3 gm/dL (3.4-4.8); Albumin/Globulin Ratio 2.1 (1.2-2.2); Alkaline Phosphatase 90 U/L (46-116); Anion Gap 12 (7-16); Aspartate Amino Transferase 18 U/L (0-34); BUN/Creatinine Ratio 8 Ratio (12-20); Bilirubin,Total 0.3 mg/dL (0.3-1.2); Blood Urea Nitrogen 28 mg/dL (9-23); Calcium 8.2 mg/dL (8.3-10.6); Calcium (Corrected) 8.8 mg/dL (8.5-10.1); Carbon Dioxide 27.4 mMol/L (20.0-31.0); Chloride 99 mMol/L (98-107); Creatinine (Component) 3.7 mg/dL (0.6-1.3); Estimated Creatinine Clearance 17.7 mL/min (>60); Globulin 1.6 gm/dL (2.3-3.5); Glucose 99 mg/dL (74-106); Magnesium 2.5 mg/dL (1.6-2.6); Osmolality,Calculated 281 (275-295); Phosphorous 3.4 mg/dL (2.4-5.1); Potassium 4.2 mMol/L (3.4-5.1); Sodium 138 mMol/L (136-145); Total Protein 4.9 gm/dL (5.7-8.2); Vancomycin,Random 9.0 mcg/mL; eGFR 16 See Note
--- NOTE | 2025-07-17 08:00 | XR_ITS ---
EXAMINATION: Small bowel series AP supine abdomen 5 views Date and time: July 17, 2025, 0822 hours INDICATIONS: Abdominal distention this week TECHNIQUE AND FINDINGS: Vessel Engineer AP supine abdomen shows air distended small bowel loops air in the colon Patient received 120 cc Gastrografin with immediate 15-minute 30-minute and 2-hour delayed abdomen films AP supine obtained Contrast in mildly distended jejunal loops IMPRESSION: Mildly distended small bowel loops Recommend follow-up abdomen films 12 noon, 2:00 p.m., 4:00 p.m.
[2025-07-17 09:30] LABS: Lactate (Lactic Acid) 2.4 mMol/L (0.4-2.0)
[2025-07-17] MEDS: OLANZapine INJ 5 MG, Sterile Water 1 ML IM ×2 (11:52→17:12)
[2025-07-17 12:28] LABS: Reflex Lactate? Y
--- NOTE | 2025-07-17 12:30 | XR_ITS ---
Examination: Abdomen AP single view Technique: AP portable supine abdomen, single view Exam date and time: July 17, 2025, 1223 hours INDICATIONS: Abdominal distention this week, 4-hour delayed film for small bowel series FINDINGS: Contrast now present in the colon IMPRESSION: Negative for small bowel obstruction
--- NOTE | 2025-07-17 13:17 | PC.SS ---
SS follow up note Nephro consult pending. Patient will discharge home when medically cleared.
[2025-07-17] MEDS: cefTRIAXone/D5w 1gm IV premix 1 GM/50 ML BAG IV (13:22)
[2025-07-17] MEDS: GABAPENTIN 100 MG CAPSULE 400 MG PO ×2 (13:22→22:05)
[2025-07-17 13:33] LABS: Lactic Acid, 3 HR 1.5 mMol/L (0.4-2.0)
--- NOTE | 2025-07-17 14:54 | EKG_ITS ---
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: XIOMYSEBLE : 1950 Requested By: Rudi Cruz Order Number: [id number] Reading MD: Rudi Cruz Measurements Intervals [place] Rate: 105 P: 84 ND: 186 QRS: -24 QRSD: 105 T: 104 QT: 400 QTc: 530 Interpretive Statements SINUS TACHYCARDIA WITH OCCASIONAL VENTRICULAR PREMATURE COMPLEXES WITH FREQUENT SUPRAVENTRICULAR PREMATURE COMPLEXES BORDERLINE LEFT AXIS DEVIATION LEFT VENTRICULAR HYPERTROPHY AND ST-T CHANGE Compared to ECG 07/15/2025 16:40:40 Ventricular premature complex(es) now present ST (T wave) deviation now present Atrial fibrillation no longer present T-wave abnormality no longer present Possible ischemia no longer present /store/S0/[id number]
--- NOTE | 2025-07-17 15:05 | ESPR_ITS ---
<Statement entered by Rudi Cruz MD - 07/17/25 16:36> I saw and examined patient personally and supervised PGY 1 resident, Dr. Rouse with formulating a management plan. I agree with the documentation with the exceptions as listed below. Patient was initially admitted for abdominal pain secondary to incarcerated left inguinal hernia. He underwent successful hernia repair on 07/15/2025. Day 1 postop patient began displaying signs of agitation and possible hospital delirium. Overnight he was agitated and had to receive Haldol 2 mg IM x 1. EKG showed his QT was prolonged at 580. Today patient again had a code us called while in dialysis for agitation. Zyprexa 5 mg IV x 1 was given. Repeat EKG showed QTc 540. Upon medication reconciliation it was discovered that his home gabapentin and duloxetine were not restarted. We will restart tomorrow as there is a suspicion for drug withdrawal causing his agitation and altered mental status. We will not give any Haldol or Dilaudid overnight as his QT is prolonged and also he gets agitated after receiving Dilaudid. Plan of care discussed with Attending Dr. Skyler Cruz MD PGY 2 Disclaimer: This note was dictated by speech recognition. Minor errors in lead informatica developer may be present due to voice recognition software. Documentation for date of: 07/17/25 Subjective Subjective Interval history: Overnight, patient had another episode of agitation but was able to be pacified after he was given IV Haldol x 1 (however, any further use of Haldol should be discouraged due to patient's prolonged QTc 530) . Vitals/labs today significant for SpO2 86% on room air, WBC 11.4 -> 16.9, Hgb 10.8 -> 9.1, BUN 15 -> 28, creatinine 2.5 -> 3.7, and lactic acid 4.5 -> 1.8. The underlying etiology of patient's continued agitation and confusion remains elusive but some differentials include substance withdrawal or hospital-acquired delirium. Along with avoidance of Haldol, Dilaudid should also be discouraged due to observed subsequent paradoxical agitation. Plan Updates: -Ordered small bowel series, negative for SBO -Ordered repeat EKG, QTc remains prolonged at 530 -Restarted home duloxetine 60 mg qD -Restarted home gabepentin 400 mg TID -Started [place] 5/325 q8HR prn for Pain 4-10 -Swapped Zosyn for IV ceftriaxone 1 g qD Exam Vital Signs Temp Pulse Resp BP Pulse Ox O2 Del Method O2 Flow Rate 96.4 F L 85 18 171/93 H 96 Nasal Cannula 4 07/17/25 12:39 07/17/25 12:45 07/17/25 12:39 07/17/25 12:45 07/17/25 12:39 07/17/25 08:00 07/17/25 12:39 Narrative Exam GENERAL: Acutely agitated, AAOx3 HEENT: Moist mucosa. Eyes open, symmetrical, & clear CARDIO: Rapid regular rhythm noted. Harsh Systolic Murmur noted over pulmonary, aortic area. PULM: No noted coughing/dyspnea CTA B/L, no R/W/R GI: Abdomen soft, nondistended. Incision is CDI, appropriately TTP. No oozing or pus. SKIN/MSK/EXT: No wounds/rashes/amputations, no pain on palpation. Pedal pulses present B/L NEURO: AAOx3, no focal neuro deficits, able to move all 4 extremities Objective Labs 07/17/25 05:05 07/17/25 05:05 Labs: Laboratory Results - last 24 hr 07/16/25 07/16/25 07/16/25 15:46 15:46 20:17 WBC RBC Hgb Hct MCV MCH MCHC RDW Std Deviation Plt Count Neut % (Auto) Lymph % (Auto) [place] % (Auto) Eos % (Auto) Baso % (Auto) Neut # (Auto) Lymph # (Auto) [place] # (Auto) Eos # (Auto) Baso # (Auto) Immature Gran # (Auto) Absolute Nucleated RBC Immature Gran % Nucleated RBC % Sodium 139 Potassium 4.3 D Chloride 99 Carbon Dioxide 24.3 Anion Gap 16 BUN 15 Creatinine 2.5 H D Estim Creat Clear Calc 26.2 L eGFR 26 L BUN/Creatinine Ratio 6 L Glucose 100 Calculated Osmolality 278 Lactic Acid 6.4 H* 6.4 H* 4.5 H* Calcium 8.5 Corrected Calcium 8.8 Phosphorus Magnesium Total Bilirubin 0.4 AST 15 ALT < 7 L Alkaline Phosphatase 95 Total Protein 5.2 L Albumin 3.6 Globulin 1.6 L Albumin/Globulin Ratio 2.3 H Random Vancomycin 07/17/25 07/17/2525 01:52 05:05 09:21 WBC 16.9 H D RBC 2.94 L Hgb 9.1 L Hct 29.1 L MCV 99 MCH 31.0 MCHC 31.3 RDW Std Deviation 57.1 H Plt Count 244 Neut % (Auto) 83 H Lymph % (Auto) 8 L [place] % (Auto) 6 Eos % (Auto) 2 Baso % (Auto) 0 Neut # (Auto) 14.0 H Lymph # (Auto) 1.4 [place] # (Auto) 1.0 H Eos # (Auto) 0.4 Baso # (Auto) 0.1 Immature Gran # (Auto) 0.07 H Absolute Nucleated RBC 0.00 Immature Gran % 0 Nucleated RBC % 0 Sodium 138 Potassium 4.2 Chloride 99 Carbon Dioxide 27.4 Anion Gap 12 BUN 28 H Creatinine 3.7 H D Estim Creat Clear Calc 17.7 L eGFR 16 L BUN/Creatinine Ratio 8 L Glucose 99 Calculated Osmolality 281 Lactic Acid 1.8 2.4 H Calcium 8.2 L Corrected Calcium 8.8 Phosphorus 3.4 Magnesium 2.5 Total Bilirubin 0.3 AST 18 ALT < 7 L Alkaline Phosphatase 90 Total Protein 4.9 L Albumin 3.3 L Globulin 1.6 L Albumin/Globulin Ratio 2.1 Random Vancomycin 9.0 07/17/25 13:25 WBC RBC Hgb Hct MCV MCH MCHC RDW Std Deviation Plt Count Neut % (Auto) Lymph % (Auto) [place] % (Auto) Eos % (Auto) Baso % (Auto) Neut # (Auto) Lymph # (Auto) [place] # (Auto) Eos # (Auto) Baso # (Auto) Immature Gran # (Auto) Absolute Nucleated RBC Immature Gran % Nucleated RBC % Sodium Potassium Chloride Carbon Dioxide Anion Gap BUN Creatinine Estim Creat Clear Calc eGFR BUN/Creatinine Ratio Glucose Calculated Osmolality Lactic Acid 1.5 Calcium Corrected Calcium Phosphorus Magnesium Total Bilirubin AST ALT Alkaline Phosphatase Total Protein Albumin Globulin Albumin/Globulin Ratio Random Vancomycin ABG Interpretation ABG results: 07/15/25 23:43 ABG pH 7.39 ABG pCO2 43 ABG pO2 105 ABG HCO3 26 ABG O2 Saturation 97 ABG Base Excess 1 Quality Measures Quality Measures VTE prophylaxis Advance care planning discussed with:: patient Assessment & Plan Assessment Current Active Medications: Generic Name Dose Route Start Last Admin Trade Name Freq PRN Reason Stop Dose Admin Acetaminophen 650 mg 07/15/25 23:31 Acetaminophen 325 Mg Tablet PO 08/14/25 17:35 Q6H PRN Fever >100.3 or pain 1-3 Hydrocodone Bitart/Acetaminophen 1 tab 07/17/25 13:39 Hydrocodone/Apap 5/325 Tablet PO 07/22/25 13:38 Q8HR PRN PAIN SCALE 4-10(Mod-Sev Olanzapine 5 mg/ Sterile Water 0 mg 07/16/25 18:26 07/17/25 11:52 1 ml IM 08/15/25 18:14 5 dose Q8HR PRN Administration AGITATION Duloxetine HCl 60 mg 07/18/25 09:00 Duloxetine Hcl 30 Mg Capsule PO 08/17/25 08:59 QDAY RICH Gabapentin 400 mg 07/17/25 14:00 07/17/25 13:22 Gabapentin 100 Mg Capsule PO 08/16/25 13:59 400 mg TID RICH Administration Sodium Chloride 1,000 mls @ 50 mls/hr 07/15/25 22:18 07/17/25 01:09 Ns IV 08/14/25 22:17 50 mls/hr .Q20H RICH Administration Albumin Human 25 gm in 100 mls @ 100 mls/min 07/16/25 09:39 Albuminex 25% Ivpb IV PRN PRN DIALYSIS Ceftriaxone Sodium/Dextrose 1 gm in 50 mls @ 100 mls/hr 07/17/25 08:45 07/17/25 13:22 Rocephin/D5w 1gm Iv Premix IV 07/24/25 08:44 100 mls/hr QDAY RICH Administration Vancomycin/Sodium Chloride 200 mls @ 120 mls/hr 07/17/25 16:00 Vancomycin/Ns 1 Gm Ivpb IV 07/17/25 17:39 X1 ONE Labetalol HCl 10 mg 07/15/25 19:20 Labetalol Inj 5 Mg/Ml Vial 20 Ml IVP Q10MIN PRN SBP>180 DBP>110 Levothyroxine Sodium 75 mcg 07/18/25 06:00 Levothyroxine Sodium 25 Mcg Tablet PO 08/17/25 05:59 ACBR RICH Ondansetron HCl 4 mg 07/15/25 17:36 Ondansetron Inj 2 Mg/Ml Inj 2 Ml IVP 08/14/25 17:35 Q6H PRN NAUSEA OR VOMITING Protocol Pantoprazole Sodium 40 mg 07/16/25 09:00 07/17/25 13:21 Pantoprazole Inj 40 Mg Vial IVP 08/15/25 08:59 40 mg QDAY RICH Administration Pharmacy Consult 1 each 07/16/25 00:15 Pharmacy Renal Dose Adjustment 1 Ea XX 08/15/25 00:14 PRN PRN CONSULT Pharmacy Consult 1 each 07/17/25 09:00 Vancomycin Pharmacy To Dose 1 Each Each IV 08/16/25 08:59 QDAY PRN GPC BACTERURIA Plan This is a 74-year-old old male with significant past medical history of CAD s/p CABG, hypertension, ESRD on HD [M/W/F] following Dr. Little, TIA, GERD, arthritis, hypothyroidism, recent hospital admission for incarcerated hernia on 07/07. Presented to the ED with complaints of increasing groin pain and swelling in the inguinal area during dialysis. He was admitted for incarcerated inguinal hernia, and brought to OR for urgent surgery. Dr. Goetz states patient is cleared by surgery and that there was no bowel in the hernia, just subcutaneous fat. # Altered mental status, etiology unclear Patient began displaying signs of agitation and confusion (waxing and waning) 1 day after surgical repair of incarcerated inguinal hernia, denies pain 3 Code Us's called on 07/16, 2 Code Us's called on 07/17 Seemingly refractory to IV Zyprexa and IV Haldol is not recommended due to patient's prolonged QTc of 530 IV Dilaudid administration on the morning of 07/17 seemed to trigger an episode of increased agitation Some suspicion for drug withdrawal explanation as patient has home gabapentin and duloxetine that had not been restarted prior to 07/17 DDx: metabolic encephalopathy, drug withdrawal, hospital-acquired delirium Dx: -Ordered 07/17 repeat EKG, QTc remains prolonged at 530 Rx: -Restarted home duloxetine 60 mg qD -Restarted home gabepentin 400 mg TID -Started [place] 5/325 q8HR prn for Pain 4-10 -IV Zyprexa 5 mg q8HR prn # Incarcerated inguinal hernia, s/p repair and placement of a 2 x 4 Marlex mesh Increased inguinal pain, inguinal swelling, vomiting CT abdomen showing small bowel loops in the hernia appears to be incarcerated and proximally dilated. Sedated with etomidate fentanyl and midazolam to decrease the pain and the abdominal tension. Cefazolin administered perioperatively. No bowel involved with hernia, only subq fat. patient is cleared by surgery. s/p IV Zosyn 3.375 g q12HR [07/16-07/17] Dx: -Ordered 07/17 small bowel series, negative for SBO Rx: -Swapped Zosyn for IV ceftriaxone 1 g qD [07/17--] -Continue IV vancomycin dosed by pharmacy [07/16--] ?General Surgery consulted # Lactic Acidosis (resolved) 3.2 at admission uptrended to 4.6 following surgery 5.6 then after HDS 4.2 repeat LA 6.4 Downtrended to 1.5 @ 13:25, 07/17 Rx: -CTM # Hypertension # Aortic stenosis # CAD s/p CABG Blood pressure in the range of 220/100 Stenotic murmur heard over aortic pulmonary mitral and tricuspid area Plan: ?Amlodipine home medication held - Labetalol 10mg IVP Q10min PRN # ESRD. Creatinine 3.4. Went to dialysis today 07/15. History of hemodialysis 3 times a week. HDS today Plan: ?Consulted Dr Little [facility]. # Chronic Anemia. Hemoglobin 12.9 History of multiple blood transfusions Patient have been going on extensive workup at [facility] for chronic anemia. 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 Plan: -CTM CBC # GERD Plan: -Pantoprazole 40 mg Home medication resumed # Degenerative disc disease, arthritis Plan: -Restarted home medications as discussed in #Altered mental status section Health Maintenance: Code status: Full DVT prophylaxis: SCDs GI prophylaxis: zofran Diet: Diabetic full liquid Agu[place]: No Lines: PIV Supplemental O2: None Disposition: Med surg Patient seen and reviewed with attending Dr. Holland and supervising resident Dr. Cruz. Dav Rouse DO Internal Medicine, PGY-1 Attending Provider Attestation/Addendum I have discussed and was present for the essential components of the history, physical examination, diagnosis, and treatment plan with the resident. I agree with the patient's care as documented by the resident and amended herein by me. Low Holland DO. Although this document has been carefully reviewed, there may still be some phonetic and other typographical errors. These errors are purely grammatical due to imperfections in the software program and should not be construed in any way to compromise the substance of the patient's medical care during this visit. Patient seen and evaluated this AM. Patient was very agitated yesterday, did give a dose of Zyprexa yesterday evening, another rapid was called overnight and Haldol was given., The patient was calm this morning when he started dialysis however towards the end also became very agitated where he had to give another dose of Zyprexa which calmed the patient down. Today, WBC slight uptrend to 16, hemoglobin stable at 9, BUN 28, creatinine 3.7. Anion gap is normalized and lactic acid is down trended to 1.8. The patient states that he did have a bowel movement 2 days ago however with his acute encephalopathy, I thought I would get a small bowel series considering previous the imaging did indicate obstruction and the patient might not be remembering correctly however small bowel series demonstrated no obstruction today. I did restart the patient's home medications today which included fluoxetine and gabapentin which he may actually have been withdrawing from. Patient is also on Vicodin at home apparently hence we will place as needed opioids, he may actually have been withdrawing from those as well. Unknown how much he actually takes at home despite the fact it is in the records, he may take more than he is supposed to. Will continue to monitor closely hopefully his agitation resolves and he can be sent home in the next day or two. Of note, if patient gets agitated again overnight, please avoid QT prolonging medications such as Haldol. Patient's QTc interval was 530 today on EKG and has been prolonged prior.
[2025-07-17] MEDS: VANCOMYCIN/NS 1 GM IVPB 200 ML IV (16:28)
--- NOTE | 2025-07-17 16:54 | PD.SURPROG ---
Documentation for date of: 07/17/25 Subjective Subjective Brief History: History of present illness revealed that the patient has had this mass for almost a week. But the pain got worse today. The history of present illness revealed that the patient came to the emergency room about 8 days ago on 1010 and was found to have an incarcerated hernia but no surgery was performed and he was discharged in the past week he has been having persistent swelling but today the swelling became worse and therefore he came to the emergency room after dialysis. Patient's past medical history revealed numerous medical problems including coronary artery disease status post bypass hypertension and end-stage renal disease on dialysis 3 times a week TAA GERD arthritis and hypothyroidism. Narrative: Patient is very confused and planning to get out of bed. Exam Vital Signs Temp Pulse Resp BP Pulse Ox O2 Del Method O2 Flow Rate 97.8 F 81 18 177/89 H 92 L Room Air 4 07/17/25 16:00 07/17/25 16:00 07/17/25 16:00 07/17/25 16:00 07/17/25 16:00 07/17/25 16:00 07/17/25 12:39 His vital signs are normal Routine Abdominal Exam Comments: Examination of the abdomen showed excellent bowel sounds. There is some ecchymosis over the incision in the left groin patient is passing liquid stools Results Results: Laboratory Laboratory Narrative: Patient has a leukocytosis which has a potential for infection in the left groin Results: Imaging Imaging narrative: Small bowel series showed no evidence of bowel obstruction Assessment & Plan Assessment Additional comments: Pression: No evidence of small bowel obstruction Leukocytosis Plan Plan: We shall start him on a regular diet and then he could be discharged if his WBC returns to normal PROCEDURES: Procedures Repair of the incarcerated left inguinal hernia with placement of a 2 x 4 Marlex mesh
[2025-07-17] MEDS: DULoxetine HCL 30 MG CAPSULE 60 MG PO (17:59)
[2025-07-17] MEDS: HYDROcodone/APAP 5/325 TABLET 1 TAB PO (18:01)
[2025-07-17] MEDS: ACETAMINOPHEN 325 MG TABLET 650 MG PO (23:21)
[2025-07-18] VITALS (13 sets, daily range): BP systolic 136–187; BP diastolic 72–118; PULSE 61–113; RESP 17–20; TEMP 36.6–37.9; O2SAT 94–100; BMI 15.0
[2025-07-18] MEDS: SODIUM CHLORIDE 0.9% 1000 ML 1,000 ML 50 ML IV (02:57)
[2025-07-18] MEDS: HYDROcodone/APAP 5/325 TABLET 1 TAB PO (04:17)
[2025-07-18] MEDS: LABETALOL INJ 5 MG/ML VIAL 20 ML 10 MG IVP (04:18)
[2025-07-18 05:59] LABS: Basophils # (Auto) 0.0 Thou/mm3 (0.0-0.2); Basophils % (Auto) 0 % (0-2.5); Eosinophils # (Auto) 0.4 Thou/mm3 (0.0-0.5); Eosinophils % (Auto) 3 % (0-10); Hematocrit 32.1 % (41.0-53.0); Hemoglobin 10.0 g/dL (13.5-16.0); Immature Granulocytes Auto 0.07 Thou/mm3 (0.00-0.00); Lymphocytes # (Auto) 1.0 Thou/mm3 (1.0-4.8); Lymphocytes % (Auto) 6 % (10-50); Mean Corpuscular HGB Conc 31.2 g/dl (31.0-37.0); Mean Corpuscular Hemoglobin 30.5 pg (25.0-35.0); Mean Corpuscular Volume 98 fL (80-100); Monocytes # (Auto) 0.8 Thou/mm3 (0.0-0.8); Monocytes % (Auto) 5 % (0-12); Neutrophils # (Auto) 13.3 Thou/mm3 (1.8-7.7); Neutrophils % (Auto) 86 % (37-80); Nucleated Red Blood Cell # 0.00 Thou/mm3 (0.00-0.00); Nucleated Red Blood Cell % 0 /100 WBC (0); Platelet Count 231 Thou/mm3 (140-440); RDW Standard Deviation 55.8 fL (35.1-43.9); Red Blood Count 3.28 Miln/mm3 (4.50-5.90); White Blood Count 15.6 Thou/mm3 (3.8-10.6)
[2025-07-18] MEDS: GABAPENTIN 100 MG CAPSULE 400 MG PO (06:07)
[2025-07-18] MEDS: LEVOTHYROXINE SODIUM 25 MCG TABLET 75 MCG PO (06:07)
[2025-07-18 06:38] LABS: Alanine Aminotransferase < 7 U/L (10-49); Albumin, Serum 3.5 gm/dL (3.4-4.8); Albumin/Globulin Ratio 1.9 (1.2-2.2); Alkaline Phosphatase 106 U/L (46-116); Anion Gap 12 (7-16); Aspartate Amino Transferase 19 U/L (0-34); BUN/Creatinine Ratio 7 Ratio (12-20); Bilirubin,Total 0.4 mg/dL (0.3-1.2); Blood Urea Nitrogen 22 mg/dL (9-23); Calcium 8.5 mg/dL (8.3-10.6); Calcium (Corrected) 8.9 mg/dL (8.5-10.1); Carbon Dioxide 27.6 mMol/L (20.0-31.0); Chloride 101 mMol/L (98-107); Creatinine (Component) 3.3 mg/dL (0.6-1.3); Estimated Creatinine Clearance 19.9 mL/min (>60); Globulin 1.8 gm/dL (2.3-3.5); Glucose 109 mg/dL (74-106); Magnesium 2.2 mg/dL (1.6-2.6); Osmolality,Calculated 285 (275-295); Phosphorous 2.8 mg/dL (2.4-5.1); Potassium 3.9 mMol/L (3.4-5.1); Sodium 141 mMol/L (136-145); Total Protein 5.3 gm/dL (5.7-8.2); eGFR 19 See Note
[2025-07-18] MEDS: cefTRIAXone/D5w 1gm IV premix 1 GM/50 ML BAG IV (09:28)
--- NOTE | 2025-07-18 10:13 | EKG_ITS ---
[facility] Test Date: 2025-07-18 Pat Name: JUAN RAMON LYNCH [facility] Pack Out Operator: RAQUEL : 1950 Requested By: Rudi Cruz Order Number: [id number] Reading MD: Rudi Cruz Measurements Intervals [place] Rate: 87 P: 9 NH: 189 QRS: -25 QRSD: 100 T: 78 QT: 382 QTc: 462 Interpretive Statements SINUS RHYTHM WITH FREQUENT SUPRAVENTRICULAR PREMATURE COMPLEXES BORDERLINE LEFT AXIS DEVIATION VOLTAGE CRITERIA FOR LVH NONSPECIFIC T-WAVE ABNORMALITY Compared to ECG 07/17/2025 12:36:45 T-wave abnormality now present Sinus tachycardia no longer present Ventricular premature complex(es) no longer present ST (T wave) deviation no longer present /store/S0/[id number].pdf
[2025-07-18] MEDS: DULoxetine HCL 30 MG CAPSULE 60 MG PO (12:27)
--- NOTE | 2025-07-18 15:17 | PC.NURSE ---
Addendum entered by Reanna Faria RN 07/18/25 16:04: Oxygen saturation 86% on RA at rest. Patient was placed on 2 liters via nasal cannula with oxygen saturations improving to 95%. Original Note: During ambulation, the patients oxygen saturation decreased to 86% on room air. Patient was placed on 2 liters via nasal cannula with oxygen saturations improving to 95%.
--- NOTE | 2025-07-18 15:17 | PD.RESDS ---
Planned Discharge Date 07/18/25 DS: Providers Provider Date of admission: 07/15/25 17:36 Primary care physician: Wendy Yin PA-C Admitting Provider: Juvention Mcallister MD Attending Provider on Admission: Naif Holland DO Consults: 07/15/25 19:22 Consult to Nephrology Routine Comment: ESRD on HDS MWF Consulting Provider: Rayne Little 07/16/25 00:17 Referral Speech Therapy Routine Comment: 07/18/25 15:10 Referral Physical Therapy Stat Comment: Physician Instructions: Instructions: discharge pending Attending Provider on DC: Naif Holland DO Discharging Provider: Naif Holland DO DS: Diagnosis Problem List Completed Was Problem List Reviewed/Reconciled?: Yes Hospital Course Hospital Course Hospital course: This is a 74-year-old old male with significant past medical history of CAD s/p CABG, hypertension, ESRD on HD [M/W/F] following Dr. Little, TIA, GERD, arthritis, hypothyroidism, recent hospital admission for incarcerated hernia on 07/07. Presented to the ED with complaints of increasing groin pain and swelling in the inguinal area during dialysis. He was admitted for incarcerated inguinal hernia, and brought to OR for urgent surgery where patient was found to have subcutaneous fat hernia without bowel involvement, and cleared by surgery immediately. While admitted multiple code margarita and [place] called due to the patient's combative behavior. He was given many doses of antipsychotics which were discontinued due to prolonged QT interval. Eventually his pain was managed with narco, he was stabilized, and cleared after acute encephalopathy resolved. Discharge Instructions: -Complete 2 days of antibiotics, Ciprofloxacin 250 mg twice daily, for urinary tract infection. -New frequency of Pantoprzole 40 mg once daily orally -New dose of Amlodipine 10 mg once daily orally -Please follow up with your primary care provider within one week of discharge -If your symptoms worsen,please seek immediate medical attention and return to your nearest emergency room -If you do not have a primary care provider, [facility] [address], [place] [address], #Acute Metabolic Encephlopathy, likely secondary to hospital acquired delirium, resolved. # Altered mental status, resolved. # Incarcerated inguinal hernia, s/p repair and placement of a 2 x 4 Marlex mesh # Lactic Acidosis (resolved) # Hypertension # Aortic stenosis # CAD s/p CABG # ESRD. # Chronic Anemia. # GERD # Degenerative disc disease, arthritis Patient's plan and care discussed with my attending, Dr. Holland, and supervising resident MD Augusto Shine MD Internal Medicine PGY-1 - The patient's plan was discussed with attending Dr. Skyler Grayson MD PGY2 Internal Medicine Status at Discharge Functional status at discharge: independent ambulation Overall status at discharge: patient is back to baseline Time Spent with Patient Time attestation: Total time spent providing and/or coordinating discharge services: Time spent: Greater than 30 minutes Home Health Home Health Referral Orders: 07/18/25 15:08 Home Health Referral Routine Reason For Exam: debility Home-Bound The patient must either because of illness or injury, need the aid of supportive devices such as crutches, canes, wheelchairs, and walkers; the use of special transportation; or the assistance of another person in order to leave their place of residence; OR have a condition such that leaving his or her home is medically contraindicated. In addition, the patient also meets the following criteria: patient is normally unable to leave the home and leaving home requires considerable taxing effort. Addendum to Home Health Certification Practitioner's Certification: I certify that the patient has been under my care in the hospital and the care of attending physician (see below). We had a [id number] encounter on (see date below). My clinical findings indicate that the patient is home bound per the above criteria and the Home Health Services noted in these orders are medically necessary. The primary reason for the [id number]-yn-[id number] encounter is related to the fact that the patient requires home health services. Date Certifying [id number] Physician Encounter: 07/15/25 Physician's Name who will Assume Oversight for Services: Wendy Yin Physician's Phone No.who will Assume Oversight for Service: HELP DESK INTERN - Community Resources: No PT to Evaluate: Yes PT to evaluate and provide a treatmnet plan to increase patient's mobility and strength. Wound Care: No IV Therapy: No Discontinue PICC Line Once Treatment Complete: No RN Safety Evaluation: Yes RN to evaluate and create a plan of care that will produce positive outcomes. Palliative Treatment: No Palliative treatment and evaluate the need for hospice. Home Health Aide - Personal Care: No Home Health Aide to assist with any ADL's. Exam Vital Signs Temp Pulse Resp BP Pulse Ox O2 Del Method O2 Flow Rate 98.2 F 97 20 136/97 H 98 Nasal Cannula 3 07/18/25 13:40 07/18/25 14:33 07/18/25 13:40 07/18/25 14:33 07/18/25 14:33 07/18/25 12:00 07/18/25 12:25 Narrative Exam GENERAL: Acutely agitated, AAOx3 HEENT: Moist mucosa. Eyes open, symmetrical, & clear CARDIO: Rapid regular rhythm noted. Harsh Systolic Murmur noted over pulmonary, aortic area. PULM: No noted coughing/dyspnea CTA B/L, no R/W/R GI: Abdomen soft, nondistended. Incision is CDI, appropriately TTP. No oozing or pus. SKIN/MSK/EXT: No wounds/rashes/amputations, no pain on palpation. Pedal pulses present B/L NEURO: AAOx3, no focal neuro deficits, able to move all 4 extremities Discharge Plan Plan Patient Disposition: Home w/HOME HEALTH Patient condition on transfer: Stable Care Plan Goals: Instructions: -Complete 2 days of antibiotics, Ciprofloxacin 250 mg twice daily, for urinary tract infection. -New frequency of Pantoprzole 40 mg once daily orally -New dose of Amlodipine 10 mg once daily orally -Please follow up with your primary care provider within one week of discharge -If your symptoms worsen,please seek immediate medical attention and return to your nearest emergency room -If you do not have a primary care provider, you may follow up at the [facility] at [address], [place] [address], Prescriptions/Referrals Prescriptions/Med Rec: New duloxetine 30 mg Capsule,Delayed Release(Dr/Ec) 60 mg PO QDAY 90 Days Qty: 180 0RF pantoprazole 40 mg Tablet,Delayed Release (Dr/Ec) 40 mg PO QDAY 90 Days Qty: 90 0RF Continued HYDROCODONE BIT/ACETAMINOPHEN (HYDROCODON-ACETAMINOPH 2.5-325) 1 EACH tablet 1 tab PO Q6HR PRN (Reason: pain) Qty: 0 Rx Instructions: 1 Every 6-8 hours for pain Levothyroxine * (SYNTHROID *) 75 MCG tablet 75 mcg PO QDAY Qty: 0 sevelamer carbonate [Renvela] 800 mg Tablet 800 mg PO TID Rx Instructions: must administer with a meal/food gabapentin 400 mg capsule 400 mg PO TID Patient Comments: TAKE ONE CAPSULE BY MOUTH THREE TIMES DAILY FOR NERVE PAIN amlodipine [Norvasc] 10 mg tablet 10 mg PO QDAY lidocaine [Anecream] 4 % cream 1 applic topical BID Rx Instructions: to right 2nd toe arthritis pain. (Over the counter med) pravastatin 10 mg tablet 10 mg PO DAILY Discontinued pantoprazole [Protonix] 40 MG tablet,delayed release (DR/EC) 40 mg PO BID Qty: 0 Patient Comments: TO SUPPRESS GASTRIC SECRETIONS duloxetine [Cymbalta] 60 MG capsule,delayed release(DR/EC) 60 mg PO QDAY Qty: 0 Referrals: Rayne Little MD [Physician, Nephrology] Wendy Yin PA-C [Primary Care Provider, Family Practice] Patient/Caregiver Discharge Instructions Discharge Activity: as per physical therapy Education Materials: Hernia Repair Surgery Print Language: Monegasque Stand Alone Forms: Dennise Award Info., Patient Portal Info Letter Discharge Order Discharge Orders: Discharge (Routine); Ordered 07/18/25 Ordered By: Nhi Grayson Quality Discharge Quality Measures VTE prophylaxis MD Attestestation MD Attestation I have discussed and was present for the essential components of the discharge history, physical examination, diagnosis, and discharge treatment plan with the resident. I agree with the patient's discharge care as documented by the resident and amended herein by me. Low Holland DO. The patient understood all discharge instructions, all questions were answered satisfactorily. The patient was instructed to return to the Emergency Department is symptoms worsened or persisted. Patient's mentation back to baseline per who was at bedside on day of discharge, leukocytosis started to downtrend, the patient has been afebrile 07/16. The patient surgical scar from his hernia repair looks great, patient cleared for discharge on surgery standpoint, patient has been having bowel movements patient was stable, afebrile, tolerating p.o. intake and ambulatory at time of discharge home. Patient was discharged with home health for physical therapy. Although this document has been carefully reviewed, there may still be some phonetic and other typographical errors. These errors are purely grammatical due to imperfections in the software program and should not be construed in any way to compromise the substance of the patient's medical care during this visit. Time Spent on discharge: 38 minutes
--- NOTE | 2025-07-18 15:23 | PC.SS ---
OXYGEN Pt is discharged in a chronic stable state and has been treated optimally and has other respiratory needs. Oxygen has been ordered due to Covid and acute hypoxic respiratory failure. To secure a safe discharge for the pt home oxygen is needed. The pt is mobile within the home and will need continuous, portable O2 via nasal cannula. Pt is discharged in a chronic stable state and has been treated optimally and has other respiratory needs.? Oxygen has been ordered due to Covid and acute hypoxic respiratory failure.
--- NOTE | 2025-07-18 16:22 | PC.SS ---
SS follow up note; Patient will have 02 delivered by [facility] within 1-2 Hours as well as Rollator walker. SS updated patient's nurse.
--- NOTE | 2025-07-21 17:57 | PC.CM ---
[facility] accepted patient and they will open on 07/23.
== END 2025-07-18 17:10 | disposition home health service (06) | DRG 350 ==
LOC: SERX 17:32 → SERHOLD 18:04 → S3SX 21:41
PROVIDERS: Surgery; Admitting Provider Student in an Organized Health Care Education/Training Program; Emergency Provider Emergency Medicine; PCP Physician Assistant; Visit Provider Student in an Organized Health Care Education/Training Program
DX: K40.30 Unilateral inguinal hernia, with obstruction, without gangrene, not specified as recurrent (principal); N18.6 End stage renal disease; I12.0 Hypertensive chronic kidney disease with stage 5 chronic kidney disease or end stage renal disease; G93.40 Encephalopathy, unspecified; E87.20 Acidosis, unspecified; K21.9 Gastro-esophageal reflux disease without esophagitis; E03.9 Hypothyroidism, unspecified; Z95.1 Presence of aortocoronary bypass graft; I25.10 Atherosclerotic heart disease of native coronary artery without angina pectoris; D63.1 Anemia in chronic kidney disease; M19.90 Unspecified osteoarthritis, unspecified site; I35.0 Nonrheumatic aortic (valve) stenosis; Z79.890 Hormone replacement therapy; Z99.2 Dependence on renal dialysis; Z86.73 Personal history of transient ischemic attack (TIA), and cerebral infarction without residual deficits; Z87.891 Personal history of nicotine dependence; Z79.899 Other long term (current) drug therapy; R94.31 Abnormal electrocardiogram [ECG] [EKG]
CPT/HCPCS: 36415; 36600; 71045; 74018; 74019; 74177; 74250; 80053; 80061; 80202; 81001; 82550; 82803; 83036; 83605; 83690; 83735; 84100; 84145; 84484; 85025; 85610; 87040; 87077; 87081; 87086; 87186; 92610; 93005; 96374; 96375; 96376; 97162; A4216; A4649; A9270; C1781; J0131; J0689; J0690; J0696; J1100; J1171; J1630; J2270; J2358; J2371; J2405; J2470; J2543; J2704; J3010; J3373; J3475; J3480; J3490; J7030; J7050; Q9967; J1920; J2359

== ENCOUNTER → 2025-08-07 | Outpatient (CLI) | payer MEDICARE, MEDICAID, SELFPAY ==
[2025-08-07 15:36] LABS: Basophils # (Auto) 0.0 Thou/mm3 (0.0-0.2); Basophils % (Auto) 1 % (0-2.5); Eosinophils # (Auto) 0.4 Thou/mm3 (0.0-0.5); Eosinophils % (Auto) 7 % (0-10); Hematocrit 34.9 % (41.0-53.0); Hemoglobin 11.0 g/dL (13.5-16.0); Immature Granulocytes Auto 0.03 Thou/mm3 (0.00-0.00); Lymphocytes # (Auto) 1.6 Thou/mm3 (1.0-4.8); Lymphocytes % (Auto) 34 % (10-50); Mean Corpuscular HGB Conc 31.5 g/dl (31.0-37.0); Mean Corpuscular Hemoglobin 29.8 pg (25.0-35.0); Mean Corpuscular Volume 95 fL (80-100); Monocytes # (Auto) 0.4 Thou/mm3 (0.0-0.8); Monocytes % (Auto) 9 % (0-12); Neutrophils # (Auto) 2.3 Thou/mm3 (1.8-7.7); Neutrophils % (Auto) 49 % (37-80); Nucleated Red Blood Cell # 0.00 Thou/mm3 (0.00-0.00); Nucleated Red Blood Cell % 0 /100 WBC (0); Platelet Count 177 Thou/mm3 (140-440); RDW Standard Deviation 55.7 fL (35.1-43.9); Red Blood Count 3.69 Miln/mm3 (4.50-5.90); White Blood Count 4.8 Thou/mm3 (3.8-10.6)
[2025-08-07 17:00] LABS: Ferritin 1562 ng/mL (10.5-307.3)
== END | disposition home or self-care (01) ==
LOC: COPL 13:10
PROVIDERS: PCP Physician Assistant; Referring Provider Specialist; Visit Provider Specialist
DX: D50.0 Iron deficiency anemia secondary to blood loss (chronic) (principal)
CPT/HCPCS: 36415; 82728; 85025

== ENCOUNTER 2025-08-11 02:50 | Inpatient (IN) | payer MEDICARE, MEDICAID, SELFPAY ==
[2025-08-11] VITALS (28 sets, daily range): BP systolic 131–183; BP diastolic 65–110; PULSE 60–98; RESP 13–98; TEMP 36.2–37.1; O2SAT 93–98; BMI 22.4
--- NOTE | 2025-08-11 02:55 | PD.EDABDPN ---
ED Abdominal Pain RME/HPI General Stated complaint: ABD PAIN Arrival date/time: 08/11/25 02:50 Related Data Home Medications ?Medication ?Instructions ?Recorded ?Confirmed HYDROCODONE BIT/ACETAMINOPHEN 1 tab PO Q6HR PRN pain ##0 07/04/14 07/15/25 (HYDROCODON-ACETAMINOPH 2.5-325) Levothyroxine * (SYNTHROID *) 75 mcg PO QDAY #0 tabs 07/04/14 07/15/25 sevelamer carbonate 800 mg tablet 800 mg PO TID 04/18/23 07/15/25 (Renvela) amlodipine 10 mg tablet (Norvasc) 10 mg PO QDAY 11/20/24 07/15/25 gabapentin 400 mg capsule 400 mg PO TID 11/20/24 07/15/25 lidocaine 4 % topical cream 1 applic topical BID 11/20/24 07/15/25 (Anecream) pravastatin 10 mg tablet 10 mg PO DAILY 01/01/25 07/15/25 Previous Rx's ?Medication ?Instructions ?Recorded duloxetine 30 mg capsule,delayed 60 mg (2 x 30 mg) PO QDAY 3 months 07/18/25 release #180 caps pantoprazole 40 mg tablet,delayed 40 mg PO QDAY 3 months #90 tabs 07/18/25 release Allergies Allergy/AdvReac Type Severity Reaction Status Date / Time No Known Allergies Allergy Verified 07/15/25 16:46 Discharge Plan Prescriptions/Referrals Prescriptions/Med Rec: No Action HYDROCODONE BIT/ACETAMINOPHEN (HYDROCODON-ACETAMINOPH 2.5-325) 1 EACH tablet 1 tab PO Q6HR PRN (Reason: pain) Qty: 0 Rx Instructions: 1 Every 6-8 hours for pain Levothyroxine * (SYNTHROID *) 75 MCG tablet 75 mcg PO QDAY Qty: 0 sevelamer carbonate [Renvela] 800 mg Tablet 800 mg PO TID Rx Instructions: must administer with a meal/food gabapentin 400 mg capsule 400 mg PO TID Patient Comments: TAKE ONE CAPSULE BY MOUTH THREE TIMES DAILY FOR NERVE PAIN amlodipine [Norvasc] 10 mg tablet 10 mg PO QDAY lidocaine [Anecream] 4 % cream 1 applic topical BID Rx Instructions: to right 2nd toe arthritis pain. (Over the counter med) pravastatin 10 mg tablet 10 mg PO DAILY duloxetine 30 mg Capsule,Delayed Release(Dr/Ec) 60 mg PO QDAY 90 Days Qty: 180 0RF pantoprazole 40 mg Tablet,Delayed Release (Dr/Ec) 40 mg PO QDAY 90 Days Qty: 90 0RF Patient/Caregiver Discharge Instructions Print Language: Samoan
--- NOTE | 2025-08-11 03:01 | EKG_ITS ---
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
--- NOTE | 2025-08-11 03:01 | XR_ITS ---
Examination: Abdomen AP single view Technique: AP portable supine abdomen, single view Exam date and time: August 11, 2025, 0355 hours, comparison July 17, 2025 INDICATIONS: Abdominal pain and diarrhea today. FINDINGS: Abnormal air distended small bowel loops in the left abdomen, measuring up to 3.9 cm in dimension Mild to moderate stool throughout the colon including in the rectal region No free air Moderate vascular congestion IMPRESSION: Air distended small bowel loops as above If early small bowel obstruction is a clinical consideration, consider repeat CT scan abdomen pelvis post intravenous contrast follow-up
--- NOTE | 2025-08-11 03:03 | XR_ITS ---
Examination: CT abdomen with intravenous contrast CT pelvis with intravenous contrast 2-D coronal reconstructions 2-D sagittal reconstructions Date and time of exam: August 11, 2025, 0541 hours, comparison July 15, 2025 INDICATIONS: Abdominal pain and vomiting today, renal failure patient with dialysis 20 years. CTDI: vol (mGy) 6.71 DLP: (mGycm) 458 Technique: Multiple axial sections of the abdomen and pelvis have been obtained. 64 slice high-resolution scanner used. 3 mm axial sections have been obtained, post intravenous injection 60 cc Isovue 370 2-D sagittal, coronal reconstructions obtained. Low dose protocols were performed. One or more of the following dose reduction techniques were used; automated exposure control, adjustment of the mA and/or KV according to patient size, use of iterative reconstruction technique. 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
[2025-08-11] MEDS: SODIUM CHLORIDE 0.9% 1000 ML 1,000 ML 80 ML IV (03:25)
[2025-08-11] MEDS: MORPHINE SULF INJ 4 MG/ML VIAL 2 MG IVP (03:29)
--- NOTE | 2025-08-11 03:29 | PD.EDABDPN ---
ED Abdominal Pain RME/HPI General Chief Complaint: Abdominal Pain Stated complaint: ABD PAIN Time seen by provider: 08/11/25 03:00 Arrival date/time: 08/11/25 02:50 RME / HPI RME / HPI narrative: CC: Abdominal Pain Patient has a 75-year-old male with a past medical history of ESRD on dialysis Tuesday who follows Dr. Little, CAD status post CABG, hypertension, Hypothyroidism, and recent hospitalization of incarcerated inguinal hernia s/p mesh placement on 07/15/2025. Patient presented with a chief complain of abdominal pain on going for the past 2-3 days. Patient denied constipation or diarrhea. Denied fevers or chills. No right upper quadrant pain. Per patient appendix removed. Related Data Home Medications ?Medication ?Instructions ?Recorded ?Confirmed HYDROCODONE BIT/ACETAMINOPHEN 1 tab PO Q6HR PRN pain ##0 07/04/14 07/15/25 (HYDROCODON-ACETAMINOPH 2.5-325) Levothyroxine * (SYNTHROID *) 75 mcg PO QDAY #0 tabs 07/04/14 07/15/25 sevelamer carbonate 800 mg tablet 800 mg PO TID 04/18/23 07/15/25 (Renvela) amlodipine 10 mg tablet (Norvasc) 10 mg PO QDAY 11/20/24 07/15/25 gabapentin 400 mg capsule 400 mg PO TID 11/20/24 07/15/25 lidocaine 4 % topical cream 1 applic topical BID 11/20/24 07/15/25 (Anecream) pravastatin 10 mg tablet 10 mg PO DAILY 01/01/25 07/15/25 Previous Rx's ?Medication ?Instructions ?Recorded duloxetine 30 mg capsule,delayed 60 mg (2 x 30 mg) PO QDAY 3 months 07/18/25 release #180 caps pantoprazole 40 mg tablet,delayed 40 mg PO QDAY 3 months #90 tabs 07/18/25 release Allergies Allergy/AdvReac Type Severity Reaction Status Date / Time No Known Allergies Allergy Verified 08/11/25 03:08 Review of Systems Review of Systems Narrative Review of Systems: General appearance: NO weight change, NO fatigue, NO weakness, NO fever, NO chills, NO night sweats, No cough Skin: NO rash, NO itching, NO sores, NO moles HEENT: NO Trauma, NO nausea, NO vomiting, NO visual changes, NO blurry vision, NO double vision, NO tinnitus, NO vertigo, NO ear discharge, NO rhinorrhea, NO stuffiness, NO sneezing, NO allergy, NO epistaxis. NO Hoarseness, NO sore throat, NO swollen neck. Cardiac: NO Palpitations, NO dyspnea on exertion, NO orthopnea, NO paroxysmal nocturnal dyspnea, NO edema Respiratory: NO Shortness of Breath, NO Wheezing, NO Cough, NO Sputum, NO hemoptysis GI:NO appetite, NO nausea, NO vomiting, NO dysphagia, NO changes in bowel frequency, NO stool color, NO diarrhea, NO constipation, NO hemetemesis, NO hemorrhoids, NO melena, NO hematechezia, Yes abdominal pain, NO jaundice Renal: NO frequency, NO hesitancy, NO urgency, NO hematuria, NO nocturia, NO incontinence MSK: NO muscle weakness, NO gout, NO arthritis, NO muscle stiffness Neuro: NO headaches, NO tremors, NO weakness, NO paralysis, NO seizures, NO loss of consciousness, NO numbness. Hem: NO anemia, NO easy bruising/bleeding, NO petechiae, NO purpura Endo: NO heat/cold intolerance, NO excessive sweating, NO polyuria, NO polydipsia, NO polyphagia, NO thyroid problems, NO diabetes Pysch: NO mood, NO anxiety, NO depression ED Exam Narrative Physical exam: General Appearance: Alert & Oriented X3, thin male who is lying in bed in mild distress secondary to abdominal pain HEENT: Skull symmetrical and atraumatic. Conjunctivae pin and moist. Pupils equal, round, reactive to light and accommodation (PERRL). External ear without lesion or discharge. Straight, nares patient, mucosa pink, no discharge. No thyroid nodule appreciated. No cervical lymphadenopathy. Cardio: Normal Rate and Rhythm with S1 and S2 heart sounds. No murmurs or extra heart sounds auscultated. No bruits on carotid auscultation. No peripheral edema or cyanosis. Lungs: Symmetric with good expansion. Chest and back non-tender. Breath sounds vesicular without crackles, wheezing or rhonchi Abdomen: mild tenderness at left lower quadrant, Non-distended, Normal Reactive Bowel Sounds Neuro: Alert, cooperative, oriented to person, place, and time. Speech clear. CN grossly intact. Upper motor strength 5/5 and Lower motor strength 5/5. Sensation intact. Course Course Course Narrative: CBC CMP lactic acid KUB--->CT abdomen pelvis Quality Measures none Orders Category Date Time Status CT Screening NOW Care 08/11/25 03:[address] Screening NOW Care 08/11/25 05:38 Active Behavioral Assistant Q4H START 00 Care 08/11/25 03:05 Active EKG (ED ONLY) *Do not use* NOW Care 08/11/25 03:01 Completed IV [Insert IV] NOW Care 08/11/25 03:[address] abdomen pelvis w con Stat Exams 08/11/25 03:03 Taken EKG (ED Only) Stat Exams 08/11/25 03:01 Draft KUB [XR abdomen 1V] Stat Exams 08/11/25 03:01 Taken B-Type Natriuretic Peptide Stat Lab 08/11/25 03:16 Completed CBC Stat Lab 08/11/25 03:16 Completed Comprehensive Metabolic Panel Stat Lab 08/11/25 03:16 Completed Drug Screen,Urine Stat Lab 08/11/25 03:25 Completed Lactic Acid [Lactate (Lactic Acid)] Routine Lab 08/11/25 06:30 Ordered Lactic Acid [Lactate (Lactic Acid)] Stat Lab 08/11/25 03:16 Results Lipase Stat Lab 08/11/25 03:16 Completed Magnesium Stat Lab 08/11/25 03:16 Completed Troponin I Stat Lab 08/11/25 03:16 Completed Urinalysis, C/S if Indicated Stat Lab 08/11/25 03:25 Completed Urine Culture Stat Lab 08/11/25 03:25 Received Morphine* Inj Med 08/11/25 03:04 Discontinued 2 mg IVP X1 ONE Ringers Lactated 1000 ml [Lactated Ringers] 1,000 ml Med 08/11/25 03:51 Discontinued IV 999 mls/hr Sodium Chloride 0.9% 1000 ml [Ns] 1,000 ml Med 08/11/25 03:05 Active IV 80 mls/hr cefTRIAXone/D5w 1gm IV premix [Rocephin/D5w 1gm IV Med 08/11/25 05:00 Discontinued premix] 1 gm in 50 ml IV X1 Vital Signs Vital signs: Vital Signs Pulse Rate 90 08/11/25 03:14 Abdominal Pain MDM Patient data External records reviewed:: [facility] previous records Clinical information provided by:: patient Social determinants that could affect healthcare access:: none Patient has the following chronic illnesses:: ESRD on dialysis Tuesday who follows Dr. Little, CAD status post CABG, hypertension, Hypothyroidism, and recent hospitalization of incarcerated inguinal hernia s/p mesh placement on 07/15/2025 How is presenting disease/condition affected by chronic disease/condition?: exacerbated by (ESRD ) Evaluation data The following diagnostics were reviewed and interpreted by me:: lab results and radiology exam(s) Lab and/or radiology exams considered but not ordered:: None Interpretation Summary: Patient is a 75 year old male ESRD on dialysis Tuesday who follows Dr. Little, CAD status post CABG, hypertension, Hypothyroidism, and recent hospitalization of incarcerated inguinal hernia s/p mesh placement on 07/15/2025 who presented with abomdinal pain in left lower quadrant, KUB and CT Ab pelvis w/ contrast with mild leukocytosis. Lactic Acidosis of 4.6 w/ normal bicarbonate. UA positive. *signed off patient w/ day team, Dr. Vargas. follow up with Abdomen Pelvis CT & Head Baker, Dr. Little - The patient's plan was discussed with attending Dr. Allen Grayson MD PGY2 Internal Medicine Medications / Prescriptions Medications or Prescriptions considered but not ordered:: none Medication administrations:: Medication Administration History Sodium Chloride (Ns) 1,000 mls @ 80 mls/hr IV .[id number] ONE Stop: 08/11/25 15:34 Last Admin: 08/11/25 03:25 Dose: 80 mls/hr Documented By: LELIA Discontinued Medications Lactated Ringer's (Lactated Ringers) 1,000 mls @ 999 mls/hr IV .[id number] ONE Stop: 08/11/25 04:51 Last Admin: 08/11/25 06:14 Dose: Not Given Documented By: GODWIN Non-Admin Reason: Cancelled by Provider Ceftriaxone Sodium/Dextrose (Rocephin/D5w 1gm Iv Premix) 1 gm in 50 mls @ 100 mls/hr IV X1 ONE Stop: 08/11/25 05:29 Last Infusion: 08/11/25 06:14 Dose: Infused Documented By: Admin: 08/11/25 05:05 Dose: 100 mls/hr Documented By: TANNER Morphine Sulfate (Morphine Sulf Inj 4 Mg/Ml Vial) 2 mg IVP X1 ONE Stop: 08/11/25 03:05 Last Admin: 08/11/25 03:29 Dose: 2 mg Documented By: LELIA same as above Consultations Consultation(s) initiated? (list below): No Diagnosis Differential diagnosis abdominal pain: constipation, diverticulitis, gastroenteritis and small bowel obstruction Most likely diagnosis given after review of the tests above:: Patient is a 75 year old male ESRD on dialysis Tuesday who follows Dr. Little, CAD status post CABG, hypertension, Hypothyroidism, and recent hospitalization of incarcerated inguinal hernia s/p mesh placement on 07/15/2025 who presented with abomdinal pain in left lower quadrant, KUB and CT Ab pelvis w/ contrast with mild leukocytosis. Lactic Acidosis of 4.6 w/ normal bicarbonate. UA positive. #UTI #Lactic Acid #Concern for constipation vs Small Bowel Obstruction --->Pending CT abdomen *signed off patient w/ day team, Dr. Vargas. follow up with Abdomen Pelvis CT & Head Baker, Dr. Little - The patient's plan was discussed with attending Dr. 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 Vargas ) Discharge Plan Prescriptions/Referrals Prescriptions/Med Rec: No Action HYDROCODONE BIT/ACETAMINOPHEN (HYDROCODON-ACETAMINOPH 2.5-325) 1 EACH tablet 1 tab PO Q6HR PRN (Reason: pain) Qty: 0 Rx Instructions: 1 Every 6-8 hours for pain Levothyroxine * (SYNTHROID *) 75 MCG tablet 75 mcg PO QDAY Qty: 0 sevelamer carbonate [Renvela] 800 mg Tablet 800 mg PO TID Rx Instructions: must administer with a meal/food gabapentin 400 mg capsule 400 mg PO TID Patient Comments: TAKE ONE CAPSULE BY MOUTH THREE TIMES DAILY FOR NERVE PAIN amlodipine [Norvasc] 10 mg tablet 10 mg PO QDAY lidocaine [Anecream] 4 % cream 1 applic topical BID Rx Instructions: to right 2nd toe arthritis pain. (Over the counter med) pravastatin 10 mg tablet 10 mg PO DAILY duloxetine 30 mg Capsule,Delayed Release(Dr/Ec) 60 mg PO QDAY 90 Days Qty: 180 0RF pantoprazole 40 mg Tablet,Delayed Release (Dr/Ec) 40 mg PO QDAY 90 Days Qty: 90 0RF Referrals: Wendy Yin PA-C [Primary Care Provider, Family Practice] - In 1 week Problem List Clinical Impression: Acute UTI, Acute lactic acidosis Patient/Caregiver Discharge Instructions Print Language: Kuwaiti
[2025-08-11 03:44] LABS: Collection Type, Urine Clean Catch
[2025-08-11 03:48] LABS: Lactate (Lactic Acid) 4.6 mMol/L (0.4-2.0)
[2025-08-11 03:49] LABS: Bacteria,Urine Rare; Bilirubin,Urine Negative (Negative); Blood,Urine Negative (Negative); Budding Yeast,Urine Present; Clarity,Urine Turbid (Clear/Hazy); Color,Urine Lt-Yellow (Lt Yel-Yel); Glucose, Urine Negative (Negative); Ketones,Urine Negative (Negative); Leukocyte Esterase,Urine Positive (Negative); Nitrite,Urine Negative (Negative); PH,Urine 8.0 (5.0-7.0); Protein,Urine 3+ (Neg - Trace); RBC,Urine 18 /hpf (0-3); Specific Gravity,Urine 1.014 (1.001-1.035); Squamous Epithelial Cell,Urine 4 /hpf (0-5); Urobilinogen,Urine Negative mg/dL (0.0-1.0); WBC,Urine 72 /hpf (0-5)
[2025-08-11 03:50] LABS: Culture Indicated,Urine Yes
[2025-08-11 03:54] LABS: Basophils # (Auto) 0.0 Thou/mm3 (0.0-0.2); Basophils % (Auto) 0 % (0-2.5); Eosinophils # (Auto) 0.1 Thou/mm3 (0.0-0.5); Eosinophils % (Auto) 0 % (0-10); Hematocrit 40.1 % (41.0-53.0); Hemoglobin 12.5 g/dL (13.5-16.0); Immature Granulocytes Auto 0.03 Thou/mm3 (0.00-0.00); Lymphocytes # (Auto) 2.9 Thou/mm3 (1.0-4.8); Lymphocytes % (Auto) 25 % (10-50); Mean Corpuscular HGB Conc 31.2 g/dl (31.0-37.0); Mean Corpuscular Hemoglobin 29.0 pg (25.0-35.0); Mean Corpuscular Volume 93 fL (80-100); Monocytes # (Auto) 0.8 Thou/mm3 (0.0-0.8); Monocytes % (Auto) 7 % (0-12); Neutrophils # (Auto) 7.9 Thou/mm3 (1.8-7.7); Neutrophils % (Auto) 68 % (37-80); Nucleated Red Blood Cell # 0.00 Thou/mm3 (0.00-0.00); Nucleated Red Blood Cell % 0 /100 WBC (0); Platelet Count 243 Thou/mm3 (140-440); RDW Standard Deviation 56.1 fL (35.1-43.9); Red Blood Count 4.31 Miln/mm3 (4.50-5.90); White Blood Count 11.7 Thou/mm3 (3.8-10.6)
[2025-08-11 03:59] LABS: Amphetamine/Methamp Scrn,U Negative (Negative); Barbiturate Screen,Urine Negative (Negative); Benzodiazepines Screen,Urine Negative (Negative); Benzoylecgonine Screen, Ur Negative (Negative); Fentanyl Screen,Urine Negative (Negative); Opiate Screen,Urine Positive (Negative); THC Screen,Urine Negative (Negative)
[2025-08-11 04:41] LABS: Alanine Aminotransferase < 7 U/L (10-49); Albumin, Serum 4.1 gm/dL (3.4-4.8); Albumin/Globulin Ratio 1.8 (1.2-2.2); Alkaline Phosphatase 164 U/L (46-116); Anion Gap 15 (7-16); Aspartate Amino Transferase 19 U/L (0-34); BUN/Creatinine Ratio 5 Ratio (12-20); Bilirubin,Total 0.3 mg/dL (0.3-1.2); Blood Urea Nitrogen 26 mg/dL (9-23); Calcium 9.5 mg/dL (8.3-10.6); Calcium (Corrected) 9.5 mg/dL (8.5-10.1); Carbon Dioxide 27.6 mMol/L (20.0-31.0); Chloride 95 mMol/L (98-107); Creatinine (Component) 5.0 mg/dL (0.6-1.3); Estimated Creatinine Clearance 13.3 mL/min (>60); Globulin 2.3 gm/dL (2.3-3.5); Glucose 117 mg/dL (74-106); Lipase 26 U/L (12-53); Magnesium 3.1 mg/dL (1.6-2.6); Osmolality,Calculated 281 (275-295); Potassium 4.8 mMol/L (3.4-5.1); Sodium 138 mMol/L (136-145); Total Protein 6.4 gm/dL (5.7-8.2); Troponin I < 0.020 ng/mL (0.0-0.045); eGFR 11 See Note
[2025-08-11] MEDS: cefTRIAXone/D5w 1gm IV premix 1 GM/50 ML BAG IV (05:05)
[2025-08-11 05:14] LABS: B-Type Natriuretic Peptide 619 pg/mL (0-100)
[2025-08-11 06:28] LABS: Lactate (Lactic Acid) 3.7 mMol/L (0.4-2.0)
[2025-08-11 06:41] LABS: Reflex Lactate? Y
--- NOTE | 2025-08-11 06:41 | XR_ITS ---
EXAMINATION: AP chest single view TECHNIQUE: AP portable upright chest single view Date and time: August 11, 2025, 0701 hours, comparison August 15, 2025 INDICATIONS: Shortness of breath today FINDINGS: Early heart failure Mild enlargement left ventricle. CABG. Prominent vascular congestion with early septal edema at the lung bases Prominent osteopenia IMPRESSION: Early CHF
--- NOTE | 2025-08-11 06:41 | XR_ITS ---
Examination: CT brain head without contrast. 2-D sagittal coronal reconstructions Date and time of exam: August 11, 2025, 0841 hours INDICATIONS: Onset ataxia beginning 6:00 a.m. this morning CTDI: vol (mGy): 51.2 DLP: (mGycm): 1029 Technique: Multiple CT axial sections of the brain have been obtained, 5 mm slice thickness. Contrast has not been administered. 2-D sagittal, coronal reconstructions have been obtained Low dose protocols were performed. One or more of the following dose reduction techniques were used; automated exposure control, adjustment of the mA and/or KV according to patient size, use of iterative reconstruction technique. Findings: No significant ventricular enlargement. Intra-axial or extra-axial hemorrhage density is not seen. No mass effect or midline shift Basal cisterns are not remarkable. Fourth ventricle is midline. Cranial vault intact. Impression: Negative for acute hemorrhage, mass effect or midline shift If the patient has true ataxia, consider brain MRI MRA, stroke protocol follow-up
--- NOTE | 2025-08-11 07:26 | PRELIM_ITS ---
CT scan of the abdomen and pelvis with intravenous contrast (axial sections with sagittal and coronal reformats). August 11, 2025, 0541 hours Clinical History: Abdominal Pain Comparison: No prior study is available for comparison. Findings: Hazy opacities and interstitial septal thickening in bilateral lower lobes. Bibasilar streaky atelectasis/fibrosis is present. The liver demonstrates a nodular contour, which may represent cirrhosis. The gallbladder is distended with borderline wall thickening, containing calcified calculi. Both kidneys are atrophied with cortical scarring. There are a few small cysts in both kidneys. There is a 5 mm non-obstructing calculus in the right kidney. Mild dilatation of the right extra-renal pelvis is noted. The pancreas, spleen, and adrenals are unremarkable. There is wall thickening of the rectum and sigmoid colon. Fluid-filled colon with scattered air-fluid levels. There are mildly dilated small bowel loops with air-fluid levels and transition at the level of the ileum in the right lower quadrant (coronal images 40-60). Wall thickening of the ileum at the site of transition with surrounding fat stranding. No evidence of bowel obstruction. The appendix is not visualized. The urinary bladder is unremarkable. There is small ascites. There is no free air. There is a small left fat-containing inguinal hernia. Mild fat stranding in the left inguinal region. The aorta and its branches demonstrate atheromatous calcification without evidence of aneurysm. Degenerative changes are identified in the spine. Impression: 1. Findings are of concern for evolving/partial small bowel obstruction. 2. Ileal wall thickening and fat stranding at the site of transition, suggesting ileitis versus stricture. Recommend further evaluation. 3. Findings suggestive of colitis and proctosigmoiditis. Recommend clinical correlation and follow-up. 4. Distended gallbladder with borderline wall thickening, containing calcified calculi. Acute cholecystitis cannot be excluded. Recommend further evaluation with sonography, if clinically indicated. 5. Findings suggestive of liver cirrhosis. 6. Other findings as described above. Report Electronically Signed By: Pato Blanco 08/11/2025 7:26:05 AM [EST]
--- NOTE | 2025-08-11 07:45 | EDNOTE_ITS ---
Emergency Room Addendum Addendum Narrative: I took over the care from previous shift physician at _0600_ on _08/11/25_.? See previous notes for complete H & P and ED course.?? I reviewed all diagnostic test results. On my evaluation, most significant presentation is severe ataxia for the past couple weeks, demonstrated in front of me. Diagnoses include: Ataxia Acute UTI ESRD on dialysis I discussed the case with our neurologist (Dr. 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 Little) and our hospitalist.? About the presentation and exam and diagnostics and treatments here.? And need of further care in the hospital.? Will accept the patient. Paramjit Vargas MD
[2025-08-11 07:46] LABS: Procalcitonin 0.51 ng/ml (0.0-0.49)
--- NOTE | 2025-08-11 08:06 | XR_ITS ---
Examination: Abdomen sonogram, Limited Date and time of exam: August 11, 2025, 1907 hours INDICATIONS: Right upper abdomen tenderness today Technique: Real-time pennington scale transabdominal sonographic images of the upper abdomen obtained. Findings: Cholelithiasis Gallbladder wall 0.3 cm no edema Common bile duct 0.3 cm Pancreatic head 2.1 cm Liver 16.9 cm no liver lesions Normal hepatopetal portal venous flow Patent IVC IMPRESSION: Cholelithiasis, negative for cholecystitis
[2025-08-11 09:24] LABS: Reflex Lactate? Y
[2025-08-11 10:30] LABS: Lactic Acid, 3 HR 0.8 mMol/L (0.4-2.0)
--- NOTE | 2025-08-11 12:09 | ESHP_ITS ---
<Statement entered by Félix Bragg MD - 08/11/25 15:59> Patient was seen and examined at bedside. I agree on the assessment and plan on this note as documented by resident Dr Manuela Polanco MD PGY1. 75-year-old male with past medical history of ESRD follows Dr. Little, CAD status post CABG, hypertension, hypothyroidism, TIA, GERD, arthritis and recent surgery for incarcerated hernia status post mesh placement 07/15 who presented to [facility] emergency department with a chief complaint of abdominal pain for the last 2 to 3 days, patient also complains that he is unable to ambulate since his surgery and feels out of balance. Patient reports that prior to surgery he was walking without assistance, was admitted earlier this June for acute encephalopathy as well. Neurology was consulted in the ED, recommended admission for MRI and further CVA workup, consulted physical therapy, neuro swallow screen ordered, will be started on Rocephin for suspected UTI. Received hemodialysis today. Follow-up gallbladder ultrasound. Will continue to monitor patient. Case discussed with attending Dr. Imelda Cavazos MD PGY-2 Documentation for date of: 08/11/25 HPI History of Present Illness History of present illness: A 75-year-old male with past medical history of ESRD on dialysis Tuesday (Dr. Little), CAD status post CABG, hypertension, hypothyroidism, incarcerated inguinal hernia status post mesh on 07/15/2025, urinary retention, presented with difficulty walking x 1 month. Patient reported difficulty walking starting after hernia surgery on 07/15, reported losing balance when trying to get up. Patient's baseline is walking without assistance. Reported hospitalization 5 times this year with low Hgb, no signs of GI bleed, at which ASA was discontinued. Difficulty of walking has progressively gotten worse. Per , patient's difficulty speaking, stutter, repeating sentences, have been there for several months. Denied recent sick contact, difficulty swallowing. Denied history of TIA. Admitted dizziness when getting up. Admitted to self catheter at home 3 times a day. Patient lives at home with . H&P is somewhat limited due to patient's inattentiveness, having trouble recalling information, stutter, repeating sentences. ED: Labs: WBC 11.7 BUN 26 creatinine 5.08 GFR 11 LFT normal except for alk phos 164 troponin negative BNP 619 procalcitonin 0.51 UA positive, U tox positive for opiates Lactic acid 4.6, improved to 0.8 after given NS Imaging: CTAP showed mild ascites, distended gallbladder with gallstone, multiple fluid distended small bowel loops with wall thickening of small bowel. CXR showed early CHF. Head CT negative Review of Systems Review of Systems Systems Reviewed: All systems reviewed, normal except as documented Exam Vital Signs Temp Pulse Resp BP Pulse Ox O2 Del Method 97.2 F 61 21 H 145/70 H 97 Nasal Cannula 08/11/25 12:05 08/11/25 12:00 08/11/25 12:05 08/11/25 12:00 08/11/25 12:05 08/11/25 06:00 Narrative Exam GENERAL: no acute distress, AAO x3. Inattentiveness, stutter, repeating sentences. HEENT: Head AT/ NC. Mucous membranes moist. PERRL. NECK: Supple, no lymphadenopathy, no carotid bruits. CARDIOVASCULAR: Regular rate and rthym. Normal S1/S2, No m/r/g. No swelling RESPIRATORY: No wheezing, rhonchi, crackles. GASTROINTESTINAL: Abdomen soft, non tender no palpable masses. Bowel sounds present in all 4 quadrants. NEUROLOGICAL: CN II-XII grossly intact except for saccadic replacement of smooth pursuit PSYCHIATRIC: Awake and alert, not agitated, normal mood and affect. INTEGUMENTARY: No obvious rashes, no jaundice, normal turgor. Results: Labs 08/11/25 03:16 08/11/25 03:16 Labs: Short CBC 08/11/25 Range/Units 03:16 WBC 11.7 H D (3.8-10.6) Thou/mm3 Hgb 12.5 L (13.5-16.0) g/dL Hct 40.1 L (41.0-53.0) % Plt Count 243 D (140-440) Thou/mm3 BMP 08/11/25 03:16 Sodium 138 Potassium 4.8 Chloride 95 L Carbon Dioxide 27.6 BUN 26 H Creatinine 5.0 H* Glucose 117 H Calcium 9.5 Cardiac Enzymes 08/11/25 Range/Units 03:16 Troponin I < 0.020 (0.0-0.045) ng/mL Liver Function 08/11/25 Range/Units 03:16 Total Bilirubin 0.3 (0.3-1.2) mg/dL AST 19 (0-34) U/L ALT < 7 L (10-49) U/L Alkaline Phosphatase 164 H (46-116) U/L Albumin 4.1 (3.4-4.8) gm/dL Urine 08/11/25 Range/Units 03:25 Urine Color Lt-Yellow (Lt Yel-Yel) Urine Clarity Turbid A (Clear/Hazy) Urine pH 8.0 H (5.0-7.0) Ur Specific [place] 1.014 (1.001-1.035) Urine Protein 3+ A (Neg - Trace) Urine Glucose (UA) Negative (Negative) Quality Measures Quality Measures VTE prophylaxis Advance care planning discussed with:: patient Medications Home Medications and Allergies Home Medications ?Medication ?Instructions ?Recorded ?Confirmed ?Type HYDROCODONE BIT/ACETAMINOPHEN 1 tab PO Q6HR PRN pain # #0 07/04/14 07/15/25 History (HYDROCODON-ACETAMINOPH 2.5-325) Levothyroxine * (SYNTHROID *) 75 mcg PO QDAY #0 tabs 1 07/15/25 History sevelamer carbonate 800 mg tablet 800 mg PO TID 07/15/25 History (Renvela) amlodipine 10 mg tablet (Norvasc) 10 mg PO QDAY 07/15/25 History gabapentin 400 mg capsule 400 mg PO TID 11/20/2407/15 History lidocaine 4 % topical cream 1 applic topical BID 11/2007/15/25 History (Anecream) pravastatin 10 mg tablet 10 mg PO DAILY 01/01/2506/27 History Allergies Allergy/AdvReac Type Severity Reaction Status Date / Time No Known Allergies Allergy Verified 08/11/25 03:08 Visit Medications Acetaminophen (Acetaminophen 325 Mg Tablet) 650 mg PO Q6H PRN PRN Reason: Fever >100.4 and pain 1-3 Stop: 09/10/25 11:58 Heparin Sodium (Porcine) (Heparin Sod Inj 5000 Unit/Ml Vial) 5,000 unit SC Q12HR RICH Stop: 08/25/25 12:14 Sodium Chloride (Ns) 1,000 mls @ 80 mls/hr IV .[id number] ONE Stop: 08/11/25 15:34 Last Admin: 08/11/25 03:25 Dose: 80 mls/hr Pantoprazole Sodium (Pantoprazole Inj 40 Mg Vial) 40 mg IVP QDAY RCIH Stop: 09/11/25 08:59 Sennosides (Senna Tablet) 1 tab PO QDAY RICH; Protocol Stop: 09/11/25 08:59 Discontinued Medications Lactated Ringer's (Lactated Ringers) 1,000 mls @ 999 mls/hr IV .Q1H1M ONE Stop: 08/11/25 04:51 Last Admin: 08/11/25 06:14 Dose: Not Given Ceftriaxone Sodium/Dextrose (Rocephin/D5w 1gm Iv Premix) 1 gm in 50 mls @ 100 mls/hr IV X1 ONE Stop: 08/11/25 05:29 Last Infusion: 08/11/25 06:14 Dose: Infused Morphine Sulfate (Morphine Sulf Inj 4 Mg/Ml Vial) 2 mg IVP X1 ONE Stop: 08/11/25 03:05 Last Admin: 08/11/25 03:29 Dose: 2 mg Assessment & Plan Plan 75-year-old male past medical history ESRD on HD Tuesday, CAD status post CABG, hypertension, hypothyroidism, incarcerated inguinal hernia status post mesh presents was difficulty walking x 1 month after hernia surgery on 07/15. Admitted for stroke workup. CTAP showed mild ascites, distended gallbladder with gallstone, multiple fluid distended small bowel loops with wall thickening of small bowel. CXR showed early CHF. Head CT negative # Ataxia DDx: Stroke versus UTI related weakness versus deconditioning Difficulty speaking has been present for months, unrelated to difficulty walking which is new. Difficulty walking x 1 month after hernia surgery, progressively worsening. Not currently on any anticoagulants. Denies history of TIA. CT head negative. Neurocheck insignificant upon admission Plan: - Consulted neurology, appreciate recs - Pending brain MRI - Pending CTA head - Neurochecks every 4 hour - Passed bedside swallowing test, on renal diet # Urinary tract infection ESRD on HD. Still making urine. Self catheter at home 3 times a day due to urinary retention. WBC 11.7. Denied any urinary symptoms. Plan: - Start Rocephin 1 g (08/11-) - Start Aguilar catheter #ESRD on HD BUN 26 creatinine 5.08. On HD Tuesday. Last dialysis on admission 08/11. Plan: - Monitor electrolytes and renal function - Strict I&O - Avoid nephrotoxic agents - Renal dose medications - HD inpatient if indicated # Cholelithiasis CTAP showed mild ascites, distended gallbladder with gallstone, multiple fluid distended small bowel loops with wall thickening of small bowel. LFT normal except for alk phos 164. No abdominal pain on physical exam. Asymptomatic at this time Plan: - Continue to monitor LFT - Follow-up outpatient # Chronic history of lactic acidosis Chronically mildly elevated lactate in the setting of ESRD versus UTI. Baseline lactic acid normal with a more than 2. Lactic acid 4.6 on admission, improved to 0.8 after given NS in ED. Plan: - Continue with HD as needed inpatient -Treat UTI with Rocephin - Monitor daily labs Health Maintenance: Code status: Full DVT prophylaxis: Heparin 5,000 Q12H GI prophylaxis: Protonix Diet: Dysphagia Step 2 Aguilar: Yes Lines: PIV Supplemental O2: None Disposition: Tele Assessment and plan discussed with my attending physician Dr. Lerma and Dr. Bragg (PGY-2). Dr. Polanco (PGY-1) ? microarray operations vice president Attending Provider Attestation/Addendum Deanne Hunter, , attest that I was physically present for the tillman portions of the service and evaluated the patient with the resident and I reviewed and discussed the case with the resident and agree with the resident's findings and plans of care as documented above Patient is a 75-year-old male with past medical history of end-stage renal disease on HD Tuesday, CAD status post CABG, hypertension, hypothyroidism, incarcerated hernia status post repair who was brought to ED due to generalized weakness and inability to walk. At baseline, patient is able to ambulate independently. However, patient reports that since his recent surgery, he has been having difficulty speaking as well as difficulty walking. However, patient was frequently stuttering at lacked attention during interview. Patient had been seen during dialysis. was able to elaborate over the phone with resident that patient has had difficulty speaking for several months. He has a history of acute urinary retention requiring self catheterization. Patient is able to speak very clearly when talking about old events, but is very repetitive upon questioning the reason why he is in the hospital and recent events. Patient is very repetitive regarding previous episode of anemia that led to GI bleed and has thus been off of aspirin for this reason. Upon evaluation in the ED, patient was noted to have leukocytosis of 11.7 hemoglobin of 12.5, lactic acidosis of 4.6 and elevated magnesium with 3.1. BNP of 619. UA was positive for bacteria and yeast. Imaging was done in the ED and head CT was negative for any acute intracranial findings. Chest x-ray showed early CHF. CT abdomen and pelvis was done showing cirrhosis versus primary hepatocellular disease, mild ascites, distended gallbladder with gallstones, multiple fluid distended small bowel loops with wall thickening of small bowel and mild to moderate colitis pattern. Patient denies any abdominal pain. He also does not have any tenderness to palpation on exam. He also has a negative Stein sign. Patient's coordination is very poor with aquzew-rj-lcas and [id number] test. Patient is very concerned about the fact that he has been unable to ambulate. Will admit patient to telemetry for further workup and medical management of ataxia. Neurology was recommended from ER. Will order MRI of brain. CTA head and neck is also pending. Due to bacteria found in UA, will start patient on IV Rocephin [address] Aguilar catheter due to urinary retention.
--- NOTE | 2025-08-11 12:45 | PC.NURSE ---
PATIENT BACK FROM DIALYSIS. VITAL SIGNS STABLE. PATIENT WILL BE ADMIT
--- NOTE | 2025-08-11 12:48 | PC.CC ---
Patient is a 75 year-old male who presents to the hospital for CVA Workup. INVENTORY COORDINATORFlor made jtgx-[id number] contact with patient's , Amy Espitia introduced self, role, and reason for visit. Initial assessment was completed with as patient was in dialysis. INVENTORY COORDINATOR, discussed limits of confidentiality. confirmed information on demographics and reports it is her and patient living at home. Per , patient has not been able to ambulate independently that past week and has had difficulty even with the walker. She reports that his primary provider ordered the patient a wheelchair that is going to be delivered tomorrow. Amy reports that patient has needed assistance with ADLs. He receives dialysis at [facility] Tuesday, Tuesday, and Fridays from 8:30am-12:30pm. Patient's primary provider is Wendy Yin and for prescription medications they use [facility]. Upon discharge patient's plans to take patient home. convention services manager to follow up with any discharge needs.
[2025-08-11] MEDS: HEPARIN SOD INJ 5000 UNIT/ML VIAL SC ×2 (12:58→20:39)
[2025-08-11] MEDS: GABAPENTIN 100 MG CAPSULE PO (21:54)
[2025-08-12] VITALS (22 sets, daily range): BP systolic 118–183; BP diastolic 61–98; PULSE 55–98; RESP 13–97; TEMP 36.2–37; O2SAT 95–97
--- NOTE | 2025-08-12 | XR_ITS ---
Examinations: MRI Brain without intravenous contrast. MRA brain without intravenous contrast. MRA carotids without intravenous contrast 3-D vascular reconstructions Date and time of exam: August 12, 2025, 0739 hours INDICATIONS: Difficulty walking 1 months Technique: Multiple axial and sagittal images of the brain have been obtained MRA brain carotid images without contrast obtained, including 3-D postprocessing, vascular maximum intensity projection images Findings: Sellaturcica is not enlarged. The optic chiasm and infundibular stalk are not remarkable. Prepontine and interpeduncular cisterns are not enlarged. No localized enlargement of the medulla or alejandro. Fourth ventricle and cerebellar tonsils normal in position. Subacute hemorrhage is not seen. Fourth ventricle is midline. Mass in the cerebellopontine angle region is not evident. 7th and 8th nerve complexes exhibits symmetry. Globes are symmetrical with no retro-orbital mass. Increased white matter signal prominent including old infarct left frontal lobe Diffusion-weighted images demonstrate no focus of restricted diffusion Mass-effect upon the ventricular system is not identified. MRA carotid images degraded by patient motion. 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
--- NOTE | 2025-08-12 01:00 | PC.NURSE ---
notified Dr. Serna of patients rhythm bigemeny and couplets. no new orders at this time.
--- NOTE | 2025-08-12 05:00 | XR_ITS ---
Examination: CTA carotids with intravenous contrast CTA brain, head with intravenous contrast. 2-D sagittal, coronal reconstructions. 3-D reconstructions. Exam date and time: August 12 2025, 0854 hours INDICATIONS: Stroke alert August 11, 2025 onset focal neurologic deficit, ataxia CTDI: vol (mGy) 23.9 DLP: (mGycm) 455 Technique: Multiple CTA axial brain, head carotid images post intravenous contrast injection 75 cc, [id number]. 2-D sagittal, coronal reconstructions. 3-D reconstructions, 3-D post processing including vascular maximum intensity projection images. Low dose protocols were performed. One or more of the following dose reduction techniques were used; automated exposure control, adjustment of the mA and/or KV according to patient size, use of iterative reconstruction technique. Findings: No critical common carotid carotid bifurcation or internal carotid artery stenoses Codominant vertebral arteries in the neck with no critical stenoses Intracranial vertebral arteries basilar artery and posterior cerebral branches do fill Petrous juxtasellar portions internal carotid arteries fill No large vessel occlusions involving M1 segments middle cerebral arteries middle cerebral artery trifurcation vessels or anterior cerebral arteries IMPRESSION: No critical neck arterial stenoses No cerebral large vessel arterial occlusions or thrombus
[2025-08-12 05:42] LABS: Basophils # (Auto) 0.0 Thou/mm3 (0.0-0.2); Basophils % (Auto) 0 % (0-2.5); Eosinophils # (Auto) 0.4 Thou/mm3 (0.0-0.5); Eosinophils % (Auto) 5 % (0-10); Hematocrit 34.5 % (41.0-53.0); Hemoglobin 10.6 g/dL (13.5-16.0); Immature Granulocytes Auto 0.02 Thou/mm3 (0.00-0.00); Lymphocytes # (Auto) 3.1 Thou/mm3 (1.0-4.8); Lymphocytes % (Auto) 44 % (10-50); Mean Corpuscular HGB Conc 30.7 g/dl (31.0-37.0); Mean Corpuscular Hemoglobin 29.0 pg (25.0-35.0); Mean Corpuscular Volume 95 fL (80-100); Monocytes # (Auto) 0.7 Thou/mm3 (0.0-0.8); Monocytes % (Auto) 9 % (0-12); Neutrophils # (Auto) 3.0 Thou/mm3 (1.8-7.7); Neutrophils % (Auto) 41 % (37-80); Nucleated Red Blood Cell # 0.00 Thou/mm3 (0.00-0.00); Nucleated Red Blood Cell % 0 /100 WBC (0); Platelet Count 211 Thou/mm3 (140-440); RDW Standard Deviation 57.2 fL (35.1-43.9); Red Blood Count 3.65 Miln/mm3 (4.50-5.90); White Blood Count 7.1 Thou/mm3 (3.8-10.6)
[2025-08-12] MEDS: LEVOTHYROXINE SODIUM 25 MCG TABLET 75 MCG PO (06:02)
[2025-08-12 06:36] LABS: Alanine Aminotransferase < 7 U/L (10-49); Albumin, Serum 3.5 gm/dL (3.4-4.8); Albumin/Globulin Ratio 1.9 (1.2-2.2); Alkaline Phosphatase 134 U/L (46-116); Anion Gap 7 (7-16); Aspartate Amino Transferase 12 U/L (0-34); BUN/Creatinine Ratio 5 Ratio (12-20); Bilirubin,Total 0.3 mg/dL (0.3-1.2); Blood Urea Nitrogen 21 mg/dL (9-23); Calcium 8.7 mg/dL (8.3-10.6); Calcium (Corrected) 9.1 mg/dL (8.5-10.1); Carbon Dioxide 32.0 mMol/L (20.0-31.0); Cardiac Risk Estimate 2.1 RATIO (4.0-6.7); Chloride 99 mMol/L (98-107); Cholesterol 104 mg/dL (132-200); Creatinine (Component) 4.0 mg/dL (0.6-1.3); Estimated Creatinine Clearance 15.9 mL/min (>60); Free T4 (Free Thyroxine) 0.99 ng/dL (0.89-1.76); Globulin 1.8 gm/dL (2.3-3.5); Glucose 96 mg/dL (74-106); HDL Cholesterol 49 mg/dL (40-60); LDL Cholesterol,Calculated 37 mg/dL (0-130); Magnesium 2.7 mg/dL (1.6-2.6); Osmolality,Calculated 278 (275-295); Phosphorous 3.4 mg/dL (2.4-5.1); Potassium 4.3 mMol/L (3.4-5.1); Sodium 138 mMol/L (136-145); Thyroid Stimulating Hormone 2.05 uIU/mL (0.55-4.78); Total Protein 5.3 gm/dL (5.7-8.2); Triglycerides 91 mg/dL (30-150); eGFR 15 See Note
[2025-08-12 06:45] LABS: Glucose Estimated Average 91 mg/dL (80-131); Hemoglobin A1C 4.8 % Hgb (4.8-6.0)
[2025-08-12] MEDS: GABAPENTIN 100 MG CAPSULE PO (08:32)
[2025-08-12] MEDS: PRAVASTATIN SODIUM 10 MG TABLET PO (08:33)
[2025-08-12] MEDS: HEPARIN SOD INJ 5000 UNIT/ML VIAL SC ×2 (08:34→20:18)
[2025-08-12 08:54] LABS: Hepatitis A Antibody IgM Non Reactive (Non React); Hepatitis B Core Antibody IgM Non Reactive (Non React); Hepatitis B Surface Ab Reactive (Immune) (Immune); Hepatitis B Surface Antigen Non Reactive (Non React); Hepatitis C Antibody Non Reactive (Non React)
--- NOTE | 2025-08-12 09:39 | PC.SS ---
Update: MRI and Echo are pending. Patient receiving IV antibiotics.
--- NOTE | 2025-08-12 11:21 | ESPR_ITS ---
<Statement entered by Félix Bragg MD - 08/12/25 19:35> Patient was seen and examined at bedside. I agree on the assessment and plan on this note as documented by resident Dr Manuela Polanco DO PGY1. 75-year-old male with past medical history as below admitted for CVA workup. CTA this morning showed no LVO, patient is pending MRI read and echocardiogram. We will continue with Rocephin, pending urine culture, patient received hemodialysis today per personnel quality assurance auditor. Patient was evaluated by physical therapy, recommended retirement facility however patient is hesitant, anticipate discharge in the next 24 hours post culture results to SNF/home per patient's preference. Case discussed with attending Dr. Leela Bragg MD PGY-2 Documentation for date of: 08/12/25 Subjective Subjective Interval history: Patient felt well, tolerated meals without nausea, vomiting, had 1 BM since admission. Neuro check Q4H has been unremarkable. Awaiting PT recommendation. CTA head/neck negative. Pending MRI read, Echo, Urine culture. Currently on Rocephin 1g. Dust Box Tender, Dr. Little, following, appreciate recs: HD today, goal of 3.4L out. Yesterday's HD got 2L out. Exam Vital Signs Temp Pulse Resp BP Pulse Ox O2 Del Method 97.7 F 69 16 150/79 H 95 Room Air 08/12/25 09:18 08/12/25 11:00 08/12/25 09:18 08/12/25 11:00 08/12/25 09:18 08/12/25 08:00 Narrative Exam GENERAL: no acute distress, AAO x3. Inattentiveness, stutter, repeating sentences. HEENT: Head AT/ NC. Mucous membranes moist. PERRL. NECK: Supple, no lymphadenopathy, no carotid bruits. CARDIOVASCULAR: Regular rate and rthym. Normal S1/S2, No m/r/g. No swelling RESPIRATORY: No wheezing, rhonchi, crackles. GASTROINTESTINAL: Abdomen soft, non tender no palpable masses. Bowel sounds present in all 4 quadrants. NEUROLOGICAL: CN II-XII grossly intact except for saccadic replacement of smooth pursuit PSYCHIATRIC: Awake and alert, not agitated, normal mood and affect. INTEGUMENTARY: No obvious rashes, no jaundice, normal turgor. Objective Labs 11/17/25 04:57 08/12/25 04:57 Labs: Laboratory Results - last 24 hr 08/12/25 04:57 WBC 7.1 RBC 3.65 L Hgb 10.6 L Hct 34.5 L MCV 95 MCH 29.0 MCHC 30.7 L RDW Std Deviation 57.2 H Plt Count 211 D Neut % (Auto) 41 Lymph % (Auto) 44 Dewitt % (Auto) 9 Eos % (Auto) 5 Baso % (Auto) 0 Neut # (Auto) 3.0 Lymph # (Auto) 3.1 Dewitt # (Auto) 0.7 Eos # (Auto) 0.4 Baso # (Auto) 0.0 Immature Gran # (Auto) 0.02 H Absolute Nucleated RBC 0.00 Immature Gran % 0 Nucleated RBC % 0 Sodium 138 Potassium 4.3 D Chloride 99 Carbon Dioxide 32.0 H Anion Gap 7 BUN 21 Creatinine 4.0 H D Estim Creat Clear Calc 15.9 L eGFR 15 L BUN/Creatinine Ratio 5 L Glucose [address] Glu mg/dL 91 Hemoglobin A1c 4.8 Calculated Osmolality 278 Calcium 8.7 Corrected Calcium 9.1 Phosphorus 3.4 Magnesium 2.7 H Total Bilirubin 0.3 AST 12 ALT < 7 L Alkaline Phosphatase 134 H D Total Protein 5.3 L Albumin 3.5 D Globulin 1.8 L Albumin/Globulin Ratio 1.9 Triglycerides 91 Cholesterol 104 L LDL Cholesterol, Calc 37 HDL Cholesterol 49 Cholesterol/HDL Ratio 2.1 L TSH 2.05 Free T4 0.99 Hepatitis A IgM Ab Non Reactive Hep Bs Antigen Non Reactive Hep Bs Antibody Reactive (Immune) Hep B Core IgM Ab Non Reactive Hepatitis C Antibody Non Reactive Quality Measures Quality Measures VTE prophylaxis Advance care planning discussed with:: patient Assessment & Plan Assessment Current Active Medications: Generic Name Dose Route Start Last Admin Trade Name Freq PRN Reason Stop Dose Admin Acetaminophen 650 mg 08/11/25 11:59 Acetaminophen 325 Mg Tablet PO 09/10/25 11:58 Q6H PRN Fever >100.4 and pain 1-3 Gabapentin 100 mg 08/11/25 22:00 08/12/25 08:32 Gabapentin 100 Mg Capsule PO 09/10/25 21:59 100 mg QDAY RICH Administration Heparin Sodium (Porcine) 5,000 unit 08/11/25 12:15 08/12/25 08:34 Heparin Sod Inj 5000 Unit/Ml Vial SC 08/25/25 12:14 5,000 unit Q12HR RICH Administration Ceftriaxone Sodium/Dextrose 1 gm in 50 mls @ 100 mls/hr 08/12/25 09:00 Rocephin/D5w 1gm Iv Premix IV 08/19/25 08:59 DAILY RICH Levothyroxine Sodium 75 mcg 08/12/25 06:00 08/12/25 06:02 Levothyroxine Sodium 25 Mcg Tablet PO 09/11/25 05:59 75 mcg ACBR RICH Administration Pantoprazole Sodium 40 mg 08/12/25 09:00 08/12/25 08:33 Pantoprazole Inj 40 Mg Vial IVP 09/11/25 08:59 40 mg QDAY RICH Administration Pravastatin Sodium 10 mg 08/12/25 09:00 08/12/25 08:33 Pravastatin Sodium 10 Mg Tablet PO 09/11/25 08:59 10 mg DAILY RICH Administration Sennosides 1 tab 08/12/25 09:00 08/12/25 08:33 Senna Tablet PO 09/11/25 08:59 1 tab QDAY RICH Administration Protocol Plan 75-year-old male past medical history ESRD on HD Tuesday, CAD status post CABG, hypertension, hypothyroidism, incarcerated inguinal hernia status post mesh presents was difficulty walking x 1 month after hernia surgery on 07/15. Admitted for stroke workup. CTAP showed mild ascites, distended gallbladder with gallstone, multiple fluid distended small bowel loops with wall thickening of small bowel. CXR showed early CHF. Head CT negative # Ataxia DDx: Stroke versus UTI related weakness versus deconditioning Difficulty speaking has been present for months, unrelated to difficulty walking which is new. Difficulty walking x 1 month after hernia surgery, progressively worsening. Not currently on any anticoagulants. Denies history of TIA. CT head negative. Neurocheck insignificant upon admission. Neurocheck Q4H has been unremarkable. CTA head/neck negative. Plan: - Consulted neurology, appreciate recs - Pending brain MRI read - Pending Echo - Neurochecks every 4 hour - Passed bedside swallowing test, on renal diet - PT # Urinary tract infection ESRD on HD. Still making urine. Self catheter at home 3 times a day due to urinary retention. WBC 11.7. Denied any urinary symptoms. Plan: - Continue Rocephin 1 g (08/11-) - Aguilar catheter #ESRD on HD BUN 26 creatinine 5.08. On HD Tuesday. Last dialysis on admission 08/11, pulled 2L off. 08/12: HD ordered by Dr. Little, goal of 3.4L out. Plan: - Monitor electrolytes and renal function - Strict I&O - Avoid nephrotoxic agents - Renal dose medications - HD inpatient if indicated # Cholelithiasis CTAP showed mild ascites, distended gallbladder with gallstone, multiple fluid distended small bowel loops with wall thickening of small bowel. LFT normal except for alk phos 164. No abdominal pain on physical exam. Asymptomatic at this time Plan: - Continue to monitor LFT - Follow-up outpatient # Chronic history of lactic acidosis Chronically mildly elevated lactate in the setting of ESRD versus UTI. Baseline lactic acid normal with a more than 2. Lactic acid 4.6 on admission, improved to 0.8 after given NS in ED. Plan: - Continue with HD as needed inpatient - Treat UTI with Rocephin - Monitor daily labs Health Maintenance: Code status: Full DVT prophylaxis: Heparin 5,000 Q12H GI prophylaxis: Protonix Diet: Dysphagia Step 2 Aguilar: Yes Lines: PIV Supplemental O2: None Disposition: Tele Assessment and plan discussed with my attending physician Dr. Nair and Dr. Bragg (PGY-2). Dr. Polanco (PGY-1) ? vice president medical affairs Attending Provider Attestation/Addendum I have seen and examined the patient. I was physically present for the tillman portions of the services provided including history, physical exam, diagnosis, treatment plans and orders. I agree with assessment and plan of care as documented by residents. Patient seen and examined at bedside this morning, appears comfortable and denies any new complaints. WBC count improved to 10.6 compared to 12.5 yesterday. Noted to have high blood pressure, we will allow permissive hypertension. Rest of the lab results are stable. Underwent hemodialysis today, with removal of more fluid, nephrology following closely, appreciate recommendations. Underwent CT angiogram of head and neck, negative for large vessel occlusion. Brain MRI with MRA did not show acute infarct but showed old infarct in left frontal lobe. Also has prominent chronic microvascular white matter changes. Previous brain MRI from 03/2025 showed 17 mm focus of increased signal on left frontal lobe. Continues to be on IV Rocephin for UTI. Patient is awaiting echocardiography, physical therapy evaluation, urine and blood culture culture and neurology recommendations. Even though this this note was carefully revised there may still be minor errors in visual basic programmer due to voice recognition software. Leela Nair MD
[2025-08-12] MEDS: cefTRIAXone/D5w 1gm IV premix 1 GM/50 ML BAG IV (12:48)
--- NOTE | 2025-08-12 12:57 | PC.SS ---
Wheel Chairs Patients diagnosis creates mobility limitations that significantly impairs ability to participate in the patients activities of daily living either in their entirety, or in a reasonable time frame in the home and the patients mobility limitations can not be sufficiently resolved with an appropriately fitted cane or walker. Also the use of a manual wheelchair will sufficiently improve patient?s ability to participate in the activities of daily living in the home and the patient is willing to use the wheelchair that is provided in the home. The patient has some one in the home that is available, willing and able to provide assistance with the wheelchair.
--- NOTE | 2025-08-12 13:09 | PC.SS ---
LEAK HUNTER confirmed with patient request for wheelchair. DME referral to be submitted on [facility].
--- NOTE | 2025-08-12 15:22 | PC.SS ---
CHARGEBACK ANALYST confirmed with patient discharge plan is to return home not to transition to SNF. CHARGEBACK ANALYST confirmed discharge plan with resident. Preferred home health agency is [facility].
--- NOTE | 2025-08-12 15:30 | PC.SS ---
DME referral submitted on [facility]. Responses are pending.
--- NOTE | 2025-08-12 20:49 | ESCONSULT_ITS ---
HPI Data of Consult Consult date: 08/12/25 Requesting Physician: Deanne Lerma DO Admitting Provider: Deanne Lerma DO Attending Provider: Deanne Lerma DO Primary Care Provider: Wendy Yin PA-C Consult Narrative Reason for consult: Ataxia History of present illness: 75-year-old male with past medical history of ESRD on dialysis Tuesday (Dr. Little), CAD status post CABG, hypertension, hypothyroidism, incarcerated inguinal hernia status post mesh on 07/15/2025, urinary retention and self cathetirizes 3x a day, presented with difficulty walking x 1 month. Patient reported difficulty walking onset after hernia surgery on 07/15, reported losing balance when trying to get up. He does state that when he worked with PT in the hospital and when he was discharged he was able to ambulate ok but after he went home he started having trouble ambulating again. Patient's baseline is walking with walker at home. Patient has had similar issues with balance and ambulating in the past, the patient used to see Dr. Kelley previously as an outpatient, however was lost to follow up due to patient not wanting to give up his drivers license because of his imbalance. He states nothing is wrong with him and that he only has imabalance when ambulating that has been progressively worsening similar to in the past. Denies fever, chills, shortness of breath, chest pain, tightness in chest, sick contacts, changes in urinary or bowel habits or back issues. ED course: Labs: WBC 11.7 BUN 26 creatinine 5.08 GFR 11 LFT normal except for alk phos 164 troponin negative BNP 619 procalcitonin 0.51 UA positive, U tox positive for opiates Lactic acid 4.6, improved to 0.8 after given NS Imaging: CTAP showed mild ascites, distended gallbladder with gallstone, multiple fluid distended small bowel loops with wall thickening of small bowel. CXR showed early CHF. Head CT negative PMHx: as above SxHx: hernia repair, aV fistula, CABG Social Hx: denies x3 FHx: unknown cc:: cc: Deanne Lerma DO Exam Vital Signs Temp Pulse Resp BP Pulse Ox O2 Del Method 98.0 F 98 20 145/81 H 97 Room Air 08/12/25 19:51 08/12/25 19:51 08/12/25 19:51 08/12/25 19:51 08/12/25 19:51 08/12/25 19:51 Narrative Exam Physical Exam GENERAL: NAD, AAOx3 HEENT: Moist mucosa. Eyes open, symmetrical, & clear CARDIO: Heart RRR, no obvious murmurs PULM: No noted coughing/dyspnea CTA B/L, no R/W/R GI: Abdomen soft, nondistended, no pain on palpation. BSx4 SKIN/MSK/EXT: AV fistula in LUE, no pain on palpation. Pedal pulses present B/L NEURO: AAOx3, able to move all 4 extremities, right foot drop noted Results Labs 08/13/25 04:37 08/13/25 04:37 Labs: Short CBC 08/12/25 Range/Units 04:57 WBC 7.1 (3.8-10.6) Thou/mm3 Hgb 10.6 L (13.5-16.0) g/dL Hct 34.5 L (41.0-53.0) % Plt Count 211 D (140-440) Thou/mm3 BMP 08/12/25 04:57 Sodium 138 Potassium 4.3 D Chloride 99 Carbon Dioxide 32.0 H BUN 21 Creatinine 4.0 H D Glucose 96 Calcium 8.7 Liver Function 08/12/25 Range/Units 04:57 Total Bilirubin 0.3 (0.3-1.2) mg/dL AST 12 (0-34) U/L ALT < 7 L (10-49) U/L Alkaline Phosphatase 134 H D (46-116) U/L Albumin 3.5 D (3.4-4.8) gm/dL Quality Measures Quality Measures VTE prophylaxis Advance care planning discussed with:: patient Medications Home Medications and Allergies Home Medications ?Medication ?Instructions ?Recorded ?Confirmed ?Type HYDROCODONE BIT/ACETAMINOPHEN 1 tab PO Q6HR PRN pain # #0 07/04/14 08/11/25 History (HYDROCODON-ACETAMINOPH 2.5-325) Levothyroxine * (SYNTHROID *) 75 mcg PO QDAY #0 tabs 1 08/11/25 History sevelamer carbonate 800 mg tablet 800 mg PO TID 08/11/25 History (Renvela) amlodipine 10 mg tablet (Norvasc) 10 mg PO QDAY 08/11/25 History gabapentin 400 mg capsule 400 mg PO TID 11/20/2408/11 History lidocaine 4 % topical cream 1 applic topical BID 11/2008/11/25 History (Anecream) pravastatin 10 mg tablet 10 mg PO DAILY 01/01/2507/27 History Allergies Allergy/AdvReac Type Severity Reaction Status Date / Time No Known Allergies Allergy Verified 08/11/25 03:08 Visit Medications Acetaminophen (Acetaminophen 325 Mg Tablet) 650 mg PO Q6H PRN PRN Reason: Fever >100.4 and pain 1-3 Stop: 09/10/25 11:58 Gabapentin (Gabapentin 100 Mg Capsule) 100 mg PO QDAY [facility] Stop: 09/10/25 21:59 Last Admin: 08/12/25 08:32 Dose: 100 mg Heparin Sodium (Porcine) (Heparin Sod Inj 5000 Unit/Ml Vial) 5,000 unit SC Q12HR [facility] Stop: 08/25/25 12:14 Last Admin: 08/12/25 20:18 Dose: 5,000 unit Ceftriaxone Sodium/Dextrose (Rocephin/D5w 1gm Iv Premix) 1 gm in 50 mls @ 100 mls/hr IV DAILY [facility] Stop: 08/19/25 08:59 Last Infusion: 08/12/25 19:03 Dose: Infused Levothyroxine Sodium (Levothyroxine Sodium 25 Mcg Tablet) 75 mcg PO ACBR RICH Stop: 09/11/25 05:59 Last Admin: 08/12/25 06:02 Dose: 75 mcg Pantoprazole Sodium (Pantoprazole Inj 40 Mg Vial) 40 mg IVP QDAY RICH Stop: 09/11/25 08:59 Last Admin: 08/12/25 08:33 Dose: 40 mg Pravastatin Sodium (Pravastatin Sodium 10 Mg Tablet) 10 mg PO DAILY RICH Stop: 09/11/25 08:59 Last Admin: 08/12/25 08:33 Dose: 10 mg Sennosides (Senna Tablet) 1 tab PO QDAY RICH; Protocol Stop: 09/11/25 08:59 Last Admin: 08/12/25 08:33 Dose: 1 tab Discontinued Medications Sodium Chloride (Ns) 1,000 mls @ 80 mls/hr IV .[id number] ONE Stop: 08/11/25 15:34 Last Infusion: 08/11/25 19:09 Dose: Infused Lactated Ringer's (Lactated Ringers) 1,000 mls @ 999 mls/hr IV .[id number] ONE Stop: 08/11/25 04:51 Last Admin: 08/11/25 06:14 Dose: Not Given Ceftriaxone Sodium/Dextrose (Rocephin/D5w 1gm Iv Premix) 1 gm in 50 mls @ 100 mls/hr IV X1 ONE Stop: 08/11/25 05:29 Last Infusion: 08/11/25 06:14 Dose: Infused Morphine Sulfate (Morphine Sulf Inj 4 Mg/Ml Vial) 2 mg IVP X1 ONE Stop: 08/11/25 03:05 Last Admin: 08/11/25 03:29 Dose: 2 mg Assessment & Plan Plan 75-year-old male past medical history ESRD on HD Tuesday, CAD status post CABG, hypertension, hypothyroidism, incarcerated inguinal hernia presents was difficulty walking x 1. Admitted for stroke workup. #CVA-ruled out # Ataxia #Right Foot drop Patient with difficulty ambulating for >1 month at baseline patient ambulates with walker on PE noted to have Rt foot drop while ambulating on the hallway CT head negative, CTA negative for LVO MRI brain is negative for acute infarct, there is a Old left frontal lobe infarct and age related white matter changes - ordered lumbar spine MRI considering right foot drop not present previously - F/u B12 and Vit D lvls - Neurochecks every 4 hour - continue physical therapy - continue treatment of UTI # Urinary tract infection #ESRD on HD # Cholelithiasis # Chronic history of lactic acidosis - as per primary team Case discussed with my attending Dr. Allie Starr MD PGY-2 Attending Provider Attestation/Addendum I personally have seen and examined the patient at the bedside and agree with the residents findings, assessment and plan of care. Recent development of worsening imbalance with falls frequently following hernia surgery and inconsistent foot drop and stamping feet while walking with a walker today. Will go ahead and do MRI of the lumbosacral spine without contrast to evaluate for structural/degenerative changes. Will check B12 and vitamin D level. Consider doing EMG nerve conduction study of both lower extremities as an outpatient.
[2025-08-12] MEDS: HYDROmorphone INJ 2 MG/ML VIAL 1 MG IVP (23:04)
[2025-08-13] VITALS (13 sets, daily range): BP systolic 148–192; BP diastolic 72–99; PULSE 69–130; RESP 12–97; TEMP 36.1–37.3; O2SAT 94–98
--- NOTE | 2025-08-13 | XR_ITS ---
Examination: MRI lumbar spine without contrast Date and time of exam: August 13, 2025, 1426 hours INDICATIONS: Low back pain radiating to the feet, foot drop 1 month Technique: Multiple MRI axial and sagittal sections lumbar spine. Sagittal T2-weighted images, TR 3500, TE 118 T1 weighted transverse sections, TR 688 T8.5, T2-weighted sagittal sections T1 weighted sagittal sections TR 621, TE 30 T2 axial sections, TR 4, 190, TE 84. Findings: Adequate alignment lumbar vertebral bodies on the lateral view No lumbar fracture Moderate disc narrowing L5-S1 Diffuse lumbar disc desiccation Axial images are degraded by patient motion L5-S1 2 mm central lumbar disc bulge L4-L5 2 mm central lumbar disc bulge L3-L4 2 mm central lumbar disc bulge L2-L3 no disc protrusion L1-2 no disc protrusion IMPRESSION: Small lumbar disc bulges as above
--- NOTE | 2025-08-13 05:00 | PC.NURSE ---
notified Dr. Matt of patients bp running high systolic 190. new order for hydralazine push
[2025-08-13 05:15] LABS: Basophils # (Auto) 0.0 Thou/mm3 (0.0-0.2); Basophils % (Auto) 0 % (0-2.5); Eosinophils # (Auto) 0.4 Thou/mm3 (0.0-0.5); Eosinophils % (Auto) 4 % (0-10); Hematocrit 34.3 % (41.0-53.0); Hemoglobin 10.6 g/dL (13.5-16.0); Immature Granulocytes Auto 0.03 Thou/mm3 (0.00-0.00); Lymphocytes # (Auto) 3.2 Thou/mm3 (1.0-4.8); Lymphocytes % (Auto) 32 % (10-50); Mean Corpuscular HGB Conc 30.9 g/dl (31.0-37.0); Mean Corpuscular Hemoglobin 29.0 pg (25.0-35.0); Mean Corpuscular Volume 94 fL (80-100); Monocytes # (Auto) 0.9 Thou/mm3 (0.0-0.8); Monocytes % (Auto) 9 % (0-12); Neutrophils # (Auto) 5.6 Thou/mm3 (1.8-7.7); Neutrophils % (Auto) 56 % (37-80); Nucleated Red Blood Cell # 0.00 Thou/mm3 (0.00-0.00); Nucleated Red Blood Cell % 0 /100 WBC (0); Platelet Count 195 Thou/mm3 (140-440); RDW Standard Deviation 57.6 fL (35.1-43.9); Red Blood Count 3.65 Miln/mm3 (4.50-5.90); White Blood Count 10.2 Thou/mm3 (3.8-10.6)
[2025-08-13] MEDS: LEVOTHYROXINE SODIUM 25 MCG TABLET 75 MCG PO (05:20)
[2025-08-13] MEDS: hydrALAZINE INJ 20 MG/ML VIAL 10 MG IVP (05:55)
[2025-08-13 06:20] LABS: Alanine Aminotransferase < 7 U/L (10-49); Albumin, Serum 3.4 gm/dL (3.4-4.8); Albumin/Globulin Ratio 1.6 (1.2-2.2); Alkaline Phosphatase 135 U/L (46-116); Anion Gap 10 (7-16); Aspartate Amino Transferase 20 U/L (0-34); BUN/Creatinine Ratio 4 Ratio (12-20); Bilirubin,Total 0.2 mg/dL (0.3-1.2); Blood Urea Nitrogen 15 mg/dL (9-23); Calcium 8.5 mg/dL (8.3-10.6); Calcium (Corrected) 9.0 mg/dL (8.5-10.1); Carbon Dioxide 26.6 mMol/L (20.0-31.0); Chloride 98 mMol/L (98-107); Creatinine (Component) 4.1 mg/dL (0.6-1.3); Estimated Creatinine Clearance 14.8 mL/min (>60); Globulin 2.1 gm/dL (2.3-3.5); Glucose 107 mg/dL (74-106); Magnesium 2.3 mg/dL (1.6-2.6); Osmolality,Calculated 270 (275-295); Phosphorous 3.1 mg/dL (2.4-5.1); Potassium 4.2 mMol/L (3.4-5.1); Sodium 135 mMol/L (136-145); Total Protein 5.5 gm/dL (5.7-8.2); eGFR 14 See Note
--- NOTE | 2025-08-13 08:54 | PC.SS ---
Update: MRI of lumbar spine pending. Patient receiving IV antibiotics.
--- NOTE | 2025-08-13 08:54 | PC.SS ---
FIELD REIMBURSEMENT MANAGER confirmed with [facility] staff that patient's wheelchair will be delivered to the patient today at the hospital. FIELD REIMBURSEMENT MANAGER updated patient.
[2025-08-13] MEDS: cefTRIAXone/D5w 1gm IV premix 1 GM/50 ML BAG IV (09:03)
[2025-08-13] MEDS: HEPARIN SOD INJ 5000 UNIT/ML VIAL SC ×2 (09:04→21:40)
[2025-08-13] MEDS: PRAVASTATIN SODIUM 10 MG TABLET PO (09:04)
[2025-08-13] MEDS: GABAPENTIN 100 MG CAPSULE PO (09:04)
[2025-08-13 09:37] LABS: Vitamin D 25 Hydroxy Total 42.0 ng/mL (7.3-40.2)
--- NOTE | 2025-08-13 09:48 | ESCONSULT_ITS ---
RE: JUAN RAMON LYNCH : 1950 DATE OF CONSULTATION: 08/12/2025 REASON FOR REFERRAL: ESRD management. REFERRING PHYSICIAN: Dr. Brgag. HISTORY OF PRESENT ILLNESS: This patient is a 75-year-old gentleman with past medical history significant for hypertension, coronary artery disease status post CABG, and ESRD on dialysis since 2016, dialyzing Tuesday, Tuesday, and Tuesday, who presented to the emergency room yesterday with weakness and inability to get up and walk. The patient about 2 weeks ago underwent repair of incarcerated left inguinal hernia with placement of Marlex mesh. After the surgery, the patient was notably weaker and even fell at the dialysis unit last week. The patient came in with severe weakness as he complains that since the surgery, he was not able to walk as he used to be. He was walking before the surgery. While in the emergency room, the patient also had head CT to rule out for CVA, and it came back with negative findings for hemorrhage, mass effect, or midline shift. Brain MRI was also done earlier and again was found negative for acute hemorrhage, mass effect, or midline shift. Yesterday, the patient was dialyzed due to vascular congestion, and he did well. He is scheduled for dialysis today as his usual days are Tuesday, Tuesday, and Tuesday. PAST MEDICAL HISTORY: Hypertension, CAD, history of anemia, and ESRD. PAST SURGICAL HISTORY: AV fistula placement, left inguinal hernia repair, and status post CABG. CURRENT MEDICATIONS: 1. Acetaminophen. 2. Lactated Ringer's. 3. Rocephin 1 g IV daily. 4. Gabapentin 100 mg p.o. daily. 5. Heparin 5000 units subcu q. 12. 6. Levothyroxine 75 mcg p.o. daily. 7. Pravastatin 10 mg daily. 8. Pantoprazole 40 mg IV daily. 9. Senokot 1 tab p.o. daily. PHYSICAL EXAMINATION: GENERAL: He is awake, alert, and oriented. VITAL SIGNS: Blood pressure is 145/81, heart rate is 98, respiratory rate is 20, and O2 sat is 97% on room air. HEENT: Anicteric sclerae, cephalic. NECK: Supple, no JVD. CHEST AND LUNGS: Symmetrical expansion, clear breath sounds. CARDIAC: Without murmur. ABDOMEN: Soft and nontender. EXTREMITIES: No edema. LABORATORY DATA: Hemoglobin 10.6, WBC 7100, platelet count 211,000. Sodium 138, potassium 4.2, chloride 99, CO2 32, BUN 21, creatinine 4, glucose 96, and calcium 8.7. DIAGNOSTIC STUDIES: Chest x-ray: Early CHF. Head and neck CTA: No critical neck arterial stenosis, no cerebral large vessel arterial occlusion, or thrombus. ASSESSMENT: 1. End-stage renal disease. 2. History of hypertension. 3. Coronary artery disease status post coronary artery bypass graft. 4. History of obstructive uropathy. 5. History of pulmonary embolism. 6. Debilitation postsurgery. PLAN: The patient most likely will need walker and physical therapy either at home or at intermediate. The patient will be dialyzed again today. Continue physical therapy while in the hospital. DT: 21:37:28 TT: 22:04:00 Ref: [id number] - TID: [id number] MTDD
--- NOTE | 2025-08-13 10:10 | XR_ITS ---
Examination: Abdomen AP single view Technique: AP portable supine abdomen, single view Exam date and time: August 13, 2025, 1029 hours, comparison August 11, 2025 INDICATIONS: Abdominal pain 2 weeks post hernia operation FINDINGS: Multiple air distended small bowel loops Abundant stool in the right colon No free air IMPRESSION: Significantly air distended small bowel loops, clinical correlation advised
[2025-08-13] MEDS: FAMOTIDINE 20 MG TABLET PO (10:13)
[2025-08-13] MEDS: LINEZOLID 600 MG IVPB 600 MG/300 ML BAG 300 MG IV ×2 (10:51→21:40)
[2025-08-13] MEDS: DICYCLOMINE INJ 10 MG/ML 2ML VIAL IM (13:13)
--- NOTE | 2025-08-13 15:24 | ESPR_ITS ---
<Statement entered by Max Pedroza MD - 08/13/25 16:12> Patient seen and examined at bedside. I discussed and supervised with the product managent intern physician who took care of this patient. I personally saw and examined the patient. I agree with most of the assessment and plan. UTI speciated to resistant bacteria, linezolid initated. MRI brain, lumbar spine unremarkable. Complaint of abdominal pain, KUB ordered, showed significant constipation, suppository ordered. Plan of care discussed with attending Dr. Nair. Max Perdoza MD PGY-2 Documentation for date of: 08/13/25 Subjective Subjective Interval history: Patient complained of abdominal pain in mustapha-umbilical region with hyperactive bowel sound. KUB showed significantly air distended small bowel loop. Last BM this morning, loose in quality. Bentyl helps. Will give suppository. Blood culture 08/11 negative, urine culture grows staph hemolyticus multi resistant sensitive to daptomycin gentamicin linezolid nitrofurantoin. Will switch to Linezolid, macrobid is contraindicated in ESRD. MRI brain negative, old left frontal lobe infarct, age-related white matter changes. Previous Echo 08/07 showed EF 55?60 moderate moderate TR. No aspirin is indicated at this time due to history of GI bleed requiring multiple transfusions. Per patient, aspirin was discontinued by Dr. Martins. Neurologist, Dr. Kelley, consulted, appreciate recs: Pending lumbar sacral spine MRI without contrast secondary to new right foot drop, follow-up vitamin B12 and vitamin D, consider EMG nerve conduction for lower extremities outpatient. MRI lumbosacral showed mild disc bulges L5-S1 2 mm central lumbar disc bulge, L4-L5 2 mm central lumbar disc bulge, L3-L4 2 mm central lumbar disc bulge. Exam Vital Signs Temp Pulse Resp BP Pulse Ox O2 Del Method 98.9 F 96 22 H 174/82 H 97 Room Air 08/13/25 12:00 08/13/25 12:00 08/13/25 12:00 08/13/25 12:00 08/13/25 12:00 08/13/25 12:00 Narrative Exam GENERAL: no acute distress, AAO x3. Inattentiveness, stutter, repeating sentences. HEENT: Head AT/ NC. Mucous membranes moist. PERRL. NECK: Supple, no lymphadenopathy, no carotid bruits. CARDIOVASCULAR: Regular rate and rthym. Normal S1/S2, No m/r/g. No swelling RESPIRATORY: No wheezing, rhonchi, crackles. GASTROINTESTINAL: Abdomen soft, non tender no palpable masses. Bowel sounds present in all 4 quadrants. NEUROLOGICAL: CN II-XII grossly intact except for saccadic replacement of smooth pursuit PSYCHIATRIC: Awake and alert, not agitated, normal mood and affect. INTEGUMENTARY: No obvious rashes, no jaundice, normal turgor. Objective Labs 08/13/25 04:37 08/13/25 04:37 Labs: Laboratory Results - last 24 hr 08/13/25 08/13/25 04:37 08:41 WBC 10.2 D RBC 3.65 L Hgb 10.6 L Hct 34.3 L MCV 94 MCH 29.0 MCHC 30.9 L RDW Std Deviation 57.6 H Plt Count 195 Neut % (Auto) 56 Lymph % (Auto) 32 Castro % (Auto) 9 Eos % (Auto) 4 Baso % (Auto) 0 Neut # (Auto) 5.6 Lymph # (Auto) 3.2 Castro # (Auto) 0.9 H Eos # (Auto) 0.4 Baso # (Auto) 0.0 Immature Gran # (Auto) 0.03 H Absolute Nucleated RBC 0.00 Immature Gran % 0 Nucleated RBC % 0 Sodium 135 L Potassium 4.2 Chloride 98 Carbon Dioxide 26.6 Anion Gap 10 BUN 15 Creatinine 4.1 H* Estim Creat Clear Calc 14.8 L eGFR 14 L* BUN/Creatinine Ratio 4 L Glucose 107 H Calculated Osmolality 270 L Calcium 8.5 Corrected Calcium 9.0 Phosphorus 3.1 Magnesium 2.3 Total Bilirubin 0.2 L AST 20 ALT < 7 L Alkaline Phosphatase 135 H Total Protein 5.5 L Albumin 3.4 Globulin 2.1 L Albumin/Globulin Ratio 1.6 25-OH Vitamin D Total 42.0 H Quality Measures Quality Measures VTE prophylaxis Advance care planning discussed with:: patient Assessment & Plan Assessment Current Active Medications: Generic Name Dose Route Start Last Admin Trade Name Freq PRN Reason Stop Dose Admin Acetaminophen 650 mg 08/11/25 11:59 Acetaminophen 325 Mg Tablet PO 09/10/25 11:58 Q6H PRN Fever >100.4 and pain 1-3 Amlodipine Besylate 10 mg 08/13/25 09:00 08/13/25 09:04 Amlodipine Besylate 5 Mg Tablet PO 09/12/25 08:59 10 mg QDAY RICH Administration Carvedilol 6.25 mg 08/13/25 17:30 Carvedilol 3.125 Mg Tablet PO 09/12/25 17:29 BIDWM RICH Famotidine 20 mg 08/13/25 10:00 08/13/25 10:13 Famotidine 20 Mg Tablet PO 09/12/25 09:59 20 mg QDAY RICH Administration Gabapentin 100 mg 08/11/25 22:00 08/13/25 09:04 Gabapentin 100 Mg Capsule PO 09/10/25 21:59 100 mg QDAY RICH Administration Heparin Sodium (Porcine) 5,000 unit 08/11/25 12:15 08/13/25 09:04 Heparin Sod Inj 5000 Unit/Ml Vial SC 08/25/25 12:14 5,000 unit Q12HR RICH Administration Linezolid 600 mg in 300 mls @ 300 mls/hr 08/13/25 10:12 08/13/25 10:51 Zyvox Ivpb IV 08/20/25 10:11 300 mls/hr Q12HR RICH Administration Levothyroxine Sodium 75 mcg 08/12/25 06:00 08/13/25 05:20 Levothyroxine Sodium 25 Mcg Tablet PO 09/11/25 05:59 75 mcg ACBR RICH Administration Pravastatin Sodium 10 mg 08/12/25 09:00 08/13/25 09:04 Pravastatin Sodium 10 Mg Tablet PO 09/11/25 08:59 10 mg DAILY RICH Administration Sennosides 1 tab 08/12/25 09:00 08/13/25 09:04 Senna Tablet PO 09/11/25 08:59 1 tab QDAY RICH Administration Protocol Plan 75-year-old male past medical history ESRD on HD Tuesday, CAD status post CABG, hypertension, hypothyroidism, incarcerated inguinal hernia status post mesh presents was difficulty walking x 1 month after hernia surgery on 07/15. Admitted for stroke workup. CTAP showed mild ascites, distended gallbladder with gallstone, multiple fluid distended small bowel loops with wall thickening of small bowel. CXR showed early CHF. Head CT negative #Ataxia DDx: UTI related weakness versus deconditioning Difficulty speaking has been present for months, unrelated to difficulty walking which is new. Difficulty walking x 1 month after hernia surgery, progressively worsening. Not currently on any anticoagulants. Denies history of TIA. CT head negative. Neurocheck insignificant upon admission. Neurocheck Q4H has been unremarkable. CTA head/neck negative. MRI brain negative, old left frontal lobe infarct, age- related white matter changes. Previous Echo 08/07 showed EF 55?60 moderate moderate TR. No aspirin is indicated at this time due to history of GI bleed requiring multiple transfusions. Per patient, aspirin was discontinued by Dr. Martins. MRI lumbosacral showed mild disc bulges L5-S1 2 mm central lumbar disc bulge, L4-L5 2 mm central lumbar disc bulge, L3-L4 2 mm central lumbar disc bulge Plan: - Consulted neurology, appreciate recs - Continue renal diet - PT # Urinary tract infection ESRD on HD. Still making urine. Self catheter at home 3 times a day due to urinary retention. WBC 11.7. Denied any urinary symptoms. Blood culture 08/11 negative, urine culture grows staph hemolyticus multi resistant sensitive to daptomycin gentamicin linezolid nitrofurantoin. Will switch to Linezolid, macrobid is contraindicated in ESRD. Plan: - Start Linezolid (08/13-) - In and out catheter #ESRD on HD BUN 26 creatinine 5.08. On HD Tuesday. Last dialysis on admission 08/11, pulled 2L off. Plan: - Monitor electrolytes and renal function - Strict I&O - Avoid nephrotoxic agents - Renal dose medications - HD inpatient if indicated # Cholelithiasis CTAP showed mild ascites, distended gallbladder with gallstone, multiple fluid distended small bowel loops with wall thickening of small bowel. LFT normal except for alk phos 164. No abdominal pain on physical exam. Asymptomatic at this time Plan: - Continue to monitor LFT - Follow-up outpatient # Chronic history of lactic acidosis Chronically mildly elevated lactate in the setting of ESRD versus UTI. Baseline lactic acid normal with a more than 2. Lactic acid 4.6 on admission, improved to 0.8 after given NS in ED. Plan: - Continue with HD as needed inpatient - Treat UTI with Rocephin - Monitor daily labs Health Maintenance: Code status: Full DVT prophylaxis: Heparin 5,000 Q12H GI prophylaxis: Protonix Diet: Dysphagia Step 2 Aguilar: Yes Lines: PIV Supplemental O2: None Disposition: Tele Assessment and plan discussed with my attending physician Dr. Nair and Dr. Pedroza (PGY-2). Dr. Polanco (PGY-1) ? [employer] Attending Provider Attestation/Addendum I have seen and examined the patient. I was physically present for the tillman portions of the services provided including history, physical exam, diagnosis, treatment plans and orders. I agree with assessment and plan of care as documented by residents. Patient seen and examined at bedside this morning. Complained of diffuse abdominal pain and tenderness. Obtained KUB, sodium on the significantly distended small bowel loops and abundant stool. Patient has been having bowel movements, we will continue with bowel regimen. Vitals have been stable except for hypertension, we will resume his home antihypertensives and monitor his blood pressure closely. Received hemodialysis session yesterday. Neurology following closely, noted to have foot drop and stamping feet while walking, recommended to obtain lumbosacral MRI. Lumbar sacral MRI only showed small lumbar disc bulges. Will monitor closely for abdominal pain with bowel regimen. Noted to have multidrug-resistant Staphylococcus hemolyticus UTI, antibiotics switched as per sensitivity. Anticipate discharge in 24 to 48 hours if abdominal pain improves and patient remains stable. Even though this this note was carefully revised there may still be minor errors in ferry hand due to voice recognition software. Leela Nair MD
[2025-08-13] MEDS: GLYCERIN, ADULT 1 EA SUPP 1 EACH PR (15:49)
[2025-08-13 17:50] LABS: Vitamin B12 643 pg/mL (211-911)
--- NOTE | 2025-08-13 18:29 | PD.RESPRO ---
Documentation for date of: 08/13/25 Subjective Subjective Interval history: Patient seen today at the bedside found awake, alert, orientedx3. No overnight events reported. Vital signs and labs reviewed. MRI of lumbar spine shows disc herniation at the levels of L3,4, L4,5, L5-S1 likely causing his foot drop. Patient will require nerve conduction studies as an outpatient. From neurology standpoint can be discharged and follow up as an outpatient within a 2-3 weeks of discharge., Exam Vital Signs Temp Pulse Resp BP Pulse Ox O2 Del Method 98.2 F 88 20 148/72 H 95 Room Air 08/13/25 16:37 08/13/25 17:04 08/13/25 16:37 08/13/25 17:04 08/13/25 16:37 08/13/25 16:37 Narrative Exam GENERAL: no acute distress, AAO x3. Inattentiveness, stutter, repeating sentences. HEENT: Head AT/ NC. Mucous membranes moist. PERRL. NECK: Supple, no lymphadenopathy, no carotid bruits. CARDIOVASCULAR: Regular rate and rthym. Normal S1/S2, No m/r/g. No swelling RESPIRATORY: No wheezing, rhonchi, crackles. GASTROINTESTINAL: Abdomen soft, non tender no palpable masses. Bowel sounds present in all 4 quadrants. NEUROLOGICAL: CN II-XII grossly intact except for saccadic replacement of smooth pursuit PSYCHIATRIC: Awake and alert, not agitated, normal mood and affect. INTEGUMENTARY: No obvious rashes, no jaundice, normal turgor. Objective Labs 08/14/25 04:40 08/14/25 04:40 Labs: Laboratory Results - last 24 hr 08/13/25 08/13/25 04:37 08:41 WBC 10.2 D RBC 3.65 L Hgb 10.6 L Hct 34.3 L MCV 94 MCH 29.0 MCHC 30.9 L RDW Std Deviation 57.6 H Plt Count 195 Neut % (Auto) 56 Lymph % (Auto) 32 Christian % (Auto) 9 Eos % (Auto) 4 Baso % (Auto) 0 Neut # (Auto) 5.6 Lymph # (Auto) 3.2 Christian # (Auto) 0.9 H Eos # (Auto) 0.4 Baso # (Auto) 0.0 Immature Gran # (Auto) 0.03 H Absolute Nucleated RBC 0.00 Immature Gran % 0 Nucleated RBC % 0 Sodium 135 L Potassium 4.2 Chloride 98 Carbon Dioxide 26.6 Anion Gap 10 BUN 15 Creatinine 4.1 H* Estim Creat Clear Calc 14.8 L eGFR 14 L* BUN/Creatinine Ratio 4 L Glucose 107 H Calculated Osmolality 270 L Calcium 8.5 Corrected Calcium 9.0 Phosphorus 3.1 Magnesium 2.3 Total Bilirubin 0.2 L AST 20 ALT < 7 L Alkaline Phosphatase 135 H Total Protein 5.5 L Albumin 3.4 Globulin 2.1 L Albumin/Globulin Ratio 1.6 Vitamin B12 643 25-OH Vitamin D Total 42.0 H Quality Measures Quality Measures VTE prophylaxis Advance care planning discussed with:: patient Assessment & Plan Assessment Current Active Medications: Generic Name Dose Route Start Last Admin Trade Name Freq PRN Reason Stop Dose Admin Acetaminophen 650 mg 08/11/25 11:59 Acetaminophen 325 Mg Tablet PO 09/10/25 11:58 Q6H PRN Fever >100.4 and pain 1-3 Amlodipine Besylate 10 mg 08/13/25 09:00 08/13/25 09:04 Amlodipine Besylate 5 Mg Tablet PO 09/12/25 08:59 10 mg QDAY RICH Administration Carvedilol 6.25 mg 08/13/25 17:30 08/13/25 17:04 Carvedilol 3.125 Mg Tablet PO 09/12/25 17:29 6.25 mg BIDWM RICH Administration Famotidine 20 mg 08/13/25 10:00 08/13/25 10:13 Famotidine 20 Mg Tablet PO 09/12/25 09:59 20 mg QDAY RICH Administration Gabapentin 100 mg 08/11/25 22:00 08/13/25 09:04 Gabapentin 100 Mg Capsule PO 09/10/25 21:59 100 mg QDAY RICH Administration Heparin Sodium (Porcine) 5,000 unit 08/11/25 12:15 08/13/25 09:04 Heparin Sod Inj 5000 Unit/Ml Vial SC 08/25/25 12:14 5,000 unit Q12HR RICH Administration Linezolid 600 mg in 300 mls @ 300 mls/hr 08/13/25 10:12 08/13/25 10:51 Zyvox Ivpb IV 08/20/25 10:11 300 mls/hr Q12HR RICH Administration Levothyroxine Sodium 75 mcg 08/12/25 06:00 08/13/25 05:20 Levothyroxine Sodium 25 Mcg Tablet PO 09/11/25 05:59 75 mcg ACBR RICH Administration Pravastatin Sodium 10 mg 08/12/25 09:00 08/13/25 09:04 Pravastatin Sodium 10 Mg Tablet PO 09/11/25 08:59 10 mg DAILY RICH Administration Sennosides 1 tab 08/12/25 09:00 08/13/25 09:04 Senna Tablet PO 09/11/25 08:59 1 tab QDAY RICH Administration Protocol Plan 75-year-old male past medical history ESRD on HD Tuesday, CAD status post CABG, hypertension, hypothyroidism, incarcerated inguinal hernia presents was difficulty walking x 1. Admitted for stroke workup. 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 - continue physical therapy - continue treatment of UTI # Urinary tract infection #ESRD on HD # Cholelithiasis # Chronic history of lactic acidosis - as per primary team Case discussed with my attending Dr. Allie Starr MD PGY-2 Attending Provider Attestation/Addendum I personally have seen and examined the patient at the bedside and agree with resident's findings, assessment and plan of care. As the MRI of the lumbosacral spine showed degenerative changes which could be contributing to his imbalance and frequent falls secondary to foot drop, I am planning on doing nerve conduction study as an outpatient in my office. Patient is advised to walk with a walker for safety. He will continue with gabapentin and duloxetine as before and stable for discharge. Follow-up with B12 level.
[2025-08-14] VITALS (22 sets, daily range): BP systolic 93–167; BP diastolic 54–107; PULSE 53–88; RESP 18–97; TEMP 19.9–36.9; O2SAT 95–97; BMI 21.4
[2025-08-14] MEDS: ACETAMINOPHEN 325 MG TABLET 650 MG PO (02:01)
[2025-08-14 05:08] LABS: Basophils # (Auto) 0.0 Thou/mm3 (0.0-0.2); Basophils % (Auto) 0 % (0-2.5); Eosinophils # (Auto) 0.3 Thou/mm3 (0.0-0.5); Eosinophils % (Auto) 4 % (0-10); Hematocrit 36.3 % (41.0-53.0); Hemoglobin 11.5 g/dL (13.5-16.0); Immature Granulocytes Auto 0.02 Thou/mm3 (0.00-0.00); Lymphocytes # (Auto) 3.2 Thou/mm3 (1.0-4.8); Lymphocytes % (Auto) 37 % (10-50); Mean Corpuscular HGB Conc 31.7 g/dl (31.0-37.0); Mean Corpuscular Hemoglobin 29.0 pg (25.0-35.0); Mean Corpuscular Volume 91 fL (80-100); Monocytes # (Auto) 0.8 Thou/mm3 (0.0-0.8); Monocytes % (Auto) 10 % (0-12); Neutrophils # (Auto) 4.3 Thou/mm3 (1.8-7.7); Neutrophils % (Auto) 49 % (37-80); Nucleated Red Blood Cell # 0.00 Thou/mm3 (0.00-0.00); Nucleated Red Blood Cell % 0 /100 WBC (0); Platelet Count 201 Thou/mm3 (140-440); RDW Standard Deviation 55.2 fL (35.1-43.9); Red Blood Count 3.97 Miln/mm3 (4.50-5.90); White Blood Count 8.7 Thou/mm3 (3.8-10.6)
[2025-08-14] MEDS: LEVOTHYROXINE SODIUM 25 MCG TABLET 75 MCG PO (06:04)
[2025-08-14 06:05] LABS: Alanine Aminotransferase < 7 U/L (10-49); Albumin, Serum 3.7 gm/dL (3.4-4.8); Albumin/Globulin Ratio 1.9 (1.2-2.2); Alkaline Phosphatase 129 U/L (46-116); Anion Gap 11 (7-16); Aspartate Amino Transferase 19 U/L (0-34); BUN/Creatinine Ratio 5 Ratio (12-20); Bilirubin,Total 0.3 mg/dL (0.3-1.2); Blood Urea Nitrogen 27 mg/dL (9-23); Calcium 8.8 mg/dL (8.3-10.6); Calcium (Corrected) 9.0 mg/dL (8.5-10.1); Carbon Dioxide 25.5 mMol/L (20.0-31.0); Chloride 98 mMol/L (98-107); Creatinine (Component) 5.1 mg/dL (0.6-1.3); Globulin 2.0 gm/dL (2.3-3.5); Glucose 113 mg/dL (74-106); Magnesium 2.3 mg/dL (1.6-2.6); Osmolality,Calculated 274 (275-295); Phosphorous 3.5 mg/dL (2.4-5.1); Potassium 4.4 mMol/L (3.4-5.1); Sodium 134 mMol/L (136-145); Total Protein 5.7 gm/dL (5.7-8.2); eGFR 11 See Note
[2025-08-14 06:08] LABS: Estimated Creatinine Clearance 12.5 mL/min (>60)
[2025-08-14] MEDS: FAMOTIDINE 20 MG TABLET PO (11:11)
[2025-08-14] MEDS: PRAVASTATIN SODIUM 10 MG TABLET PO (11:11)
[2025-08-14] MEDS: HEPARIN SOD INJ 5000 UNIT/ML VIAL SC (11:11)
--- NOTE | 2025-08-14 11:48 | ESDS_ITS ---
<Statement entered by Max Pedroza MD - 08/15/25 14:18> Patient seen and examined at bedside. I discussed and supervised with the geotechnical intern physician who took care of this patient. I personally saw and examined the patient. I agree with most of the assessment and plan. Plan of care discussed with attending Dr. Nair. Max Pedroza MD PGY-2 Planned Discharge Date 08/14/25 DS: Providers Provider Date of admission: 08/11/25 12:00 Primary care physician: Wendy Yin PA-C Admitting Provider: Deanne Lerma DO Attending Provider on Admission: Deanne Lerma DO Consults: 08/11/25 07:05 Consult to Neurology / Tele-Neurology Stat Comment: Ataxia Consulting Provider: Israel Kelley 08/11/25 10:04 Consult to Nephrology Stat Comment: ESRD Consulting Provider: Rayne Little 08/11/25 12:05 Referral Physical Therapy Routine Comment: Physician Instructions: Referral Speech Therapy Routine Comment: Attending Provider on DC: Leela Nair MD Discharging Provider: Manuela Polanco MD DS: Diagnosis Problem List Completed Was Problem List Reviewed/Reconciled?: Yes Hospital Course Hospital Course Hospital course: A 75-year-old male with past medical history of ESRD on dialysis Tuesday (Dr. Little), CAD status post CABG, A-fib, hypertension, hypothyroidism, incarcerated inguinal hernia status post mesh on 07/15/2025, urinary retention (home straight cath), presented with difficulty walking x 1 month after hernia repair surgery.? In ED, stroke workup was negative, chest x-ray showed early CHF, lactic acidosis improved on fluid. ? In hospital, urine culture was positive for Staphylococcus hemolyticus, only sensitive to daptomycin, gentamicin, nitrofurantoin, linezolid. ?Due to ESRD on dialysis, linezolid was prescribed, patient improved. CTAP showed mild ascites, distended gallbladder with stones, multiple fluid distended small bowel loops.? Patient continued to have bowel movements and abdominal pain improved with Bentyl, bowel regimen. ?Internal Controls Consultant, Dr. Little, arranged for inpatient hemodialysis. ?Neurologist, Dr. Kelley, consulted and will continue to follow-up outpatient for possible nerve conduction study due to finding of right foot drop.? MRI lumbar sacral showed mild disc herniations. ?Patient's overall condition to improve. Patient is stable and medically cleared for discharge.? Patient wished to get discharged home with home health. Return precaution given. # Ataxia # Urinary tract infection # ESRD on HD # Cholelithiasis # Chronic history of lactic acidosis # History of Afib Instruction: You were admitted to the hospital for abdominal pain and stroke workup. Your MRI was negative for any acute stroke, other workup was fairly unremarkable you were found to have a urinary tract infection. -Complete antibiotic treatment with linezolid 600 mg twice a day for 6 days. Please hold your duloxetine for the course of antibiotic therapy as you are at high risk of serotonin syndrome. You can resume duloxetine after completing antibiotic treatment - Stop gabapentin 400 mg 3 times a day as it is not indicated because you have ESRD, we have sent gabapentin 100 mg 3 times a day which is renally appropriate - Use dicyclomine as needed for abdominal pain, take senna tablet daily for constipation. - For your blood pressure management we have started you on nifedipine 30 mg daily, stop amlodipine. Follow-up with your manager secondary outpatient in 1 week Follow-up with neurologist in 1 week and obtain EMG studies/nerve conduction study, call the office to make appointment Recommend outpatient follow-up with urologist for your bladder issues Follow-up with cardiology outpatient As GI has recommended at the past for you you will require a capsule endoscopy please follow-up outpatient Follow-up with your primary care physician within 1 week Return to emergency department if your symptoms worsen Health Maintenance: Code status: Full DVT prophylaxis: Heparin 5,000 Q12H GI prophylaxis: Protonix Diet: Dysphagia Step 2 Aguilar: Yes Lines: PIV Supplemental O2: None Disposition: Tele Assessment and plan discussed with my attending physician Dr. Nair and Dr. Pedroza (PGY-2). Dr. Polanco (PGY-1) ? vice president of procurement Status at Discharge Overall status at discharge: patient is progressing back to baseline Time Spent with Patient Time attestation: Total time spent providing and/or coordinating discharge services: 35 minutes Time spent: Greater than 30 minutes Home Health Home Health Referral Orders: 08/13/25 07:45 Home Health Referral Routine Reason For Exam: Frequent falls Home-Bound The patient must either because of illness or injury, need the aid of supportive devices such as crutches, canes, wheelchairs, and walkers; the use of special transportation; or the assistance of another person in order to leave their place of residence; OR have a condition such that leaving his or her home is medically contraindicated. In addition, the patient also meets the following criteria: patient is normally unable to leave the home and leaving home requires considerable taxing effort. Addendum to Home Health Certification Practitioner's Certification: I certify that the patient has been under my care in the hospital and the care of attending physician (see below). We had a pygx-cy-hvgo encounter on (see date below). My clinical findings indicate that the patient is home bound per the above criteria and the Home Health Services noted in these orders are medically necessary. The primary reason for the jmgm-hg-[id number] encounter is related to the fact that the patient requires home health services. Date Certifying Aajk-wq-Rzif Physician Encounter: 08/11/25 Physician's Name who will Assume Oversight for Services: Wendy Yin Physician's Phone No.who will Assume Oversight for Service: RN PRIVATE DUTY - Community Resources: No PT to Evaluate: Yes PT to evaluate and provide a treatmnet plan to increase patient's mobility and strength. Wound Care: No IV Therapy: No RN Safety Evaluation: Yes RN to evaluate and create a plan of care that will produce positive outcomes. Palliative Treatment: No Palliative treatment and evaluate the need for hospice. Home Health Aide - Personal Care: No Home Health Aide to assist with any ADL's. Exam Vital Signs Temp Pulse Resp BP Pulse Ox O2 Del Method 98.3 F 88 18 143/59 H 96 Room Air 08/14/25 11:42 08/14/25 11:42 08/14/25 11:42 08/14/25 11:42 08/14/25 11:42 08/14/25 11:42 Narrative Exam GENERAL: no acute distress, AAO x3. Inattentiveness, stutter, repeating sentences. HEENT: Head AT/ NC. Mucous membranes moist. PERRL. NECK: Supple, no lymphadenopathy, no carotid bruits. CARDIOVASCULAR: Regular rate and rthym. Normal S1/S2, No m/r/g. No swelling RESPIRATORY: No wheezing, rhonchi, crackles. GASTROINTESTINAL: Abdomen soft, non tender no palpable masses. Bowel sounds present in all 4 quadrants. NEUROLOGICAL: CN II-XII grossly intact except for saccadic replacement of smooth pursuit PSYCHIATRIC: Awake and alert, not agitated, normal mood and affect. INTEGUMENTARY: No obvious rashes, no jaundice, normal turgor. Discharge Plan Plan Patient Disposition: Home w/HOME HEALTH Patient condition on transfer: Stable Care Plan Goals: You were admitted to the hospital for abdominal pain and stroke workup. Your MRI was negative for any acute stroke, other workup was fairly unremarkable you were found to have a urinary tract infection. -Complete antibiotic treatment with linezolid 600 mg twice a day for 6 days. Please hold your duloxetine for the course of antibiotic therapy as you are at high risk of serotonin syndrome. You can resume duloxetine after completing antibiotic treatment - Stop gabapentin 400 mg 3 times a day as it is not indicated because you have ESRD, we have sent gabapentin 100 mg 3 times a day which is renally appropriate - Use dicyclomine as needed for abdominal pain, take senna tablet daily for constipation. - For your blood pressure management we have started you on nifedipine 30 mg da amie, stop amlodipine. Follow-up with your manager secondary outpatient in 1 week Follow-up with neurologist in 1 week and obtain EMG studies/nerve conduction study, call the office to make appointment Recommend outpatient follow-up with urologist for your bladder issues Follow-up with cardiology outpatient As GI has recommended at the past for you you will require a capsule endoscopy please follow-up outpatient Follow-up with your primary care physician within 1 week Return to emergency department if your symptoms worsen Prescriptions/Referrals Prescriptions/Med Rec: New sennosides [Senna Lax] 8.6 mg Tablet 8.6 mg PO QDAY Qty: 14 0RF gabapentin 100 mg Capsule 100 mg PO TID Qty: 90 0RF dicyclomine 10 mg capsule 10 mg PO TID PRN (Reason: abdominal pain) Qty: 30 0RF linezolid 600 mg tablet 600 mg PO BID 6 Days Qty: 12 0RF nifedipine 30 mg tablet extended release 30 mg PO QDAY Qty: 30 0RF Continued HYDROCODONE BIT/ACETAMINOPHEN (HYDROCODON-ACETAMINOPH 2.5-325) 1 EACH tablet 1 tab PO Q6HR PRN (Reason: pain) Qty: 0 Rx Instructions: 1 Every 6-8 hours for pain Levothyroxine * (SYNTHROID *) 75 MCG tablet 75 mcg PO QDAY Qty: 0 sevelamer carbonate [Renvela] 800 mg Tablet 800 mg PO TID Rx Instructions: must administer with a meal/food lidocaine [Anecream] 4 % cream 1 applic topical BID Rx Instructions: to right 2nd toe arthritis pain. (Over the counter med) pravastatin 10 mg tablet 10 mg PO DAILY pantoprazole 40 mg Tablet,Delayed Release (Dr/Ec) 40 mg PO QDAY 90 Days Qty: 90 0RF Held duloxetine 30 mg Capsule,Delayed Release(Dr/Ec) 60 mg PO QDAY 90 Days Qty: 180 0RF Hold Instructions: Resume on 08/21/25. Resume after completing treatment for UTI Discontinued gabapentin 400 mg capsule 400 mg PO TID Patient Comments: TAKE ONE CAPSULE BY MOUTH THREE TIMES DAILY FOR NERVE PAIN amlodipine [Norvasc] 10 mg tablet 10 mg PO QDAY Referrals: Rayne Little MD [Physician, Nephrology] Israel Kelley MD [Physician, Neurology] Wendy Yin PA-C [Primary Care Provider, Family Practice] Patient/Caregiver Discharge Instructions Discharge Activity: as per physical therapy Other Discharge Activity Instructions:: You were admitted to the hospital for abdominal pain and stroke workup. Your MRI was negative for any acute stroke, other workup was fairly unremarkable you were found to have a urinary tract infection. -Complete antibiotic treatment with linezolid 600 mg twice a day for 6 days. Please hold your duloxetine for the course of antibiotic therapy as you are at high risk of serotonin syndrome. You can resume duloxetine after completing antibiotic treatment - Stop gabapentin 400 mg 3 times a day as it is not indicated because you have ESRD, we have sent gabapentin 100 mg 3 times a day which is renally appropriate - Use dicyclomine as needed for abdominal pain, take senna tablet daily for constipation. - For your blood pressure management we have started you on nifedipine 30 mg daily, stop amlodipine. Follow-up with your manager secondary outpatient in 1 week Follow-up with neurologist in 1 week and obtain EMG studies/nerve conduction study, call the office to make appointment Recommend outpatient follow-up with urologist for your bladder issues Follow-up with cardiology outpatient As GI has recommended at the past for you you will require a capsule endoscopy please follow-up outpatient Follow-up with your primary care physician within 1 week Return to emergency department if your symptoms worsen Education Materials: Abdominal Pain, Urinary Tract Infections in Men, Communicating About Pain, Discharge Instructions for Stroke, ED Confusion Print Language: Scottish Stand Alone Forms: Dennise Award Info., Patient Portal Info Letter Discharge Order Discharge Orders: Discharge (Routine); Ordered 08/14/25 Ordered By: Félix Bragg Quality Discharge Quality Measures VTE prophylaxis Attestestation Attestation I have seen and examined the patient. I was physically present for the tillman portions of the services provided including history, physical exam, diagnosis, treatment plans and orders. I agree with assessment and plan of care as documented by residents. Patient seen and examined at bedside this morning. Appears comfortable and denies any new complaints. Vital signs are stable except for mild hypertension. Lab results show stable hemoglobin, 11.5 today from 10.6 yesterday. Underwent hemodialysis this morning, tolerated well. Abdominal pain has improved significantly after the bowel movements. Patient is planned for discharge home with home health. Recommended to continue linezolid for 6 more days. Also recommended to follow-up with his PCP, nephrology, neurology, urology and cardiology. Even though this this note was carefully revised there may still be minor errors in ui application developer due to voice recognition software. Leela Nair MD
--- NOTE | 2025-08-15 11:35 | PC.CC ---
HH ref sent out, [facility] accepted and booked. SOC pending. DC summary still pending and will need to be sent to when finalized.
--- NOTE | 2025-08-17 08:50 | PC.CM ---
I sent discharge summary to [facility]. Pending start of care date.
--- NOTE | 2025-08-19 09:50 | PC.CM ---
As per [facility] home health patient declined services in the past and when they tried calling him this visit they did not get an answer back. [facility] closed referral.
== END 2025-08-14 11:54 | disposition home health service (06) | DRG 689 ==
LOC: SERX 12:05 → SERHOLD 12:16 → S2NX 13:15 → S3SX 08-13 16:27
PROVIDERS: Internal Medicine Nephrology; Student in an Organized Health Care Education/Training Program; Admitting Provider Internal Medicine; Emergency Provider Emergency Medicine; PCP Physician Assistant; Visit Provider Internal Medicine
DX: N39.0 Urinary tract infection, site not specified (principal); N18.6 End stage renal disease; E87.21 Acute metabolic acidosis; I13.2 Hypertensive heart and chronic kidney disease with heart failure and with stage 5 chronic kidney disease, or end stage renal disease; R18.8 Other ascites; Z16.24 Resistance to multiple antibiotics; M21.371 Foot drop, right foot; R27.0 Ataxia, unspecified; K80.20 Calculus of gallbladder without cholecystitis without obstruction; I48.91 Unspecified atrial fibrillation; E03.9 Hypothyroidism, unspecified; I25.10 Atherosclerotic heart disease of native coronary artery without angina pectoris; M51.27 Other intervertebral disc displacement, lumbosacral region; Z99.2 Dependence on renal dialysis; Z95.1 Presence of aortocoronary bypass graft; Z79.890 Hormone replacement therapy; Z79.899 Other long term (current) drug therapy; Z86.711 Personal history of pulmonary embolism; Z86.73 Personal history of transient ischemic attack (TIA), and cerebral infarction without residual deficits
CPT/HCPCS: 36415; 70450; 70496; 70498; 70544; 71045; 72148; 74018; 74177; 76705; 80053; 80061; 80074; 80307; 81001; 82306; 82607; 83036; 83605; 83690; 83735; 83880; 84100; 84145; 84439; 84443; 84484; 85025; 86706; 87040; 87077; 87081; 87086; 87186; 90935; 92610; 93005; 94762; 96361; 96365; 96375; 97163; 99284; A4649; J0360; J0500; J0696; J1171; J1644; J2021; J2270; J2470; J7030; Q9967; A9270; G0257

== ENCOUNTER 2025-08-19 15:30 | Inpatient (IN) | payer MEDICARE, MEDICAID, SELFPAY ==
[2025-08-19] VITALS (9 sets, daily range): BP systolic 155–164; BP diastolic 61–72; PULSE 80–99; RESP 18–100; TEMP 37.9–38.4; O2SAT 97–100; BMI 23.6; BMI 23.9
--- NOTE | 2025-08-19 15:31 | EKG_ITS ---
[facility] Test Date: 2025-08-19 Pat Name: JUAN RAMON LYNCH Department: Room: - Gender: Male Microscopist: : 1950 Requested By: Wellington Gonzalez Order Number: [id number] Reading MD: Wellington Gonzalez Measurements Intervals Coleman Rate: 92 P: WI: QRS: -37 QRSD: 110 T: 114 QT: 404 QTc: 501 Interpretive Statements ATRIAL FIBRILLATION LEFT AXIS DEVIATION [QRS AXIS < -30] VOLTAGE CRITERIA FOR LVH [MEETS CRITERIA IN ONE OF: R(aVL), S(V1), R(V5), R(V5/V6)+S(V1)] ST DEVIATION AND MODERATE T-WAVE ABNORMALITY, CONSIDER LATERAL ISCHEMIA [-0.1+ mV T-WAVE IN I/aVL/V5/V6] Compared to ECG 08/11/2025 03:38:42 Possible ischemia now present Sinus rhythm no longer present Prolonged QT interval no longer present T-wave abnormality still present /store/S0/[id number]/ecg/[id number].pdf
--- NOTE | 2025-08-19 15:31 | XR_ITS ---
Examination: CT brain head without contrast. 2-D sagittal coronal reconstructions Date and time of exam: August 19, 2025, 1537 hours, comparison INDICATIONS: Stroke alert, onset altered mental status today CTDI: vol (mGy): 51.5 DLP: (mGycm): 1127 Technique: Multiple CT axial sections of the brain have been obtained, 5 mm slice thickness. Contrast has not been administered. 2-D sagittal, coronal reconstructions have been obtained Low dose protocols were performed. One or more of the following dose reduction techniques were used; automated exposure control, adjustment of the mA and/or KV according to patient size, use of iterative reconstruction technique. Findings: No significant ventricular enlargement. Intra-axial or extra-axial hemorrhage density is not seen. No mass effect or midline shift Basal cisterns are not remarkable. Fourth ventricle is midline. Cranial vault intact. Extensive artifacts in the posterior fossa Small old left basal ganglia infarct Impression: Negative for acute hemorrhage, mass effect or midline shift
--- NOTE | 2025-08-19 15:31 | XR_ITS ---
Examination: CTA carotids with intravenous contrast CTA brain, head with intravenous contrast. 2-D sagittal, coronal reconstructions. 3-D reconstructions. Exam date and time: August 19, 2025, 1554 hours INDICATIONS: Stroke alert, onset focal neurologic deficit today CTDI: vol (mGy) 21 DLP: (mGycm) 458 Technique: Multiple CTA axial brain, head carotid images post intravenous contrast injection 60 cc, [id number]. 2-D sagittal, coronal reconstructions. 3-D reconstructions, 3-D post processing including vascular maximum intensity projection images. Low dose protocols were performed. One or more of the following dose reduction techniques were used; automated exposure control, adjustment of the mA and/or KV according to patient size, use of iterative reconstruction technique. Findings: Heavy calcification right carotid bifurcation, 20 to 40% stenosis right carotid bifurcation and origin right internal carotid artery Moderate calcification left carotid bifurcation no significant left internal carotid artery carotid bifurcation stenosis Codominant vertebral arteries in the neck, no critical stenoses Intracranial vertebral arteries basilar artery posterior cerebral branches fill with no large vessel occlusions Moderate calcification juxtasellar portions internal carotid arteries M1 segments middle cerebral arteries middle cerebral artery trifurcation vessels and anterior cerebral arteries fill with no large vessel occlusions IMPRESSION: No significant stenoses carotid arteries or vertebral arteries in the neck No cerebral large vessel arterial occlusions or thrombus
--- NOTE | 2025-08-19 15:31 | EDNOTE_ITS ---
ED General RME/HPI General Chief complaint: Altered Mental Status Stated complaint: AMS Time Seen by Provider: 08/19/25 15:30 Arrival date/time: 08/19/25 15:30 CC: Right sided weakness HPI last known normal at 1415. EMS report stable vital signs. Related Data Home Medications ?Medication ?Instructions ?Recorded ?Confirmed HYDROCODONE BIT/ACETAMINOPHEN 1 tab PO Q6HR PRN pain # #0 07/04/14 08/20/25 (HYDROCODON-ACETAMINOPH 2.5-325) Levothyroxine * (SYNTHROID *) 75 mcg PO QDAY #0 tabs 1 08/20/25 sevelamer carbonate 800 mg tablet 800 mg PO TID 08/20/25 (Renvela) lidocaine 4 % topical cream 1 applic topical BID 11/2008/20/25 (Anecream) pravastatin 10 mg tablet 10 mg PO DAILY 01/01/2507/28 acetaminophen 500 mg tablet 500 mg PO TID PRN fever 08/20/25 Previous Rx's ?Medication ?Instructions ?Recorded duloxetine 30 mg capsule,delayed 60 mg (2 x 30 mg) PO QDAY 3 months 07/18/25 release #180 caps Held on 08/14/25. Instructions: Resume on 08/21/25. Resume after completing treatment for UTI pantoprazole 40 mg tablet,delayed 40 mg PO QDAY 3 maxx hs #90 tabs 07/18/25 release dicyclomine 10 mg capsule 10 mg PO TID PRN abdominal p ain 08/14/25 #30 caps gabapentin 100 mg capsule 100 mg PO TID #90 caps 08/14 linezolid 600 mg tablet 600 mg PO BID 6 days #12 tab s 08/14/25 nifedipine 30 mg tablet,extended 30 mg PO QDAY #30 tab s 08/14/25 release sennosides 8.6 mg tablet (Senna 8.6 mg PO QDAY #14 tab s 08/14/25 Lax) Allergies Allergy/AdvReac Type Severity Reaction Status Date / Time No Known Allergies Allergy Verified 08/11/25 03:08 Course Course Course Narrative: Patient's case clinical presentation and imaging results laboratory results discussed with Dr. Kelley neurologist, who states she wants an LP started on Rocephin, and acyclovir, and to hold off on antiseizure medicine. She will consent the patient needs to be admitted for delirium. Dr. Kelley saw the patient at approximately 1915, and was successful with an LP. Patient remains agitated with fever. Patient is now admitted, discussed with the resident for , agrees to accept the patient for admission. Quality Measures none Orders Category Date Time Status Admit to Inpatient Status Routine Admission 08/19/25 21:38 Active Patient Condition Routine Admission 08/19/25 21:38 Ordered Bedrest NOW Care 08/19/25 21:40 Active Bedside Blood Glucose NOW Care 08/19/25 15:31 Active COVID-19 Screening Questionnaire NOW Care 08/19/25 19:40 Active Manager Corporate NOW Care 08/19/25 15:31 Active Manager Corporate STAT Care 08/19/25 15:56 Completed Continuous Pulse Oximetry NOW Care 08/19/25 15:31 Completed Continuous Pulse Oximetry STAT Care 08/19/25 15:56 Completed Decision to Admit X1 Care 08/19/25 19:40 Completed EKG (ED ONLY) *Do not use* NOW Care 08/19/25 15:31 Completed In and Out Catheter X1 Care 08/19/25 15:57 Completed Insert IV NOW Care 08/19/25 15:31 Active Lumbar Puncture set up NOW Care 08/19/25 16:52 Active Miscellaneous Nursing Order X1 Care 08/19/25 21:37 Active NIH Stroke Scale now Care 08/19/25 15:31 Active NPO NOW Care 08/19/25 15:31 Active NPO NOW Care 08/19/25 21:40 Active NPO STAT Care 08/19/25 15:56 Active Neuro Check Q4H Care 08/19/25 21:37 Active Notify provider NEEDED Care 08/19/25 21:38 Active Nurse Swallow Screen x1 Care 08/19/25 15:31 Active Obtain weight X1 Care 08/19/25 21:37 Active Seizure precautions NEEDED Care 08/19/25 21:40 Active Strict Intake and Output Routine Care 08/19/25 15:56 Ordered Consult to Neurology / Tele-Neurology Routine Cons 08/19/25 15:31 Active Consult to Neurology / Tele-Neurology Stat Cons 08/19/25 17:[address] angio stroke protocol Stat Exams 08/19/25 15:[address] stroke protocol Stat Exams 08/19/25 15:31 Completed EKG (ED Only) Stat Exams 08/19/25 15:31 Draft XR chest 1V portable Stat Exams 08/19/25 15:31 Completed Ammonia Stat Lab 08/19/25 19:59 Completed B-Type Natriuretic Peptide Stat Lab 08/19/25 15:45 Completed Blood Culture (Lab) Stat Lab 08/19/25 16:12 Received CBC AM DRAW Lab 08/20/25 04:58 Completed CBC AM DRAW Lab 08/21/25 05:00 Ordered CBC AM DRAW Lab 08/22/25 05:00 Ordered CBC Stat Lab 08/19/25 15:45 Completed CSF Culture and Gram Stain Stat Lab 08/19/25 19:30 Results Cell Count w Diff, CSF Stat Lab 08/19/25 19:30 Completed Coccid Serology, CF CSF (UCD)* Stat Lab 08/19/25 19:30 Received Comprehensive Metabolic Panel AM DRAW Lab 08/20/25 04:58 Completed Comprehensive Metabolic Panel AM DRAW Lab 08/21/25 05:00 Ordered Comprehensive Metabolic Panel AM DRAW Lab 08/22/25 05:00 Ordered Comprehensive Metabolic Panel Stat Lab 08/19/25 15:45 Completed Creatine Kinase Stat Lab 08/19/25 19:59 Completed Drug Screen,Urine Stat Lab 08/19/25 15:31 Ordered Enterovirus RNA, PCR, CSF Stat Lab 08/19/25 19:30 Received Free T4 (Free Thyroxine) Stat Lab 08/19/25 19:59 Completed Glucose,CSF Stat Lab 08/19/25 19:30 Completed HCG Titer if Positive Stat Lab 08/19/25 15:45 Completed HSV-1&2 DNA, QN, CSF* Stat Lab 08/19/25 19:30 Received LDH (Lactate Dehydrogenase) Stat Lab 08/19/25 15:45 Completed Lactate (Lactic Acid) Stat Lab 08/19/25 16:12 Completed Lactic Acid, 3 HR Stat Lab 08/19/25 19:59 Completed Magnesium AM DRAW Lab 08/20/25 04:58 Completed Magnesium AM DRAW Lab 08/21/25 05:00 Ordered Magnesium AM DRAW Lab 08/22/25 05:00 Ordered Magnesium Stat Lab 08/19/25 15:45 Completed Partial Thromboplastin Time Stat Lab 08/19/25 15:45 Completed Phosphorous AM DRAW Lab 08/20/25 04:58 Completed Phosphorous AM DRAW Lab 08/21/25 05:00 Ordered Phosphorous AM DRAW Lab 08/22/25 05:00 Ordered Phosphorous Stat Lab 08/19/25 15:45 Completed Procalcitonin Stat Lab 08/19/25 15:45 Completed Protein Total,CSF Stat Lab 08/19/25 19:30 Completed Prothrombin Time with INR Stat Lab 08/19/25 15:45 Completed TSH [Thyroid Stimulating Hormone] Stat Lab 08/19/25 19:59 Completed Troponin I Stat Lab 08/19/25 15:45 Completed Urinalysis, C/S if Indicated Stat Lab 08/19/25 15:31 Ordered VDRL, CSF Qual* Stat Lab 08/19/25 19:30 Received West Nile Virus (IgG,IgM) CSF Stat Lab 08/19/25 19:30 Received Acetaminophen Ivpb [Ofirmev Inj] Med 08/19/25 15:57 Discontinued 1,000 mg in 100 ml IV Q6HR Acyclovir Inj [Zovirax Inj] 350 mg Med 08/19/25 17:30 Active Sodium Chloride 0.9% [Ns] 100 ml IV QDAY@2100 Labetalol* IV [Trandate* IV] Med 08/19/25 15:31 Active 10 mg IVP Q15M PRN Linezolid 600 mg Ivpb [Zyvox Ivpb] Med 08/19/25 16:24 Active 600 mg in 300 ml IV Q12HR Midazolam Inj [Versed Inj] Med 08/19/25 16:52 Discontinued 2 mg IVP X1 ONE Midazolam Inj [Versed Inj] Med 08/19/25 18:55 Discontinued 2 mg IVP X1 ONE Ondansetron Inj [Zofran Inj] Med 08/19/25 15:31 Active 4 mg IVP Q4HR PRN Ringers Lactated 1000 ml [Lactated Ringers] 1,000 ml Med 08/19/25 21:45 Discontinued IV 75 mls/hr Ringers Lactated 1000 ml [Lactated Ringers] 500 ml Med 08/19/25 16:15 Discontinued IV 999 mls/hr Sodium Chloride 0.9% 1000 ml [Ns] 1,000 ml Med 08/19/25 16:57 Discontinued IV 100 mls/hr cefTRIAXone/D5w 1gm IV premix [Rocephin/D5w 1gm IV Med 08/19/25 16:52 Discontinued premix] 1 gm in 50 ml IV X1 levETIRAcetam INJ [Keppra Inj] Med 08/19/25 16:10 Discontinued 1,000 mg IVP X1 ONE Code Status Routine Oth 08/19/25 21:37 Ordered Oxygen Delivery NOW RT 08/19/25 15:31 Active Vital Signs Vital signs: Vital Signs Pulse Rate 93 08/19/25 16:26 Respiratory Rate 31 H 08/19/25 16:26 PROCEDURES: Procedure Comment LP. Patient in a lateral position, patient was given 2 mg of Versed which minimalized his movements but did not make it stop completely. Using a sterile drape landmarks were identified, anesthesia 1% lidocaine was injected in the local site. Using a number 23-gauge needle, it was advanced into headed technique. With a pop sensation between the vertebrae, however there was no CSF. Second attempt was also unsuccessful. 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 Physician: Wellington Reno ENP [facility] Clinical Information Provided by: patient and EMS [facility] Meds/Rx considered, not ordered None Labs/Rad/Tests considered, not ordered None Chronic Illness/Social Conditions Explain: ESRD dialysis EKG EKG not done EKG Interpretation EKG #1: EKG Interpretation: EKG performed at 1624 shows ventricular rate of 92 QRS of 110 QTc of 454 this is atrial fibrillation Labs Labs: interpreted by [facility] Lab(s) Interpretation(s): CBC shows a mild leukocytosis 11.2 and H&H of 11.3 and 36.0 respectively no thrombocytopenia Coags within acceptable limits CMP shows creatinine of 4.0 BUN of 18. No other significant electrolyte imbalances no renal impairment no transaminitis or T. bili elevation Lactic acid of 5.6 Alk phos of 120 BNP at 193 Troponin is undetectable. Imaging Imaging interpretation: interpreted by [facility] Imaging Interpretation(s): CTA of the head and neck is negative for LVO. CT of the head is negative for hemorrhagic stroke. Chest x-ray is negative for pneumonia. Medication Administration(s) Medication Administration History Aspirin (Aspirin Ec 81 Mg Tabec) 81 mg PO QDAY [facility] Stop: 09/19/25 08:59 Last Admin: 08/20/25 09:33 Dose: Not Given Documented By: ED Non-Admin Reason: HOLD PER DR. DENT Heparin Sodium (Porcine) (Heparin Sod Inj 5000 Unit/Ml Vial) 5,000 unit SC Q12HR [facility] Stop: 09/03/25 16:59 Linezolid (Zyvox Ivpb) 600 mg in 300 mls @ 300 mls/hr IV Q12HR [facility] Stop: 08/20/25 23:55 Last Admin: 08/20/25 10:36 Dose: 300 mls/hr Documented By: Infusion: 08/19/25 18:31 Dose: Infused Documented By: Admin: 08/19/25 17:18 Dose: 300 mls/hr Documented By: BROOKS Acyclovir Sodium 350 mg/ (Sodium Chloride) 107 mls @ 107 mls/hr IV QDAY@2100 [facility]; Protocol Stop: 08/26/25 17:29 Last Infusion: 08/19/25 19:07 Dose: Infused Documented By: Admin: 08/19/25 17:51 Dose: 107 mls/hr Documented By: BROOKS Labetalol HCl (Labetalol Inj 5 Mg/Ml Vial 4 Ml) 10 mg IVP Q15M PRN PRN Reason: hypertension Levothyroxine Sodium (Levothyroxine Sodium 25 Mcg Tablet) 75 mcg PO ACBR [facility] Stop: 09/19/25 08:59 Last Admin: 08/20/25 09:31 Dose: 75 mcg Documented By: ED Nifedipine (Nifedipine Xl 30 Mg Tabcr) 30 mg PO QDAY [facility] Stop: 09/19/25 08:59 Last Admin: 08/20/25 09:31 Dose: 30 mg Documented By: ED Ondansetron HCl (Ondansetron Inj 2 Mg/Ml Inj 2 Ml) 4 mg IVP Q4HR PRN PRN Reason: NAUSEA OR VOMITING Stop: 09/18/25 15:30 Sevelamer Carbonate (Sevelamer Carbonate 800 Mg Tablet) 800 mg PO TID [facility] Stop: 09/19/25 13:59 Discontinued Medications Aspirin (Aspirin 325 Mg Tablet) 325 mg PO X1 ONE Stop: 08/19/25 23:07 Last Admin: 08/19/25 23:41 Dose: Not Given Documented By: TANNER Non-Admin Reason: NPO Aspirin (Aspirin 300 Mg Supp) 300 mg VT X1 ONE Stop: 08/20/25 07:48 Last Admin: 08/20/25 09:32 Dose: Not Given Documented By: ED Non-Admin Reason: HOLD PER DR. DENT Olanzapine 2.5 mg/ Sterile (Water 2.1 ml) 0 mg IM QDAY ONE Stop: 08/20/25 04:13 Last Admin: 08/20/25 04:39 Dose: 1 dose Documented By: TANNER Heparin Sodium (Porcine) (Heparin Sod Inj 5000 Unit/Ml Vial) 5,000 unit SC Q8HR [facility] Stop: 09/02/25 21:59 Last Admin: 08/20/25 05:09 Dose: 5,000 unit Documented By: TANNER Co-signed By: JEB Admin: 08/19/25 23:00 Dose: 5,000 unit Documented By: TANNER Co-signed By: CL Acetaminophen (Ofirmev Inj) 1,000 mg in 100 mls @ 250 mls/hr IV Q6HR [facility] Stop: 08/20/25 06:23 Last Admin: 08/20/25 05:08 Dose: 250 mls/hr Documented By: Infusion: 08/20/25 01:25 Dose: Infused Documented By: Admin: 08/20/25 01:01 Dose: 250 mls/hr Documented By: Infusion: 08/19/25 20:16 Dose: Infused Documented By: Admin: 08/19/25 19:45 Dose: 250 mls/hr Documented By: Infusion: 08/19/25 16:42 Dose: Infused Documented By: Admin: 08/19/25 16:09 Dose: 250 mls/hr Documented By: BROOKS Lactated Ringer's (Lactated Ringers) 500 mls @ 999 mls/hr IV .Q31M ONE Stop: 08/19/25 16:45 Last Infusion: 08/19/25 17:15 Dose: Infused Documented By: Admin: 08/19/25 16:25 Dose: 999 mls/hr Documented By: BROOKS Ceftriaxone Sodium/Dextrose (Rocephin/D5w 1gm Iv Premix) 1 gm in 50 mls @ 100 mls/hr IV X1 ONE Stop: 08/19/25 17:21 Last Infusion: 08/19/25 17:39 Dose: Infused Documented By: Admin: 08/19/25 17:09 Dose: 100 mls/hr Documented By: BROOKS Sodium Chloride (Ns) 1,000 mls @ 100 mls/hr IV .Q10H [facility] Stop: 09/18/25 16:56 Last Admin: 08/19/25 17:17 Dose: 100 mls/hr Documented By: BROOKS Lactated Ringer's (Lactated Ringers) 1,000 mls @ 75 mls/hr IV .[id number] [facility] Stop: 08/20/25 11:04 Last Admin: 08/19/25 23:50 Dose: 75 mls/hr Documented By: TANNER Sodium Phosphate 22.5 mmol/ (Sodium Chloride) 507.5 mls @ 82.778 mls/hr IV X1 ONE Stop: 08/19/25 13:07 Ceftriaxone Sodium/Dextrose (Rocephin/D5w 1gm Iv Premix) 1 gm in 50 mls @ 100 mls/hr IV X1 ONE Stop: 08/19/25 22:20 Last Admin: 08/19/25 23:00 Dose: 100 mls/hr Documented By: TANNER Ceftriaxone Sodium 2 gm/ (Sodium Chloride) 50 mls @ 100 mls/hr IV HS [facility] Stop: 08/27/25 20:59 Magnesium Sulfate (Magnesium Sulfate Ivpb) 4 gm in 50 mls @ 12.5 mls/hr IV X1 ONE Stop: 08/20/25 03:21 Last Admin: 08/19/25 23:49 Dose: 12.5 mls/hr Documented By: TANNER Dextrose/Lactated Ringer's (D5-Lr) 1,000 mls @ 50 mls/hr IV .Q20H [facility] Stop: 08/21/25 00:44 Last Admin: 08/20/25 04:44 Dose: 50 mls/hr Documented By: TANNER Sodium Chloride (Ns) 1,000 mls @ 999 mls/hr IV .Q1H1M ONE Stop: 08/20/25 07:34 Ceftriaxone Sodium 2 gm/ (Sodium Chloride) 50 mls @ 100 mls/hr IV BID [facility] Stop: 08/27/25 08:59 Last Admin: 08/20/25 09:30 Dose: 100 mls/hr Documented By: ED Levetiracetam (Levetiracetam Inj 100 Mg/Ml Vial 5ml) 1,000 mg IVP X1 ONE Stop: 08/19/25 16:11 Last Admin: 08/19/25 16:21 Dose: Not Given Documented By: BROOKS Non-Admin Reason: Cancelled by Provider Midazolam HCl (Midazolam Inj 1 Mg/Ml Vial 2 Ml) 2 mg IVP X1 ONE Stop: 08/19/25 16:53 Last Admin: 08/19/25 17:31 Dose: 2 mg Documented By: BROOKS Midazolam HCl (Midazolam Inj 1 Mg/Ml Vial 2 Ml) 2 mg IVP X1 ONE Stop: 08/19/25 18:56 Last Admin: 08/19/25 19:15 Dose: 2 mg Documented By: STEPHANIE
--- NOTE | 2025-08-19 15:31 | XR_ITS ---
EXAMINATION: AP chest single view TECHNIQUE: Portable AP chest upright single view Date and time: August 19, 2025, 1608 hours, comparison August 11, 2025 INDICATIONS: Stroke protocol FINDINGS: Mild to moderate enlargement of the left ventricle CABG Prominent vascular congestion. No aspiration pneumonia Prominent osteopenia IMPRESSION: Prominent vascular congestion No aspiration pneumonia
[2025-08-19 15:59] LABS: Basophils # (Auto) 0.0 Thou/mm3 (0.0-0.2); Basophils % (Auto) 0 % (0-2.5); Eosinophils # (Auto) 0.2 Thou/mm3 (0.0-0.5); Eosinophils % (Auto) 2 % (0-10); Hematocrit 36.0 % (41.0-53.0); Hemoglobin 11.3 g/dL (13.5-16.0); Immature Granulocytes Auto 0.03 Thou/mm3 (0.00-0.00); Lymphocytes # (Auto) 3.6 Thou/mm3 (1.0-4.8); Lymphocytes % (Auto) 32 % (10-50); Mean Corpuscular HGB Conc 31.4 g/dl (31.0-37.0); Mean Corpuscular Hemoglobin 29.0 pg (25.0-35.0); Mean Corpuscular Volume 92 fL (80-100); Monocytes # (Auto) 0.8 Thou/mm3 (0.0-0.8); Monocytes % (Auto) 7 % (0-12); Neutrophils # (Auto) 6.5 Thou/mm3 (1.8-7.7); Neutrophils % (Auto) 58 % (37-80); Nucleated Red Blood Cell # 0.00 Thou/mm3 (0.00-0.00); Nucleated Red Blood Cell % 0 /100 WBC (0); Platelet Count 215 Thou/mm3 (140-440); RDW Standard Deviation 56.1 fL (35.1-43.9); Red Blood Count 3.90 Miln/mm3 (4.50-5.90); White Blood Count 11.2 Thou/mm3 (3.8-10.6)
[2025-08-19] MEDS: ACETAMINOPHEN IVPB 1,000 MG/100 ML VIAL 250 MG IV ×2 (16:09→19:45)
--- NOTE | 2025-08-19 16:18 | ESCONSULT_ITS ---
Tele Neuro Consultation Consultation Date 08/19/25 Consultation Narrative [facility] Tele[facility]urology Consult Services Patient Name:???JUAN RAMON LYNCH Date of :???1950 Identification Number:??? Date of Service:???08/19/2025 15:31:16 Diagnosis:?G93.41 - Encephalopathy Metabolic Impression: ?75 yr old man hx of HTN, renal dialysis for kidney failure, CAD , reported afib but reports no hx of this, old cva, comes with EMS for altered mental status, and L weakness, slurred speech noted by around 1430 after dialysis. is at bedside, she reports he was using his walker and talking normally when she picked him up from dialysis but later he was confused and had L sided weakness, although she reported he has been weak since his fall last week. ?I examined him post CT scan- exam is limited, he is agitated, repeating a few words, and not following commands, he is speaking just not answering questions or naming objects, he is moving all 4 extremities well, I do not see facial droop, he is moving eyes in all directions, pupils are equal reactive. gait deferred. NIH 5. ? ?Temp 101.2, BP 178/73. ?CT head- per radiology there is no acute finding, there is streak artifact. ?Diff Dx: likely sepsis, encephalopathy, less likely cva, seizure, I did consider iv thrombolytic however with fever, suspicion of sepsis, and his mental status right now, the risk of tenecteplase and hemorrhagic or other complication likely outweighs benefit, I discussed with and ER and all in agreement to defer iv thrombolytic at this time. Our recommendations are outlined below. Recommendations: ? Stroke/Telemetry Floor ? Neuro Checks (Q4) ? Bedside Swallow Eval ? DVT Prophylaxis ? IV Fluids, Normal Saline ? Head of Bed 30 Degrees ? Euglycemia and Avoid Hyperthermia (PRN Acetaminophen) ? Initiate or continue Aspirin 325 MG daily ?- avoid hypotension, can treat with a goal of 15% reduction in BP during the first 24 hours. ?- Encephalopathy, sepsis work up and treatment ?- CVA work up- recent MRI brain, cta head neck were unremarkable , old L cva. ?- Neuro fup ?d/w pt, , RN ?d/w Er Dr Reno all the recs. Sign Out: ? Discussed with Emergency Department Provider Advanced Imaging:Advanced imaging has been ordered. Results pending. Metrics: Last Known Well: 08/19/2025 14:30:00 Arrival Time: 08/19/2025 15:30:00 Activation Time: 08/19/2025 15:31:16 Initial Response Time: 08/19/2025 15:34:21Symptoms: confusion, L weakness. Initial patient interaction: 08/19/2025 15:49:56 NIHSS Assessment Completed: 08/19/2025 15:54:05Patient is not a candidate for Thrombolytic. Thrombolytic Medical Decision: 08/19/2025 15:57:10Patient was not deemed candidate for Thrombolytic because of following reasons: other diagnosis suspected sepsis suspected, risk of thrombolytic would outweigh benefit. . CT Head: CT head unremarkable for acute infarction or hemorrhage per Radiology: per radiology there is no acute finding, there is streak artifact. Primary Provider Notified of Diagnostic Impression and Management Plan on: 08/19/2025 16:07:42 History of Present Illness:Patient is a 75 year old Male. Patient was brought by EMS for symptoms of confusion, L weakness. 75 yr old man hx of HTN, renal dialysis for kidney failure, CAD , reported afib but reports no hx of this, old cva, comes with EMS for altered mental status, and L weakness, slurred speech noted by around 1430 after dialysis. is at bedside, she reports he was using his walker and talking normally w hen she picked him up from dialysis but later he was confused and had L sided weakness, although she reported he has been weak since his fall last week. I examined him post CT scan- exam is limited, he is agitated, repeating a few words, and not following commands, he is speaking just not answering questions or naming objects, he is moving all 4 extremities well, I do not see facial droop, he is moving eyes in all directions, pupils are equal reactive. gait deferred. NIH 5. Temp 101.2, BP 178/73. CT head- per radiology there is no acute finding, there is streak artifact. ? Past Medical History: ?Hypertension ?Coronary Artery Disease Other PMH:? renal dialysis Medications: No Anticoagulant use? No Antiplatelet use Reviewed EMR for current medications Allergies:? Reviewed Social History: Smoking: No Family History: There is no family history of premature cerebrovascular disease pertinent to this consultation ROS : 14 Points Review of Systems was performed and was negative except mentioned in HPI. Past Surgical History: There Is No Surgical History Contributory To Today?s Visit NIHSS may not be reliable due to: Pt is agitated and moving all arms legs well, he is not able to follow commands Examination: BP(178/73),?Pulse(90),?Blood Glucose(95) 1A: Level of Consciousness - Alert; keenly responsive?+ 0 1B: Ask Month and Age - Could Not Answer Either Question Correctly?+ 2 1C: Blink Eyes & Squeeze Hands - Performs 1 Task?+ 1 2: Test Horizontal Extraocular Movements - Normal?+ 0 3: Test Visual Terrell - No Visual Loss?+ 0 4: Test Facial Palsy (Use Grimace if Obtunded) - Normal symmetry?+ 0 5A: Test Left Arm Motor Drift - No Drift for 10 Seconds?+ 0 5B: Test Right Arm Motor Drift - No Drift for 10 Seconds?+ 0 6A: Test Left Leg Motor Drift - No Drift for 5 Seconds?+ 0 6B: Test Right Leg Motor Drift - No Drift for 5 Seconds?+ 0 7: Test Limb Ataxia (FNF/Heel-Romero) - Does Not Understand?+ 0 8: Test Sensation - Normal; No sensory loss?+ 0 9: Test Language/Aphasia - Severe Aphasia: Fragmentary Expression, Inference Needed, Cannot Identify Materials?+ 2 10: Test Dysarthria - Normal?+ 0 11: Test Extinction/Inattention - No abnormality?+ 0 NIHSS Score:?5 NIHSS Free Text :?exam is limited, he is agitated, repeating a few words, and not following commands, he is speaking just not answering questions or naming objects, he is moving all 4 extremities well, I do not see facial droop, he is moving eyes in all directions, pupils are equal reactive. gait deferred Pre-Morbid Modified Terry Scale: 3 Points = Moderate disability; requiring some help, but able to walk without assistance Spoke with :?ED Dr Reno This consult was conducted in real time using interactive audio and video technology. Patient was informed of the technology being used for this visit and agreed to proceed. Patient located in hospital and provider located at home/office setting. Patient is being evaluated for possible acute neurologic impairment and high probability of imminent or life-threatening deterioration. I spent total of 45 minutes providing care to this patient, including time for face to face visit via telemedicine, review of medical records, imaging studies and discussion of findings with providers, the patient and/or family. Dr Sofie Mckeon [facility] For Inpatient follow-up with [facility] physician please call [facility] at . As we are not an outpatient service for any post hospital discharge needs please contact the hospital for assistance. If you have any questions for the [facility] physicians or need to reconsult for clinical or diagnostic changes please contact us via [facility] at . Non-radiologist review of imaging performed to assist with emergent clinical decision-making. Remote physician workstations do not possess the same resoluti on, calibration, or diagnostic capabilities as hospital-based radiology reading stations, and formal radiologist read is necessary. Signature :Andrei Mckeon ?
[2025-08-19] MEDS: RINGERS LACTATED 1000 ML 500 ML 999 ML IV (16:25)
[2025-08-19 16:27] LABS: HCG Titer if Positive Negative
[2025-08-19 16:37] LABS: INR 1.0 (0.9-1.3); Partial Thromboplastin Time 27.5 Seconds (22.0-36.0); Prothrombin Time 10.9 Seconds (9.0-12.2)
[2025-08-19 16:40] LABS: Lactate (Lactic Acid) 5.6 mMol/L (0.4-2.0)
[2025-08-19] MEDS: cefTRIAXone/D5w 1gm IV premix 1 GM/50 ML BAG IV ×2 (17:09→23:00)
[2025-08-19] MEDS: SODIUM CHLORIDE 0.9% 1000 ML 1,000 ML 100 ML IV (17:17)
[2025-08-19 17:18] LABS: Albumin, Serum 3.8 gm/dL (3.4-4.8); Alkaline Phosphatase 120 U/L (46-116); Anion Gap 13 (7-16); Aspartate Amino Transferase 17 U/L (0-34); BUN/Creatinine Ratio 5 Ratio (12-20); Bilirubin,Total 0.5 mg/dL (0.3-1.2); Blood Urea Nitrogen 18 mg/dL (9-23); Calcium 8.6 mg/dL (8.3-10.6); Calcium (Corrected) 8.8 mg/dL (8.5-10.1); Carbon Dioxide 24.3 mMol/L (20.0-31.0); Chloride 99 mMol/L (98-107); Creatinine (Component) 4.0 mg/dL (0.6-1.3); Estimated Creatinine Clearance 15.2 mL/min (>60); Glucose 107 mg/dL (74-106); Magnesium 1.8 mg/dL (1.6-2.6); Osmolality,Calculated 273 (275-295); Potassium 4.2 mMol/L (3.4-5.1); Sodium 136 mMol/L (136-145); Troponin I < 0.020 ng/mL (0.0-0.045); eGFR 15 See Note
[2025-08-19] MEDS: LINEZOLID 600 MG IVPB 600 MG/300 ML BAG 300 MG IV (17:18)
[2025-08-19 17:25] LABS: B-Type Natriuretic Peptide 193 pg/mL (0-100)
[2025-08-19] MEDS: MIDAZOLAM INJ 1 MG/ML VIAL 2 ML 2 MG IVP ×2 (17:31→19:15)
[2025-08-19] MEDS: ACYCLOVIR INJ 350 MG in SODIUM CHLORIDE 0.9% 100 ML 107 MG IV (17:51)
--- NOTE | 2025-08-19 17:57 | PD.RESCONSUL ---
HPI Data of Consult Consult date: 08/19/25 Requesting Physician: Rey Taveras MD Admitting Provider: Juwan Diaz MD Attending Provider: Israel Kelley MD Primary Care Provider: Wendy Yin PA-C Consult Narrative Reason for consult: LT weakness, Aphasia - CVA rule out History of present illness: Mr. Sandra is a 75-year-old male well-known to outpatient neurology clinic, with past history of hypertension, ESRD on HD, A-fib, who was brought in by his for altered mental status and aphasia. Patient's last well-known is at 1430 on 08/19/2025. Stroke alert was called in the ED, per teleneuro evaluation NIHSS 5. Patient had a temperature of 101.2 at presentation, with tachycardia HR 98-[address] head negative for any acute findings. 2000: Patient seen and examined at bedside. Continues to have significant aphasia, unable to assess orientation, but remains alert. He does follow command, comprehension intact, however continues to have expressive aphasia. LP performed in ED 3 at bedside, adequate sample obtained. Primary team to follow-up with CSF studies. Continue antibiotics at this time, likely infectious etiology behind acute worsening of mental status. cc:: cc: Review of Systems Review of Systems ROS Unobtainable: unobtainable due to mental status Exam Vital Signs Temp Pulse Resp BP Pulse Ox O2 Del Method 101.1 F H 93 30 H 155/68 H 97 Room Air 08/19/25 16:30 08/19/25 16:30 08/19/25 16:30 08/19/25 16:30 08/19/25 16:30 08/19/25 16:30 Narrative Exam Constitutional Alert, unable to assess orientation, confused, elderly HEENT Vision grossly intact, PERRLA. Patent nares. Trachea midline. Respiratory Chest normal on inspection and clear to auscultation bilaterally. Cardiovascular S1 and S2 audible, RRR. No murmurs or carotid bruit. No gross JVD. Abdominal Soft and BS + ; non tender to palpation in all quadrants. Genitourinary No bladder tenderness, no flank pain. Normal to palpation. Musculoskeletal Extremities tone within normal limits. No LE edema. Neurological CN II - XII grossly intact. Extremity motor and sensation grossly intact. Skin Warm, dry and intact. No apparent lesions. Psychiatric Patient has a good affect, is cooperative. Results Labs 08/19/25 15:45 08/19/25 15:45 Labs: Short CBC 08/19/25 Range/Units 15:45 WBC 11.2 H (3.8-10.6) Thou/mm3 Hgb 11.3 L (13.5-16.0) g/dL Hct 36.0 L (41.0-53.0) % Plt Count 215 (140-440) Thou/mm3 BMP 08/19/25 15:45 Sodium 136 Potassium 4.2 Chloride 99 Carbon Dioxide 24.3 BUN 18 Creatinine 4.0 H D Glucose 107 H Calcium 8.6 Cardiac Enzymes 08/19/25 Range/Units 15:45 Troponin I < 0.020 (0.0-0.045) ng/mL Liver Function 08/19/25 Range/Units 15:45 Total Bilirubin 0.5 (0.3-1.2) mg/dL AST 17 (0-34) U/L Alkaline Phosphatase 120 H (46-116) U/L Albumin 3.8 (3.4-4.8) gm/dL Quality Measures Quality Measures VTE prophylaxis Advance care planning discussed with:: patient Medications Home Medications and Allergies Home Medications ?Medication ?Instructions ?Recorded ?Confirmed ?Type HYDROCODONE BIT/ACETAMINOPHEN 1 tab PO Q6HR PRN pain ##0 07/04/14 08/11/25 History (HYDROCODON-ACETAMINOPH 2.5-325) Levothyroxine * (SYNTHROID *) 75 mcg PO QDAY #0 tabs 07/04/14 08/11/25 History sevelamer carbonate 800 mg tablet 800 mg PO TID 04/18/23 08/11/25 History (Renvela) lidocaine 4 % topical cream 1 applic topical BID 11/20/24 08/11/25 History (Anecream) pravastatin 10 mg tablet 10 mg PO DAILY 01/01/25 08/11/25 History Allergies Allergy/AdvReac Type Severity Reaction Status Date / Time No Known Allergies Allergy Verified 08/11/25 03:08 Visit Medications Acetaminophen (Ofirmev Inj) 1,000 mg in 100 mls @ 250 mls/hr IV Q6HR RICH Stop: 08/20/25 06:23 Last Infusion: 08/19/25 16:42 Dose: Infused Linezolid (Zyvox Ivpb) 600 mg in 300 mls @ 300 mls/hr IV Q12HR COUNT INCLUDES THE [facility] Stop: 08/26/25 16:23 Last Admin: 08/19/25 17:18 Dose: 300 mls/hr Sodium Chloride (Ns) 1,000 mls @ 100 mls/hr IV .Q10H COUNT INCLUDES THE [facility] Stop: 09/18/25 16:56 Last Admin: 08/19/25 17:17 Dose: 100 mls/hr Acyclovir Sodium 350 mg/ (Sodium Chloride) 107 mls @ 107 mls/hr IV QDAY@2100 RICH; Protocol Stop: 08/26/25 17:29 Last Admin: 08/19/25 17:51 Dose: 107 mls/hr Labetalol HCl (Labetalol Inj 5 Mg/Ml Vial 4 Ml) 10 mg IVP Q15M PRN PRN Reason: hypertension Ondansetron HCl (Ondansetron Inj 2 Mg/Ml Inj 2 Ml) 4 mg IVP Q4HR PRN PRN Reason: NAUSEA OR VOMITING Stop: 09/18/25 15:30 Discontinued Medications Lactated Ringer's (Lactated Ringers) 500 mls @ 999 mls/hr IV .Q31M ONE Stop: 08/19/25 16:45 Last Infusion: 08/19/25 17:15 Dose: Infused Ceftriaxone Sodium/Dextrose (Rocephin/D5w 1gm Iv Premix) 1 gm in 50 mls @ 100 mls/hr IV X1 ONE Stop: 08/19/25 17:21 Last Admin: 08/19/25 17:09 Dose: 100 mls/hr Levetiracetam (Levetiracetam Inj 100 Mg/Ml Vial 5ml) 1,000 mg IVP X1 ONE Stop: 08/19/25 16:11 Last Admin: 08/19/25 16:21 Dose: Not Given Midazolam HCl (Midazolam Inj 1 Mg/Ml Vial 2 Ml) 2 mg IVP X1 ONE Stop: 08/19/25 16:53 Last Admin: 08/19/25 17:31 Dose: 2 mg Assessment & Plan Plan 75-year-old male with altered mentation and expressive aphasia admitted for CVA rule out. Acute metabolic encephalopathy Expressive aphasia, pending CVA rule out Infectious etiology, pending workup History of multidrug-resistant staph UTI Recommendations: - LP performed successfully at bedside on 08/19/2025. Primary team to follow-up with CSF analysis, HSV and West Nile, and enterovirus PCR - ED started patient on linezolid due to history of multidrug-resistant staph - Recommend to also start Rocephin and acyclovir for broad coverage - Likely infectious etiology behind change in mental status. Expressive aphasia appears to be improving while in the ED. - Continue stroke workup with neuroimaging, will follow-up - PT evaluation recommended. Primary team to follow-up with who is a primary caregiver and will be the best historian for the patient Thank you for the consult. Neurology will continue to follow the case with you Plan of care discussed with attending Neurologist Dr Kelley - Juwan Diaz M.D. PGY3 Disclaimer: Minor errors in food science professor may be present as this note was dictated using voice recognition software. Attending Provider Attestation/Addendum I personally have seen and examined the patient at the bedside and I agreed with the resident's findings, assessment and plan of care. Recent onset of altered mental status with a high fever in the background of frequent multi drug-resistant UTI. Underwent a lumbar puncture to evaluate further. Continue broad-spectrum antibiotic therapy until the culture comes back.
[2025-08-19 18:50] LABS: Alanine Aminotransferase 18 U/L (10-49); Albumin/Globulin Ratio 1.8 (1.2-2.2); Globulin 2.1 gm/dL (2.3-3.5); LDH (Lactate Dehydrogenase) 176 U/L (120-246); Phosphorous 1.1 mg/dL (2.4-5.1); Total Protein 5.9 gm/dL (5.7-8.2)
[2025-08-19 18:51] LABS: Procalcitonin 0.57 ng/ml (0.0-0.49)
[2025-08-19 19:21] LABS: Reflex Lactate? Y
[2025-08-19 19:39] LABS: Coccid Serology, CF CSF (UCD)* See Sep Rpt
[2025-08-19 19:54] LABS: CSF Mononuclear 71.4 %; CSF White Blood Cell 7 /cmm
[2025-08-19 19:57] LABS: CSF Cell Count Tube # Tube #2
[2025-08-19 19:58] LABS: CSF Color Colorless (Colorless)
[2025-08-19 20:04] LABS: Glucose,CSF 48 mg/dL (40-70); Protein Total,CSF 42 mg/dL (8-32)
[2025-08-19 20:04] LABS: Lactic Acid, 3 HR 3.2 mMol/L (0.4-2.0)
[2025-08-19 20:08] LABS: CSF Red Blood Cell 3000 /cmm
[2025-08-19 20:28] LABS: Ammonia 13 uMol/L (11-32)
--- NOTE | 2025-08-19 20:44 | PC.NURSE ---
Pt has a wallet with luu and credit cards in it counted together with [employer]ICE Pt has 108 in luu Nela
--- NOTE | 2025-08-19 20:46 | PC.NURSE ---
Spouse jossy Duty on phone and provided need PMH for Pt related to admission and trx
[2025-08-19 20:51] LABS: Creatine Kinase 67 U/L (34-171); Free T4 (Free Thyroxine) 1.36 ng/dL (0.89-1.76); Thyroid Stimulating Hormone 1.81 uIU/mL (0.55-4.78)
--- NOTE | 2025-08-19 21:59 | ESHP_ITS ---
Documentation for date of: 08/19/25 [facility] History of Present Illness History of present illness: 75-year-old male with a history of cerebrovascular accident (CVA), hypertension, end-stage renal disease on hemodialysis (MWF, follows Dr. Little), and coronary artery disease, presents with altered mental status, left-sided weakness, and slurred speech. The last known well time was around 2:30 PM today, following dialysis. His reports that he was using his walker and speaking normally when she picked him up from dialysis, but later noticed confusion and new left- sided weakness. She also mentions that he has been weak since a fall last week. Additionally, the notes that the patient has been experiencing diarrhea of unknown duration and quantity. He was brought in by EMS for further evaluation. The denies any fever, chills, headache, or blurry vision. Patient was recently in the hospital and was found to have UTI positive for Staphylococcus hemolyticus, only sensitive to daptomycin, gentamicin, nitrofurantoin, linezolid. Patient was started on linezolid and due to complete 6-day course following previous discharge on 08/14. ED course: Initial vitals include T 101.1, BP 155/68, HR 93, RR 31, O2 sat 97% on room air. Notable labs include WBC 11.2, hemoglobin 11.3, MCV 92, platelets 215, potassium 4.2, creatinine 4.0, lactic acid 5.6 with repeat 3.2, phosphorus 1.1, magnesium 1.8, LFTs within normal range except alk phos 120, BNP 193, Pro-Darien 0.57, TSH 1.8, free T4 1.36. CT head negative. Head/neck CTA negative for LVO. A stroke alert was initiated, and teleneuro consultation was performed, resulting in an NIHSS score of 5. Lumbar puncture was done and sent for CSF analysis, patient was started on linezolid (given previous multidrug-resistance), acyclovir, ceftriaxone. Past medical history: As stated above. Past surgical history: Incarcerated inguinal hernia s/p mesh placement on 07/15/2025 Allergies: NKDA Family history: Noncontributory. Social history: No alcohol use, no smoking, no illicit drug use. Patient admitted for acute encephalopathy and CVA workup. Review of Systems Review of Systems ROS Unobtainable: unobtainable due to mental status Exam Vital Signs Temp Pulse Resp BP Pulse Ox O2 Del Method O2 Flow Rate 100.9 F H 87 20 155/61 H 100 Nasal Cannula 2 08/19/25 20:21 08/19/25 20:21 08/19/25 20:21 08/19/25 20:21 08/19/25 20:21 08/19/25 20:21 08/19/25 20:21 Narrative Exam General: AOx0, unable to assess orientation, confused, no acute distress, word salad HEENT: NC/AT, mucous membranes moist, bilateral sclera anicteric Cardiovascular: regular rate and rhythm, S1/S2 present, no murmurs appreciated Pulmonary: clear to auscultation bilaterally, no rales/rhonchi/wheezes Abdominal: soft, non-tender, non-distended, no rebound/guarding, normal bowel sounds present Musculoskeletal: normal ROM, no peripheral edema Skin: warm and dry, intact, no rashes, Neuro: CN II-XII intact, no focal deficits Results: Labs 08/19/25 15:45 08/19/25 15:45 Labs: Short CBC 08/19/25 Range/Units 15:45 WBC 11.2 H (3.8-10.6) Thou/mm3 Hgb 11.3 L (13.5-16.0) g/dL Hct 36.0 L (41.0-53.0) % Plt Count 215 (140-440) Thou/mm3 BMP 08/19/25 15:45 Sodium 136 Potassium 4.2 Chloride 99 Carbon Dioxide 24.3 BUN 18 Creatinine 4.0 H D Glucose 107 H Calcium 8.6 Cardiac Enzymes 08/19/25 08/19/25 Range/Units 15:45 19:59 Total Creatine Kinase 67 D (34-171) U/L Troponin I < 0.020 (0.0-0.045) ng/mL Liver Function 08/19/25 Range/Units 15:45 Total Bilirubin 0.5 (0.3-1.2) mg/dL AST 17 (0-34) U/L ALT 18 (10-49) U/L Alkaline Phosphatase 120 H (46-116) U/L Albumin 3.8 (3.4-4.8) gm/dL Quality Measures Quality Measures VTE prophylaxis Advance care planning discussed with:: spouse Medications Home Medications and Allergies Home Medications ?Medication ?Instructions ?Recorded ?Confirmed ?Type HYDROCODONE BIT/ACETAMINOPHEN 1 tab PO Q6HR PRN pain # #0 07/04/14 08/11/25 History (HYDROCODON-ACETAMINOPH 2.5-325) Levothyroxine * (SYNTHROID *) 75 mcg PO QDAY #0 tabs 1 08/11/25 History sevelamer carbonate 800 mg tablet 800 mg PO TID 08/11/25 History (Renvela) lidocaine 4 % topical cream 1 applic topical BID 11/2008/11/25 History (Anecream) pravastatin 10 mg tablet 10 mg PO DAILY 01/01/2507/27 History Allergies Allergy/AdvReac Type Severity Reaction Status Date / Time No Known Allergies Allergy Verified 08/11/25 03:08 Visit Medications Heparin Sodium (Porcine) (Heparin Sod Inj 5000 Unit/Ml Vial) 5,000 unit SC Q8HR RICH Stop: 09/02/25 21:59 Acetaminophen (Ofirmev Inj) 1,000 mg in 100 mls @ 250 mls/hr IV Q6HR RICH Stop: 08/20/25 06:23 Last Infusion: 08/19/25 20:16 Dose: Infused Linezolid (Zyvox Ivpb) 600 mg in 300 mls @ 300 mls/hr IV Q12HR RICH Stop: 08/26/25 16:23 Last Infusion: 08/19/25 18:31 Dose: Infused Sodium Chloride (Ns) 1,000 mls @ 100 mls/hr IV .Q10H RICH Stop: 09/18/25 16:56 Last Admin: 08/19/25 17:17 Dose: 100 mls/hr Acyclovir Sodium 350 mg/ (Sodium Chloride) 107 mls @ 107 mls/hr IV QDAY@2100 RICH; Protocol Stop: 08/26/25 17:29 Last Infusion: 08/19/25 19:07 Dose: Infused Lactated Ringer's (Lactated Ringers) 1,000 mls @ 75 mls/hr IV .Q97Q10E RICH Stop: 08/20/25 11:04 Sodium Phosphate 22.5 mmol/ (Sodium Chloride) 507.5 mls @ 82.778 mls/hr IV X1 ONE Stop: 08/20/25 03:56 Ceftriaxone Sodium/Dextrose (Rocephin/D5w 1gm Iv Premix) 1 gm in 50 mls @ 100 mls/hr IV X1 ONE Stop: 08/19/25 22:20 Ceftriaxone Sodium 2 gm/ (Sodium Chloride) 50 mls @ 100 mls/hr IV QDAY RICH Stop: 08/27/25 08:59 Labetalol HCl (Labetalol Inj 5 Mg/Ml Vial 4 Ml) 10 mg IVP Q15M PRN PRN Reason: hypertension Ondansetron HCl (Ondansetron Inj 2 Mg/Ml Inj 2 Ml) 4 mg IVP Q4HR PRN PRN Reason: NAUSEA OR VOMITING Stop: 09/18/25 15:30 Discontinued Medications Lactated Ringer's (Lactated Ringers) 500 mls @ 999 mls/hr IV .Q31M ONE Stop: 08/19/25 16:45 Last Infusion: 08/19/25 17:15 Dose: Infused Ceftriaxone Sodium/Dextrose (Rocephin/D5w 1gm Iv Premix) 1 gm in 50 mls @ 100 mls/hr IV X1 ONE Stop: 08/19/25 17:21 Last Infusion: 08/19/25 17:39 Dose: Infused Levetiracetam (Levetiracetam Inj 100 Mg/Ml Vial 5ml) 1,000 mg IVP X1 ONE Stop: 08/19/25 16:11 Last Admin: 08/19/25 16:21 Dose: Not Given Midazolam HCl (Midazolam Inj 1 Mg/Ml Vial 2 Ml) 2 mg IVP X1 ONE Stop: 08/19/25 16:53 Last Admin: 08/19/25 17:31 Dose: 2 mg Midazolam HCl (Midazolam Inj 1 Mg/Ml Vial 2 Ml) 2 mg IVP X1 ONE Stop: 08/19/25 18:56 Last Admin: 08/19/25 19:15 Dose: 2 mg Assessment & Plan Plan 75-year-old male with a history of CVA, hypertension, end-stage renal disease on hemodialysis (MWF, follows Dr. Little) and CAD, who presents with altered mental status, left-sided weakness, and slurred speech. Patient admitted for acute encephalopathy and CVA workup. #Acute encephalopathy DDx: Infectious (CAP, UTI, meningitis), metabolic (electrolyte derangement, uremia, hypo/hyperglycemia), hypoxic (respiratory failure, aspiration, FARZANEH), endocrine (thyroid, adrenal dysfunction), toxic/drug-induced, neurologic (CVA, seizures, brain mass), psychiatric (acute delirium, depression, psychosis) Patient came in and found to have 2 or more SIRS criteria and was evaluated for sepsis. However, based upon further work-up, sepsis was ruled out. Temperature elevated on arrival, 101.1 Leukocytosis (WBC 11.2) with no left shift Head CT within normal limits Lumbar puncture performed, CSF analysis pending Chest x-ray showed no pneumonia Vitamin B12 within normal limits TSH and free T4 within normal limits VBG showed pH 7.56, pCO2 27 Ammonia within normal limits Plan: ? For possbile meningitis, antimicrobial coverage includes linezolid 600 mg every 12 hours, ceftriaxone 2 g daily, and acyclovir 350 mg daily ? Follow-up on CSF analysis (culture and Gram stain, HSV 1 and 2, enterovirus RNA, West Nile virus, VDRL, cocci) ? Neuro consulted, appreciate recommendations ? Patient on wrist restraints as pulling at lines ? Blood cultures pending ? Urinalysis pending ? U tox pending ? Monitor and correct electrolytes #Stroke like symptoms #Left-sided weakness #Aphasia #CVA workup Last known well time was around 2:30 PM today, following dialysis. His reports that he was using his walker and speaking normally when she picked him up from dialysis, but later noticed confusion and new left-sided weakness. She also notes that he has been weak since a fall last week. Per no complaints of headache, neck pain, no blurring of vision, no vision loss. CT head negative for any acute hemorrhage mass effect or midline shift CTA negative for any large vessel occlusion or thrombus Initial EKG had a lot of movement, getting a repeat Teleneurology consulted in ED, NIHSS score 5, they think it is less likely CVA, tenecteplase was considered however risks outweigh the benefits Last echo 07/20 showed EF 50 to 60% Plan: ? Ordered MR stroke protocol with and without contrast ? Ordered aspirin 325 mg, NOT given as did not pass swalllow eval, Day team to [facility] and give per teleneuro recommendation ? Tylenol as needed for headache ? 1 L LR maintenance fluid ? Neurology consulted, Dr. Thiagarajan ? Neuro swallow screen, n.p.o., referral to speech therapy ? Euglycemia and avoid hyperthermia ? Referral to physical therapy ? Permissive hypertension for first 24 hours ? Heparin for DVT prophylaxis #Lactic acidosis Initial lactic acid 5.6, repeat 3.2 after 1L of IVF Gentle hydration in setting of ESRD F/U repeat AM lactate #ESRD on HD (MWF) #Anemia of chronic disease #Hypophosphatemia Follows Dr. Little BUN 18 creatinine 4.0. Last dialysis on admission 08/19 Hemoglobin 11.3, MCV 92 Initial phosphate 1.1 Does not produce much urine, patient does straight cath in the morning Plan: ? Monitor electrolytes and renal function ? Maintenance fluid ? Sodium phosphate IV x 1 given ? Strict I&O ? Avoid nephrotoxic agents ? Renal dose medications ? Nephrology consulted, Dr. Little ? Day team to contact Dr. Little to restart HD inpatient #?Diarrhea Per patient's been having diarrhea, however unsure of the amount or the duration. Plan ? Monitor for diarrheal episodes while in hospital, if continues, send samples for C. difficile, norovirus testing #Ground-level fall #Right knee pain Unknown exactly when, patient has been having right knee pain Right knee x-ray shows moderate osteopenia, mild tricompartment osteoarthritis Plan ? Analgesia as needed Health Maintenance: Diet: N.p.o. GI prophylaxis: None DVT prophylaxis: Heparin 5000u SC every 8 hours Antimicrobials: Linezolid, Rocephin, acyclovir CODE STATUS: Full Disposition: Telemetry Case discussed with my attending Dr. Taveras, and senior resident, Dr. Kareem Harrison MD PGY-1 Attending Provider Attestation/Addendum After examination of the patient and review of the clinical data I feel that this patient needs admission to the hospital for further treatment/evaluation. Plan of care discussed with patient and is in agreement. I Marivel Taveras MD, attest that I was physically present for tillman portions of evaluation, and examined patient, labs and imagings and plan of care were discussed with IM residents team, and I agree with the findings and plans documented above.
[2025-08-19 22:08] LABS: Base Excess, Venous 2 (-3-3); O2 Saturation, Venous 79 % (96-97); PCO2, Venous 27 mmHg (36-56); PO2, Venous 45 mmHg (15-58); pH, Venous 7.56 (7.33-7.66)
[2025-08-19 22:10] LABS: CSF Gram Stain Alert Gram Stain Completed; CSF, Appearance Clear (Clear)
--- NOTE | 2025-08-19 22:34 | PC.NURSE ---
sbar to grecia page
[2025-08-19] MEDS: HEPARIN SOD INJ 5000 UNIT/ML VIAL SC (23:00)
[2025-08-19] MEDS: Magnesium Sulfate 4 GM Ivpb 4 GM/50 ML BAG IV (23:49)
[2025-08-19] MEDS: RINGERS LACTATED 1000 ML 1,000 ML 75 ML IV (23:50)
[2025-08-20] VITALS (9 sets, daily range): BP systolic 132–174; BP diastolic 65–103; PULSE 72–91; RESP 14–96; TEMP 36.7–37.5; O2SAT 95–100; BMI 13.0
--- NOTE | 2025-08-20 | XR_ITS ---
EXAMINATION: MR stroke protocol, MR head/brain wo con ORDERING PROVIDER: Sterling Harrison MD HISTORY: CVA w/u TECHNIQUE: Multiplanar multisequence magnetic resonance images were obtained of the brain without contrast. Imaging is limited due to lack of sequences including MRA and susceptibility weighted imaging as patient declined further scanning. ADDITIONAL HISTORY: History of cerebrovascular accident (CVA), hypertension, end-stage renal disease on hemodialysis (MWF, follows Dr. Little), and coronary artery disease, presents with altered mental status, left-sided weakness, and slurred speech. Yesterday, following dialysis. His reports that he was using his walker and speaking normally when she picked him up from dialysis, but later noticed confusion and new left-sided weakness. COMPARISON: 08/12/2025, MR stroke. 08/19/2025, stroke protocol. 04/19/2023, MRI brain. FINDINGS: Single focus of restricted diffusion involving the neurohypophysis, new when compared to 2022. Neurohypophysis demonstrates expected T1 hyperintensity. Lack of susceptibility weighted imaging limits evaluation for intracranial blood products. Similar-appearing moderate global parenchymal volume loss with resultant prominence of the sulci and ventricles. Old left lacunar infarcts. Old high left frontal lobe encephalomalacia. Similar white matter T2 hyperintensities. Small to moderate bilateral maxillary mucous retention cyst. Mastoid air cells are grossly clear. Bilateral post cataract surgical changes. T2 flow-voids are grossly intact. IMPRESSION: 1. Nonspecific single focus of restricted diffusion in the neurohypophysis. Differential would include infection, pituitary apoplexy, and other etiologies. Recommend sella/pituitary MRI with contrast. 2. Otherwise, no new findings for large vascular territory acute ischemic changes. 3. Limited evaluation for acute intracranial blood products as above. 4. Chronic ischemic changes as above.
[2025-08-20] MEDS: ACETAMINOPHEN IVPB 1,000 MG/100 ML VIAL 250 MG IV ×2 (01:01→05:08)
[2025-08-20 01:14] LABS: Lactate (Lactic Acid) 1.7 mMol/L (0.4-2.0)
--- NOTE | 2025-08-20 01:57 | PC.NURSE ---
Per JONAS Espinal to hold on sodium phosphate due to pharmacy mixing this compound. No new orders at this time.
--- NOTE | 2025-08-20 04:27 | XR_ITS ---
Examination: Abdomen AP single view Technique: AP portable supine abdomen, single view Exam date and time: August 20, 2025, 0447 hours COMPARISON: August 13, 2025 INDICATIONS: Abdominal pain today FINDINGS: Abundant stool throughout the colon A few air distended small bowel loops in the left upper abdomen improved compared to May 13, 2025 No free air Severe osteopenia IMPRESSION: A few air distended small bowel loops in the left upper abdomen, improved compared to May 13, 2025
[2025-08-20] MEDS: [UNRECOGNIZED DRUG - OTHER] IM (04:39)
[2025-08-20] MEDS: OLANZAPINE 2.5 MG IM (04:39)
[2025-08-20] MEDS: DEXTROSE 5%-LACTATED RINGERS 1,000 ML 50 ML IV (04:44)
[2025-08-20] MEDS: HEPARIN SOD INJ 5000 UNIT/ML VIAL SC ×2 (05:09→17:04)
[2025-08-20 05:19] LABS: Lactate (Lactic Acid) 2.8 mMol/L (0.4-2.0)
[2025-08-20 05:20] LABS: Basophils # (Auto) 0.1 Thou/mm3 (0.0-0.2); Basophils % (Auto) 1 % (0-2.5); Eosinophils # (Auto) 0.2 Thou/mm3 (0.0-0.5); Eosinophils % (Auto) 1 % (0-10); Hematocrit 36.1 % (41.0-53.0); Hemoglobin 11.4 g/dL (13.5-16.0); Immature Granulocytes Auto 0.09 Thou/mm3 (0.00-0.00); Lymphocytes # (Auto) 4.5 Thou/mm3 (1.0-4.8); Lymphocytes % (Auto) 43 % (10-50); Mean Corpuscular HGB Conc 31.6 g/dl (31.0-37.0); Mean Corpuscular Hemoglobin 28.6 pg (25.0-35.0); Mean Corpuscular Volume 91 fL (80-100); Monocytes # (Auto) 0.8 Thou/mm3 (0.0-0.8); Monocytes % (Auto) 8 % (0-12); Neutrophils # (Auto) 4.9 Thou/mm3 (1.8-7.7); Neutrophils % (Auto) 47 % (37-80); Nucleated Red Blood Cell # 0.00 Thou/mm3 (0.00-0.00); Nucleated Red Blood Cell % 0 /100 WBC (0); Platelet Count 200 Thou/mm3 (140-440); RDW Standard Deviation 55.2 fL (35.1-43.9); Red Blood Count 3.99 Miln/mm3 (4.50-5.90); White Blood Count 10.4 Thou/mm3 (3.8-10.6)
[2025-08-20 06:24] LABS: Alanine Aminotransferase 9 U/L (10-49); Albumin, Serum 3.9 gm/dL (3.4-4.8); Albumin/Globulin Ratio 1.8 (1.2-2.2); Anion Gap 14 (7-16); Aspartate Amino Transferase 20 U/L (0-34); BUN/Creatinine Ratio 4 Ratio (12-20); Bilirubin,Total 0.4 mg/dL (0.3-1.2); Blood Urea Nitrogen 21 mg/dL (9-23); Calcium 9.4 mg/dL (8.3-10.6); Calcium (Corrected) 9.5 mg/dL (8.5-10.1); Carbon Dioxide 22.7 mMol/L (20.0-31.0); Chloride 100 mMol/L (98-107); Creatinine (Component) 4.9 mg/dL (0.6-1.3); Estimated Creatinine Clearance 14.1 mL/min (>60); Globulin 2.2 gm/dL (2.3-3.5); Glucose 88 mg/dL (74-106); Magnesium 2.6 mg/dL (1.6-2.6); Osmolality,Calculated 275 (275-295); Phosphorous 3.0 mg/dL (2.4-5.1); Potassium 4.6 mMol/L (3.4-5.1); Sodium 137 mMol/L (136-145); Total Protein 6.1 gm/dL (5.7-8.2); eGFR 12 See Note
[2025-08-20 06:55] LABS: Alkaline Phosphatase 120 U/L (46-116)
--- NOTE | 2025-08-20 08:12 | ESPR_ITS ---
<Statement entered by Max Pedroza MD - 08/20/25 16:30> Patient seen and examined at bedside. I discussed and supervised with the policy intern physician who took care of this patient. I personally saw and examined the patient. I agree with most of the assessment and plan. Patient examined, confused but alert and follows commands. Pending CSF studies for menginitis workup. Tx with acyclovir. Pending scheduled HD tomorrow. Plan of care discussed with attending Dr. Lerma. Max Pedroza MD PGY-2 Documentation for date of: 08/20/25 Subjective Subjective Interval history: A 75-year-old male with a history of cerebrovascular accident (CVA), hypertension, end-stage renal disease on hemodialysis (MWF, follows Dr. Little), and coronary artery disease, presents with altered mental status, left-sided weakness, and slurred speech. Admitted for acute encephalopathy and CVA workup. Patient is AO x 2 to self and location only. Patient seems to be fidgety with his bed and is unable to recall the answers for many questions. Per , patient has been a lot better compared to yesterday, speech is more understandable today. reported patient hit his right knee in the bathroom during last hospitalization. Patient complained of pain to , along with new onset of confusion after dialysis yesterday. Lactic acid initially downtrended, up trended and downtrended again. CSF analysis negative for organism and WBC. CSF showed clear colorless with normal glucose and high protein, likely viral source. Pending VDRL R, enterovirus, herpes 1 and 2. Pending West Nile from [place]. Patient passed swallow test at bedside. Started on diet dysphagia and resume home nifedipine 30mg daily and Synthroid 75 mg daily. Start aspirin 81 mg daily per neurologist recommendation, however, refused any aspirin for patient. MRI brain showed nonspecific single focus of restricted diffusion in the neurohypophysis. Differential would include infection, pituitary apoplexy, and other etiologies. Recommend sella/pituitary MRI with contrast. Otherwise, no new findings for large vascular territory acute ischemic changes. Limited evaluation for acute intracranial blood products. Chronic ischemic changes. Neurology, consulted in ED, appreciate recs: Neuro Checks Q4H, DVT Prophylaxis, IVF NS, Initiate or continue Aspirin 325 MG daily, a goal of 15% reduction in BP during the first 24 hours, follow-up with CSF analysis, HSV and West Nile, and enterovirus PCR, start Rocephin and acyclovir for broad coverage. Likely infectious etiology behind change in mental status. Expressive aphasia appears to be improving while in the ED. Continue stroke workup with neuroimaging. PT evaluation recommended. Pending further neurology recommendation after MRI brain. Exam Vital Signs Temp Pulse Resp BP Pulse Ox O2 Del Method O2 Flow Rate 98.6 F 90 19 174/103 H 99 Room Air 100 08/20/25 04:00 08/20/25 04:00 08/20/25 04:00 08/20/25 04:00 08/20/25 04:00 08/19/25 22:14 08/19/25 22:14 FiO2 100 08/19/25 21:00 Narrative Exam General: AOx2, confused, no acute distress HEENT: NC/AT, mucous membranes moist, bilateral sclera anicteric Cardiovascular: regular rate and rhythm, S1/S2 present, no murmurs appreciated Pulmonary: clear to auscultation bilaterally, no rales/rhonchi/wheezes Abdominal: soft, non-tender, non-distended, no rebound/guarding, normal bowel sounds present Musculoskeletal: normal ROM, no peripheral edema Skin: warm and dry, intact, no rashes, Neuro: CN II-XII intact, no focal deficits Objective Labs 08/21/25 04:17 08/21/25 04:17 Labs: Laboratory Results - last 24 hr 08/19/25 08/19/25 08/19/25 15:45 16:12 19:30 WBC 11.2 H RBC 3.90 L Hgb 11.3 L Hct 36.0 L MCV 92 MCH 29.0 MCHC 31.4 RDW Std Deviation 56.1 H Plt Count 215 Neut % (Auto) 58 Lymph % (Auto) 32 [place] % (Auto) 7 Eos % (Auto) 2 Baso % (Auto) 0 Neut # (Auto) 6.5 Lymph # (Auto) 3.6 [place] # (Auto) 0.8 Eos # (Auto) 0.2 Baso # (Auto) 0.0 Immature Gran # (Auto) 0.03 H Absolute Nucleated RBC 0.00 Immature Gran % 0 Nucleated RBC % 0 PT 10.9 INR 1.0 APTT 27.5 VBG pH VBG pCO2 VBG pO2 VBG O2 Sat (Timothy) VBG Base Excess Sodium 136 Potassium 4.2 Chloride 99 Carbon Dioxide 24.3 Anion Gap 13 BUN 18 Creatinine 4.0 H D Estim Creat Clear Calc 15.2 L eGFR 15 L BUN/Creatinine Ratio 5 L Glucose 107 H Calculated Osmolality 273 L Lactic Acid 5.6 H* Calcium 8.6 Corrected Calcium 8.8 Phosphorus 1.1 L Magnesium 1.8 Total Bilirubin 0.5 AST 17 ALT 18 Alkaline Phosphatase 120 H Ammonia Lactate Dehydrogenase 176 Total Creatine Kinase Troponin I < 0.020 B-Natriuretic Peptide 193 H Total Protein 5.9 Albumin 3.8 Globulin 2.1 L Albumin/Globulin Ratio 1.8 Procalcitonin 0.57 H TSH Free T4 CSF Appearance Clear CSF Color Colorless CSF WBC 7 CSF RBC 3000 CSF Cell Count Tube # Tube #2 CSF Mononuclear WBCs 71.4 CSF Polynuclear WBCs Not Performed. CSF Glucose 48 CSF Total Protein 42 H HCG (Qual) Negative 08/19/25 08/20/25 08/20/25 19:59 00:47 04:58 WBC 10.4 RBC 3.99 L Hgb 11.4 L Hct 36.1 L MCV 91 MCH 28.6 MCHC 31.6 RDW Std Deviation 55.2 H Plt Count 200 Neut % (Auto) 47 Lymph % (Auto) 43 [place] % (Auto) 8 Eos % (Auto) 1 Baso % (Auto) 1 Neut # (Auto) 4.9 Lymph # (Auto) 4.5 [place] # (Auto) 0.8 Eos # (Auto) 0.2 Baso # (Auto) 0.1 Immature Gran # (Auto) 0.09 H Absolute Nucleated RBC 0.00 Immature Gran % 1 H Nucleated RBC % 0 PT INR APTT VBG pH 7.56 VBG pCO2 27 L VBG pO2 45 VBG O2 Sat (Timothy) 79 L VBG Base Excess 2 Sodium 137 Potassium 4.6 Chloride 100 Carbon Dioxide 22.7 Anion Gap 14 BUN 21 Creatinine 4.9 H* D Estim Creat Clear Calc 14.1 L eGFR 12 L* BUN/Creatinine Ratio 4 L Glucose 88 Calculated Osmolality 275 Lactic Acid 3.2 H 1.7 2.8 H Calcium 9.4 Corrected Calcium 9.5 Phosphorus 3.0 Magnesium 2.6 Total Bilirubin 0.4 AST 20 ALT 9 L Alkaline Phosphatase 120 H Ammonia 13 Lactate Dehydrogenase Total Creatine Kinase 67 D Troponin I B-Natriuretic Peptide Total Protein 6.1 Albumin 3.9 Globulin 2.2 L Albumin/Globulin Ratio 1.8 Procalcitonin TSH 1.81 Free T4 1.36 CSF Appearance CSF Color CSF WBC CSF RBC CSF Cell Count Tube # CSF Mononuclear WBCs CSF Polynuclear WBCs CSF Glucose CSF Total Protein HCG (Qual) ABG Interpretation ABG results: 08/19/25 19:59 VBG pH 7.56 VBG pCO2 27 L VBG pO2 45 VBG Base Excess 2 Quality Measures Quality Measures VTE prophylaxis Advance care planning discussed with:: patient and spouse Assessment & Plan Assessment Current Active Medications: Generic Name Dose Route Start Last Admin Trade Name Freq PRN Reason Stop Dose Admin Aspirin 81 mg 08/20/25 09:00 Aspirin Ec 81 Mg Tabec PO 09/19/25 08:59 QDAY RICH Heparin Sodium (Porcine) 5,000 unit 08/20/25 17:00 Heparin Sod Inj 5000 Unit/Ml Vial SC 09/03/25 16:59 Q12HR [facility] Linezolid 600 mg in 300 mls @ 300 mls/hr 08/19/25 16:24 08/19/25 18:31 Zyvox Ivpb IV 08/26/25 16:23 Infused Q12HR RICH Infusion Acyclovir Sodium 350 mg/ 107 mls @ 107 mls/hr 08/19/25 17:30 08/19/25 19:07 Sodium Chloride IV 08/26/25 17:29 Infused QDAY@2100 RICH Infusion Protocol Dextrose/Lactated Ringer's 1,000 mls @ 50 mls/hr 08/20/25 04:45 08/20/25 04:44 D5-Lr IV 08/21/25 00:44 50 mls/hr .Q20H RICH Administration Ceftriaxone Sodium 2 gm/ 50 mls @ 100 mls/hr 08/20/25 09:00 Sodium Chloride IV 08/27/25 08:59 BID RICH Labetalol HCl 10 mg 08/19/25 15:31 Labetalol Inj 5 Mg/Ml Vial 4 Ml IVP Q15M PRN hypertension Nifedipine 30 mg 08/20/25 09:00 Nifedipine Xl 30 Mg Tabcr PO 09/19/25 08:59 QDAY [facility] Non-Formulary Medication 75 mcg 08/20/25 09:00 Levothyroxine * (Synthroid *) PO 09/19/25 08:59 QDAY RICH Ondansetron HCl 4 mg 08/19/25 15:31 Ondansetron Inj 2 Mg/Ml Inj 2 Ml IVP 09/18/25 15:30 Q4HR PRN NAUSEA OR VOMITING Sevelamer Carbonate 800 mg 08/20/25 14:00 Sevelamer Carbonate 800 Mg Tablet PO 09/19/25 13:59 TID RICH Plan 75-year-old male with a history of CVA, hypertension, end-stage renal disease on hemodialysis (MWF, follows Dr. Little) and CAD, who presents with altered mental status, left-sided weakness, and slurred speech. Patient admitted for acute encephalopathy and CVA workup. #Acute encephalopathy DDx: Infectious (CAP, UTI, meningitis), metabolic (electrolyte derangement, uremia, hypo/hyperglycemia), hypoxic (respiratory failure, aspiration, FARZANEH), endocrine (thyroid, adrenal dysfunction), toxic/drug-induced, neurologic (CVA, seizures, brain mass), psychiatric (acute delirium, depression, psychosis) Patient came in and found to have 2 or more SIRS criteria and was evaluated for sepsis. However, based upon further work-up, sepsis was ruled out. Temperature elevated on arrival, 101.1 Leukocytosis (WBC 11.2) with no left shift Head CT within normal limits Chest x-ray showed no pneumonia Vitamin B12, TSH and free T4, ammonia within normal limits VBG showed pH 7.56, pCO2 27 08/20: CSF analysis colorless clear WBC 7 RBC 3000 glucose 48 normal protein 42 high. CSF Gram stain showed no organism, no WBC Plan: ? Discontinue ceftriaxone ? Continue acyclovir and last day of linezolid (previous UTI) ? Pending [place] ([facility]), [place]ci, VDRL, enterovirus, herpes 1 and 2 ? Neuro consulted, appreciate recommendations ? Blood cultures pending ? Monitor and correct electrolytes #Stroke like symptoms #Left-sided weakness #Aphasia #CVA workup Last known well time was around 2:30 PM today, following dialysis. His reports that he was using his walker and speaking normally when she picked him up from dialysis, but later noticed confusion and new left-sided weakness. She also notes that he has been weak since a fall last week. Per no complaints of headache, neck pain, no blurring of vision, no vision loss. CT head negative for any acute hemorrhage mass effect or midline shift CTA negative for any large vessel occlusion or thrombus Initial EKG had a lot of movement, getting a repeat Teleneurology consulted in ED, NIHSS score 5, they think it is less likely CVA, tenecteplase was considered however risks outweigh the benefits Last echo 07/20 showed EF 50 to 60% 08/20: MRI brain showed nonspecific single focus of restricted diffusion in the neurohypophysis. Differential would include infection, pituitary apoplexy, and other etiologies. Recommend sella/pituitary MRI with contrast. Otherwise, no new findings for large vascular territory acute ischemic changes. Limited evaluation for acute intracranial blood products. Chronic ischemic changes. Plan: ? Start ASA 81, however, refused (08/20) ? Tylenol as needed for headache ? Neurology consulted, Dr. Kelley, appreciate recs ? Euglycemia and avoid hyperthermia ? Referral to physical therapy ? Heparin for DVT prophylaxis #Lactic acidosis Initial lactic acid 5.6, repeat 3.2 after 1L of IVF Gentle hydration in setting of ESRD 08/20: Lactic acid initially downtrended, up trended and downtrended again. Plan: ? Monitor, plan for HD tomorrow #ESRD on HD (MWF) #Anemia of chronic disease #Hypophosphatemia Follows Dr. Little BUN 18 creatinine 4.0. Last dialysis on admission 08/19 Hemoglobin 11.3, MCV [address]1 [address]. Little is central service tech - Per Dr. Little, off 08/20, will contact nephro consultant Does not produce much urine, patient does straight cath in the morning Plan: ? Monitor electrolytes and renal function ? Maintenance fluid ? Sodium phosphate IV x 1 given ? Strict I&O ? Avoid nephrotoxic agents ? Renal dose medications ? Nephrology consulted, appreciate recs. #Ground-level fall #Right knee pain Unknown exactly when, patient has been having right knee pain Right knee x-ray shows moderate osteopenia, mild tricompartment osteoarthritis Plan ? Analgesia as needed #?Diarrhea Per patient's been having diarrhea, however unsure of the amount or the duration. 08/20: no diarrhea noticed so far Plan ? Monitor for diarrheal episodes while in hospital, if continues, send samples for C. difficile, norovirus testing Health Maintenance: Diet: Dysphagia 2 GI prophylaxis: None DVT prophylaxis: Heparin 5000u SC every 8 hours Antimicrobials: Linezolid, Rocephin, acyclovir CODE STATUS: Full Disposition: Telemetry Assessment and plan discussed with my attending physician Dr. Lerma and Dr. Pedroza(PGY-2). Dr. Polanco (PGY-1) ? marketing services vice president Attending Provider Attestation/Addendum Deanne Hunter, , attest that I was physically present for the tillman portions of the service and evaluated the patient with the resident and I reviewed and discussed the case with the resident and agree with the resident's findings and plans of care as documented above Patient seen and evaluated this AM. Patient is much more alert at my time of evaluation. He is A&Ox3, but does not recall the events that led to his admission. at bedside and states that the patient's mentation is much improved. Rocephin was discontinued as CSF studies are more consistent with viral encephalitis. MRI was done showing no acute intracranial findings. Will continue with acyclovir at this time and f/u with neurology recommendations. Nephro consulted to resume dialysis. Patient is to complete linezolid for tx his UTI today.
[2025-08-20 08:16] LABS: Reflex Lactate? Y
[2025-08-20 09:26] LABS: Lactate (Lactic Acid) 1.4 mMol/L (0.4-2.0)
[2025-08-20] MEDS: cefTRIAXone 2 GM in SODIUM CHLORIDE 0.9% (Popper) 50 ML IV (09:30)
[2025-08-20] MEDS: LEVOTHYROXINE SODIUM 25 MCG TABLET 75 MCG PO (09:31)
[2025-08-20] MEDS: NIFEdipine XL 30 MG TABCR PO (09:31)
--- NOTE | 2025-08-20 10:17 | PCS.ST ---
Swallow Evaluation completed. See report for details. Recommend regular diet consistencies and regular liquids. No s/s of aspiration.
[2025-08-20] MEDS: LINEZOLID 600 MG IVPB 600 MG/300 ML BAG 300 MG IV ×2 (10:36→21:32)
[2025-08-20 14:35] LABS: Cocci Serology, IgM Negative (Negative)
--- NOTE | 2025-08-20 15:35 | PC.PT ---
Patient is safe to use a bedside commode with a FWW and 1 staff assist. RN made aware.
--- NOTE | 2025-08-20 15:38 | PC.SS ---
SS met with patient and regarding his d/c plan. Pt is alert/oriented. Pt was admitted for Acute Encephalopathy, CVA Work-Up. confirmed demographic and contact information is correct on facesheet. Pt resides with . Pt ambulates using a 4 wheel with seat, rollator walker. Pt also has a wheelchair at home. Pt requires assistance with all ADLs. Patient?s pharmacy of choice is [facility]. Pt named his , Amy Smith medical decision maker if he is unable. SS provided verbal d/c options for home with HH or SNF. is open to SNF if pt is unable to ambulate. Pt is not agreeable to SNF. cares for pt at home. Per , if pt returns home her preference is [facility]. Pt is established with Dr. Sidney BARBER at 8:30. Pt utilizes [employer] for transportation. Pt followed up with PCP 4 weeks ago. D/C plan: Home with [facility] or SNF Next of Kin: Amy Smith, , phone# [phone] PCP: Dr. Wendy Yin Address: Correct on facesheet
[2025-08-20] MEDS: DICLOFENAC 1% TOP GEL 100 GM TUBE TOP (17:04)
--- NOTE | 2025-08-20 18:57 | ESPR_ITS ---
Documentation for date of: 08/20/25 Subjective Subjective Interval history: Mr. Sandra is a 75-year-old male well-known to outpatient neurology clinic, with past history of hypertension, ESRD on HD, A-fib, who was brought in by his for altered mental status and aphasia. Patient's last well-known is at 1430 on 08/19/2025. Stroke alert was called in the ED, per teleneuro evaluation NIHSS 5. Patient had a temperature of 101.2 at presentation, with tachycardia HR 98- [address] head negative for any acute findings. 08/19/2025 @2000: Patient seen and examined at bedside. Continues to have significant aphasia, unable to assess orientation, but remains alert. He does follow command, comprehension intact, however continues to have expressive aphasia. LP performed in ED 3 at bedside, adequate sample obtained. Primary team to follow-up with CSF studies. Continue antibiotics at this time, likely infectious etiology behind acute worsening of mental status. 08/20/2025 @1800: Patient examined at bedside, mentation appears to be at baseline, AO x 3. Acute delirium has now resolved, was most likely in the setting of infection. Neuroimaging negative for any acute findings, CSF analysis and other extensive workup all negative. Patient can safely be discharged tomorrow, recommend outpatient follow-up with neurology in the clinic. Exam Vital Signs Temp Pulse Resp BP Pulse Ox O2 Del Method O2 Flow Rate 98.7 F 84 18 140/89 H 95 Room Air 100 08/20/25 16:00 08/20/25 16:00 08/20/25 16:00 08/20/25 16:00 08/20/25 16:00 08/20/25 16:00 08/19/25 22:14 FiO2 100 08/19/25 21:00 Narrative Exam Constitutional Alert, AO x 3, mentation at baseline HEENT Vision grossly intact, PERRLA. Patent nares. Trachea midline. Respiratory Chest normal on inspection and clear to auscultation bilaterally. Cardiovascular S1 and S2 audible, RRR. No murmurs or carotid bruit. No gross JVD. Abdominal Soft and BS + ; non tender to palpation in all quadrants. Genitourinary No bladder tenderness, no flank pain. Normal to palpation. Musculoskeletal Extremities tone within normal limits. No LE edema. Neurological CN II - XII grossly intact. Extremity motor and sensation grossly intact. Skin Warm, dry and intact. No apparent lesions. Psychiatric Patient has a good affect, is cooperative. Objective Labs 08/22/25 04:23 08/22/25 04:23 Labs: Laboratory Results - last 24 hr 08/19/25 08/19/25 08/20/25 19:30 19:59 00:47 WBC RBC Hgb Hct MCV MCH MCHC RDW Std Deviation Plt Count Neut % (Auto) Lymph % (Auto) [place] % (Auto) Eos % (Auto) Baso % (Auto) Neut # (Auto) Lymph # (Auto) [place] # (Auto) Eos # (Auto) Baso # (Auto) Immature Gran # (Auto) Absolute Nucleated RBC Immature Gran % Nucleated RBC % VBG pH 7.56 VBG pCO2 27 L VBG pO2 45 VBG O2 Sat (Timothy) 79 L VBG Base Excess 2 Sodium Potassium Chloride Carbon Dioxide Anion Gap BUN Creatinine Estim Creat Clear Calc eGFR BUN/Creatinine Ratio Glucose Calculated Osmolality Lactic Acid 3.2 H 1.7 Calcium Corrected Calcium Phosphorus Magnesium Total Bilirubin AST ALT Alkaline Phosphatase Ammonia 13 Total Creatine Kinase 67 D Total Protein Albumin Globulin Albumin/Globulin Ratio TSH 1.81 Free T4 1.36 CSF Appearance Clear CSF Color Colorless CSF WBC 7 CSF RBC 3000 CSF Cell Count Tube # Tube #2 CSF Mononuclear WBCs 71.4 CSF Polynuclear WBCs Not Performed. CSF Glucose 48 CSF Total Protein 42 H Coccidioides IgM Ab West Nile IgG/IgM Ab 08/20/25 08/20/25 04:58 09:13 WBC 10.4 RBC 3.99 L Hgb 11.4 L Hct 36.1 L MCV 91 MCH 28.6 MCHC 31.6 RDW Std Deviation 55.2 H Plt Count 200 Neut % (Auto) 47 Lymph % (Auto) 43 [place] % (Auto) 8 Eos % (Auto) 1 Baso % (Auto) 1 Neut # (Auto) 4.9 Lymph # (Auto) 4.5 [place] # (Auto) 0.8 Eos # (Auto) 0.2 Baso # (Auto) 0.1 Immature Gran # (Auto) 0.09 H Absolute Nucleated RBC 0.00 Immature Gran % 1 H Nucleated RBC % 0 VBG pH VBG pCO2 VBG pO2 VBG O2 Sat (Timothy) VBG Base Excess Sodium 137 Potassium 4.6 Chloride 100 Carbon Dioxide 22.7 Anion Gap 14 BUN 21 Creatinine 4.9 H* D Estim Creat Clear Calc 14.1 L eGFR 12 L* BUN/Creatinine Ratio 4 L Glucose 88 Calculated Osmolality 275 Lactic Acid 2.8 H 1.4 Calcium 9.4 Corrected Calcium 9.5 Phosphorus 3.0 Magnesium 2.6 Total Bilirubin 0.4 AST 20 ALT 9 L Alkaline Phosphatase 120 H Ammonia Total Creatine Kinase Total Protein 6.1 Albumin 3.9 Globulin 2.2 L Albumin/Globulin Ratio 1.8 TSH Free T4 CSF Appearance CSF Color CSF WBC CSF RBC CSF Cell Count Tube # CSF Mononuclear WBCs CSF Polynuclear WBCs CSF Glucose CSF Total Protein Coccidioides IgM Ab Negative West Nile IgG/IgM Ab Cancelled ABG Interpretation ABG results: 08/19/25 19:59 VBG pH 7.56 VBG pCO2 27 L VBG pO2 45 VBG Base Excess 2 Quality Measures Quality Measures VTE prophylaxis Advance care planning discussed with:: patient Assessment & Plan Assessment Current Active Medications: Generic Name Dose Route Start Last Admin Trade Name Freq PRN Reason Stop Dose Admin Aspirin 81 mg 08/20/25 09:00 08/20/25 11:10 Aspirin Ec 81 Mg Tabec PO 09/19/25 08:59 Not Given QDAY RICH Diclofenac Sodium 4 gm 08/20/25 15:30 08/20/25 17:04 Diclofenac 1% Top Gel 100 Gm Tube TOP 09/19/25 15:29 4 gm TID RICH Administration Heparin Sodium (Porcine) 5,000 unit 08/20/25 17:00 08/20/25 17:04 Heparin Sod Inj 5000 Unit/Ml Vial SC 09/03/25 16:59 5,000 unit Q12HR RICH Administration Linezolid 600 mg in 300 mls @ 300 mls/hr 08/19/25 16:24 08/20/25 11:36 Zyvox Ivpb IV 08/20/25 23:55 Infused Q12HR RICH Infusion Acyclovir Sodium 350 mg/ 107 mls @ 107 mls/hr 08/19/25 17:30 08/19/25 19:07 Sodium Chloride IV 08/26/25 17:29 Infused QDAY@2100 RICH Infusion Protocol Labetalol HCl 10 mg 08/19/25 15:31 Labetalol Inj 5 Mg/Ml Vial 4 Ml IVP Q15M PRN hypertension Levothyroxine Sodium 75 mcg 08/20/25 09:00 08/20/25 09:31 Levothyroxine Sodium 25 Mcg Tablet PO 09/19/25 08:59 75 mcg ACBR RICH Administration Nifedipine 30 mg 08/20/25 09:00 08/20/25 09:31 Nifedipine Xl 30 Mg Tabcr PO 09/19/25 08:59 30 mg QDAY RICH Administration Ondansetron HCl 4 mg 08/19/25 15:31 Ondansetron Inj 2 Mg/Ml Inj 2 Ml IVP 09/18/25 15:30 Q4HR PRN NAUSEA OR VOMITING Sevelamer Carbonate 800 mg 08/20/25 12:45 08/20/25 12:42 Sevelamer Carbonate 800 Mg Tablet PO 09/19/25 12:44 Not Given On Hold: 08/20/25 16:29 TIDWM RICH Plan 75-year-old male with altered mentation and expressive aphasia admitted for CVA rule out. Acute metabolic encephalopathy Expressive aphasia, pending CVA rule out Infectious etiology, pending workup History of multidrug-resistant staph UTI Recommendations: - LP performed successfully at bedside on 08/19/2025 -> CSF analysis, HSV and West Nile, and enterovirus PCR: all Negative - Likely infectious etiology behind recent onset of altered mental status with a high fever in the background of frequent multi drug-resistant UTI. - Continue broad-spectrum antibiotic therapy - Neuroimaging negative. Patient is back to baseline, is safe to discharge from neurology standpoint. Recommend close outpatient follow-up in the clinic. Thank you for the consult. Neurology will continue to follow the case with you. Plan of care discussed with attending Neurologist Dr Kelley - Juwan Diaz M.D. PGY3 Disclaimer: Minor errors in mold sprayer may be present as this note was dictated using voice recognition software. Attending Provider Attestation/Addendum I personally have seen and examined the patient at the bedside and agreed with the resident's findings, assessment and plan of care. Reassurance given to the patient regarding the CSF analysis. Patient is stable from neurology standpoint for discharge. The patient is back to his baseline.
[2025-08-20] MEDS: ACYCLOVIR INJ 350 MG in SODIUM CHLORIDE 0.9% 100 ML 107 MG IV (20:19)
[2025-08-20 20:39] LABS: Collection Type, Urine Clean Catch
[2025-08-20 20:54] LABS: Bacteria,Urine Rare; Bilirubin,Urine Negative (Negative); Blood,Urine Trace (Negative); Clarity,Urine Clear (Clear/Hazy); Color,Urine Lt-Yellow (Lt Yel-Yel); Glucose, Urine Trace (Negative); Ketones,Urine Negative (Negative); Leukocyte Esterase,Urine Positive (Negative); Nitrite,Urine Negative (Negative); PH,Urine 8.0 (5.0-7.0); Protein,Urine 3+ (Neg - Trace); RBC,Urine 3 /hpf (0-3); Specific Gravity,Urine 1.025 (1.001-1.035); Squamous Epithelial Cell,Urine < 1 /hpf (0-5); Transitional Epi Cells,Urine 3 /hpf (0-5); Urobilinogen,Urine Negative mg/dL (0.0-1.0); WBC,Urine 104 /hpf (0-5)
[2025-08-20 20:55] LABS: Culture Indicated,Urine Yes
[2025-08-20 21:02] LABS: Amphetamine/Methamp Scrn,U Negative (Negative); Barbiturate Screen,Urine Negative (Negative); Benzodiazepines Screen,Urine Positive (Negative); Benzoylecgonine Screen, Ur Negative (Negative); Fentanyl Screen,Urine Negative (Negative); Opiate Screen,Urine Positive (Negative); THC Screen,Urine Negative (Negative)
[2025-08-21] VITALS (24 sets, daily range): BP systolic 104–165; BP diastolic 47–80; PULSE 62–86; RESP 16–94; TEMP 35.9–36.8; O2SAT 95–100; BMI 23.9
[2025-08-21 05:37] LABS: Basophils # (Auto) 0.0 Thou/mm3 (0.0-0.2); Basophils % (Auto) 1 % (0-2.5); Eosinophils # (Auto) 0.5 Thou/mm3 (0.0-0.5); Eosinophils % (Auto) 7 % (0-10); Hematocrit 31.3 % (41.0-53.0); Hemoglobin 9.8 g/dL (13.5-16.0); Immature Granulocytes Auto 0.02 Thou/mm3 (0.00-0.00); Lymphocytes # (Auto) 3.3 Thou/mm3 (1.0-4.8); Lymphocytes % (Auto) 41 % (10-50); Mean Corpuscular HGB Conc 31.3 g/dl (31.0-37.0); Mean Corpuscular Hemoglobin 29.3 pg (25.0-35.0); Mean Corpuscular Volume 93 fL (80-100); Monocytes # (Auto) 0.7 Thou/mm3 (0.0-0.8); Monocytes % (Auto) 8 % (0-12); Neutrophils # (Auto) 3.5 Thou/mm3 (1.8-7.7); Neutrophils % (Auto) 44 % (37-80); Nucleated Red Blood Cell # 0.00 Thou/mm3 (0.00-0.00); Nucleated Red Blood Cell % 0 /100 WBC (0); Platelet Count 190 Thou/mm3 (140-440); RDW Standard Deviation 57.2 fL (35.1-43.9); Red Blood Count 3.35 Miln/mm3 (4.50-5.90); White Blood Count 8.1 Thou/mm3 (3.8-10.6)
[2025-08-21] MEDS: LEVOTHYROXINE SODIUM 25 MCG TABLET 75 MCG PO (06:21)
[2025-08-21] MEDS: DICLOFENAC 1% TOP GEL 100 GM TUBE TOP ×3 (06:21→21:04)
[2025-08-21 06:31] LABS: Alanine Aminotransferase 7 U/L (10-49); Albumin, Serum 3.6 gm/dL (3.4-4.8); Albumin/Globulin Ratio 1.6 (1.2-2.2); Alkaline Phosphatase 108 U/L (46-116); Anion Gap 13 (7-16); Aspartate Amino Transferase 19 U/L (0-34); BUN/Creatinine Ratio 5 Ratio (12-20); Bilirubin,Total 0.2 mg/dL (0.3-1.2); Blood Urea Nitrogen 31 mg/dL (9-23); Calcium 8.6 mg/dL (8.3-10.6); Calcium (Corrected) 8.9 mg/dL (8.5-10.1); Carbon Dioxide 24.3 mMol/L (20.0-31.0); Chloride 99 mMol/L (98-107); Creatinine (Component) 6.0 mg/dL (0.6-1.3); Estimated Creatinine Clearance 11.5 mL/min (>60); Globulin 2.2 gm/dL (2.3-3.5); Glucose 93 mg/dL (74-106); Magnesium 2.7 mg/dL (1.6-2.6); Osmolality,Calculated 278 (275-295); Phosphorous 4.2 mg/dL (2.4-5.1); Potassium 4.8 mMol/L (3.4-5.1); Sodium 136 mMol/L (136-145); Total Protein 5.8 gm/dL (5.7-8.2); eGFR 9 See Note
[2025-08-21] MEDS: EPOETIN ALFA-EPBX INJ 10,000 UNIT/ML VIAL (NON-ESRD) 10000 UNIT SC (09:35)
--- NOTE | 2025-08-21 09:43 | PC.SS ---
Follow up note: Cultures pending. Work with PT. Pt will possibly return home upon dc. and is requesting Ziggy RIOS
--- NOTE | 2025-08-21 10:29 | ESPR_ITS ---
<Statement entered by Félix Bragg MD - 08/21/25 20:16> Patient was seen and examined at bedside. I agree on the assessment and plan on this note as documented by resident Dr Coral Odell DO PGY1. 75-year-old male with past medical history as below admitted for acute encephalopathy, LP done in ED, neurology recommends discontinuing acyclovir, patient completed UTI treatment with linezolid yesterday, currently not on any antibiotic/antimicrobial therapy, continues to work with physical therapy, patient is scheduled for hemodialysis today. Aspirin will be stopped per neurology recommendations. Will follow-up on cultures in a.m., once finalized patient will be discharged. Anticipate discharge in the next 24 hours Case discussed with attending Dr. Deanne Cavazos MD PGY-2 Documentation for date of: 08/21/25 Subjective Subjective Interval history: Patient was seen and examined at bedside. No acute events took place overnight. Patient was seen at hemodialysis room, patient responding at his baseline mentation, A&O x4. Coccidioides negative, still pending viral panel results. Patint denies urinary symptoms at this time, however on urinary cath. Patient underwent 3-hour dialysis session with removal of 3.4 L were removed. Exam Vital Signs Temp Pulse Resp BP Pulse Ox O2 Del Method O2 Flow Rate 97.5 F 65 18 149/47 H 100 Room Air 100 08/21/25 10:27 08/21/25 10:15 08/21/25 10:27 08/21/25 10:15 08/21/25 10:27 08/20/25 20:00 08/19/25 22:14 FiO2 100 08/19/25 21:00 Narrative Exam General: AOx2, confused, no acute distress HEENT: NC/AT, mucous membranes moist, bilateral sclera anicteric Cardiovascular: regular rate and rhythm, S1/S2 present, no murmurs appreciated Pulmonary: clear to auscultation bilaterally, no rales/rhonchi/wheezes Abdominal: soft, non-tender, non-distended, no rebound/guarding, normal bowel sounds present Musculoskeletal: normal ROM, no peripheral edema Skin: warm and dry, intact, no rashes, Neuro: CN II-XII intact, no focal deficits Objective Labs 08/21/25 04:17 08/21/25 04:17 Labs: Laboratory Results - last 24 hr 08/20/25 08/20/25 08/20/25 04:58 09:13 20:25 WBC RBC Hgb Hct MCV MCH MCHC RDW Std Deviation Plt Count Neut % (Auto) Lymph % (Auto) [place] % (Auto) Eos % (Auto) Baso % (Auto) Neut # (Auto) Lymph # (Auto) [place] # (Auto) Eos # (Auto) Baso # (Auto) Immature Gran # (Auto) Absolute Nucleated RBC Immature Gran % Nucleated RBC % Sodium Potassium Chloride Carbon Dioxide Anion Gap BUN Creatinine Estim Creat Clear Calc eGFR BUN/Creatinine Ratio Glucose Calculated Osmolality Calcium Corrected Calcium Phosphorus Magnesium Total Bilirubin AST ALT Alkaline Phosphatase Total Protein Albumin Globulin Albumin/Globulin Ratio Ur Collection Type Clean Catch Urine Color Lt-Yellow Urine Clarity Clear Urine pH 8.0 H Ur Specific [place] 1.025 Urine Protein 3+ A Urine Glucose (UA) Trace Urine Ketones Negative Urine Blood Trace Urine Nitrite Negative Urine Bilirubin Negative Urine Urobilinogen (Auto) Negative Ur Leukocyte Esterase Positive Urine RBC 3 Urine WBC 104 H Ur Squamous Epith Cells < 1 Ur Transition Epith Cell 3 Urine Bacteria Rare Ur Culture Indicated? Yes Urine Opiates Screen Positive A Urine Fentanyl Screen Negative Ur Barbiturates Screen Negative U Amphetamin/Meth Scrn Negative U Benzodiazepines Scrn Positive A U Cocaine Metab Screen Negative U Marijuana (THC) Screen Negative Coccidioides IgM Ab Negative [place] IgG/IgM Ab Cancelled 08/21/25 04:17 WBC 8.1 RBC 3.35 L Hgb 9.8 L Hct 31.3 L MCV 93 MCH 29.3 MCHC 31.3 RDW Std Deviation 57.2 H Plt Count 190 Neut % (Auto) 44 Lymph % (Auto) 41 [place] % (Auto) 8 Eos % (Auto) 7 Baso % (Auto) 1 Neut # (Auto) 3.5 Lymph # (Auto) 3.3 [place] # (Auto) 0.7 Eos # (Auto) 0.5 Baso # (Auto) 0.0 Immature Gran # (Auto) 0.02 H Absolute Nucleated RBC 0.00 Immature Gran % 0 Nucleated RBC % 0 Sodium 136 Potassium 4.8 Chloride 99 Carbon Dioxide 24.3 Anion Gap 13 BUN 31 H Creatinine 6.0 H* D Estim Creat Clear Calc 11.5 L eGFR 9 L* BUN/Creatinine Ratio 5 L Glucose 93 Calculated Osmolality 278 Calcium 8.6 Corrected Calcium 8.9 Phosphorus 4.2 Magnesium 2.7 H Total Bilirubin 0.2 L AST 19 ALT 7 L Alkaline Phosphatase 108 Total Protein 5.8 Albumin 3.6 Globulin 2.2 L Albumin/Globulin Ratio 1.6 Ur Collection Type Urine Color Urine Clarity Urine pH Ur Specific [place] Urine Protein Urine Glucose (UA) Urine Ketones Urine Blood Urine Nitrite Urine Bilirubin Urine Urobilinogen (Auto) Ur Leukocyte Esterase Urine RBC Urine WBC Ur Squamous Epith Cells Ur Transition Epith Cell Urine Bacteria Ur Culture Indicated? Urine Opiates Screen Urine Fentanyl Screen Ur Barbiturates Screen U Amphetamin/Meth Scrn U Benzodiazepines Scrn U Cocaine Metab Screen U Marijuana (THC) Screen Coccidioides IgM Ab [place] IgG/IgM Ab ABG Interpretation ABG results: 08/19/25 19:59 VBG pH 7.56 VBG pCO2 27 L VBG pO2 45 VBG Base Excess 2 Quality Measures Quality Measures VTE prophylaxis Advance care planning discussed with:: patient Assessment & Plan Assessment Current Active Medications: Generic Name Dose Route Start Last Admin Trade Name Freq PRN Reason Stop Dose Admin Aspirin 81 mg 08/20/25 09:00 08/20/25 11:10 Aspirin Ec 81 Mg Tabec PO 09/19/25 08:59 Not Given QDAY [facility] Diclofenac Sodium 4 gm 08/20/25 15:30 08/21/25 06:21 Diclofenac 1% Top Gel 100 Gm Tube TOP 09/19/25 15:29 4 gm TID RICH Administration Heparin Sodium (Porcine) 5,000 unit 08/20/25 17:00 08/20/25 17:04 Heparin Sod Inj 5000 Unit/Ml Vial SC 09/03/25 16:59 5,000 unit Q12HR RICH Administration Acyclovir Sodium 350 mg/ 107 mls @ 107 mls/hr 08/19/25 17:30 08/20/25 23:20 Sodium Chloride IV 08/26/25 17:29 Infused QDAY@2100 [facility] Infusion Protocol Labetalol HCl 10 mg 08/19/25 15:31 Labetalol Inj 5 Mg/Ml Vial 4 Ml IVP Q15M PRN hypertension Levothyroxine Sodium 75 mcg 08/20/25 09:00 08/21/25 06:21 Levothyroxine Sodium 25 Mcg Tablet PO 09/19/25 08:59 75 mcg ACBR RICH Administration Nifedipine 30 mg 08/20/25 09:00 08/20/25 09:31 Nifedipine Xl 30 Mg Tabcr PO 09/19/25 08:59 30 mg QDAY RICH Administration Ondansetron HCl 4 mg 08/19/25 15:31 Ondansetron Inj 2 Mg/Ml Inj 2 Ml IVP 09/18/25 15:30 Q4HR PRN NAUSEA OR VOMITING Sevelamer Carbonate 800 mg 08/20/25 12:45 08/20/25 12:42 Sevelamer Carbonate 800 Mg Tablet PO 09/19/25 12:44 Not Given On Hold: 08/20/25 16:29 TIDWM RICH Plan 75-year-old male with a history of CVA, hypertension, end-stage renal disease on hemodialysis (MWF, follows Dr. Little) and CAD, who presents with altered mental status, left-sided weakness, and slurred speech. Patient admitted for acute encephalopathy and CVA workup. #Acute encephalopathy, improving DDx: Infectious (CAP, UTI, meningitis), metabolic (electrolyte derangement, uremia, hypo/hyperglycemia), hypoxic (respiratory failure, aspiration, FARZANEH), endocrine (thyroid, adrenal dysfunction), toxic/drug-induced, neurologic (CVA, seizures, brain mass), psychiatric (acute delirium, depression, psychosis) Patient came in and found to have 2 or more SIRS criteria and was evaluated for sepsis. However, based upon further work-up, sepsis was ruled out. Temperature elevated on arrival, 101.1 Leukocytosis (WBC 11.2) with no left shift Head CT within normal limits Chest x-ray showed no pneumonia Vitamin B12, TSH and free T4, ammonia within normal limits VBG showed pH 7.56, pCO2 27 08/20: CSF analysis colorless clear WBC 7 RBC 3000 glucose 48 normal protein 42 high. CSF Gram stain showed no organism, no WBC. Pt completed 2 day course of linezolid. 08/21: Coccidioides IgG/IgM Ab negative Plan: ? Discontinued acyclovir ? Pending [place] ([facility]), VDRL, enterovirus, herpes 1 and 2 ? Neuro consulted, appreciate recommendations ? Blood cultures pending ? Monitor and correct electrolytes #Stroke like symptoms #Left-sided weakness #Aphasia #CVA workup Last known well time was around 2:30 PM today, following dialysis. His reports that he was using his walker and speaking normally when she picked him up from dialysis, but later noticed confusion and new left-sided weakness. She also notes that he has been weak since a fall last week. Per no complaints of headache, neck pain, no blurring of vision, no vision loss. CT head negative for any acute hemorrhage mass effect or midline shift CTA negative for any large vessel occlusion or thrombus Initial EKG had a lot of movement, getting a repeat Teleneurology consulted in ED, NIHSS score 5, they think it is less likely CVA, tenecteplase was considered however risks outweigh the benefits Last echo 07/20 showed EF 50 to 60% 08/20: MRI brain showed nonspecific single focus of restricted diffusion in the neurohypophysis. Differential would include infection, pituitary apoplexy, and other etiologies. Recommend sella/pituitary MRI with contrast. Otherwise, no new findings for large vascular territory acute ischemic changes. Limited evaluation for acute intracranial blood products. Chronic ischemic changes. Plan: ? Discontinued aspirin after speaking to neurology ? Tylenol as needed for headache ? Neurology consulted, Dr. Kelley, appreciate recs ? Euglycemia and avoid hyperthermia ? Referral to physical therapy ? Heparin for DVT prophylaxis #Lactic acidosis, resolved Initial lactic acid 5.6, repeat 3.2 after 1L of IVF Gentle hydration in setting of ESRD 08/20: Lactic acid initially downtrended, up trended and downtrended again to 1.4 Plan: ? Monitor, plan for HD tomorrow #ESRD on HD (MWF) #Anemia of chronic disease #Hypophosphatemia Follows Dr. Little BUN 18 creatinine 4.0. Last dialysis on admission 08/19 Hemoglobin 11.3, MCV [address]1 [address]. Little is calendar control clerk blood bank - Per Dr. 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 Monitor electrolytes and renal function ? Maintenance fluid ? Sodium phosphate IV x 1 given ? Strict I&O ? Avoid nephrotoxic agents ? Renal dose medications ? Nephrology consulted, appreciate recs. #Ground-level fall #Right knee pain Unknown exactly when, patient has been having right knee pain Right knee x-ray shows moderate osteopenia, mild tricompartment osteoarthritis Plan ? Analgesia as needed #Diarrhea, resolved Per patient's been having diarrhea, however unsure of the amount or the duration. no diarrhea noticed so far Patient had soft smear BM Plan ? Monitor for diarrheal episodes while in hospital, if continues, send samples for C. difficile, norovirus testing Health Maintenance: Diet: Dysphagia 2 GI prophylaxis: None DVT prophylaxis: Heparin 5000u SC every 8 hours Antimicrobials: Linezolid, Rocephin, acyclovir CODE STATUS: Full Disposition: Telemetry This case was discussed with my attending physician, Dr. Lerma, and senior resident, Dr Bragg. Even though this this note was carefully revised there may still be minor errors in referral and information aide due to voice recognition software. Coral Odell DO PGY I Attending Provider Attestation/Addendum I, Deanne Lerma DO, attest that I was physically present for the tillman portions of the service and evaluated the patient with the resident and I reviewed and discussed the case with the resident and agree with the resident's findings and plans of care as documented above Patient seen and evaluated this AM. He states he is feeling well. Patient is much more alert today and eager to go home due to Thanksgiving. Per neuro, low suspicion for acute encephalitis and recommends discontinuing acyclovir. Pending final blood and urine cultures. Anticipate DC within next 24h.
[2025-08-21] MEDS: NIFEdipine XL 30 MG TABCR PO (11:01)
[2025-08-21] MEDS: HEPARIN SOD INJ 5000 UNIT/ML VIAL SC ×2 (11:01→20:01)
[2025-08-21 12:52] LABS: Cocci Serology, IgG Negative (Negative)
--- NOTE | 2025-08-21 16:43 | PD.RESPRO ---
Documentation for date of: 08/21/25 Subjective Subjective Interval history: Patient seen today at the bedside found awake, alert, orientedx3. No overnight events reported. Vital signs and labs reviewed. Wants to go home. Patient was able to ambulate to the bathroom and back with asssistance of walker he continues to have some difficulty with walking however he is at his baseline. Exam Vital Signs Temp Pulse Resp BP Pulse Ox O2 Del Method O2 Flow Rate 96.7 F L 85 22 H 136/69 H 95 Room Air 100 08/21/25 12:00 08/21/25 16:00 08/21/25 12:00 08/21/25 12:00 08/21/25 12:00 08/21/25 12:00 08/19/25 22:14 FiO2 100 08/19/25 21:00 Narrative Exam Physical Exam GENERAL: NAD, AAOx3 HEENT: Moist mucosa. Eyes open, symmetrical, & clear CARDIO: Heart RRR, no obvious murmurs PULM: No noted coughing/dyspnea CTA B/L, no R/W/R GI: Abdomen soft, nondistended, no pain on palpation. BSx4 SKIN/MSK/EXT: No wounds/rashes/edema/amputations, no pain on palpation. Pedal pulses present B/L NEURO: AAOx3, no focal neuro deficits, able to move all 4 extremities Objective Labs 08/22/25 04:23 08/22/25 04:23 Labs: Laboratory Results - last 24 hr 08/20/25 08/20/25 08/21/25 09:13 20:25 04:17 WBC 8.1 RBC 3.35 L Hgb 9.8 L Hct 31.3 L MCV 93 MCH 29.3 MCHC 31.3 RDW Std Deviation 57.2 H Plt Count 190 Neut % (Auto) 44 Lymph % (Auto) 41 [place] % (Auto) 8 Eos % (Auto) 7 Baso % (Auto) 1 Neut # (Auto) 3.5 Lymph # (Auto) 3.3 [place] # (Auto) 0.7 Eos # (Auto) 0.5 Baso # (Auto) 0.0 Immature Gran # (Auto) 0.02 H Absolute Nucleated RBC 0.00 Immature Gran % 0 Nucleated RBC % 0 Sodium 136 Potassium 4.8 Chloride 99 Carbon Dioxide 24.3 Anion Gap 13 BUN 31 H Creatinine 6.0 H* D Estim Creat Clear Calc 11.5 L eGFR 9 L* BUN/Creatinine Ratio 5 L Glucose 93 Calculated Osmolality 278 Calcium 8.6 Corrected Calcium 8.9 Phosphorus 4.2 Magnesium 2.7 H Total Bilirubin 0.2 L AST 19 ALT 7 L Alkaline Phosphatase 108 Total Protein 5.8 Albumin 3.6 Globulin 2.2 L Albumin/Globulin Ratio 1.6 Ur Collection Type Clean Catch Urine Color Lt-Yellow Urine Clarity Clear Urine pH 8.0 H Ur Specific [place] 1.025 Urine Protein 3+ A Urine Glucose (UA) Trace Urine Ketones Negative Urine Blood Trace Urine Nitrite Negative Urine Bilirubin Negative Urine Urobilinogen (Auto) Negative Ur Leukocyte Esterase Positive Urine RBC 3 Urine WBC 104 H Ur Squamous Epith Cells < 1 Ur Transition Epith Cell 3 Urine Bacteria Rare Ur Culture Indicated? Yes Urine Opiates Screen Positive A Urine Fentanyl Screen Negative Ur Barbiturates Screen Negative U Amphetamin/Meth Scrn Negative U Benzodiazepines Scrn Positive A U Cocaine Metab Screen Negative U Marijuana (THC) Screen Negative Coccidioides IgG Ab Negative ABG Interpretation ABG results: 08/19/25 19:59 VBG pH 7.56 VBG pCO2 27 L VBG pO2 45 VBG Base Excess 2 Quality Measures Quality Measures VTE prophylaxis Advance care planning discussed with:: patient Assessment & Plan Assessment Current Active Medications: Generic Name Dose Route Start Last Admin Trade Name Freq PRN Reason Stop Dose Admin Diclofenac Sodium 4 gm 08/20/25 15:30 08/21/25 13:28 Diclofenac 1% Top Gel 100 Gm Tube TOP 09/19/25 15:29 4 gm TID RICH Administration Heparin Sodium (Porcine) 5,000 unit 08/20/25 17:00 08/21/25 11:01 Heparin Sod Inj 5000 Unit/Ml Vial SC 09/03/25 16:59 5,000 unit Q12HR RICH Administration Labetalol HCl 10 mg 08/19/25 15:31 Labetalol Inj 5 Mg/Ml Vial 4 Ml IVP Q15M PRN hypertension Levothyroxine Sodium 75 mcg 08/20/25 09:00 08/21/25 06:21 Levothyroxine Sodium 25 Mcg Tablet PO 09/19/25 08:59 75 mcg ACBR RICH Administration Nifedipine 30 mg 08/20/25 09:00 08/21/25 11:01 Nifedipine Xl 30 Mg Tabcr PO 09/19/25 08:59 30 mg QDAY RICH Administration Ondansetron HCl 4 mg 08/19/25 15:31 Ondansetron Inj 2 Mg/Ml Inj 2 Ml IVP 09/18/25 15:30 Q4HR PRN NAUSEA OR VOMITING Sevelamer Carbonate 800 mg 08/20/25 12:45 08/20/25 12:42 Sevelamer Carbonate 800 Mg Tablet PO 09/19/25 12:44 Not Given On Hold: 08/20/25 16:29 TIDWM RICH Plan 75-year-old male with altered mentation and expressive aphasia admitted for CVA rule out. #Acute metabolic encephalopathy #CVA-ruled out #History of multidrug-resistant staph UTI CSF studies negative likely in the setting of UTI as he did not complete Abx therapy after previous admission Imaging has been negative, suspect infectious etiology rather than CVA - Patient can be safely discharged from Neurology standpoint, can follow up as outpatient Case discussed with my attending Dr. Allie Starr MD PGY-2 Attending Provider Attestation/Addendum Personally have seen and examined the patient at the bedside and agree with resident findings, assessment and plan of care. Will continue with the current management. Patient is back to baseline CSF analysis is negative.
[2025-08-22] VITALS (7 sets, daily range): BP systolic 137–183; BP diastolic 63–83; PULSE 72–95; RESP 17–99; TEMP 36.1–36.8; O2SAT 94–95; BMI 19.8
[2025-08-22 05:26] LABS: Basophils # (Auto) 0.0 Thou/mm3 (0.0-0.2); Basophils % (Auto) 0 % (0-2.5); Eosinophils # (Auto) 0.5 Thou/mm3 (0.0-0.5); Eosinophils % (Auto) 5 % (0-10); Hematocrit 35.9 % (41.0-53.0); Hemoglobin 11.5 g/dL (13.5-16.0); Immature Granulocytes Auto 0.02 Thou/mm3 (0.00-0.00); Lymphocytes # (Auto) 3.8 Thou/mm3 (1.0-4.8); Lymphocytes % (Auto) 35 % (10-50); Mean Corpuscular HGB Conc 32.0 g/dl (31.0-37.0); Mean Corpuscular Hemoglobin 29.6 pg (25.0-35.0); Mean Corpuscular Volume 93 fL (80-100); Monocytes # (Auto) 0.9 Thou/mm3 (0.0-0.8); Monocytes % (Auto) 9 % (0-12); Neutrophils # (Auto) 5.7 Thou/mm3 (1.8-7.7); Neutrophils % (Auto) 52 % (37-80); Nucleated Red Blood Cell # 0.00 Thou/mm3 (0.00-0.00); Nucleated Red Blood Cell % 0 /100 WBC (0); Platelet Count 171 Thou/mm3 (140-440); RDW Standard Deviation 57.1 fL (35.1-43.9); Red Blood Count 3.88 Miln/mm3 (4.50-5.90); White Blood Count 10.9 Thou/mm3 (3.8-10.6)
[2025-08-22 06:24] LABS: Alanine Aminotransferase 8 U/L (10-49); Albumin, Serum 4.1 gm/dL (3.4-4.8); Albumin/Globulin Ratio 1.7 (1.2-2.2); Alkaline Phosphatase 123 U/L (46-116); Anion Gap 12 (7-16); Aspartate Amino Transferase 20 U/L (0-34); BUN/Creatinine Ratio 6 Ratio (12-20); Bilirubin,Total 0.2 mg/dL (0.3-1.2); Blood Urea Nitrogen 28 mg/dL (9-23); Calcium 9.0 mg/dL (8.3-10.6); Calcium (Corrected) 9.0 mg/dL (8.5-10.1); Carbon Dioxide 27.0 mMol/L (20.0-31.0); Chloride 98 mMol/L (98-107); Creatinine (Component) 5.0 mg/dL (0.6-1.3); Estimated Creatinine Clearance 11.8 mL/min (>60); Globulin 2.4 gm/dL (2.3-3.5); Glucose 101 mg/dL (74-106); Magnesium 2.4 mg/dL (1.6-2.6); Osmolality,Calculated 279 (275-295); Phosphorous 4.1 mg/dL (2.4-5.1); Potassium 4.3 mMol/L (3.4-5.1); Sodium 137 mMol/L (136-145); Total Protein 6.5 gm/dL (5.7-8.2); eGFR 11 See Note
[2025-08-22] MEDS: LEVOTHYROXINE SODIUM 25 MCG TABLET 75 MCG PO (06:29)
[2025-08-22] MEDS: DICLOFENAC 1% TOP GEL 100 GM TUBE TOP (06:29)
--- NOTE | 2025-08-22 10:19 | PC.SS ---
SS spoke to to confirm d/c plan is to home. is requesting a front wheel walker. states pt has received 4 wheel with seat, rollator walker 2 weeks ago which was purchased through her health insurance. SS has explained Medicare will not cover the 2nd walker due to recieving previous rollator walker. [facility] is requesting for SS to make the attempt to order walker. SS has sent DME order for front wheel walker using [facility]. is aware DME walker will not be deliver over the holiday (if approved). SS received call from Suleiman from [facility] who explained they will review order on Tuesday.
[2025-08-22] MEDS: NIFEdipine XL 30 MG TABCR PO (10:58)
[2025-08-22] MEDS: HEPARIN SOD INJ 5000 UNIT/ML VIAL SC (10:59)
--- NOTE | 2025-08-22 15:04 | ESDS_ITS ---
<Statement entered by Deanne Lerma DO - 08/23/25 14:16> I, Deanne Lerma DO, attest that I was physically present for the tillman portions of the service and evaluated the patient with the resident and I reviewed and discussed the case with the resident and agree with the resident's findings and plans of care as documented above Planned Discharge Date 08/22/25 DS: Providers Provider Date of admission: 08/19/25 21:38 Primary care physician: Wendy Yin PA-C Admitting Provider: Marivel Taveras MD Attending Provider on Admission: Deanne Lerma DO Consults: 08/19/25 15:31 Consult to Neurology / Tele-Neurology Routine Comment: Consulting Provider: [facility] 08/19/25 17:01 Consult to Neurology / Tele-Neurology Stat Comment: Consulting Provider: Israel Kelley 08/19/25 21:47 Consult to Nephrology Stat Comment: restart HD Consulting Provider: Rayne Little 08/19/25 21:55 Referral Physical Therapy Routine Comment: Physician Instructions: 08/20/25 07:43 Referral Speech Therapy Stat Comment: 08/20/25 10:15 Consult to Nephrology Routine Comment: ESRD, Dr. Little unavailable Consulting Provider: Ahmet Cummins Attending Provider on DC: Deanne Lerma DO Discharging Provider: Deanne Lerma DO Anticipated date of discharge: 08/22/25 DS: Diagnosis Problem List Completed Was Problem List Reviewed/Reconciled?: Yes Hospital Course Hospital Course Hospital course: Hospital course: Mr. Sandra is a 75-year-old male with a history of CVA, hypertension, end-stage renal disease on hemodialysis (MWF, follows Dr. Little), atrial fibrillation not on anticoagulation, history of GI bleed, urinary retention requiring In-N-Out catheter, hypertension, hypothyroidism and CAD sta tus post CABG presented to [facility] emergency department on 08/15/2025 with a chief complaint of fever and altered mental status. Neurology was consulted in the emergency department, stroke alert was initiated patient underwent lumbar puncture in ED and MRI brain was ordered. Patient was started on empiric coverage for meningitis including ceftriaxone, linezolid and acyclovir. Ceftriaxone was discontinued in a.m. after reviewing CSF analysis, linezolid was continued for one day to complete treatment of urinary tract infection and acyclovir was continued. Eventually acyclovir discontinued after neurology recommendations brain MRI was reviewed by neurology, stroke was ruled out. Nephrology was consulted for inpatient dialysis. Patient's mentation improved with the progression of hospital course, further plan is to discharge patient home. Aspirin discontinued per neurology recommendations. Patient to follow-up with neurology, nephrology, cardiology, urology and gastroenterology outpatient. Discharge instructions provided to patient all questions of the family were answered to satisfaction. Patient is stable for discharge, responded well to hospital treatment. Discharge diagnosis: #Acute metabolic encephalopathy, resolved #Meningitis ruled out #Acute CVA ruled out #ESRD on HD MWF #Anemia of chronic disease #Hyperphosphatemia #Right knee pain, improving #Diarrhea, resolved #Lactic acidosis, resolved Case discussed with Attending Physician Dr. Deanne Cavazos MD Internal Medicine PGY-2 Disclaimer: This note was dictated by speech recognition. Minor errors in psychologist personnel may be present due to voice recognition software. Time Spent with Patient Time attestation: Total time spent providing and/or coordinating discharge services: Greater than 30 minutes Time spent: Greater than 30 minutes Home Health Home Health Referral Orders: 08/22/25 09:27 Home Health Referral Routine Reason For Exam: altered mental status Home-Bound The patient must either because of illness or injury, need the aid of supportive devices such as crutches, canes, wheelchairs, and walkers; the use of special transportation; or the assistance of another person in order to leave their place of residence; OR have a condition such that leaving his or her home is medically contraindicated. In addition, the patient also meets the following criteria: patient is normally unable to leave the home and leaving home requires considerable taxing effort. Addendum to Home Health Certification Practitioner's Certification: I certify that the patient has been under my care in the hospital and the care of attending physician (see below). We had a tjyh-mv-[id number] encounter on (see date below). My clinical findings indicate that the patient is home bound per the above criteria and the Home Health Services noted in these orders are medically necessary. The primary reason for the ktsl-rd-[id number] encounter is related to the fact that the patient requires home health services. Date Certifying Amps-wh-Ykvh Physician Encounter: 08/19/25 Physician's Name who will Assume Oversight for Services: Wendy Yin Physician's Phone No.who will Assume Oversight for Service: AURICULAR DETOXIFICATION SPECIALIST - Community Resources: No PT to Evaluate: Yes PT to evaluate and provide a treatmnet plan to increase patient's mobility and strength. Wound Care: No IV Therapy: No RN Safety Evaluation: Yes RN to evaluate and create a plan of care that will produce positive outcomes. Palliative Treatment: No Palliative treatment and evaluate the need for hospice. Home Health Aide - Personal Care: Yes Home Health Aide to assist with any ADL's. Exam Vital Signs Temp Pulse Resp BP Pulse Ox O2 Del Method O2 Flow Rate 96.9 F 73 21 H 183/63 H 95 Room Air 100 08/22/25 12:00 08/22/25 12:50 08/22/25 12:50 08/22/25 12:00 08/22/25 12:00 08/22/25 12:00 08/19/25 22:14 FiO2 100 08/19/25 21:00 Narrative Exam Physical Exam GENERAL: NAD, AAOx3, weak frail and old. HEENT: Moist mucosa. Eyes open, symmetrical, & clear CARDIO: Heart RRR, no obvious murmurs PULM: No noted coughing/dyspnea CTA B/L, no R/W/R GI: Abdomen soft, nondistended, no pain on palpation. BSx4 SKIN/MSK/EXT: No wounds/rashes/edema/amputations, no pain on palpation. Pedal pulses present B/L NEURO: AAOx3, no focal neuro deficits, able to move all 4 extremities Discharge Plan Plan Patient Disposition: Home w/HOME HEALTH Patient condition on transfer: Stable Care Plan Goals: - You were admitted to the hospital for fever and confusion, your symptoms have resolved you were tested for meningitis during the hospitalization, workup was fairly negative you did receive IV antibiotics to complete your treatment for UTI. - We have prescribed no new medications, continue all your other home medications as below - Follow-up with your primary care physician within 1 week, maintain close follow-up. - Follow-up closely with your bilingual nanny and back end engineer, we recommend following up within 1-2 weeks - Follow-up with neurologist in 1 week and obtain EMG studies/nerve conduction study, call the office to make appointment - As GI has recommended at the past for you you will require a capsule endoscopy please follow-up outpatient with your PCP. - Return to the emergency department if your symptoms worsen Prescriptions/Referrals Prescriptions/Med Rec: New dicyclomine 10 mg capsule 10 mg PO TID PRN (Reason: abdominal pain) Qty: 30 0RF Continued HYDROCODONE BIT/ACETAMINOPHEN (HYDROCODON-ACETAMINOPH 2.5-325) 1 EACH tablet 1 tab PO Q6HR PRN (Reason: pain) Qty: 0 Rx Instructions: 1 Every 6-8 hours for pain Levothyroxine * (SYNTHROID *) 75 MCG tablet 75 mcg PO QDAY Qty: 0 sevelamer carbonate [Renvela] 800 mg Tablet 800 mg PO TID Rx Instructions: must administer with a meal/food lidocaine [Anecream] 4 % cream 1 applic topical BID Rx Instructions: to right 2nd toe arthritis pain. (Over the counter med) pravastatin 10 mg tablet 10 mg PO DAILY duloxetine 30 mg Capsule,Delayed Release(Dr/Ec) 60 mg PO QDAY 90 Days Qty: 180 0RF pantoprazole 40 mg Tablet,Delayed Release (Dr/Ec) 40 mg PO QDAY 90 Days Qty: 90 0RF sennosides [Senna Lax] 8.6 mg Tablet 8.6 mg PO QDAY Qty: 14 0RF gabapentin 100 mg Capsule 100 mg PO TID Qty: 90 0RF nifedipine 30 mg tablet extended release 30 mg PO QDAY Qty: 30 0RF acetaminophen 500 mg tablet 500 mg PO TID PRN (Reason: fever ) Patient Comments: TAKE ONE TABLET BY MOUTH THREE TIMES DAILY NEEDED FOR FEVER Discontinued dicyclomine 10 mg capsule 10 mg PO TID PRN (Reason: abdominal pain) Qty: 30 0RF linezolid 600 mg tablet 600 mg PO BID 6 Days Qty: 12 0RF Referrals: Rayne Little MD [Physician, Nephrology] Octavia Forte MD [Physician, Cardiology] Israel Kelley MD [Physician, Neurology] Wendy Yin PA-C [Primary Care Provider, Family Practice] Patient/Caregiver Discharge Instructions Discharge Activity: as per physical therapy Education Materials: Urinary Tract Infections in Men, Communicating About Pain, Knee Osteoarthritis, Taking Opioid Medicines Print Language: [place] Islander Stand Alone Forms: Dennise Award Info., Patient Portal Info Letter Discharge Order Discharge Orders: Discharge (Routine); Ordered 08/22/25 Ordered By: Grace Seals Quality Discharge Quality Measures stroke Statin ordered >75 y/o:moderate or high intensity dose on DC: yes Statin ordered <75 y/o: high intensity dose on DC: n/a Statin not ordered due to:: not indicated Anticoagulation ordered for A-fib or flutter (current or hx): contraindicated Anticoagulation not ordered due to:: H/O GI Bleed Antithrombotic ordered on DC: not indicated (describe) (per neurology)
--- NOTE | 2025-08-23 09:05 | PC.CC ---
Addendum entered by Junior Boateng RN 08/23/25 18:34: soc 08/25 Original Note: Ziggy swenson accepted and booked, soc pending
[2025-08-23 23:33] LABS: HSV-1 DNA, CSF NOT DETECTED copies/mL; HSV-1 DNA, CSF Source CEREBROSPINAL FLUID
[2025-08-24 03:05] LABS: Enterovirus Source CSF
[2025-08-24 19:49] LABS: West Nile Virus Ab. IgG, Serum <1.30
[2025-08-24 19:49] LABS: West Nile Virus (IgG), CSF <1.30
--- NOTE | 2025-08-26 00:13 | PD.EVENT ---
Documentation for date of: 08/19/25 Date of procedure: 08/19/25 Pre-op diagnosis: AMS/Encephalitis Post-op diagnosis: Same Consent signed by: Patient's Position: lateral decubitus Prep: betadine Anesthesia: 1 % Lidocaine Sedation: other (Versed) Needle size: 22ga Needle length: 3.5 Interspace: L3-4 Number of attempts: 1 Opening pressure: # cm H2O (13) Fluids mLs collected: 12 Fluid description: clear Complications: No Patient tolerance: Good Procedure performed by: Israel Kelley Condition: Stable Disposition: no change
[2025-08-26 07:04] LABS: HSV-2 DNA, CSF NOT DETECTED copies/mL; VDRL, CSF Qual* NON-REACTIVE
[2025-08-26 07:09] LABS: Enterovirus RNA, PCR CSF NOT DETECTED; West Nile Virus (IgM), CSF <0.90
[2025-08-26 07:09] LABS: West Nile Virus Ab. IgM, Serum <0.90
== END 2025-08-22 14:35 | disposition home health service (06) | DRG 97 ==
LOC: SERX 19:39 → SERHOLD 21:57 → S2NX 22:44
PROVIDERS: Registered Nurse General Practice; Admitting Provider Student in an Organized Health Care Education/Training Program; Emergency Provider Emergency Medicine; PCP Physician Assistant; Visit Provider Internal Medicine
DX: G04.90 Encephalitis and encephalomyelitis, unspecified (principal); G93.41 Metabolic encephalopathy; N18.6 End stage renal disease; R47.01 Aphasia; I12.0 Hypertensive chronic kidney disease with stage 5 chronic kidney disease or end stage renal disease; E87.20 Acidosis, unspecified; N39.0 Urinary tract infection, site not specified; I25.10 Atherosclerotic heart disease of native coronary artery without angina pectoris; Z99.2 Dependence on renal dialysis; Z78.1 Physical restraint status; D63.1 Anemia in chronic kidney disease; E83.39 Other disorders of phosphorus metabolism; W18.30XA Fall on same level, unspecified, initial encounter; M25.561 Pain in right knee; I48.91 Unspecified atrial fibrillation; R29.705 NIHSS score 5; Z86.73 Personal history of transient ischemic attack (TIA), and cerebral infarction without residual deficits; Z79.890 Hormone replacement therapy
CPT/HCPCS: 36415; 51701; 70450; 70496; 70498; 70551; 71045; 74018; 80053; 80307; 81001; 82140; 82550; 82803; 82945; 83605; 83615; 83690; 83735; 83880; 84100; 84145; 84157; 84439; 84443; 84484; 84703; 85025; 85610; 85730; 86171; 86331; 86592; 86635; 86788; 86789; 86790; 87040; 87070; 87081; 87086; 87205; 87498; 87530; 89051; 92526; 92610; 93005; 96365; 96366; 96375; 96376; 97162; 99291; 99292; A4216; A4649; J0131; J0133; J0696; J1644; J1920; J2021; J2250; J2358; J3475; J7030; J7050; J7120; J7121; Q5106; Q9967; A9270; J2359

== ENCOUNTER → 2025-08-19 | Outpatient (CLI) | payer MEDICARE, MEDICAID, SELFPAY ==
--- NOTE | 2025-08-19 14:14 | XR_ITS ---
EXAMINATION: Right knee 4 views TECHNIQUE: AP oblique lateral axial right knee 4 views Date and time: August 19, 2025, 1446 hours INDICATIONS: Right knee pain beginning 3 months ago. FINDINGS: Moderate osteopenia Mild tricompartment osteoarthritis Moderate knee effusion No fracture IMPRESSION: Mild tricompartment osteoarthritis
== END | disposition home or self-care (01) ==
PROVIDERS: PCP Physician Assistant; Referring Provider Orthopaedic Surgery Adult Reconstructive Orthopaedic Surgery; Visit Provider Orthopaedic Surgery Adult Reconstructive Orthopaedic Surgery
DX: M17.11 Unilateral primary osteoarthritis, right knee (principal)
CPT/HCPCS: 73564

== ENCOUNTER 2025-09-06 19:02 | Inpatient (IN) | payer MEDICARE, MEDICAID, SELFPAY ==
[2025-09-06 19:11] VITALS: PULSE 112; RESP 20; O2SAT 97
--- NOTE | 2025-09-06 19:14 | XR_ITS ---
Examination: CT chest, without intravenous contrast. CT abdomen, without intravenous contrast. CT pelvis, without intravenous contrast. 2-D sagittal and coronal reconstructions. 3-D reconstructions. Date and time of exam: September 06, 2025, 11:09 p.m. INDICATIONS: Chest abdominal pain today CTDI vol (mgy) 9.06 DLP (MGycm) 722 Technique: Multiple CT images, 3.0 mm slice thickness, obtained chest, abdomen, pelvis, with the high-resolution 64 slice scanner.. Sagittal and coronal 2-D reconstructions are obtained. 3-D reconstructions Low dose protocols were performed. One or more of the following dose reduction techniques were used; automated exposure control, adjustment of the mA and/or KV according to patient size, use of iterative reconstruction technique. Findings: Thoracic aortic calcification no aneurysmal dilatation Mild enlargement main pulmonary artery segments Heavy calcification left anterior descending coronary artery Mild enlargement cardiac contour Moderate vascular congestion Liver irregular in contour Distended gallbladder, gallstones Spleen is not enlarged No pancreatic or adrenal mass Atrophic kidneys with severe scarring, no hydronephrosis Multiple fluid distended small bowel loops Aorta normal size No pericecal inflammatory change Urinary bladder wall mildly thickened Moderate prostatomegaly Prominent osteopenia IMPRESSION: Heavy calcification left anterior descending coronary artery Mild enlargement cardiac contour Moderate vascular congestion Primary parasite or disease Cholelithiasis, recommend hepatobiliary sonography to assess distended gallbladder Multiple fluid distended small bowel loops, consider early small bowel obstruction, consider Gastrografin small bowel series follow-up Thickening of the urinary bladder wall, consider cystitis
--- NOTE | 2025-09-06 19:14 | XR_ITS ---
Examination: CT brain head without contrast. 2-D sagittal coronal reconstructions Date and time of exam: August 27 2025, 11:07 p.m. INDICATIONS: Onset altered mental status today CTDI: vol (mGy): 50.2 DLP: (mGycm): 1151 Technique: Multiple CT axial sections of the brain have been obtained, 5 mm slice thickness. Contrast has not been administered. 2-D sagittal, coronal reconstructions have been obtained Low dose protocols were performed. One or more of the following dose reduction techniques were used; automated exposure control, adjustment of the mA and/or KV according to patient size, use of iterative reconstruction technique. Findings: No significant ventricular enlargement. Small old infarcts left basal ganglia Intra-axial or extra-axial hemorrhage density is not seen. No mass effect or midline shift Basal cisterns are not remarkable. Fourth ventricle is midline. Cranial vault intact. Impression: Negative for acute hemorrhage, mass effect or midline shift
--- NOTE | 2025-09-06 19:14 | EKG_ITS ---
[facility] Test Date: 2025-09-06 Pat Name: JUAN RAMON LYNCH Department: Room: - Gender: Male Chief Wharfinger: : 1950 Requested By: Agustin Damon Order Number: [id number] Reading MD: Agustin Damon Measurements Intervals [place] Rate: 108 P: MD: QRS: -37 QRSD: 118 T: 105 QT: 381 QTc: 511 Interpretive Statements ATRIAL FIBRILLATION WITH RAPID VENTRICULAR RESPONSE LEFT AXIS DEVIATION [QRS AXIS < -30] MODERATE INTRAVENTRICULAR CONDUCTION DELAY [110+ ms QRS DURATION] ST DEVIATION AND MODERATE T-WAVE ABNORMALITY, CONSIDER LATERAL ISCHEMIA [-0.1+ mV T-WAVE IN I/aVL/V5/V6] Compared to ECG 08/19/2025 16:24:35 Intraventricular conduction delay now present Left ventricular hypertrophy no longer present T-wave abnormality still present Possible ischemia still present /store/S0/[id number]/[id number].pdf
[2025-09-06 19:16] VITALS: PULSE 115
--- NOTE | 2025-09-06 19:17 | PD.EDADULT ---
ED General RME/HPI General Chief complaint: Altered Mental Status Stated complaint: AMS Time Seen by Provider: 09/06/25 19:10 Arrival date/time: 09/06/25 19:02 75-year-old male patient with significant history of hypothyroidism, ESRD on hemodialysis, had a hemodialysis today was brought in by family via EMS for evaluation regarding altered mental status. Patient was noted to be altered about 30 minutes to 1-hour ago, severity moderate. Patient been fighting with UTI [id number] at least 3 times according to the family last UTI was 1 month. No fever was noted no cough was noted. Currently patient is having a GCS of 13. Related Data Home Medications ?Medication ?Instructions ?Recorded ?Confirmed HYDROCODONE BIT/ACETAMINOPHEN 1 tab PO Q6HR PRN pain ##0 07/04/14 09/07/25 (HYDROCODON-ACETAMINOPH 2.5-325) Levothyroxine * (SYNTHROID *) 75 mcg PO QDAY #0 tabs 07/04/14 09/07/25 sevelamer carbonate 800 mg tablet 800 mg PO TID 04/18/23 09/07/25 (Renvela) lidocaine 4 % topical cream 1 applic topical BID 11/20/24 08/20/25 (Anecream) pravastatin 10 mg tablet 10 mg PO DAILY 01/01/25 09/07/25 acetaminophen 500 mg tablet 500 mg PO TID PRN fever 08/20/25 08/20/25 Previous Rx's ?Medication ?Instructions ?Recorded duloxetine 30 mg capsule,delayed 60 mg (2 x 30 mg) PO QDAY 3 months 07/18/25 release #180 caps pantoprazole 40 mg tablet,delayed 40 mg PO QDAY 3 months #90 tabs 07/18/25 release gabapentin 100 mg capsule 100 mg PO TID #90 caps 08/14/25 nifedipine 30 mg tablet,extended 30 mg PO QDAY #30 tabs 08/14/25 release sennosides 8.6 mg tablet (Senna 8.6 mg PO QDAY #14 tabs 08/14/25 Lax) dicyclomine 10 mg capsule 10 mg PO TID PRN abdominal pain 08/22/25 #30 caps Allergies Allergy/AdvReac Type Severity Reaction Status Date / Time No Known Allergies Allergy Verified 08/11/25 03:08 Review of Systems Review of Systems Narrative Review of Systems: Review of system reviewed and within normal limits except mentioned in HPI ED Exam Narrative Physical exam: VITAL SIGNS: Reviewed. GENERAL APPEARANCE: Alert and oriented x 1 follows commands, no acute distress, confused, GCS 13 HEAD AND FACE: Non-traumatic. ENT: PERRL, pink conjunctivitis, eyelid no trauma, Mucous membrane moist. NECK: Supple, nontender, no nuchal rigidity. CHEST: No tenderness, no crepitus, no paradoxical movement, no retractions. LUNGS: Clear, well ventilated, symmetric, no rales, no wheezing, no ronchi, no stridor, good breath sounds bilaterally. HEART: Regular rate, regular rhythm, no murmur, no gallops. ABDOMEN: Soft, positive bowel sounds, nondistended, no guarding, nontender, no rebound, no masses, RECTAL: Deferred. GENITAL: Deferred. NEUROLOGICAL: Gross motor function intact sensory function intact, Appropriate for age. MUSCULOSKELETAL: low back nontender, full range of motion. EXTREMITIES: Left upper extremity AV fistula, with thrill, nontender, full range of motion. SKIN: Color pink, dry, no rash, no lacerations, no abrasions, no contusions. LYMPHATICS: Deferred. Course Quality Measures none Orders Category Date Time Status Admit to Inpatient Status Routine Admission 09/07/25 02:16 Active Patient Condition Routine Admission 09/07/25 02:16 Ordered Bedrest NOW Care 09/07/25 02:17 Active Bedside COVID-19 Antigen Test NOW Care 09/06/25 20:00 Active Bedside Influenza A&B Antigen Test NOW Care 09/06/25 20:01 Completed COVID-19 Screening Questionnaire NOW Care 09/07/25 01:33 Active [place] STAT Care 09/06/25 19:14 Active Continuous Pulse Oximetry STAT Care 09/06/25 19:14 Completed EKG (ED ONLY) *Do not use* NOW Care 09/06/25 19:14 Completed [place] Routine Care 09/07/25 00:33 Ordered [place] Routine Care 09/07/25 00:55 Ordered Insert IV NOW Care 09/06/25 19:14 Active Miscellaneous Nursing Order NOW Care 09/07/25 02:16 Active NPO STAT Care 09/06/25 19:14 Active Notify provider NEEDED Care 09/07/25 02:16 Active Straight [In and Out Catheter] X1 Care 09/07/25 00:18 Completed Strict Intake and Output Routine Care 09/06/25 19:14 Ordered Consult to Nephrology Stat Cons 09/07/25 02:[address] chest abdomen pelvis wo Stat Exams 09/06/25 19:[address] head/brain wo con Stat Exams 09/06/25 19:14 Completed EKG (ED Only) Stat Exams 09/06/25 19:14 Draft ABG [Arterial Blood Gas] Stat Lab 09/06/25 20:42 Completed ABG [Arterial Blood Gas] Stat Lab 09/07/25 01:37 Completed B-Type Natriuretic Peptide Stat Lab 09/06/25 19:43 Completed Basic Metabolic Panel AM DRAW Lab 09/07/25 06:25 Completed Basic Metabolic Panel AM DRAW Lab 09/08/25 05:00 Ordered Basic Metabolic Panel AM DRAW Lab 09/09/25 05:00 Ordered Blood Culture (Lab) Stat Lab 09/06/25 19:40 Received CBC AM DRAW Lab 09/07/25 06:25 Completed CBC AM DRAW Lab 09/08/25 05:00 Ordered CBC AM DRAW Lab 09/09/25 05:00 Ordered CBC Stat Lab 09/06/25 19:43 Completed Comprehensive Metabolic Panel Stat Lab 09/06/25 19:43 Completed Drug Screen,Urine Stat Lab 09/07/25 00:50 Completed LDH (Lactate Dehydrogenase) Stat Lab 09/06/25 19:43 Completed Lactate (Lactic Acid) AM DRAW Lab 09/07/25 06:25 Completed Lactate (Lactic Acid) Stat Lab 09/06/25 19:43 Completed Lactic Acid, 3 HR Stat Lab 09/06/25 22:55 Completed Lipase Stat Lab 09/06/25 19:43 Completed Magnesium AM DRAW Lab 09/07/25 06:25 Completed Magnesium Stat Lab 09/06/25 19:43 Completed Partial Thromboplastin Time Stat Lab 09/06/25 19:43 Completed Phosphorous Stat Lab 09/06/25 19:43 Completed Procalcitonin Stat Lab 09/06/25 19:43 Completed Prothrombin Time with INR Stat Lab 09/06/25 19:43 Completed Troponin I Stat Lab 09/06/25 19:43 Completed Urinalysis, C/S if Indicated Stat Lab 09/07/25 00:50 Completed Urine Culture Stat Lab 09/07/25 00:50 Received VBG [Venous Blood Gas] AM DRAW Lab 09/07/25 06:25 Completed Acetaminophen Ivpb [Ofirmev Inj] Med 09/06/25 20:00 Discontinued 1,000 mg in 100 ml IV X1 Acetaminophen Tab [Tylenol Tab] Med 09/07/25 02:16 Active 650 mg PO Q6H PRN Heparin Inj Med 09/07/25 06:00 Active 5,000 unit SC Q8HR LORazepam [Ativan Inj] Med 09/06/25 20:40 Discontinued 2 mg IVP X1 ONE Milk Of Magnesia Susp [Mom Susp] Med 09/07/25 02:16 Discontinued 30 ml PO QDAY PRN Piper/Tazo 3.375 gm Premix [Zosyn] Med 09/06/25 20:16 Discontinued 3.375 gm in 50 ml IV X1 Ringers Lactated 1000 ml [Lactated Ringers] 1,000 ml Med 09/06/25 21:00 Discontinued IV 999 mls/hr Ringers Lactated 500 ml [Lactated Ringers] 500 ml Med 09/06/25 21:03 Discontinued IV 250 mls/hr Ringers Lactated 500 ml [Lactated Ringers] 500 ml Med 09/06/25 19:59 Discontinued IV 999 mls/hr cefTRIAXone/D5w 1gm IV premix [Rocephin/D5w 1gm IV Med 09/06/25 20:00 Discontinued premix] 1 gm in 50 ml IV X1 hydrALAZINE INJ [Apresoline Inj] Med 09/07/25 02:21 Active 10 mg IVP Q4HR PRN lineZOLID 600 MG IVPB [Zyvox Ivpb] Med 09/07/25 02:20 Active 600 mg in 300 ml IV Q12HR Code Status Routine Oth 09/07/25 02:16 Ordered Oxygen Delivery NOW RT 09/06/25 19:14 Active Vital Signs Vital signs: Vital Signs Pulse Rate 115 H 09/06/25 19:16 Discharge Plan Plan Patient Disposition: Admit Acute Care w/in Hospital Problem List Clinical Impression: AMS (altered mental status), UTI (urinary tract infection), End-stage renal disease (ESRD) MDM Narrative MDM hospital course (for use when minimal MDM required): 75-year-old male patient with significant history of hypothyroidism, ESRD on hemodialysis, had a hemodialysis today was brought in by family via EMS for evaluation regarding altered mental status. Patient was noted to be altered about 30 minutes to 1-hour ago, severity moderate. Patient been fighting with UTI [id number] at least 3 times according to the family last UTI was 1 month. No fever was noted no cough was noted. Currently patient is having a GCS of 13. Care transferred to Dr Vargas for final disposition pending laboratory workup and results. Medication Administration(s) Medication Administration History Acetaminophen (Acetaminophen 325 Mg Tablet) 650 mg PO Q6H PRN PRN Reason: Fever >101.5 Stop: 10/07/25 02:15 Heparin Sodium (Porcine) (Heparin Sod Inj 5000 Unit/Ml Vial) 5,000 unit SC Q8HR RICH Stop: 09/21/25 05:59 Last Admin: 09/07/25 06:27 Dose: 5,000 unit Documented By: Co-signed By: CARY Hydralazine HCl (Hydralazine Inj 20 Mg/Ml Vial) 10 mg IVP Q4HR PRN PRN Reason: SBP>180 Stop: 10/07/25 02:20 Linezolid (Zyvox Ivpb) 600 mg in 300 mls @ 300 mls/hr IV Q12HR RICH Stop: 09/14/25 02:19 Last Admin: 09/07/25 09:00 Dose: Not Given Documented By: KARLA Non-Admin Reason: Wrong Time Infusion: 09/07/25 04:44 Dose: Infused Documented By: Admin: 09/07/25 03:43 Dose: 300 mls/hr Documented By: Sodium Phosphate 22.5 mmol/ (Sodium Chloride) 507.5 mls @ 82.778 mls/hr IV X1 ONE Stop: 09/07/25 17:45 Potassium Phos/Sodium Phos (Naph,[facility] Mbdb 1 Packet (1.5 Gm)) 2 packet PO BID RICH Stop: 09/08/25 08:59 Last Admin: 09/07/25 09:43 Dose: Not Given Documented By: KARLA Non-Admin Reason: Unable to Swallow Discontinued Medications Hydromorphone HCl (Hydromorphone Inj 2 Mg/Ml Vial) 0.25 mg IVP X1 ONE Stop: 09/07/25 11:48 Last Admin: 09/07/25 11:53 Dose: 0.25 mg Documented By: KARLA Lactated Ringer's (Lactated Ringers) 500 mls @ 999 mls/hr IV .Q31M ONE Stop: 09/06/25 20:29 Last Admin: 09/06/25 20:51 Dose: Not Given Documented By: SR Non-Admin Reason: Cancelled by Provider Acetaminophen (Ofirmev Inj) 1,000 mg in 100 mls @ 250 mls/hr IV X1 ONE Stop: 09/06/25 20:23 Last Infusion: 09/06/25 20:47 Dose: Infused Documented By: Admin: 09/06/25 20:23 Dose: 250 mls/hr Documented By: SR Ceftriaxone Sodium/Dextrose (Rocephin/D5w 1gm Iv Premix) 1 gm in 50 mls @ 100 mls/hr IV X1 ONE Stop: 09/06/25 20:29 Last Infusion: 09/06/25 20:53 Dose: Infused Documented By: Admin: 09/06/25 20:23 Dose: 100 mls/hr Documented By: SR Piperacillin/Tazobactam/Dextrose (Zosyn) 3.375 gm in 50 mls @ 100 mls/hr IV X1 ONE; Protocol Stop: 09/06/25 20:45 Last Infusion: 09/06/25 21:13 Dose: Infused Documented By: Admin: 09/06/25 20:43 Dose: 100 mls/hr Documented By: SR Lactated Ringer's (Lactated Ringers) 1,000 mls @ 999 mls/hr IV .Q1H1M ONE Stop: 09/06/25 22:00 Last Admin: 09/06/25 21:02 Dose: Not Given Documented By: SR Non-Admin Reason: Cancelled by Provider Lactated Ringer's (Lactated Ringers) 500 mls @ 250 mls/hr IV .Q2H RICH Stop: 10/06/25 21:02 Last Admin: 09/07/25 01:59 Dose: Not Given Documented By: SR Non-Admin Reason: Discontinued Admin: 09/06/25 23:55 Dose: Not Given Documented By: SR Non-Admin Reason: Discontinued Infusion: 09/06/25 23:32 Dose: Infused Documented By: Admin: 09/06/25 21:34 Dose: 250 mls/hr Documented By: SR Lorazepam (Lorazepam 2 Mg/Ml Vial) 2 mg IVP X1 ONE Stop: 09/06/25 20:41 Last Admin: 09/06/25 21:39 Dose: 2 mg Documented By: SR Magnesium Hydroxide (Milk Of Magnesia Susp 30 Ml Udc) 30 ml PO QDAY PRN; Protocol PRN Reason: CONSTIPATION Stop: 10/07/25 02:15 Sodium Chloride (Sodium Chloride Rt 10% 15 Ml Nebu) 5 ml INH X1 ONE Stop: 09/07/25 11:34
[2025-09-06 19:20] VITALS: PULSE 108; RESP 100; RESP 17
[2025-09-06 19:21] VITALS: BMI 28.1
--- NOTE | 2025-09-06 19:22 | PC.NURSE ---
Patient came in to the ED from home via ambulance, he is awake, confused, GCS 13. Patient received dialysis today, fistula to the LUE. Per patient's , she called 911 because patient was confused.
[2025-09-06 20:04] LABS: Lactate (Lactic Acid) 6.1 mMol/L (0.4-2.0)
[2025-09-06 20:08] VITALS: BP 155/105; PULSE 132; RESP 19; TEMP 38.1; O2SAT 98
[2025-09-06 20:12] LABS: Basophils # (Auto) 0.1 Thou/mm3 (0.0-0.2); Basophils % (Auto) 0 % (0-2.5); Eosinophils # (Auto) 0.1 Thou/mm3 (0.0-0.5); Eosinophils % (Auto) 0 % (0-10); Hematocrit 43.0 % (41.0-53.0); Hemoglobin 13.4 g/dL (13.5-16.0); Immature Granulocytes Auto 0.06 Thou/mm3 (0.00-0.00); Lymphocytes # (Auto) 3.4 Thou/mm3 (1.0-4.8); Lymphocytes % (Auto) 21 % (10-50); Mean Corpuscular HGB Conc 31.2 g/dl (31.0-37.0); Mean Corpuscular Hemoglobin 28.2 pg (25.0-35.0); Mean Corpuscular Volume 91 fL (80-100); Monocytes # (Auto) 1.0 Thou/mm3 (0.0-0.8); Monocytes % (Auto) 6 % (0-12); Neutrophils # (Auto) 11.5 Thou/mm3 (1.8-7.7); Neutrophils % (Auto) 71 % (37-80); Nucleated Red Blood Cell # 0.02 Thou/mm3 (0.00-0.00); Nucleated Red Blood Cell % 0 /100 WBC (0); Platelet Count 342 Thou/mm3 (140-440); RDW Standard Deviation 54.7 fL (35.1-43.9); Red Blood Count 4.75 Miln/mm3 (4.50-5.90); White Blood Count 16.1 Thou/mm3 (3.8-10.6)
[2025-09-06 20:20] LABS: INR 1.0 (0.9-1.3); Partial Thromboplastin Time 28.5 Seconds (22.0-36.0); Prothrombin Time 10.9 Seconds (9.0-12.2)
[2025-09-06] MEDS: cefTRIAXone/D5w 1gm IV premix 1 GM/50 ML BAG IV (20:23)
[2025-09-06] MEDS: ACETAMINOPHEN IVPB 1,000 MG/100 ML VIAL 250 MG IV (20:23)
[2025-09-06 20:26] LABS: Alanine Aminotransferase 9 U/L (10-49); Albumin, Serum 4.5 gm/dL (3.4-4.8); Albumin/Globulin Ratio 1.6 (1.2-2.2); Alkaline Phosphatase 140 U/L (46-116); Anion Gap 16 (7-16); Aspartate Amino Transferase 15 U/L (0-34); BUN/Creatinine Ratio 6 Ratio (12-20); Bilirubin,Total 0.3 mg/dL (0.3-1.2); Blood Urea Nitrogen 22 mg/dL (9-23); Calcium 10.2 mg/dL (8.3-10.6); Calcium (Corrected) 10.2 mg/dL (8.5-10.1); Carbon Dioxide 27.0 mMol/L (20.0-31.0); Chloride 92 mMol/L (98-107); Creatinine (Component) 3.6 mg/dL (0.6-1.3); Estimated Creatinine Clearance 17.9 mL/min (>60); Globulin 2.8 gm/dL (2.3-3.5); Glucose 99 mg/dL (74-106); LDH (Lactate Dehydrogenase) 179 U/L (120-246); Lipase 30 U/L (12-53); Magnesium 1.8 mg/dL (1.6-2.6); Osmolality,Calculated 273 (275-295); Phosphorous 1.2 mg/dL (2.4-5.1); Potassium 4.1 mMol/L (3.4-5.1); Procalcitonin 0.55 ng/ml (0.0-0.49); Sodium 135 mMol/L (136-145); Total Protein 7.3 gm/dL (5.7-8.2); Troponin I < 0.020 ng/mL (0.0-0.045); eGFR 17 See Note
[2025-09-06 20:38] LABS: B-Type Natriuretic Peptide 271 pg/mL (0-100)
[2025-09-06] MEDS: PIPER/TAZO 3.375 GM PREMIX 3.375 GM/50 ML BAG IV (20:43)
[2025-09-06 20:48] LABS: Base Excess 10 (-3-3); HCO3 27 mEq/L (20-26); Inspired Oxygen, FIO2 21 %; O2 Saturation 98 % (91-98); PCO2 18 mmHg (32.0-48.0); PO2 98 mmHg (83-108); pH, Arterial 7.77 (7.35-7.45)
[2025-09-06 20:49] LABS: Allen Test Performed/OK; Puncture Site Right Radial
[2025-09-06] MEDS: RINGERS LACTATED 500 ML 500 ML 250 ML IV (21:34)
[2025-09-06] MEDS: LORazepam 2 MG/ML VIAL IVP (21:39)
[2025-09-06 22:13] VITALS: BP 153/79; PULSE 105; RESP 16; TEMP 37.1; O2SAT 99
[2025-09-06 22:49] LABS: Reflex Lactate? Y
[2025-09-06 23:10] LABS: Lactic Acid, 3 HR 3.4 mMol/L (0.4-2.0)
[2025-09-07] VITALS (10 sets, daily range): BP systolic 115–167; BP diastolic 63–86; PULSE 86–107; RESP 16–98; TEMP 35.9–37.1; O2SAT 95–100
[2025-09-07 00:55] LABS: Collection Type, Urine Clean Catch
[2025-09-07 01:02] LABS: Bacteria,Urine 3+; Bilirubin,Urine Negative (Negative); Blood,Urine Negative (Negative); Budding Yeast,Urine Present; Clarity,Urine Turbid (Clear/Hazy); Color,Urine Yellow (Lt Yel-Yel); Glucose, Urine Negative (Negative); Ketones,Urine Negative (Negative); Leukocyte Esterase,Urine Positive (Negative); Nitrite,Urine Negative (Negative); PH,Urine 7.5 (5.0-7.0); Protein,Urine 3+ (Neg - Trace); RBC,Urine 23 /hpf (0-3); Specific Gravity,Urine 1.018 (1.001-1.035); Squamous Epithelial Cell,Urine < 1 /hpf (0-5); Urobilinogen,Urine Negative mg/dL (0.0-1.0); WBC,Urine 277 /hpf (0-5)
[2025-09-07 01:03] LABS: Culture Indicated,Urine Yes
[2025-09-07 01:40] LABS: Base Excess 8 (-3-3); HCO3 30 mEq/L (20-26); Inspired Oxygen, FIO2 21 %; O2 Saturation 95 % (91-98); PCO2 34 mmHg (32.0-48.0); PO2 74 mmHg (83-108); pH, Arterial 7.55 (7.35-7.45)
[2025-09-07 01:41] LABS: Allen Test Performed/OK; Puncture Site Right Radial
[2025-09-07 01:53] LABS: Amphetamine/Methamp Scrn,U Negative (Negative); Barbiturate Screen,Urine Negative (Negative); Benzodiazepines Screen,Urine Negative (Negative); Benzoylecgonine Screen, Ur Negative (Negative); Fentanyl Screen,Urine Negative (Negative); Opiate Screen,Urine Positive (Negative); THC Screen,Urine Negative (Negative)
--- NOTE | 2025-09-07 02:27 | PD.EDADDENDU ---
Emergency Room Addendum Addendum Narrative: I took over the care from Agustin Damon NP at _11PM_ on _09/06/25_. See previous notes for complete H & P and ED course. I reviewed all diagnostic test results. Diagnoses include: AMS UTI ESRD I discussed the case with our hospitalist. About the presentation and exam and diagnostics and treatments here. And need of further care in the hospital. Will accept the patient. Paramjit Vargas MD
--- NOTE | 2025-09-07 02:34 | PD.HHHP ---
Documentation for date of: 09/07/25 HPI - Hospitalist History of Present Illness History of Present Illness: Altered mental status History of present illness: 75-year-old male with a history of CVA, CAD status post CABG, hypertension, end-stage renal disease on hemodialysis (MWF, follows Dr. Little), Urinary retention (chronic baker), afib (not anti-coagulated due to hx of GI bleeds) and CAD, brought in from home by for altered mentation. At ED patient had a temp of 100.5, tachycardia, tachypnea, labs were noted for leukocytosis ABG showed pH 7.77, pCO2 18, lactic acid of 6.1, creatinine 3.6, UA was noted for WBC count of 277 and 3+ bacteria. Head CT was negative for acute findings, chest abdomen pelvis CT was only noted for cholelithiasis, findings suspicious for early small bowel obstruction and cystitis. Liver US multiple bladder calculi with possible mild/developing cholecystitis. Patient was admitted for further evaluation and care of acute encephalopathic in setting of UTI. Review of Systems Review of Systems ROS Unobtainable: unobtainable due to mental status Meds Home Medications and Allergies Home Medications ?Medication ?Instructions ?Recorded ?Confirmed ?Type HYDROCODONE BIT/ACETAMINOPHEN 1 tab PO Q6HR PRN pain ##0 07/04/14 09/07/25 History (HYDROCODON-ACETAMINOPH 2.5-325) Levothyroxine * (SYNTHROID *) 75 mcg PO QDAY #0 tabs 07/04/14 09/07/25 History sevelamer carbonate 800 mg tablet 800 mg PO TID 04/18/23 09/07/25 History (Renvela) lidocaine 4 % topical cream 1 applic topical BID 11/20/24 09/07/25 History (Anecream) pravastatin 10 mg tablet 10 mg PO DAILY 01/01/25 09/07/25 History acetaminophen 500 mg tablet 500 mg PO TID PRN fever 08/20/25 09/07/25 History Allergies Allergy/AdvReac Type Severity Reaction Status Date / Time No Known Allergies Allergy Verified 08/11/25 03:08 Exam Vital Signs Temp Pulse Resp BP Pulse Ox O2 Del Method O2 Flow Rate 98.6 F 99 20 149/81 H 100 Room Air 100 09/07/25 00:31 09/07/25 00:31 09/07/25 00:31 09/07/25 00:31 09/07/25 00:31 09/07/25 00:31 09/06/25 19:20 Narrative General: Resting comfortably in bed, alert only to self Skin: Warm, dry, intact, no obvious rash. HENT: NCAT, EOMI/PERRL, not icteric. External ears normal. No rhinorrhea. Moist mucous membranes Cardiovascular: Irregularly iregular rhythm, no murmur, +S1/S2. Respiratory: Lungs CTAB GI: Soft, nontender, non-distended. No guarding or rebound tenderness. Neuro: Grossly nonfocal. Moving all 4 extremities. CN not formally tested but appear grossly intact. Results - Hospitalist Labs Diagrams: 09/06/25 19:43 09/06/25 19:43 Labs: Short CBC 09/06/25 Range/Units 19:43 WBC 16.1 H (3.8-10.6) Thou/mm3 Hgb 13.4 L (13.5-16.0) g/dL Hct 43.0 (41.0-53.0) % Plt Count 342 D (140-440) Thou/mm3 BMP 09/06/25 19:43 Sodium 135 L Potassium 4.1 Chloride 92 L Carbon Dioxide 27.0 BUN 22 Creatinine 3.6 H Glucose 99 Calcium 10.2 Cardiac Enzymes 09/06/25 Range/Units 19:43 Troponin I < 0.020 (0.0-0.045) ng/mL Liver Function 09/06/25 Range/Units 19:43 Total Bilirubin 0.3 (0.3-1.2) mg/dL AST 15 (0-34) U/L ALT 9 L (10-49) U/L Alkaline Phosphatase 140 H (46-116) U/L Albumin 4.5 (3.4-4.8) gm/dL Urine 09/07/25 Range/Units 00:50 Urine Color Yellow (Lt Yel-Yel) Urine Clarity Turbid A (Clear/Hazy) Urine pH 7.5 H (5.0-7.0) Ur Specific [place]er 1.018 (1.001-1.035) Urine Protein 3+ A (Neg - Trace) Urine Glucose (UA) Negative (Negative) ABG Interpretation ABG results: 09/06/25 09/07/25 20:42 01:37 ABG pH 7.77 H* 7.55 H D ABG pCO2 18 L* 34 D ABG pO2 98 74 L D ABG HCO3 27 H 30 H ABG O2 Saturation 98 95 ABG Base Excess 10 H 8 H Assessment & Plan -Hospitalist Additional Assessment 75-year-old male with a history of CVA, hypertension, end-stage renal disease on hemodialysis ([facility], follows Dr. Little) and CAD, who presents with altered mental status, left-sided weakness, and slurred speech. Patient admitted for acute encephalopathy. #Acute encephalopathy #Acute cystitis #Polypharmacy Possibly in setting of UTI vs medication side effect Duloxetine dose increased to 60 recently hold home medications WBC elevated Head CT within normal limits TSH and free T4 within normal limits ABG initially showed pH 7.77, pCO2 18 Repeat ABG pH 7.55, pCO2 34 Plan: ? Blood cultures pending ? Ucx pending ? U tox + opioids ? Monitor and correct electrolytes ? Linezolid bid #Lactic acidosis Given 1.5L ivf bolus in ED F/U repeat AM lactate #ESRD on HD ([facility]) #Anemia of chronic disease #Hypophosphatemia Follows Dr. Little Does not produce much urine, patient does straight cath in the morning Plan: ? Monitor electrolytes and renal function ? Maintenance fluid ? Strict I&O ? Avoid nephrotoxic agents ? Renal dose medications ? Nephrology consulted, Dr. Little ? Day team to contact Dr. Little to restart HD inpatient Hypothyroidism HTN Health Maintenance: Diet: N.p.o. GI prophylaxis: None DVT prophylaxis: Heparin 5000u SC every 8 hours Antimicrobials: Linezolid CODE STATUS: Full Disposition: Telemetry Additional Plan Additional Plan: 75-year-old male with a history of CVA, CAD status post CABG, hypertension, end-stage renal disease on hemodialysis ([facility], follows Dr. Little), Urinary retention (chronic baker), afib (not anti-coagulated due to hx of GI bleeds) admitted for acute encephalopathy. #Acute metabolic encephalopathy #Acute cystitis #Polypharmacy #Electrolyte abnormality Possibly due to pain vs constipation vs UTI vs medication side effect Duloxetine dose increased to [address] shows stool in bowels, patient's states had 2 bowel movemenets 09/06. Patient was noted to be in abdominal pain at the same time as confusion occurred. Patient no longer has abdominal pain and confusion seems to be improving later in the day 09/07. hold home medications WBC elevated Head CT within normal limits Utox showed opiates (home norco) ABG initially showed pH 7.77, pCO2 18 ---> Repeat ABG pH 7.55, pCO2 34 CT CAP also showed cystitis, mutliple fluid distended small bowel loops, cholelithiasis. Plan: ? Blood cultures pending ? Ucx pending ? Monitor and correct electrolytes ? Linezolid bid #Afib with rvr EKG showed afib with rvr Hx of GI bleed Rate control #CAD s/p CABG Optimization of guideline directed medical therapy for coronary atherosclerosis: beta kisha, ARB, and statin (high intensity preferred) as indicated pending med rec #Lactic acidosis #Respiratory alkalosis Initial ABG showed pH of 7.77, repeat ABG showed pH of 7.55. Likely lab error. Patient not noted to be tachypneic Will continue to monitor vitals and follow-up #ESRD on HD (MWF) #Anemia of chronic disease #Hypophosphatemia Follows Dr. Little Does not produce much urine, patient does straight cath in the morning Plan: ? Monitor electrolytes and renal function ? Maintenance fluid ? Strict I&O ? Avoid nephrotoxic agents ? Renal dose medications ? Nephrology consulted, Dr. Little DVT: Heparin Diet: Cardiac/renal Code: Full code Quality Measures Quality Measures VTE prophylaxis Advance care planning discussed with:: spouse
[2025-09-07] MEDS: HEPARIN SOD INJ 5000 UNIT/ML VIAL SC ×2 (06:27→21:32)
[2025-09-07 06:38] LABS: Base Excess, Venous 6 (-3-3); Lactate (Lactic Acid) 2.2 mMol/L (0.4-2.0); O2 Saturation, Venous 93 % (96-97); PCO2, Venous 34 mmHg (36-56); PO2, Venous 61 mmHg (15-58); pH, Venous 7.53 (7.33-7.66)
[2025-09-07 06:40] LABS: Basophils # (Auto) 0.0 Thou/mm3 (0.0-0.2); Basophils % (Auto) 0 % (0-2.5); Eosinophils # (Auto) 0.0 Thou/mm3 (0.0-0.5); Eosinophils % (Auto) 0 % (0-10); Hematocrit 39.8 % (41.0-53.0); Hemoglobin 12.8 g/dL (13.5-16.0); Immature Granulocytes Auto 0.09 Thou/mm3 (0.00-0.00); Lymphocytes # (Auto) 2.8 Thou/mm3 (1.0-4.8); Lymphocytes % (Auto) 15 % (10-50); Mean Corpuscular HGB Conc 32.2 g/dl (31.0-37.0); Mean Corpuscular Hemoglobin 28.7 pg (25.0-35.0); Mean Corpuscular Volume 89 fL (80-100); Monocytes # (Auto) 0.9 Thou/mm3 (0.0-0.8); Monocytes % (Auto) 5 % (0-12); Neutrophils # (Auto) 14.9 Thou/mm3 (1.8-7.7); Neutrophils % (Auto) 80 % (37-80); Nucleated Red Blood Cell # 0.00 Thou/mm3 (0.00-0.00); Nucleated Red Blood Cell % 0 /100 WBC (0); Platelet Count 325 Thou/mm3 (140-440); RDW Standard Deviation 55.6 fL (35.1-43.9); Red Blood Count 4.46 Miln/mm3 (4.50-5.90); White Blood Count 18.7 Thou/mm3 (3.8-10.6)
[2025-09-07 07:09] LABS: Anion Gap 13 (7-16); BUN/Creatinine Ratio 7 Ratio (12-20); Blood Urea Nitrogen 30 mg/dL (9-23); Calcium 9.5 mg/dL (8.3-10.6); Carbon Dioxide 29.0 mMol/L (20.0-31.0); Chloride 92 mMol/L (98-107); Creatinine (Component) 4.3 mg/dL (0.6-1.3); Estimated Creatinine Clearance 14.9 mL/min (>60); Glucose 102 mg/dL (74-106); Magnesium 2.0 mg/dL (1.6-2.6); Osmolality,Calculated 274 (275-295); Potassium 4.1 mMol/L (3.4-5.1); Sodium 134 mMol/L (136-145); eGFR 14 See Note
[2025-09-07 09:35] LABS: Reflex Lactate? Y
[2025-09-07 09:52] LABS: Lactic Acid, 3 HR 1.3 mMol/L (0.4-2.0)
[2025-09-07] MEDS: HYDROmorphone INJ 2 MG/ML VIAL 0.25 MG IVP ×3 (11:53→23:49)
--- NOTE | 2025-09-07 13:41 | ESPR_ITS ---
<Statement entered by Sterling Lowry MD - 09/07/25 16:48> Overnight admission for acute encephalopathy. Seen and examined at bedside in morning and noted to only be oriented to self and birthdate. at bedside and provided history and states that patient has needed to come to the ED multiple times for the same issue. Patient self caths at home and per has had no difficulty in doing so. Imaging showed possible bowel obstruction pattern but patient had two bowel movements yesterday. Significant stool also seen on imaging and will start bowel regimen. Given small dose of dilaudid for pain and mentation had significantly improved upon evaluation in the afternoon. Will order abdominal US for further evaluation and will follow-up on results. Otherwise, vital signs stable. Chem panel showing increasing leukocytosis and stable hemoglobin. Chem panel consistent with ESRD, resolved lactic acidosis. Urine and blood cultures pending. Will continue linezolid based off of previous cultures and continue to monitor. ----- Note reviewed and agree with care plan as documented. Please refer to the note below for further details. Plan discussed with attending physician Dr. Sharmila Lowry MD PGY-2 Internal Medicine Documentation for date of: 09/07/25 Subjective Subjective Interval history: Patient seen with present Patient resting in bed with frequent fidgeting with his clothes, lines. Patient this morning was A&Ox1 to place. Patient vitals sign for bp of 160/73 Patient's states he had 2 BM's yesterday; also states he was having diffuse abdominal pain yesterday, which coincided with the start of his confusion. Ordered Liver US. Exam Vital Signs Temp Pulse Resp BP Pulse Ox O2 Del Method O2 Flow Rate 98.4 F 90 18 145/68 H 96 Room Air 100 09/07/25 12:48 09/07/25 12:48 09/07/25 12:48 09/07/25 12:48 09/07/25 12:48 09/07/25 12:48 09/07/25 12:48 Narrative Exam General: No acute distress; A&Ox1 (place) Skin: Warm, dry, intact, no obvious rash. HENT: NCAT, EOMI/PERRL, not icteric. External ears normal. No rhinorrhea. Moist mucous membranes Cardiovascular: Tachycardic, regular rhythm, no murmur, +S1/S2. Respiratory: Lungs CTAB GI: Soft, nontender, non-distended. No guarding or rebound tenderness. : No suprapubic tenderness. No flank tenderness bilaterally. Extremities: no edema, no cyanosis, no clubbing. Extremity pulses present Neuro: Grossly nonfocal. Moving all 4 extremities. CN not formally tested but appear grossly intact. Psychiatric: not-cooperative Objective Labs 09/08/25 05:03 09/08/25 05:03 Labs: Laboratory Results - last 24 hr 09/06/25 09/06/25 09/06/25 19:43 20:42 22:55 WBC 16.1 H RBC 4.75 Hgb 13.4 L Hct 43.0 MCV 91 MCH 28.2 MCHC 31.2 RDW Std Deviation 54.7 H Plt Count 342 D Neut % (Auto) 71 Lymph % (Auto) 21 [place] % (Auto) 6 Eos % (Auto) 0 Baso % (Auto) 0 Neut # (Auto) 11.5 H Lymph # (Auto) 3.4 [place] # (Auto) 1.0 H Eos # (Auto) 0.1 Baso # (Auto) 0.1 Immature Gran # (Auto) 0.06 H Absolute Nucleated RBC 0.02 H Immature Gran % 0 Nucleated RBC % 0 PT 10.9 INR 1.0 APTT 28.5 Puncture Site Right Radial ABG pH 7.77 H* ABG pCO2 18 L* ABG pO2 98 ABG HCO3 27 H ABG O2 Saturation 98 ABG Base Excess 10 H VBG pH VBG pCO2 VBG pO2 VBG O2 Sat (Timothy) VBG Base Excess FiO2 21 Sodium 135 L Potassium 4.1 Chloride 92 L Carbon Dioxide 27.0 Anion Gap 16 BUN 22 Creatinine 3.6 H Estim Creat Clear Calc 17.9 L eGFR 17 L BUN/Creatinine Ratio 6 L Glucose 99 Calculated Osmolality 273 L Lactic Acid 6.1 H* 3.4 H Calcium 10.2 Corrected Calcium 10.2 H Phosphorus 1.2 L Magnesium 1.8 Total Bilirubin 0.3 AST 15 ALT 9 L Alkaline Phosphatase 140 H Lactate Dehydrogenase 179 Troponin I < 0.020 B-Natriuretic Peptide 271 H Total Protein 7.3 Albumin 4.5 Globulin 2.8 Albumin/Globulin Ratio 1.6 Lipase 30 Procalcitonin 0.55 H Ur Collection Type Urine Color Urine Clarity Urine pH Ur Specific [place] Urine Protein Urine Glucose (UA) Urine Ketones Urine Blood Urine Nitrite Urine Bilirubin Urine Urobilinogen (Auto) Ur Leukocyte Esterase Urine RBC Urine WBC Ur Squamous Epith Cells Urine Bacteria Urine Yeast (Budding) Ur Culture Indicated? Urine Opiates Screen Urine Fentanyl Screen Ur Barbiturates Screen U Amphetamin/Meth Scrn U Benzodiazepines Scrn U Cocaine Metab Screen U Marijuana (THC) Screen 09/07/25 09/07/25 09/07/25 00:50 01:37 06:25 WBC 18.7 H RBC 4.46 L Hgb 12.8 L Hct 39.8 L MCV 89 MCH 28.7 MCHC 32.2 RDW Std Deviation 55.6 H Plt Count 325 Neut % (Auto) 80 Lymph % (Auto) 15 [place] % (Auto) 5 Eos % (Auto) 0 Baso % (Auto) 0 Neut # (Auto) 14.9 H Lymph # (Auto) 2.8 [place] # (Auto) 0.9 H Eos # (Auto) 0.0 Baso # (Auto) 0.0 Immature Gran # (Auto) 0.09 H Absolute Nucleated RBC 0.00 Immature Gran % 1 H Nucleated RBC % 0 PT INR APTT Puncture Site Right Radial ABG pH 7.55 H D ABG pCO2 34 D ABG pO2 74 L D ABG HCO3 30 H ABG O2 Saturation 95 ABG Base Excess 8 H VBG pH 7.53 VBG pCO2 34 L VBG pO2 61 H VBG O2 Sat (Timothy) 93 L VBG Base Excess 6 H FiO2 21 Sodium 134 L Potassium 4.1 Chloride 92 L Carbon Dioxide 29.0 Anion Gap 13 BUN 30 H Creatinine 4.3 H* D Estim Creat Clear Calc 14.9 L eGFR 14 L* BUN/Creatinine Ratio 7 L Glucose 102 Calculated Osmolality 274 L Lactic Acid 2.2 H Calcium 9.5 Corrected Calcium Phosphorus Magnesium 2.0 Total Bilirubin AST ALT Alkaline Phosphatase Lactate Dehydrogenase Troponin I B-Natriuretic Peptide Total Protein Albumin Globulin Albumin/Globulin Ratio Lipase Procalcitonin Ur Collection Type Clean Catch Urine Color Yellow Urine Clarity Turbid A Urine pH 7.5 H Ur Specific [place] 1.018 Urine Protein 3+ A Urine Glucose (UA) Negative Urine Ketones Negative Urine Blood Negative Urine Nitrite Negative Urine Bilirubin Negative Urine Urobilinogen (Auto) Negative Ur Leukocyte Esterase Positive Urine RBC 23 H Urine WBC 277 H Ur Squamous Epith Cells < 1 Urine Bacteria 3+ A Urine Yeast (Budding) Present A Ur Culture Indicated? Yes Urine Opiates Screen Positive A Urine Fentanyl Screen Negative Ur Barbiturates Screen Negative U Amphetamin/Meth Scrn Negative U Benzodiazepines Scrn Negative U Cocaine Metab Screen Negative U Marijuana (THC) Screen Negative 09/07/25 09:45 WBC RBC Hgb Hct MCV MCH MCHC RDW Std Deviation Plt Count Neut % (Auto) Lymph % (Auto) [place] % (Auto) Eos % (Auto) Baso % (Auto) Neut # (Auto) Lymph # (Auto) [place] # (Auto) Eos # (Auto) Baso # (Auto) Immature Gran # (Auto) Absolute Nucleated RBC Immature Gran % Nucleated RBC % PT INR APTT Puncture Site ABG pH ABG pCO2 ABG pO2 ABG HCO3 ABG O2 Saturation ABG Base Excess VBG pH VBG pCO2 VBG pO2 VBG O2 Sat (Timothy) VBG Base Excess FiO2 Sodium Potassium Chloride Carbon Dioxide Anion Gap BUN Creatinine Estim Creat Clear Calc eGFR BUN/Creatinine Ratio Glucose Calculated Osmolality Lactic Acid 1.3 Calcium Corrected Calcium Phosphorus Magnesium Total Bilirubin AST ALT Alkaline Phosphatase Lactate Dehydrogenase Troponin I B-Natriuretic Peptide Total Protein Albumin Globulin Albumin/Globulin Ratio Lipase Procalcitonin Ur Collection Type Urine Color Urine Clarity Urine pH Ur Specific [place] Urine Protein Urine Glucose (UA) Urine Ketones Urine Blood Urine Nitrite Urine Bilirubin Urine Urobilinogen (Auto) Ur Leukocyte Esterase Urine RBC Urine WBC Ur Squamous Epith Cells Urine Bacteria Urine Yeast (Budding) Ur Culture Indicated? Urine Opiates Screen Urine Fentanyl Screen Ur Barbiturates Screen U Amphetamin/Meth Scrn U Benzodiazepines Scrn U Cocaine Metab Screen U Marijuana (THC) Screen ABG Interpretation ABG results: 09/06/25 09/07/25 09/07/25 20:42 01:37 06:25 ABG pH 7.77 H* 7.55 H D ABG pCO2 18 L* 34 D ABG pO2 98 74 L D ABG HCO3 27 H 30 H ABG O2 Saturation 98 95 ABG Base Excess 10 H 8 H VBG pH 7.53 VBG pCO2 34 L VBG pO2 61 H VBG Base Excess 6 H Quality Measures Quality Measures VTE prophylaxis Advance care planning discussed with:: patient and spouse Assessment & Plan Assessment Current Active Medications: Generic Name Dose Route Start Last Admin Trade Name Freq PRN Reason Stop Dose Admin Acetaminophen 650 mg 09/07/25 02:16 Acetaminophen 325 Mg Tablet PO 10/07/25 02:15 Q6H PRN Fever >101.5 Heparin Sodium (Porcine) 5,000 unit 09/07/25 06:00 09/07/25 06:27 Heparin Sod Inj 5000 Unit/Ml Vial SC 09/21/25 05:59 5,000 unit Q8HR RICH Administration Hydralazine HCl 10 mg 09/07/25 02:21 Hydralazine Inj 20 Mg/Ml Vial IVP 10/07/25 02:20 Q4HR PRN SBP>180 Linezolid 600 mg in 300 mls @ 300 mls/hr 09/07/25 02:20 09/07/25 09:00 Zyvox Ivpb IV 09/14/25 02:19 Not Given Q12HR RICH Sodium Phosphate 22.5 mmol/ 507.5 mls @ 82.778 mls/hr 09/07/25 11:38 Sodium Chloride IV 09/07/25 17:45 X1 ONE Potassium Phos/Sodium Phos 2 packet 09/07/25 09:00 09/07/25 09:43 Naph,Replaced By [facility] Mbdb 1 Packet (1.5 Gm) PO 09/08/25 08:59 Not Given BID RICH Plan 75-year-old male with a history of CVA, CAD status post CABG, hypertension, end- stage renal disease on hemodialysis (MWF, follows Dr. Little), Urinary retention (chronic baker), afib (not anti-coagulated due to hx of GI bleeds) and CAD, who presents with altered mental status, left-sided weakness, and slurred speech. Patient admitted for acute encephalopathy. Found to have UTI #Acute encephalopathy #Acute cystitis #Polypharmacy Possibly due to pain vs constipation vs UTI vs medication side effect Duloxetine dose increased to [address] shows stool in bowels, patient's states had 2 bowel movemenets 09/06. Patient was noted to be in abdominal pain at the same time as confusion occurred. Patient no longer has abdominal pain and confusion seems to be improving later in the day 09/07. hold home medications WBC elevated Head CT within normal limits Utox showed opiates (home norco) ABG initially showed pH 7.77, pCO2 18 ---> Repeat ABG pH 7.55, pCO2 34 CT CAP also showed cystitis, mutliple fluid distended small bowel loops, cholelithiasis. Plan: ? Blood cultures pending ? Ucx pending - TSH and free T4 ordered ? Monitor and correct electrolytes ? Linezolid bid #diffuse abdominal pain, resolved Patient was noted to be in diffuse abdominal pain prior to admission at the same time as confusion occurred. Liver US showed Multiple subcentimeter calculi with gallbladder wall thickening to 4 mm. -will monitor for abdominal pain and relevant lab abnormalities #UTI #History of urinary retention (As above in encephalopathy problem) Abdominal pain prior to admission with hx of UTI, chronic baker catheter states he has been trained how to self catheterize and maintain hygiene CT shows cystitis UA shows L.E. pos, 23 rbc, 277 wbc, 3+ bacteria -urine culture taken -on antibitoics #Afib with rvr EKG showed afib with rvr not on home anticoagulation, per chart, due to hx GI bleed CHADSVASC of 6 HAS-BLED of 5 -heparin for dvt prophylaxis -Reportedly not on A.C. due to history of GI bleed #CAD status post CABG Optimization of guideline directed medical therapy for coronary atherosclerosis: beta kisha, ARB, and statin (high intensity preferred) as indicated pending med rec #ESRD on HD (MWF) #Anemia of chronic disease #Hypophosphatemia Follows Dr. Little Does not produce much urine, patient does straight cath in the morning Plan: ? Monitor electrolytes and renal function ? Maintenance fluid ? Strict I&O ? Avoid nephrotoxic agents ? Renal dose medications ? Nephrology consulted, Dr. Little ? Contacted Dr. Little #Hypothyroidism home dose of 75 mcg po qday -pending med rec -TSH and free T4 ordered #HTN home med of nifedipine 30 mg po qday -pending med rec #Lactic acidosis, resolved Given 1.5L ivf bolus in ED F/U repeat AM lactate 6.1 -> 1.3 Health Maintenance: Diet: N.p.o. GI prophylaxis: None DVT prophylaxis: Heparin 5000u SC every 8 hours Antimicrobials: Linezolid CODE STATUS: Full Disposition: Telemetry Patient plan of care was discussed with the attending physician, Dr. Mcallister & senior resident Dr. Essence Lopez MD PGY-1 Attending Provider Attestation/Addendum I have examined the patient, reviewed labs and imaging findings, discussed the case with the resident(s), and reviewed entered orders. I agree with the plan of care as outlined in this note. Dr. Ary MD
[2025-09-07] MEDS: SOD PHOS ADDITIVE 22.5 MMOL in SODIUM CHLORIDE 0.9% 500 ML 500 ML 82.778 MMOL IV (13:56)
--- NOTE | 2025-09-07 14:34 | XR_ITS ---
EXAM: Ultrasound of the liver. INDICATION: Abdominal pain. DATE: 09/07/2025, 3:04 p.m. FINDINGS: Liver measures 17 cm and is normal in size contour and echogenicity. Multiple subcentimeter gallbladder calculi are present. Gallbladder wall is mildly thickened to 4 mm. No evidence of pericholecystic fluid. Common bile duct measures 3 mm's and is within normal limits. Visualized pancreatic head is unremarkable. Normal hepatopetal flow in the main portal vein. IVC appears patent FINDINGS: Multiple subcentimeter calculi with gallbladder wall thickening to 4 mm. Findings may represent mild/developing cholecystitis. Nuclear medicine HIDA scan may help to further characterize.
[2025-09-07] MEDS: OLANZapine INJ 10 MG, Sterile Water 2.1 ML IM (22:18)
[2025-09-08] VITALS (16 sets, daily range): BP systolic 119–194; BP diastolic 48–96; PULSE 62–107; RESP 16–99; TEMP 36.1–36.8; O2SAT 93–99; BMI 24.1
[2025-09-08] MEDS: hydrALAZINE INJ 20 MG/ML VIAL 10 MG IVP (04:10)
--- NOTE | 2025-09-08 04:55 | PC.NURSE ---
MD Dangelo at bedside performing manual digital disimpaction
[2025-09-08] MEDS: HEPARIN SOD INJ 5000 UNIT/ML VIAL SC ×3 (05:28→21:23)
[2025-09-08 05:34] LABS: Basophils # (Auto) 0.0 Thou/mm3 (0.0-0.2); Basophils % (Auto) 0 % (0-2.5); Eosinophils # (Auto) 0.2 Thou/mm3 (0.0-0.5); Eosinophils % (Auto) 2 % (0-10); Hematocrit 40.4 % (41.0-53.0); Hemoglobin 12.8 g/dL (13.5-16.0); Immature Granulocytes Auto 0.04 Thou/mm3 (0.00-0.00); Lymphocytes # (Auto) 4.0 Thou/mm3 (1.0-4.8); Lymphocytes % (Auto) 33 % (10-50); Mean Corpuscular HGB Conc 31.7 g/dl (31.0-37.0); Mean Corpuscular Hemoglobin 28.4 pg (25.0-35.0); Mean Corpuscular Volume 90 fL (80-100); Monocytes # (Auto) 0.8 Thou/mm3 (0.0-0.8); Monocytes % (Auto) 7 % (0-12); Neutrophils # (Auto) 7.1 Thou/mm3 (1.8-7.7); Neutrophils % (Auto) 58 % (37-80); Nucleated Red Blood Cell # 0.00 Thou/mm3 (0.00-0.00); Nucleated Red Blood Cell % 0 /100 WBC (0); Platelet Count 296 Thou/mm3 (140-440); RDW Standard Deviation 57.2 fL (35.1-43.9); Red Blood Count 4.50 Miln/mm3 (4.50-5.90); White Blood Count 12.2 Thou/mm3 (3.8-10.6)
[2025-09-08 06:02] LABS: Anion Gap 16 (7-16); BUN/Creatinine Ratio 7 Ratio (12-20); Blood Urea Nitrogen 38 mg/dL (9-23); Calcium 9.2 mg/dL (8.3-10.6); Carbon Dioxide 25.3 mMol/L (20.0-31.0); Chloride 95 mMol/L (98-107); Creatinine (Component) 5.5 mg/dL (0.6-1.3); Estimated Creatinine Clearance 11.7 mL/min (>60); Free T4 (Free Thyroxine) 1.31 ng/dL (0.89-1.76); Glucose 102 mg/dL (74-106); Magnesium 2.0 mg/dL (1.6-2.6); Osmolality,Calculated 280 (275-295); Phosphorous 6.1 mg/dL (2.4-5.1); Potassium 4.1 mMol/L (3.4-5.1); Sodium 136 mMol/L (136-145); Thyroid Stimulating Hormone 3.98 uIU/mL (0.55-4.78); eGFR 10 See Note
[2025-09-08] MEDS: NIFEdipine XL 30 MG TABCR PO (09:00)
--- NOTE | 2025-09-08 12:13 | ESPR_ITS ---
<Statement entered by Sterling Lowry MD - 09/08/25 14:53> No acute overnight events but patient did require one-time dose of olanzapine. Seen and examined at bedside and he is alert and oriented x 3. Does endorse some abdominal pain that was relieved with small dose of Dilaudid. Vital signs stable, though blood pressure noted to be elevated overnight with max of 194/89 and was given hydralazine 10 mg IV. Restarted patient's home with nifedipine 30 mg. CBC shows improving leukocytosis, stable hemoglobin. CHEM panel showing resolved hyponatremia and other labs consistent with ESRD. Blood and urine cultures pending open continue linezolid given previous culture results. Patient also noted to have a large bowel movement today. Hopefully this will resolve episodes of agitation as high suspicion for pain to be etiology of encephalopathy. ----- Note reviewed and agree with care plan as documented. Please refer to the note below for further details. Plan discussed with attending physician Dr. Ary Lowry MD PGY-2 Internal Medicine Documentation for date of: 09/08/25 Subjective Subjective Interval history: Patient seen and examined; states he has abdominal pain that comes and goes. Patient this morning was A&Ox2 BP overnight elevated to 190 sbp, given hydralazine x1, restarted home med nifedipine. Liver US showed concern for cholesystis, mild GB wall thickening. Patient reportedly had a large bowel movenetn Exam Vital Signs Temp Pulse Resp BP Pulse Ox O2 Del Method O2 Flow Rate 98.3 F 85 18 155/81 H 96 Room Air 100 09/08/25 04:01 09/08/25 09:00 09/08/25 06:59 09/08/25 09:00 09/08/25 04:05 09/08/25 04:05 09/07/25 12:48 Narrative Exam General: No acute distress; A&Ox2 (person/place) Skin: Warm, dry, intact, no obvious rash. HENT: NCAT, EOMI/PERRL, not icteric. External ears normal. No rhinorrhea. Moist mucous membranes Cardiovascular: Tachycardic, regular rhythm, no murmur, +S1/S2. Respiratory: Lungs CTAB GI: Soft, nontender, non-distended. No guarding or rebound tenderness. : No suprapubic tenderness. No flank tenderness bilaterally. Extremities: no edema, no cyanosis, no clubbing. Extremity pulses present Neuro: Grossly nonfocal. Moving all 4 extremities. CN not formally tested but appear grossly intact. Psychiatric: not-cooperative Objective Labs 09/09/25 04:28 09/09/25 04:28 Labs: Laboratory Results - last 24 hr 09/08/25 05:03 WBC 12.2 H D RBC 4.50 Hgb 12.8 L Hct 40.4 L MCV 90 MCH 28.4 MCHC 31.7 RDW Std Deviation 57.2 H Plt Count 296 Neut % (Auto) 58 Lymph % (Auto) 33 Angelina % (Auto) 7 Eos % (Auto) 2 Baso % (Auto) 0 Neut # (Auto) 7.1 Lymph # (Auto) 4.0 Angelina # (Auto) 0.8 Eos # (Auto) 0.2 Baso # (Auto) 0.0 Immature Gran # (Auto) 0.04 H Absolute Nucleated RBC 0.00 Immature Gran % 0 Nucleated RBC % 0 Sodium 136 Potassium 4.1 Chloride 95 L Carbon Dioxide 25.3 Anion Gap 16 BUN 38 H Creatinine 5.5 H* D Estim Creat Clear Calc 11.7 L eGFR 10 L* BUN/Creatinine Ratio 7 L Glucose 102 Calculated Osmolality 280 Calcium 9.2 Phosphorus 6.1 H Magnesium 2.0 TSH 3.98 D Free T4 1.31 ABG Interpretation ABG results: 09/06/25 09/07/25 09/07/25 20:42 01:37 06:25 ABG pH 7.77 H* 7.55 H D ABG pCO2 18 L* 34 D ABG pO2 98 74 L D ABG HCO3 27 H 30 H ABG O2 Saturation 98 95 ABG Base Excess 10 H 8 H VBG pH 7.53 VBG pCO2 34 L VBG pO2 61 H VBG Base Excess 6 H Quality Measures Quality Measures VTE prophylaxis Advance care planning discussed with:: patient and spouse Assessment & Plan Assessment Current Active Medications: Generic Name Dose Route Start Last Admin Trade Name Freq PRN Reason Stop Dose Admin Acetaminophen 650 mg 09/07/25 02:16 Acetaminophen 325 Mg Tablet PO 10/07/25 02:15 Q6H PRN Fever >101.5 Heparin Sodium (Porcine) 5,000 unit 09/07/25 06:00 09/08/25 05:28 Heparin Sod Inj 5000 Unit/Ml Vial SC 09/21/25 05:59 5,000 unit Q8HR RICH Administration Hydralazine HCl 10 mg 09/07/25 02:21 09/08/25 04:10 Hydralazine Inj 20 Mg/Ml Vial IVP 10/07/25 02:20 10 mg Q4HR PRN Administration SBP>180 Linezolid 600 mg in 300 mls @ 300 mls/hr 09/07/25 02:20 09/08/25 09:03 Zyvox Ivpb IV 09/14/25 02:19 300 mls/hr Q12HR RICH Administration Naloxegol 25 mg 09/08/25 10:30 09/08/25 11:38 Naloxegol Oxalate 25 Mg Tablet (Non-Formulary) PO 10/08/25 10:29 Not Given QDAY RICH Nifedipine 30 mg 09/08/25 09:00 09/08/25 09:00 Nifedipine Xl 30 Mg Tabcr PO 10/08/25 08:59 30 mg QDAY RICH Administration Plan 75-year-old male with a history of CVA, CAD status post CABG, hypertension, end- stage renal disease on hemodialysis (MWF, follows Dr. Little), Urinary retention (chronic baker), afib (not anti-coagulated due to hx of GI bleeds) and CAD, who presents with altered mental status, left-sided weakness, and slurred speech. Patient admitted for acute encephalopathy. Found to have UTI #Acute encephalopathy #Acute cystitis #Polypharmacy Possibly due to pain vs constipation vs UTI vs medication side effect Duloxetine dose increased to [address] shows stool in bowels, patient's states had 2 bowel movemenets 09/06. Patient was noted to be in abdominal pain at the same time as confusion occurred. Patient no longer has abdominal pain and confusion seems to be improving later in the day 09/07. hold home medications WBC elevated Head CT within normal limits Utox showed opiates (home norco) ABG initially showed pH 7.77, pCO2 18 ---> Repeat ABG pH 7.55, pCO2 34 TSH and free T4 wnl CT CAP also showed cystitis, mutliple fluid distended small bowel loops, cholelithiasis. Plan: ? Blood cultures [id number] ? Ucx pending ? Monitor and correct electrolytes ? Linezolid 600 mg IV bid #diffuse abdominal pain Patient was noted to be in diffuse abdominal pain prior to admission at the same time as confusion occurred. Liver US showed Multiple subcentimeter calculi with gallbladder wall thickening to 4 mm. Patient had large BM 09/08 -ordered naloxegol qd -will monitor for abdominal pain and relevant lab abnormalities #UTI #History of urinary retention (As above in encephalopathy problem) Abdominal pain prior to admission with hx of UTI, chronic baker catheter states he has been trained how to self catheterize and maintain hygiene CT shows cystitis UA shows L.E. pos, 23 rbc, 277 wbc, 3+ bacteria -urine culture taken -on antibitoics #Afib with rvr EKG showed afib with rvr not on home anticoagulation, per chart, due to hx GI bleed CHADSVASC of 6 HAS-BLED of 5 -heparin for dvt prophylaxis -Reportedly not on A.C. due to history of GI bleed #CAD status post CABG Optimization of guideline directed medical therapy for coronary atherosclerosis: beta kisha, ARB, and statin (high intensity preferred) as indicated pending med rec #ESRD on HD (MWF) #Anemia of chronic disease #Hypophosphatemia Follows Dr. Little Does not produce much urine, patient does straight cath in the morning Plan: ? Monitor electrolytes and renal function ? Maintenance fluid ? Strict I&O ? Avoid nephrotoxic agents ? Renal dose medications ? Nephrology consulted, Dr. Little ? Contacted Dr. Little #Hypothyroidism home dose of levothyroxine 75 mcg po qday -TSH and free T4 wnl -restarted levothyroxine 60 iv po q am (80% home med, per pharmacy) #HTN home med of nifedipine 30 mg po qday -restarted home med #Lactic acidosis, resolved Given 1.5L ivf bolus in ED F/U repeat AM lactate 6.1 -> 1.3 Health Maintenance: Diet: Renal GI prophylaxis: None DVT prophylaxis: Heparin 5000u SC every 8 hours Antimicrobials: Linezolid CODE STATUS: Full Disposition: Telemetry Patient plan of care was discussed with the attending physician, Dr. Mcallister & senior resident Dr. Essence Lopez MD PGY-1 Attending Provider Attestation/Addendum I have examined the patient, reviewed labs and imaging findings, discussed the case with the resident(s), and reviewed entered orders. I agree with the plan of care as outlined in this note. Dr. Ary MD
--- NOTE | 2025-09-08 14:40 | PC.SS ---
Patient is a 75 year old male presenting to the hospital for acute encephalopathy. CONSTRUCTION PRODUCER placed phone call to patient?s Amy to complete initial assessment. Amy confirmed patient?s demographic information and stated she lives with patient at confirmed address. Amy stated that she is decision maker in case patient is unable to make medical decisions. ?Amy stated that patient has a walker, no home oxygen, PCP is Wendy Yin last appointment was in August 2025, pharmacy is [facility]. Amy stated that once medically clear patient will return home. Amy stated that once medically clear patient may need transportation. SS will follow up with d/c needs. d/c: home decision maker: Amy Espitia PCP: Wendy Yin
[2025-09-09] VITALS (24 sets, daily range): BP systolic 114–176; BP diastolic 52–92; PULSE 54–107; RESP 12–18; TEMP 36.6–37.2; O2SAT 92–99; BMI 23.5; BMI 13.0
[2025-09-09 04:54] LABS: Basophils # (Auto) 0.0 Thou/mm3 (0.0-0.2); Basophils % (Auto) 0 % (0-2.5); Eosinophils # (Auto) 0.6 Thou/mm3 (0.0-0.5); Eosinophils % (Auto) 5 % (0-10); Hematocrit 35.7 % (41.0-53.0); Hemoglobin 11.7 g/dL (13.5-16.0); Immature Granulocytes Auto 0.03 Thou/mm3 (0.00-0.00); Lymphocytes # (Auto) 3.3 Thou/mm3 (1.0-4.8); Lymphocytes % (Auto) 30 % (10-50); Mean Corpuscular HGB Conc 32.8 g/dl (31.0-37.0); Mean Corpuscular Hemoglobin 29.5 pg (25.0-35.0); Mean Corpuscular Volume 90 fL (80-100); Monocytes # (Auto) 0.8 Thou/mm3 (0.0-0.8); Monocytes % (Auto) 7 % (0-12); Neutrophils # (Auto) 6.3 Thou/mm3 (1.8-7.7); Neutrophils % (Auto) 57 % (37-80); Nucleated Red Blood Cell # 0.00 Thou/mm3 (0.00-0.00); Nucleated Red Blood Cell % 0 /100 WBC (0); Platelet Count 302 Thou/mm3 (140-440); RDW Standard Deviation 58.7 fL (35.1-43.9); Red Blood Count 3.97 Miln/mm3 (4.50-5.90); White Blood Count 11.0 Thou/mm3 (3.8-10.6)
[2025-09-09 05:17] LABS: Alanine Aminotransferase < 7 U/L (10-49); Albumin, Serum 3.5 gm/dL (3.4-4.8); Albumin/Globulin Ratio 1.4 (1.2-2.2); Alkaline Phosphatase 114 U/L (46-116); Anion Gap 14 (7-16); Aspartate Amino Transferase 14 U/L (0-34); BUN/Creatinine Ratio 8 Ratio (12-20); Bilirubin,Total 0.3 mg/dL (0.3-1.2); Blood Urea Nitrogen 50 mg/dL (9-23); Calcium 8.6 mg/dL (8.3-10.6); Calcium (Corrected) 9.0 mg/dL (8.5-10.1); Carbon Dioxide 27.0 mMol/L (20.0-31.0); Chloride 94 mMol/L (98-107); Creatinine (Component) 6.6 mg/dL (0.6-1.3); Estimated Creatinine Clearance 8.9 mL/min (>60); Globulin 2.5 gm/dL (2.3-3.5); Glucose 102 mg/dL (74-106); Magnesium 2.0 mg/dL (1.6-2.6); Osmolality,Calculated 283 (275-295); Phosphorous 6.2 mg/dL (2.4-5.1); Potassium 4.0 mMol/L (3.4-5.1); Sodium 135 mMol/L (136-145); Total Protein 6.0 gm/dL (5.7-8.2); eGFR 8 See Note
[2025-09-09] MEDS: HEPARIN SOD INJ 5000 UNIT/ML VIAL SC ×2 (05:31→14:02)
--- NOTE | 2025-09-09 10:46 | PC.NURSE ---
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 . WILL CONT. TO MONITOR
--- NOTE | 2025-09-09 10:47 | PC.SS ---
rounding note: Pending blood cultures. If everything is clear then patient may possibly d/c home today per physician team
--- NOTE | 2025-09-09 12:26 | ESPR_ITS ---
<Statement entered by Sterling Lowry MD - 09/09/25 13:47> No acute overnight events. Seen and examined at bedside and patient is alert and oriented x 3. Vital signs show slight hypertension but overall vital signs are stable. CBC shows downtrending leukocytosis, stable hemoglobin. CHEM panel consistent with ESRD. Blood cultures and urine cultures pending but will continue with linezolid based off of previous cultures. Following cultures, anticipate discharge within 24 to 48 hours. ----- Note reviewed and agree with care plan as documented. Please refer to the note below for further details. Plan discussed with attending physician Dr. Ary Lowry MD PGY-2 Internal Medicine Documentation for date of: 09/09/25 Subjective Subjective Interval history: Patient had no acute events overnight. Pending PT and urine culture was reported to be growing GPC, following speciation Ordered to COREY baker, patient making minimal urine out, but will follow output. Patient receiving dialysis today (MWF scheduled) Exam Vital Signs Temp Pulse Resp BP Pulse Ox O2 Del Method O2 Flow Rate 98.0 F 73 18 117/67 97 Room Air 100 09/09/25 11:32 09/09/25 11:45 09/09/25 11:32 09/09/25 11:45 09/09/25 11:32 09/09/25 08:00 09/07/25 12:48 Narrative Exam General: No acute distress; A&Ox3 (person/place/month) Skin: Warm, dry, intact, no obvious rash. HENT: NCAT, EOMI/PERRL, not icteric. External ears normal. No rhinorrhea. Moist mucous membranes Cardiovascular: Regular rate & rhythm, no murmur, +S1/S2. Respiratory: Lungs CTAB GI: Soft, nontender, non-distended. No guarding or rebound tenderness. : No suprapubic tenderness. No flank tenderness bilaterally. Extremities: no edema, no cyanosis, no clubbing. Extremity pulses present Neuro: Grossly nonfocal. Moving all 4 extremities. CN not formally tested but appear grossly intact. Psychiatric: normal affect, cooperative Objective Labs 09/10/25 04:45 09/10/25 04:45 Labs: Laboratory Results - last 24 hr 09/09/25 04:28 WBC 11.0 H RBC 3.97 L Hgb 11.7 L Hct 35.7 L MCV 90 MCH 29.5 MCHC 32.8 RDW Std Deviation 58.7 H Plt Count 302 Neut % (Auto) 57 Lymph % (Auto) 30 [place] % (Auto) 7 Eos % (Auto) 5 Baso % (Auto) 0 Neut # (Auto) 6.3 Lymph # (Auto) 3.3 [place] # (Auto) 0.8 Eos # (Auto) 0.6 H Baso # (Auto) 0.0 Immature Gran # (Auto) 0.03 H Absolute Nucleated RBC 0.00 Immature Gran % 0 Nucleated RBC % 0 Sodium 135 L Potassium 4.0 Chloride 94 L Carbon Dioxide 27.0 Anion Gap 14 BUN 50 H Creatinine 6.6 H* D Estim Creat Clear Calc 8.9 L eGFR 8 L* BUN/Creatinine Ratio 8 L Glucose 102 Calculated Osmolality 283 Calcium 8.6 Corrected Calcium 9.0 Phosphorus 6.2 H Magnesium 2.0 Total Bilirubin 0.3 AST 14 ALT < 7 L Alkaline Phosphatase 114 D Total Protein 6.0 Albumin 3.5 D Globulin 2.5 Albumin/Globulin Ratio 1.4 ABG Interpretation ABG results: 09/06/25 09/07/25 09/07/25 20:42 01:37 06:25 ABG pH 7.77 H* 7.55 H D ABG pCO2 18 L* 34 D ABG pO2 98 74 L D ABG HCO3 27 H 30 H ABG O2 Saturation 98 95 ABG Base Excess 10 H 8 H VBG pH 7.53 VBG pCO2 34 L VBG pO2 61 H VBG Base Excess 6 H Quality Measures Quality Measures VTE prophylaxis Advance care planning discussed with:: patient Assessment & Plan Assessment Current Active Medications: Generic Name Dose Route Start Last Admin Trade Name Freq PRN Reason Stop Dose Admin Acetaminophen 650 mg 09/07/25 02:16 Acetaminophen 325 Mg Tablet PO 10/07/25 02:15 Q6H PRN Fever >101.5 Heparin Sodium (Porcine) 5,000 unit 09/07/25 06:00 09/09/25 05:31 Heparin Sod Inj 5000 Unit/Ml Vial SC 09/21/25 05:59 5,000 unit Q8HR RICH Administration Hydralazine HCl 10 mg 09/07/25 02:21 09/08/25 04:10 Hydralazine Inj 20 Mg/Ml Vial IVP 10/07/25 02:20 10 mg Q4HR PRN Administration SBP>180 Linezolid 600 mg in 300 mls @ 300 mls/hr 09/07/25 02:20 09/08/25 20:34 Zyvox Ivpb IV 09/14/25 02:19 300 mls/hr Q12HR RICH Administration Albumin Human 25 gm in 100 mls @ 0 mls/hr 09/09/25 09:15 Albuminex 25% Ivpb IV Q30MIN PRN To maintain SBP>90 Per Protocol Levothyroxine Sodium 60 mcg 09/09/25 09:00 Levothyroxine Inj 100 Mcg Vial IV 10/09/25 08:59 QAM RICH Naloxegol 25 mg 09/08/25 10:30 09/08/25 11:38 Naloxegol Oxalate 25 Mg Tablet (Non-Formulary) PO 10/08/25 10:29 Not Given On Hold: 09/09/25 08:56 QDAY RICH Nifedipine 30 mg 09/08/25 09:00 09/08/25 09:00 Nifedipine Xl 30 Mg Tabcr PO 10/08/25 08:59 30 mg QDAY RICH Administration Plan 75-year-old male with a history of CVA, CAD status post CABG, hypertension, end- stage renal disease on hemodialysis (MWF, follows Dr. Little), Urinary retention (chronic baker), afib (not anti-coagulated due to hx of GI bleeds) and CAD, who presents with altered mental status, left-sided weakness, and slurred speech. Patient admitted for acute encephalopathy. Found to have UTI, treating with Linezolid. Encephalopathy improved, pending urine culture and physical therapy. Getting dialysis 09/09. #Acute encephalopathy #Acute cystitis #Polypharmacy Possibly due to pain vs constipation vs UTI vs medication side effect Duloxetine dose increased to [address] shows stool in bowels, patient's states had 2 bowel movemenets 09/06. Patient was noted to be in abdominal pain at the same time as confusion occurred. Patient no longer has abdominal pain and confusion seems to be improving later in the day 09/07. hold home medications WBC elevated Head CT within normal limits Utox showed opiates (home norco) ABG initially showed pH 7.77, pCO2 18 ---> Repeat ABG pH 7.55, pCO2 34 TSH and free T4 wnl CT CAP also showed cystitis, mutliple fluid distended small bowel loops, cholelithiasis. Plan: ? Blood cultures [id number] ? Ucx showed GPC (per call with lab) ? Monitor and correct electrolytes ? Linezolid 600 mg IV bid #diffuse abdominal pain Patient was noted to be in diffuse abdominal pain prior to admission at the same time as confusion occurred. Liver US showed Multiple subcentimeter calculi with gallbladder wall thickening to 4 mm. Patient had large BM 09/08 -held naloxegol qd, patient having BM's -will monitor for abdominal pain and relevant lab abnormalities #UTI #History of urinary retention (As above in encephalopathy problem) Abdominal pain prior to admission with hx of UTI, chronic baker catheter states he has been trained how to self catheterize and maintain hygiene CT shows cystitis UA shows L.E. pos, 23 rbc, 277 wbc, 3+ bacteria ? Ucx showed GPC (per call with lab) - on antibitoics (above) #Afib with rvr EKG showed afib with rvr not on home anticoagulation, per chart, due to hx GI bleed CHADSVASC of 6 HAS-BLED of 5 -heparin for dvt prophylaxis -Reportedly not on A.C. due to history of GI bleed #CAD status post CABG Optimization of guideline directed medical therapy for coronary atherosclerosis: beta kisha, ARB, and statin (high intensity preferred) as indicated pending med rec #ESRD on HD (MWF) #Anemia of chronic disease #Hypophosphatemia Follows Dr. Little Does not produce much urine, patient does straight cath in the morning Plan: ? Monitor electrolytes and renal function ? Maintenance fluid ? Strict I&O ? Avoid nephrotoxic agents ? Renal dose medications ? Nephrology consulted, Dr. Little ? Contacted Dr. Little #Hypothyroidism home dose of levothyroxine 75 mcg po qday -TSH and free T4 wnl -restarted levothyroxine 60 iv po q am (80% home med, per pharmacy) #HTN home med of nifedipine 30 mg po qday -restarted home med #Lactic acidosis, resolved Given 1.5L ivf bolus in ED F/U repeat AM lactate 6.1 -> 1.3 Health Maintenance: Diet: Renal GI prophylaxis: None DVT prophylaxis: Heparin 5000u SC every 8 hours Antimicrobials: Linezolid CODE STATUS: Full Disposition: Telemetry Patient plan of care was discussed with the attending physician, Dr. Mcallister & senior resident Dr. Essence Lopez MD PGY-1 Attending Provider Attestation/Addendum I have examined the patient, reviewed labs and imaging findings, discussed the case with the resident(s), and reviewed entered orders. I agree with the plan of care as outlined in this note. Dr. Ary MD
[2025-09-09] MEDS: NIFEdipine XL 30 MG TABCR PO (14:05)
[2025-09-09] MEDS: HYDROcodone/APAP 5/325 TABLET 1 TAB PO (19:54)
--- NOTE | 2025-09-09 21:55 | PC.NURSE ---
pt did self in and out catheter.
--- NOTE | 2025-09-09 22:45 | ESCONSULT_ITS ---
RE: JUAN RAMON LYNCH : 1950 DATE OF CONSULTATION: 09/09/2025 REASON FOR REFERRAL: ESRD management. REFERRING PHYSICIAN: Marivel Taveras MD. HISTORY OF PRESENT ILLNESS: This patient is a 75-year-old gentleman with past medical history significant for hypertension, coronary artery disease status post CABG, obstructive uropathy with history of self catheterization, and ESRD on dialysis since 2016, dialyzing Tuesday, Tuesday, Tuesday, who presented to the emergency room on 09/07/2025 with altered level of consciousness. The patient was also found with fever, leukocytosis, and UTI. The patient was started on linezolid 600 mg IV q. 12 since he was admitted. The patient is more coherent today and just had a dialysis earlier as well. PAST MEDICAL HISTORY: Hypertension, CAD, history of anemia, ESRD, obstructive uropathy. PAST SURGICAL HISTORY: AV fistula placement, left inguinal hernia repair, status post CABG. CURRENT MEDICATIONS: 1. Acetaminophen. 2. Hydralazine 10 mg IV q. 4. 3. Levothyroxine 60 mcg daily. 4. Linezolid 600 mg b.i.d. 5. Naloxegol oxalate 25 mg p.o. daily. 6. Nifedipine 30 mg p.o. daily. PHYSICAL EXAMINATION: GENERAL: He is awake, alert and oriented, by the bedside. VITAL SIGNS: Blood pressure of 156/90, heart rate of 103. HEENT: Anicteric sclerae, normocephalic. NECK: Supple, no JVD. CHEST AND LUNGS: Symmetric expansion, clear breath sounds. HEART: Cardiac sounds without murmur. ABDOMEN: Soft and nontender. EXTREMITIES: No edema. LABORATORY DATA: Urinalysis: Urine protein 3+, RBC 23, WBC 277. Sodium 135, potassium 4, chloride 94, CO2 27, BUN 50, creatinine 6.4, glucose 102, calcium 8.6, corrected 9.0; phosphorus 6.2. Hemoglobin 11.7, WBC 11,000, platelet count 302,000. ASSESSMENT: 1. End-stage renal disease. 2. Altered level of consciousness secondary to urinary tract infection. 3. Urinary tract infection. 4. History of obstructive uropathy, doing self cath every day. 5. Hypertension. 6. Anemia of chronic disease, currently stable. PLAN: I agree with starting him on IV antibiotics. May need to cover gram negative rods as well. Next dialysis will be on Tuesday. I believe that his ALOC is mostly due to UTI. DT: 22:24:39 TT: 22:44:00 Ref: [id number] - TID: [id number] MTDD
[2025-09-10] VITALS (8 sets, daily range): BP systolic 108–160; BP diastolic 65–96; PULSE 59–112; RESP 13–19; TEMP 36.2–37.1; O2SAT 93–97; BMI 13.0
[2025-09-10] MEDS: HEPARIN SOD INJ 5000 UNIT/ML VIAL SC ×3 (00:02→13:52)
[2025-09-10] MEDS: HYDROcodone/APAP 5/325 TABLET 1 TAB PO (02:20)
[2025-09-10 05:54] LABS: Basophils # (Auto) 0.0 Thou/mm3 (0.0-0.2); Basophils % (Auto) 0 % (0-2.5); Eosinophils # (Auto) 0.2 Thou/mm3 (0.0-0.5); Eosinophils % (Auto) 1 % (0-10); Hematocrit 40.5 % (41.0-53.0); Hemoglobin 12.8 g/dL (13.5-16.0); Immature Granulocytes Auto 0.04 Thou/mm3 (0.00-0.00); Lymphocytes # (Auto) 3.8 Thou/mm3 (1.0-4.8); Lymphocytes % (Auto) 25 % (10-50); Mean Corpuscular HGB Conc 31.6 g/dl (31.0-37.0); Mean Corpuscular Hemoglobin 28.4 pg (25.0-35.0); Mean Corpuscular Volume 90 fL (80-100); Monocytes # (Auto) 0.8 Thou/mm3 (0.0-0.8); Monocytes % (Auto) 5 % (0-12); Neutrophils # (Auto) 10.0 Thou/mm3 (1.8-7.7); Neutrophils % (Auto) 68 % (37-80); Nucleated Red Blood Cell # 0.00 Thou/mm3 (0.00-0.00); Nucleated Red Blood Cell % 0 /100 WBC (0); Platelet Count 309 Thou/mm3 (140-440); RDW Standard Deviation 58.6 fL (35.1-43.9); Red Blood Count 4.51 Miln/mm3 (4.50-5.90); White Blood Count 14.8 Thou/mm3 (3.8-10.6)
[2025-09-10 06:45] LABS: Alanine Aminotransferase < 7 U/L (10-49); Albumin, Serum 4.0 gm/dL (3.4-4.8); Albumin/Globulin Ratio 1.5 (1.2-2.2); Alkaline Phosphatase 118 U/L (46-116); Anion Gap 15 (7-16); Aspartate Amino Transferase 17 U/L (0-34); BUN/Creatinine Ratio 6 Ratio (12-20); Bilirubin,Total 0.4 mg/dL (0.3-1.2); Blood Urea Nitrogen 32 mg/dL (9-23); Calcium 9.0 mg/dL (8.3-10.6); Calcium (Corrected) 9.0 mg/dL (8.5-10.1); Carbon Dioxide 27.1 mMol/L (20.0-31.0); Chloride 94 mMol/L (98-107); Creatinine (Component) 5.7 mg/dL (0.6-1.3); Estimated Creatinine Clearance 10.3 mL/min (>60); Globulin 2.6 gm/dL (2.3-3.5); Glucose 117 mg/dL (74-106); Magnesium 1.9 mg/dL (1.6-2.6); Osmolality,Calculated 279 (275-295); Phosphorous 4.9 mg/dL (2.4-5.1); Potassium 3.3 mMol/L (3.4-5.1); Sodium 136 mMol/L (136-145); Total Protein 6.6 gm/dL (5.7-8.2); eGFR 10 See Note
[2025-09-10] MEDS: POTASSIUM CHLORIDE 10% 20 MEQ/15 ML UDC 40 MEQ PO ×2 (09:10→10:19)
[2025-09-10] MEDS: NIFEdipine XL 30 MG TABCR PO (09:11)
--- NOTE | 2025-09-10 10:49 | ESPR_ITS ---
<Statement entered by Sterling Lowry MD - 09/10/25 14:03> No acute overnight events. Seen and examined at bedside and patient resting comfortably in bed. He had some pain overnight and receiving pain medications and had resolved upon evaluation. Otherwise, Baker was discontinued and was started on PRN self caths. Vital signs stable other than mildly elevated BP. CBC showing slightly elevated leukocytosis but hemoglobin stable. CHEM panel showing hypokalemia that will be repleted and otherwise consistent with ESRD. Urine culture came back positive for 2 different species with different sensitivities. Would likely have to be discharged on 2 different antibiotics. ----- Note reviewed and agree with care plan as documented. Please refer to the note below for further details. Plan discussed with attending physician Dr. Maria Guadalupe Lowry MD PGY-2 Internal Medicine Documentation for date of: 09/10/25 Subjective Subjective Interval history: Patient had no acute events overnight. Blood cultures no growth over 48 hours Urine cultures speciated today enterococcus faecium (grp d) & enterobacter coacae Gave dicyclomine for abdominal pain/cramps Exam Vital Signs Temp Pulse Resp BP Pulse Ox O2 Del Method O2 Flow Rate 97.3 F 95 14 160/96 H 95 Room Air 100 09/10/25 08:00 09/10/25 09:11 09/10/25 08:00 09/10/25 09:11 09/10/25 08:00 09/10/25 08:00 09/07/25 12:48 Narrative Exam General: No acute distress; A&Ox3 (person/place/month) Skin: Warm, dry, intact, no obvious rash. HENT: NCAT, EOMI/PERRL, not icteric. External ears normal. No rhinorrhea. Moist mucous membranes Cardiovascular: Regular rate & rhythm, no murmur, +S1/S2. Respiratory: Lungs CTAB GI: Soft, nontender, non-distended. No guarding or rebound tenderness. : No suprapubic tenderness. No flank tenderness bilaterally. Extremities: no edema, no cyanosis, no clubbing. Extremity pulses present Neuro: Grossly nonfocal. Moving all 4 extremities. CN not formally tested but appear grossly intact. Psychiatric: normal affect, cooperative Objective Labs 09/10/25 04:45 09/10/25 04:45 Labs: Laboratory Results - last 24 hr 09/10/25 04:45 WBC 14.8 H RBC 4.51 Hgb 12.8 L Hct 40.5 L MCV 90 MCH 28.4 MCHC 31.6 RDW Std Deviation 58.6 H Plt Count 309 Neut % (Auto) 68 Lymph % (Auto) 25 [place] % (Auto) 5 Eos % (Auto) 1 Baso % (Auto) 0 Neut # (Auto) 10.0 H Lymph # (Auto) 3.8 [place] # (Auto) 0.8 Eos # (Auto) 0.2 Baso # (Auto) 0.0 Immature Gran # (Auto) 0.04 H Absolute Nucleated RBC 0.00 Immature Gran % 0 Nucleated RBC % 0 Sodium 136 Potassium 3.3 L D Chloride 94 L Carbon Dioxide 27.1 Anion Gap 15 BUN 32 H Creatinine 5.7 H* D Estim Creat Clear Calc 10.3 L eGFR 10 L* BUN/Creatinine Ratio 6 L Glucose 117 H Calculated Osmolality 279 Calcium 9.0 Corrected Calcium 9.0 Phosphorus 4.9 Magnesium 1.9 Total Bilirubin 0.4 AST 17 ALT < 7 L Alkaline Phosphatase 118 H Total Protein 6.6 Albumin 4.0 D Globulin 2.6 Albumin/Globulin Ratio 1.5 ABG Interpretation ABG results: 09/06/25 09/07/25 09/07/25 20:42 01:37 06:25 ABG pH 7.77 H* 7.55 H D ABG pCO2 18 L* 34 D ABG pO2 98 74 L D ABG HCO3 27 H 30 H ABG O2 Saturation 98 95 ABG Base Excess 10 H 8 H VBG pH 7.53 VBG pCO2 34 L VBG pO2 61 H VBG Base Excess 6 H Quality Measures Quality Measures VTE prophylaxis Advance care planning discussed with:: patient Assessment & Plan Assessment Current Active Medications: Generic Name Dose Route Start Last Admin Trade Name Freq PRN Reason Stop Dose Admin Acetaminophen 650 mg 09/07/25 02:16 Acetaminophen 325 Mg Tablet PO 10/07/25 02:15 Q6H PRN Fever >101.5 Heparin Sodium (Porcine) 5,000 unit 09/07/25 06:00 09/10/25 07:18 Heparin Sod Inj 5000 Unit/Ml Vial SC 09/21/25 05:59 5,000 unit Q8HR RICH Administration Hydralazine HCl 10 mg 09/07/25 02:21 09/08/25 04:10 Hydralazine Inj 20 Mg/Ml Vial IVP 10/07/25 02:20 10 mg Q4HR PRN Administration SBP>180 Linezolid 600 mg in 300 mls @ 300 mls/hr 09/07/25 02:20 09/10/25 09:10 Zyvox Ivpb IV 09/14/25 02:19 300 mls/hr Q12HR RICH Administration Albumin Human 25 gm in 100 mls @ 0 mls/hr 09/09/25 09:15 Albuminex 25% Ivpb IV Q30MIN PRN To maintain SBP>90 Per Protocol Levothyroxine Sodium 60 mcg 09/09/25 09:00 09/10/25 09:10 Levothyroxine Inj 100 Mcg Vial IV 10/09/25 08:59 60 mcg QAM RICH Administration Naloxegol 25 mg 09/08/25 10:30 09/08/25 11:38 Naloxegol Oxalate 25 Mg Tablet (Non-Formulary) PO 10/08/25 10:29 Not Given On Hold: 09/09/25 08:56 QDAY RICH Nifedipine 30 mg 09/08/25 09:00 09/10/25 09:11 Nifedipine Xl 30 Mg Tabcr PO 10/08/25 08:59 30 mg QDAY RICH Administration Plan 75-year-old male with a history of CVA, CAD status post CABG, hypertension, end- stage renal disease on hemodialysis (MWF, follows Dr. Little), Urinary retention (chronic baker), afib (not anti-coagulated due to hx of GI bleeds) and CAD, who presents with altered mental status, left-sided weakness, and slurred speech. Patient admitted for acute encephalopathy. Found to have UTI, treating with Linezolid. Encephalopathy improved, pending urine culture and physical therapy. Getting dialysis 09/09. #Acute encephalopathy #Acute cystitis #Polypharmacy Possibly due to pain vs constipation vs UTI vs medication side effect Duloxetine dose increased to [address] shows stool in bowels, patient's states had 2 bowel movemenets 09/06. Patient was noted to be in abdominal pain at the same time as confusion occurred. Patient no longer has abdominal pain and confusion seems to be improving later in the day 09/07. hold home medications WBC elevated Head CT within normal limits Utox showed opiates (home norco) ABG initially showed pH 7.77, pCO2 18 ---> Repeat ABG pH 7.55, pCO2 34 TSH and free T4 wnl CT CAP also showed cystitis, mutliple fluid distended small bowel loops, cholelithiasis. Plan: ? Blood cultures [id number] ? Urine cultures speciated today enterococcus faecium (grp d) & enterobacter coacae ? Monitor and correct electrolytes ? Linezolid 600 mg IV bid #diffuse abdominal pain Patient was noted to be in diffuse abdominal pain prior to admission at the same time as confusion occurred. Liver US showed Multiple subcentimeter calculi with gallbladder wall thickening to 4 mm. Patient had large BM 09/08 -gave dicyclomine 10 mg po qid prn for abdominal cramps/pain -will monitor for abdominal pain and relevant lab abnormalities #UTI #History of urinary retention (As above in encephalopathy problem) Abdominal pain prior to admission with hx of UTI, chronic baker catheter states he has been trained how to self catheterize and maintain hygiene CT shows cystitis UA shows L.E. pos, 23 rbc, 277 wbc, 3+ bacteria ? Urine cultures speciated 09/10 enterococcus faecium (grp d) & enterobacter coacae - on antibitoics (above) #Afib with rvr EKG showed afib with rvr not on home anticoagulation, per chart, due to hx GI bleed CHADSVASC of 6 HAS-BLED of 5 -heparin for dvt prophylaxis -Reportedly not on A.C. due to history of GI bleed #CAD status post CABG Optimization of guideline directed medical therapy for coronary atherosclerosis: beta kisha, ARB, and statin (high intensity preferred) as indicated pending med rec #ESRD on HD (MWF) #Anemia of chronic disease #Hypophosphatemia Follows Dr. Little Does not produce much urine, patient does straight cath in the morning Plan: ? Monitor electrolytes and renal function ? Maintenance fluid ? Strict I&O ? Avoid nephrotoxic agents ? Renal dose medications ? Nephrology consulted, Dr. Little ? Contacted Dr. Little #Hypothyroidism home dose of levothyroxine 75 mcg po qday -TSH and free T4 wnl -restarted levothyroxine 60 iv po q am (80% home med, per pharmacy) #HTN home med of nifedipine 30 mg po qday -restarted home med #Lactic acidosis, resolved Given 1.5L ivf bolus in ED F/U repeat AM lactate 6.1 -> 1.3 Health Maintenance: Diet: Renal GI prophylaxis: None DVT prophylaxis: Heparin 5000u SC every 8 hours Antimicrobials: Linezolid CODE STATUS: Full Disposition: Telemetry Patient plan of care was discussed with the attending physician, Dr. Lerma & senior resident Dr. Essence Lopez MD PGY-1 Attending Provider Attestation/Addendum I, Deanne Lerma DO, attest that I was physically present for the tillman portions of the service and evaluated the patient with the resident and I reviewed and discussed the case with the resident and agree with the resident's findings and plans of care as documented above Patient seen and evaluated this AM. He states that he is doing well and eager to go home. No acute events overnight. Pending urine cultures. Suspect altered mental status to be 2/2 polypharmacy as well given recent increase in dosage of cymbalta and patient continues to take gabapentin and norco at home. Patient states that he self- catheterizes at home and is due to see his urologist outpatient. Anticipate DC within next 24h once urine cultures are available.
--- NOTE | 2025-09-10 15:35 | ESDS_ITS ---
<Statement entered by Deanne Lerma DO - 09/11/25 15:07> I, Deanne Lerma DO, attest that I was physically present for the tillman portions of the service and evaluated the patient with the resident and I reviewed and discussed the case with the resident and agree with the resident's findings and plans of care as documented above <Statement entered by Sterling Lowry MD - 09/10/25 16:24> Note reviewed and agree with care plan as documented. Please refer to the note below for further details. Plan discussed with attending physician Dr. Maria Guadalupe Lowry MD PGY-2 Internal Medicine Planned Discharge Date 09/10/25 DS: Providers Provider Date of admission: 09/07/25 03:25 Primary care physician: Physician No Primary/Family Admitting Provider: Marivel Taveras MD Attending Provider on Admission: Deanne Lerma DO Consults: 09/07/25 02:36 Consult to Nephrology Stat Comment: Consulting Provider: Rayne Little 09/07/25 11:27 Referral Physical Therapy Routine Comment: Physician Instructions: Attending Provider on DC: Deanne Lerma DO Discharging Provider: Deanne Lerma DO DS: Diagnosis Problem List Completed Was Problem List Reviewed/Reconciled?: Yes Hospital Course Hospital Course Hospital course: 75-year-old male with a history of CVA, CAD status post CABG, hypertension, end- stage renal disease on hemodialysis (MWF, follows Dr. Little), Urinary retention (chronic baker), afib (not anti-coagulated due to hx of GI bleeds) and CAD, who presents with altered mental status, admitted for acute encephalopathy. Patient has been hospitalized multiple times in the last month for encephalopathy, this time it appears to be due to UTI with possible contributions from polypharmacy and abdominal pain. Head CT was negative for acute findings, Chest abdomen pelvis CT was only noted for cholelithiasis and cystitis. Patient had a urine culture taken which was concerning for UTI as well, was started on linezolid. Patient's mentation improved after about 1/2 days after having a large bowel movement 09/08 and with continued treatment of the UTI. Patient continues to self catheterize for urination and was recommended to see Dr. Luna, urologist, outpatient. Patient will be sent with linezolid and gabapentin po as well. Discharge Instructions - We prescribed you the antibiotic Linezolid 600 mg, to be take orally twice per day for 7 days - We also prescribed you gabapentin 100 mg, to be taken orally 1 time per day - Follow up outpatient within 1-[address] Luna ? Continue taking all other home medications as prescribed ? Follow-up with PCP within 1-2 weeks of discharge ? If you do not have a PCP, you can follow-up at the [facility] (you can call [phone] to make an appointment) ? Return to ED if symptoms worsen or recur #Acute encephalopathy #Acute cystitis #Polypharmacy #diffuse abdominal pain #UTI #Urinary retention #Afib with rvr #CAD status post CABG #ESRD on HD (MWF) #Anemia of chronic disease #Hypophosphatemia #Hypothyroidism #HTN #Lactic acidosis Patient plan of care was discussed with the attending physician, Dr. Lerma & senior resident Dr. Essence Lopez MD PGY-1 Time Spent with Patient Time attestation: Total time spent providing and/or coordinating discharge services: Time spent: Greater than 30 minutes Exam Vital Signs Temp Pulse Resp BP Pulse Ox O2 Del Method O2 Flow Rate 98.5 F 64 18 157/74 H 97 Room Air 100 09/10/25 12:00 09/10/25 12:00 09/10/25 12:00 09/10/25 12:00 09/10/25 12:00 09/10/25 12:00 09/07/25 12:48 Narrative Exam General: No acute distress; A&Ox3 (person/place/month) Skin: Warm, dry, intact, no obvious rash. HENT: NCAT, EOMI/PERRL, not icteric. External ears normal. No rhinorrhea. Moist mucous membranes Cardiovascular: Regular rate & rhythm, no murmur, +S1/S2. Respiratory: Lungs CTAB GI: Soft, nontender, non-distended. No guarding or rebound tenderness. : No suprapubic tenderness. No flank tenderness bilaterally. Extremities: no edema, no cyanosis, no clubbing. Extremity pulses present Neuro: Grossly nonfocal. Moving all 4 extremities. CN not formally tested but appear grossly intact. Psychiatric: normal affect, cooperative Discharge Plan Plan Patient Disposition: HOME (Self Care) Patient condition on transfer: Stable Care Plan Goals: - We prescribed you the antibiotic Linezolid 600 mg, to be take orally twice per day for 7 days - We also prescribed you gabapentin 100 mg, to be taken orally 1 time per day - Follow up outpatient within 1-[address] Luna ? Continue taking all other home medications as prescribed ? Follow-up with PCP within 1-2 weeks of discharge ? If you do not have a PCP, you can follow-up at the [facility] (you can call [phone] to make an appointment) ? Return to ED if symptoms worsen or recur Prescriptions/Referrals Prescriptions/Med Rec: New gabapentin 100 mg capsule 100 mg PO QDAY Qty: 30 0RF linezolid 600 mg tablet 600 mg PO Q12H 7 Days Qty: 14 0RF Continued HYDROCODONE BIT/ACETAMINOPHEN (HYDROCODON-ACETAMINOPH 2.5-325) 1 EACH tablet 1 tab PO Q6HR PRN (Reason: pain) Qty: 0 Rx Instructions: 1 Every 6-8 hours for pain Levothyroxine * (SYNTHROID *) 75 MCG tablet 75 mcg PO QDAY Qty: 0 sevelamer carbonate [Renvela] 800 mg Tablet 800 mg PO TID Rx Instructions: must administer with a meal/food lidocaine [Anecream] 4 % cream 1 applic topical BID Rx Instructions: to right 2nd toe arthritis pain. (Over the counter med) pravastatin 10 mg tablet 10 mg PO DAILY pantoprazole 40 mg Tablet,Delayed Release (Dr/Ec) 40 mg PO QDAY 90 Days Qty: 90 0RF sennosides [Senna Lax] 8.6 mg Tablet 8.6 mg PO QDAY Qty: 14 0RF nifedipine 30 mg tablet extended release 30 mg PO QDAY Qty: 30 0RF acetaminophen 500 mg tablet 500 mg PO TID PRN (Reason: fever ) Patient Comments: TAKE ONE TABLET BY MOUTH THREE TIMES DAILY NEEDED FOR FEVER dicyclomine 10 mg capsule 10 mg PO TID PRN (Reason: abdominal pain) Qty: 30 0RF Held duloxetine 30 mg Capsule,Delayed Release(Dr/Ec) 60 mg PO QDAY 90 Days Qty: 180 0RF Hold Instructions: Hold until you follow-up with your PCP Discontinued gabapentin 100 mg Capsule 100 mg PO TID Qty: 90 0RF Referrals: No Primary/Family,Physician [Primary Care Provider] Patient/Caregiver Discharge Instructions Education Materials: Urinary Tract Infections in Men Print Language: [place] Stand Alone Forms: Dennise Award Info., Patient Portal Info Letter Discharge Order Discharge Orders: Discharge (Routine); Ordered 09/10/25 Ordered By: Wm Lopez Quality Discharge Quality Measures VTE prophylaxis
[2025-09-12 17:48] LABS: Index Value <0.50
[2025-09-13 07:44] LABS: Aspergillus Ag, Ser* NOT DETECTED
== END 2025-09-10 16:59 | disposition home or self-care (01) | DRG 698 ==
LOC: SERX 09-07 02:27 → SERHOLD 09-07 03:26 → S2SX 09-07 17:40 → S3NX 09-09 05:44
PROVIDERS: Nurse Practitioner Family; Admitting Provider Student in an Organized Health Care Education/Training Program; Emergency Provider Emergency Medicine; Visit Provider Internal Medicine
DX: T83.518A Infection and inflammatory reaction due to other urinary catheter, initial encounter (principal); G93.41 Metabolic encephalopathy; N18.6 End stage renal disease; N30.00 Acute cystitis without hematuria; I12.0 Hypertensive chronic kidney disease with stage 5 chronic kidney disease or end stage renal disease; E87.20 Acidosis, unspecified; E87.1 Hypo-osmolality and hyponatremia; I25.10 Atherosclerotic heart disease of native coronary artery without angina pectoris; I48.91 Unspecified atrial fibrillation; D63.1 Anemia in chronic kidney disease; K80.20 Calculus of gallbladder without cholecystitis without obstruction; N21.0 Calculus in bladder; E03.9 Hypothyroidism, unspecified; E83.39 Other disorders of phosphorus metabolism; Z95.1 Presence of aortocoronary bypass graft; E87.6 Hypokalemia; Z86.73 Personal history of transient ischemic attack (TIA), and cerebral infarction without residual deficits; Z99.2 Dependence on renal dialysis; Z79.890 Hormone replacement therapy
CPT/HCPCS: 36415; 36600; 51701; 51702; 70450; 71250; 74176; 76705; 80048; 80053; 80307; 81001; 82803; 83605; 83615; 83690; 83735; 83880; 84100; 84145; 84439; 84443; 84484; 85025; 85610; 85730; 87015; 87040; 87077; 87086; 87116; 87186; 87206; 87305; 87502; 87635; 93005; 93225; 96361; 96365; 96375; 97162; 99285; A4216; A4314; J0131; J0360; J0696; J1171; J1200; J1644; J2021; J2060; J2358; J2543; J7120; J7999; A9270; J2359